=== PATIENT | male | born 1965 | race Caucasian/White ===

== ENCOUNTER → 2020-11-20 10:34 | Outpatient (BNVA) | payer MEDICARE, MEDICAID, SELFPAY | PROVIDERS: Family Provider Family Medicine; Visit Provider Internal Medicine | DX: Z01.812 Encounter for preprocedural laboratory examination (principal); Z20.822 Contact with and (suspected) exposure to COVID-19 | CPT/HCPCS: 87635 ==

== ENCOUNTER 2020-11-23 08:32 | Day surgery (SDC) | payer MEDICARE, MEDICAID, SELFPAY ==
[2020-11-21 14:08] VITALS: BMI 22.6
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
[2020-11-23 08:57] VITALS: BP 174/94; PULSE 84; RESP 18; TEMP 36.3; O2SAT 97
--- NOTE | 2020-11-23 09:15 | W.PM.OPSFHP ---
Same Day Surgery H&P Indication for Procedure/HPI DATE OF PROCEDURE: November 23, 2020 CHIEF COMPLAINT/INDICATIONFOR SURGICAL PROCEDURE: Screening colonoscopy PREOP DIAGNOSIS: screening colonoscopy PLANNED PROCEDRUE: Operation Date: 11/23/20 09:30 Proposed Procedures p Colonoscopy 28772 z12.11(Not Applicable) - Donald Lazaro MD Medications/Allergies* Home Medications Medication Instructions Recorded Confirmed Type Levemir U-100 Insulin 32 unit SUBCUT DAILY 11/21/20 11/23/20 History Novolin R Regular U-100 Insuln 17 units SUBCUT BID 11/21/20 11/23/20 History loratadine [Claritin] 10 mg PO DAILY 11/21/20 11/21/20 History multivitamin 1 tab PO DAILY 11/21/20 11/21/20 History omeprazole 20 mg PO DAILY 11/21/20 11/23/20 History Allergies/Adverse Reactions Allergy/AdvReac Type Severity Reaction Status Date / Time No Known Allergies Allergy Verified 11/23/20 08:53 Pertinent Exam Findings alert, oriented x 3, clear to auscultation bilaterally, regular rate & rhythm, operative site marked and procedure specific exam findings Recommendations Surgery/Procedure today Coding Level of Care Code Acute Pamphlet Distributor for Chris Dash
[2020-11-23] MEDS: sodium chloride 0.9% 1,000 ML 30 ML IV (09:18)
[2020-11-23 09:50] LABS: Glucose Point of Care 313 mg/dL (70-110)
[2020-11-23 10:07] VITALS: BP 130/71; PULSE 74; RESP 18; TEMP 36.5; O2SAT 95
[2020-11-23 10:17] VITALS: BP 151/91; PULSE 80; RESP 18; O2SAT 95
--- NOTE | 2020-11-23 16:26 | ANE.PACU2 ---
Inpatient post-anesthesia follow up: Airway intact: Yes Vital signs: Temperature 97.7 F Pulse Rate 80 Respiratory Rate 18 Blood Pressure 151/91 Pulse Oximetry 95 Oxygen Delivery Me thod Room Air Oxygen Flow Rate Fraction of Inspir ed Oxygen Hydration adequate: Yes Nausea and vomiting: No Pain level: 1 Mental status: Baseline
== END 2020-11-23 10:46 | disposition home or self-care (01) ==
PROVIDERS: Family Provider Family Medicine; Visit Provider Internal Medicine
PROC: 0DJD8ZZ Inspection of Lower Intestinal Tract, Via Natural or Artificial Opening Endoscopic (ICD-10-PCS; CPT 45378; principal; 2020-11-23 09:30)
DX: Z12.11 Encounter for screening for malignant neoplasm of colon (principal); I10 Essential (primary) hypertension; K21.9 Gastro-esophageal reflux disease without esophagitis; E10.9 Type 1 diabetes mellitus without complications; Z85.038 Personal history of other malignant neoplasm of large intestine
CPT/HCPCS: 36416; 82962; 96360; G0121; J2704; J7030

== ENCOUNTER 2020-11-24 11:41 | Inpatient (IN) | payer MEDICARE, MEDICAID, SELFPAY ==
[2020-11-24] VITALS (47 sets, daily range): BP systolic 75–164; BP diastolic 51–89; PULSE 92–111; RESP 0–35; TEMP 36.4–36.5; O2SAT 90–100; BMI 22.6
--- NOTE | 2020-11-24 11:48 | CTR_ITS ---
PROCEDURE INFORMATION: Exam: CT Abdomen And Pelvis Without Contrast Exam date and time: 11/24/2020 11:48 AM Age: 54 years old Clinical indication: Abdominal pain; Generalized; Prior surgery; Surgery date: Post-operative (0-2 days); Patient HX: C/O worsening abd pain since colonoscopy; Additional info: Abd pain, creat 3.9 TECHNIQUE: Imaging protocol: Computed tomography of the abdomen and pelvis without contrast. Radiation optimization: All CT scans at this facility use at least one of these dose optimization techniques: automated exposure control; mA and/or kV adjustment per patient size (includes targeted exams where dose is matched to clinical indication); or iterative reconstruction. COMPARISON: CT abdomen wo con [id number] 07/06/2018 3:54 PM RADIATION DOSE METRICS: Total DLP (mGy-cm): 944.98 FINDINGS: Limitations: The absence of intravenous contrast lessens the sensitivity of this study for solid organ abnormalities. Lungs: There is partial atelectasis at both lung bases. Liver: There is extensive air throughout the portal veins within the liver. Gallbladder and bile ducts: The gallbladder is normal. Pancreas: The pancreas is normal. Spleen: The spleen is normal. Adrenal glands: There is question of slight enlargement of the left adrenal gland not fully evaluated on this study. Kidneys and ureters: The kidneys are normal. There is no evidence of hydronephrosis. Stomach and bowel: There is abnormal thickening of many loops of small bowel in the mid abdomen which may represent some nonspecific enteritis. There is also dilatation of some proximal small bowel loops in the left upper quadrant. Given the findings of portal venous gas in the small bowel thickening is worrisome for ischemic bowel. Appendix: Not identified Intraperitoneal space: There is copious free air throughout the abdomen mostly anteriorly. Findings are worrisome for perforated viscus. Surgical consultation is advised. There is no evidence of free intraperitoneal fluid. Vasculature: There is some air within the leaves of the mesentery some of which may represent portal venous gas. There are postsurgical changes of prior distal colon resection. Lymph nodes: Unremarkable. No enlarged lymph nodes. Urinary bladder: There is a Hull catheter within the urinary bladder. Reproductive: Unremarkable as visualized. Bones/joints: Unremarkable. No acute fracture. Soft tissues: Unremarkable. CT/CT abdomen pelvis wo con [id number] IMPRESSION: 1. Free intraperitoneal air. 2. Very large amounts of portal venous gas within the liver. 3. Abnormal small bowel loops. Findings are suggestive of ischemic small bowel. 4. Findings suggesting small bowel obstruction. COMMENTS: THIS REPORT CONTAINS FINDINGS THAT MAY BE CRITICAL TO PATIENT CARE. The findings were verbally communicated via telephone conference with MANDO VASQUEZ at 1:34 PM CDT on 11/24/2020. The findings were acknowledged and understood. Radiation Dose CTDIVOL = (mGy): DLP = 944.98 (mGy-cm)
--- NOTE | 2020-11-24 11:48 | XRR_ITS ---
PROCEDURE INFORMATION: Exam: XR Chest Exam date and time: 11/24/2020 11:48 AM Age: 54 years old Clinical indication: Cough; Additional info: Dyspnea/cough TECHNIQUE: Imaging protocol: XR of the chest. Views: 1 view. COMPARISON: [place] Chest 1 [place] [id number] 07/09/2018 3:57 AM FINDINGS: Lungs: There is some partial atelectasis at the lung bases. There is no pulmonary vascular congestion. No focal infiltrate is identified. Pleural spaces: Unremarkable. No pleural effusion. No pneumothorax. Heart/Mediastinum: Heart is within normal limits of size. Bones/joints: Unremarkable. Intraperitoneal space: There is a large amount of free intraperitoneal air beneath the diaphragm. This finding was called to the emergency room physician at the time of reporting of the CT scan. XR/XR chest 1V portable [id number] IMPRESSION: 1. Large free air 2. Basilar atelectasis.
--- NOTE | 2020-11-24 11:48 | W.ED.GENADLT ---
HPI - General Adult General: Chief complaint: Altered Mental Status Stated complaint: FOUND UNRESPONSIVE Time Seen by Provider: 11/24/20 11:46 History of Present Illness: HPI narrative: 54-year-old male brought in by EMS found unresponsive and severely hypotensive in the field. He was poorly responsive he was given a push dose epi and also given normal saline fluid bolus. He is awake and responsive he denies any chest pain he does complain of some abdominal discomfort he had a colonoscopy done at the [facility] yesterday he denies any hematochezia. He is had some vomiting he did take his insulin this morning. In the field his initial blood sugar was 160 repeat was 137. By the time he arrived here he received a full liter of fluids and was starting on the second. He was last seen well around 930 this morning he arrived here in the emergency room at approximately 1145. Reviewing records seen patient had colonoscopy done yesterday. Onset (ago): hour(s) Location: abdomen Severity: moderate Quality: aching Pain Consistency: constant Relieving factors: none Exacerbating factors: none Associated symptoms: Reports confusion and nausea; Deny chest pain, cough, diaphoresis, decreased appetite, dyspnea, fevers/chills, headache(s), malaise, rash, palpitations, seizures, short of breath, syncope, vomiting or weakness Review of Systems Const: Denies: malaise or diaphoresis ENMT: Denies: throat pain, ear or mastoid pain, nasal discharge or nasal congestion Card: Denies: chest pain, palpitations or syncope Resp: Denies: dyspnea GI: Reports: nausea; Denies: vomiting : Denies: flank pain, dysuria, urinary frequency or urinary urgency Skin/Breast: Denies: rash Neuro: Reports: confusion; Denies: headache(s) [facility] ED PFSH: Medical History (Updated 12/06/20 @ 08:00 by Fuad Cronin DO) Blindness of both eyes Diabetes GERD (gastroesophageal reflux disease) Rectosigmoid cancer SBO (small bowel obstruction) Status post chemoradiation Surgical History (Updated 11/25/20 @ 12:16 by Mack Ricardo MD) History of low anterior resection of rectum History of reversal of ileostomy S/P exploratory laparotomy (11/24/20) Small bowel resection, partial colectomy Status post colonoscopy (11/23/20) Physical Exam Const: COMMON NORMALS: no acute distress GENERAL APPEARANCE: cooperative and comfortable ORIENTATION/CONSCIOUSNESS: Yes awake HENMT: COMMON NORMALS: normocephalic, atraumatic, hearing grossly normal bilaterally and external ears normal HEAD & SCALP: normocephalic and atraumatic EXTERNAL EAR: Yes external ears normal Neck/C-Spine: COMMON NORMALS: no JVD Resp: COMMON NORMALS: normal respiratory effort, No retractions, No use of accessory muscles and clear to auscultation bilaterally AUSCULTATION: clear to auscultation bilaterally Cardio: COMMON NORMALS: no JVD, regular rhythm and No murmurs present (Cardio) RATE: tachycardic RHYTHM: regular rhythm GI: COMMON NORMALS: No hepatosplenomegaly present AUSCULTATION: Yes Absent bowel sounds PALPATION: Yes Tenderness to palpation present (GI) (Diffusely tender), Yes Guarding due to palpation present (GI) and Yes No hepatosplenomegaly present PERCUSSION: tympanic to percussion OTHER: Abrasion to the abdominal wall small superficial just to the right of the midline Extremity: COMMON NORMALS: normal to inspection, capillary refill normal, no clubbing, cyanosis or edema, no calf tenderness and no pedal edema Skin: COMMON NORMALS: no rashes or lesions noted GENERAL SKIN EXAM: no rashes or lesions noted Course Vital Signs: Vital signs: Vital Signs Temperature 98.4 F 12/06/20 03:45 Pulse Rate 91 12/06/20 03:45 Respiratory Rate 18 12/06/20 03:45 Blood Pressure 100/53 12/06/20 03:45 Pulse Oximetry 93 12/06/20 03:45 MDM - General Adult MDM Narrative: Medical decision making narrative: Acute abdomen with free air on CT discussed with Dr. Ricardo will take directly to the OR from the ER. Patient has been started on pressors she is acutely septic cultures have been drawn as well as antibiotics started. Lab Data: Labs: Lab Results 11/24/20 11/24/20 11/24/20 Range/Units 11:54 11:54 11:54 WBC 6.7 (4.0-10.0) 10^3/ uL RBC 4.80 (4.1-5.3) 10^6/u L Hgb 15.2 (11.7-16.6) g/dL Hct 46.8 (42.0-52.0) % MCV 97.5 H (80-94) fL MCH 31.7 (28.0-34.0) pg MCHC 32.5 (30.0-36.0) g/dL RDW 13.2 (12.1-15.1) % Plt Count 269 (130-400) 10^3/c mm MPV 11.3 H (7.4-10.4) fL Lymph % (Auto) Not Reportable Tyrrell % (Auto) Not Reportable Lymph # (Auto) Not Reportable Tyrrell # (Auto) Not Reportable Total Counted 100 (0-100) Atypical Lymphs % 0.0 (0-5) % Absolute Neutrophi ls 2.9 (1.4-6.5) 10^3/c mm Segmented Neutroph ils 3 % Abs Segm Neuts (Ma n) 0.2 L (1.6-7.1) 10/cmm Band Neutrophils 40.0 % Abs Band Neuts (Ma n) 2.7 H (0.0-1.2) 10^3/c mm Absolute Lymphocyt es 1.5 (1.2-3.4) 10^3/c mm Lymphocytes (Manua l) 23 % Monocytes (Manual) 18.0 % Absolute Monocytes 1.2 H (0.1-0.6) 10^3/c mm Eosinophils (Manua l) 1 % Absolute Eosinophi ls 0.0 (0.0-0.7) 10^3/c mm Basophils (Manual) 0.0 % Absolute Basophils 0.0 (0.0-0.2) 10^3/c mm Metamyelocytes 11.0 % Myelocytes 4.0 % Platelet Estimate Normal (Normal) Specimen Type Sample Site ABG pH (7.35-7.45) ABG pCO2 (35-45) mmHg ABG pO2 (80.0-100.0) mmH g ABG HCO3 (22-26) mmol/L ABG O2 Saturation ABG Base Excess (-2.0-2.0) mmol/ L Primitivo Test A-a O2 Gradient (5-10) mmHg Hematocrit (42-52) % Hgb O2 Saturation (95-100) % Carboxyhemoglobin (0.4-20.1) %THgb Methemoglobin (0.4-1.5) % Total Hemoglobin (14-18) g/dL Ionized Calcium (1.1-1.4) mmol/L O2 Delivery Device O2 Liters/Min % FiO2 % Train Operations Manager ID Sodium 145 (136-145) mmol/L Potassium 3.3 L (3.5-5.1) mmol/L Chloride 104 (98-107) mmol/L Carbon Dioxide 13 L (22-29) mmol/L Anion Gap 31.3 H (5-19) BUN 29 H (6-20) mg/dL Creatinine 3.9 H (0.7-1.2) mg/dL GFR Calculation 16.1 L (90-130) mL/min Glucose 123 H (65-115) mg/dL POC Glucose (70-110) mg/dL Calculated Osmolal ity 307 H (285-295) mOsm/k g Lactic Acid 14.8 H* (0.5-2.2) mmol/L Calcium 7.9 L (8.5-10.5) mg/dL Total Bilirubin 0.9 (0.15-1.2) mg/dL AST 35 (0-40) U/L ALT 28 (0-41) U/L Alkaline Phosphata se 66 (40-130) IU/L Creatine Kinase 1081 H* (39-308) U/L Troponin T Baselin e (0-15) ng/L Troponin T 120 Min [place] (0-15) ng/L Delta Troponin T (0-10) ABS# Total Protein 4.1 L (6.6-8.7) g/dL Albumin 2.8 L (3.5-5.2) g/dL Globulin 1.3 (1.3-4.6) g/dL Lipase 8 L (13-60) U/L Urine Color (Yellow) Urine Appearance (CLEAR) Urine pH (5-7) Ur Specific Gravit y (1.005-1.030) Urine Protein (Negative) Urine Glucose (UA) (Normal) Urine Ketones (Negative) Urine Blood (Negative) Urine Nitrate (Negative) Urine Bilirubin (Negative) Urine Urobilinogen (Negative) mg/dL Ur Leukocyte Smiley ase (Negative) Urine RBC (0-2) /hpf Urine WBC (0-5) /hpf Ur Squamous Epith Cells (0-5) /hpf Amorphous Sediment Urine Bacteria (NONE) /hpf Hyaline Casts /lpf Coarse Granular Ca sts /lpf Urine Mucus /hpf Urine Opiates Scre en (Negative) ng/mL Ur Barbiturates Sc reen (Negative) ng/mL Ur Phencyclidine S crn (Negative) ng/mL Ur Amphetamines Sc reen (Negative) ng/mL U Benzodiazepines Scrn (Negative) ng/mL Urine Cocaine Scre en (Negative) ng/mL U Marijuana (THC) Screen (Negative) ng/mL Serum Ketones (Negative) Blood Type Rho(D) Type Antibody Screen Crossmatch 11/24/20 11/24/20 11/24/20 Range/Units 11:54 11:54 12:02 WBC (4.0-10.0) 10^3/ uL RBC (4.1-5.3) 10^6/u L Hgb (11.7-16.6) g/dL Hct (42.0-52.0) % MCV (80-94) fL MCH (28.0-34.0) pg MCHC (30.0-36.0) g/dL RDW (12.1-15.1) % Plt Count (130-400) 10^3/c mm MPV (7.4-10.4) fL Lymph % (Auto) Tyrrell % (Auto) Lymph # (Auto) [place] # (Auto) Total Counted (0-100) Atypical Lymphs % (0-5) % Absolute Neutrophi ls (1.4-6.5) 10^3/c mm Segmented Neutroph ils % Abs Segm Neuts (Ma n) (1.6-7.1) 10/cmm Band Neutrophils % Abs Band Neuts (Ma n) (0.0-1.2) 10^3/c mm Absolute Lymphocyt es (1.2-3.4) 10^3/c mm Lymphocytes (Manua l) % Monocytes (Manual) % Absolute Monocytes (0.1-0.6) 10^3/c mm Eosinophils (Manua l) % Absolute Eosinophi ls (0.0-0.7) 10^3/c mm Basophils (Manual) % Absolute Basophils (0.0-0.2) 10^3/c mm Metamyelocytes % Myelocytes % Platelet Estimate (Normal) Specimen Type Arterial Sample Site Radial, right ABG pH 7.29 L (7.35-7.45) ABG pCO2 27.6 L (35-45) mmHg ABG pO2 63.6 L (80.0-100.0) mmH g ABG HCO3 13.4 L (22-26) mmol/L ABG O2 Saturation 89.8 ABG Base Excess -11.5 L (-2.0-2.0) mmol/ L Primitivo Test Pos A-a O2 Gradient 27.8 H (5-10) mmHg Hematocrit 45.3 (42-52) % Hgb O2 Saturation 88.2 L (95-100) % Carboxyhemoglobin 1.0 (0.4-20.1) %THgb Methemoglobin 0.8 (0.4-1.5) % Total Hemoglobin 14.8 (14-18) g/dL Ionized Calcium 1.1 (1.1-1.4) mmol/L O2 Delivery Device Nc O2 Liters/Min 6.0 % FiO2 44.0 % Train Operations Manager ID Ed Sodium 139.0 (136-145) mmol/L Potassium 2.9 L (3.5-5.1) mmol/L Chloride (98-107) mmol/L Carbon Dioxide (22-29) mmol/L Anion Gap (5-19) BUN (6-20) mg/dL Creatinine (0.7-1.2) mg/dL GFR Calculation (90-130) mL/min Glucose 115.0 (65-115) mg/dL POC Glucose (70-110) mg/dL Calculated Osmolal ity (285-295) mOsm/k g Lactic Acid (0.5-2.2) mmol/L Calcium (8.5-10.5) mg/dL Total Bilirubin (0.15-1.2) mg/dL AST (0-40) U/L ALT (0-41) U/L Alkaline Phosphata se (40-130) IU/L Creatine Kinase (39-308) U/L Troponin T Baselin e 38 H (0-15) ng/L Troponin T 120 Min [place] (0-15) ng/L Delta Troponin T (0-10) ABS# Total Protein (6.6-8.7) g/dL Albumin (3.5-5.2) g/dL Globulin (1.3-4.6) g/dL Lipase (13-60) U/L Urine Color (Yellow) Urine Appearance (CLEAR) Urine pH (5-7) Ur Specific Gravit y (1.005-1.030) Urine Protein (Negative) Urine Glucose (UA) (Normal) Urine Ketones (Negative) Urine Blood (Negative) Urine Nitrate (Negative) Urine Bilirubin (Negative) Urine Urobilinogen (Negative) mg/dL Ur Leukocyte Smiley ase (Negative) Urine RBC (0-2) /hpf Urine WBC (0-5) /hpf Ur Squamous Epith Cells (0-5) /hpf Amorphous Sediment Urine Bacteria (NONE) /hpf Hyaline Casts /lpf Coarse Granular Ca sts /lpf Urine Mucus /hpf Urine Opiates Scre en (Negative) ng/mL Ur Barbiturates Sc reen (Negative) ng/mL Ur Phencyclidine S crn (Negative) ng/mL Ur Amphetamines Sc reen (Negative) ng/mL U Benzodiazepines Scrn (Negative) ng/mL Urine Cocaine Scre en (Negative) ng/mL U Marijuana (THC) Screen (Negative) ng/mL Serum Ketones Negative (Negative) Blood Type Rho(D) Type Antibody Screen Crossmatch 11/24/20 11/24/20 11/24/20 Range/Units 12:28 13:00 13:00 WBC (4.0-10.0) 10^3/ uL RBC (4.1-5.3) 10^6/u L Hgb (11.7-16.6) g/dL Hct (42.0-52.0) % MCV (80-94) fL MCH (28.0-34.0) pg MCHC (30.0-36.0) g/dL RDW (12.1-15.1) % Plt Count (130-400) 10^3/c mm MPV (7.4-10.4) fL Lymph % (Auto) Tyrrell % (Auto) Lymph # (Auto) [place] # (Auto) Total Counted (0-100) Atypical Lymphs % (0-5) % Absolute Neutrophi ls (1.4-6.5) 10^3/c mm Segmented Neutroph ils % Abs Segm Neuts (Ma n) (1.6-7.1) 10/cmm Band Neutrophils % Abs Band Neuts (Ma n) (0.0-1.2) 10^3/c mm Absolute Lymphocyt es (1.2-3.4) 10^3/c mm Lymphocytes (Manua l) % Monocytes (Manual) % Absolute Monocytes (0.1-0.6) 10^3/c mm Eosinophils (Manua l) % Absolute Eosinophi ls (0.0-0.7) 10^3/c mm Basophils (Manual) % Absolute Basophils (0.0-0.2) 10^3/c mm Metamyelocytes % Myelocytes % Platelet Estimate (Normal) Specimen Type Sample Site ABG pH (7.35-7.45) ABG pCO2 (35-45) mmHg ABG pO2 (80.0-100.0) mmH g ABG HCO3 (22-26) mmol/L ABG O2 Saturation ABG Base Excess (-2.0-2.0) mmol/ L Primitivo Test A-a O2 Gradient (5-10) mmHg Hematocrit (42-52) % Hgb O2 Saturation (95-100) % Carboxyhemoglobin (0.4-20.1) %THgb Methemoglobin (0.4-1.5) % Total Hemoglobin (14-18) g/dL Ionized Calcium (1.1-1.4) mmol/L O2 Delivery Device O2 Liters/Min % FiO2 % Train Operations Manager ID Sodium (136-145) mmol/L Potassium (3.5-5.1) mmol/L Chloride (98-107) mmol/L Carbon Dioxide (22-29) mmol/L Anion Gap (5-19) BUN (6-20) mg/dL Creatinine (0.7-1.2) mg/dL GFR Calculation (90-130) mL/min Glucose (65-115) mg/dL POC Glucose 86 (70-110) mg/dL Calculated Osmolal ity (285-295) mOsm/k g Lactic Acid (0.5-2.2) mmol/L Calcium (8.5-10.5) mg/dL Total Bilirubin (0.15-1.2) mg/dL AST (0-40) U/L ALT (0-41) U/L Alkaline Phosphata se (40-130) IU/L Creatine Kinase (39-308) U/L Troponin T Baselin e (0-15) ng/L Troponin T 120 Min [place] (0-15) ng/L Delta Troponin T (0-10) ABS# Total Protein (6.6-8.7) g/dL Albumin (3.5-5.2) g/dL Globulin (1.3-4.6) g/dL Lipase (13-60) U/L Urine Color Dark yellow (Yellow) Urine Appearance Clear (CLEAR) Urine pH 5 (5-7) Ur Specific Gravit y 1.025 (1.005-1.030) Urine Protein Trace (Negative) Urine Glucose (UA) 4+ H (Normal) Urine Ketones 1+ H (Negative) Urine Blood 3+ H (Negative) Urine Nitrate Negative (Negative) Urine Bilirubin 1+ H (Negative) Urine Urobilinogen Norm (Negative) mg/dL Ur Leukocyte Smiley ase Negative (Negative) Urine RBC 0-4 H (0-2) /hpf Urine WBC 0-4 H (0-5) /hpf Ur Squamous Epith Cells None (0-5) /hpf Amorphous Sediment Not Reportable Urine Bacteria 1+ H (NONE) /hpf Hyaline Casts 5-10 H /lpf Coarse Granular Ca sts 0-4 H /lpf Urine Mucus Trace /hpf Urine Opiates Scre en Negative (Negative) ng/mL Ur Barbiturates Sc reen Negative (Negative) ng/mL Ur Phencyclidine S crn Negative (Negative) ng/mL Ur Amphetamines Sc reen Negative (Negative) ng/mL U Benzodiazepines Scrn Negative (Negative) ng/mL Urine Cocaine Scre en Negative (Negative) ng/mL U Marijuana (THC) Screen Negative (Negative) ng/mL Serum Ketones (Negative) Blood Type Rho(D) Type Antibody Screen Crossmatch 11/24/20 11/24/20 11/24/20 Range/Units 14:08 14:08 16:30 WBC (4.0-10.0) 10^3/ uL RBC (4.1-5.3) 10^6/u L Hgb (11.7-16.6) g/dL Hct (42.0-52.0) % MCV (80-94) fL MCH (28.0-34.0) pg MCHC (30.0-36.0) g/dL RDW (12.1-15.1) % Plt Count (130-400) 10^3/c mm MPV (7.4-10.4) fL Lymph % (Auto) Tyrrell % (Auto) Lymph # (Auto) [place] # (Auto) Total Counted (0-100) Atypical Lymphs % (0-5) % Absolute Neutrophi ls (1.4-6.5) 10^3/c mm Segmented Neutroph ils % Abs Segm Neuts (Ma n) (1.6-7.1) 10/cmm Band Neutrophils % Abs Band Neuts (Ma n) (0.0-1.2) 10^3/c mm Absolute Lymphocyt es (1.2-3.4) 10^3/c mm Lymphocytes (Manua l) % Monocytes (Manual) % Absolute Monocytes (0.1-0.6) 10^3/c mm Eosinophils (Manua l) % Absolute Eosinophi ls (0.0-0.7) 10^3/c mm Basophils (Manual) % Absolute Basophils (0.0-0.2) 10^3/c mm Metamyelocytes % Myelocytes % Platelet Estimate (Normal) Specimen Type Sample Site ABG pH (7.35-7.45) ABG pCO2 (35-45) mmHg ABG pO2 (80.0-100.0) mmH g ABG HCO3 (22-26) mmol/L ABG O2 Saturation ABG Base Excess (-2.0-2.0) mmol/ L Primitivo Test A-a O2 Gradient (5-10) mmHg Hematocrit (42-52) % Hgb O2 Saturation (95-100) % Carboxyhemoglobin (0.4-20.1) %THgb Methemoglobin (0.4-1.5) % Total Hemoglobin (14-18) g/dL Ionized Calcium (1.1-1.4) mmol/L O2 Delivery Device O2 Liters/Min % FiO2 % Train Operations Manager ID Sodium (136-145) mmol/L Potassium (3.5-5.1) mmol/L Chloride (98-107) mmol/L Carbon Dioxide (22-29) mmol/L Anion Gap (5-19) BUN (6-20) mg/dL Creatinine (0.7-1.2) mg/dL GFR Calculation (90-130) mL/min Glucose (65-115) mg/dL POC Glucose 93 (70-110) mg/dL Calculated Osmolal ity (285-295) mOsm/k g Lactic Acid (0.5-2.2) mmol/L Calcium (8.5-10.5) mg/dL Total Bilirubin (0.15-1.2) mg/dL AST (0-40) U/L ALT (0-41) U/L Alkaline Phosphata se (40-130) IU/L Creatine Kinase (39-308) U/L Troponin T Baselin e (0-15) ng/L Troponin T 120 Min [place] 35.16 H (0-15) ng/L Delta Troponin T -2.84 L (0-10) ABS# Total Protein (6.6-8.7) g/dL Albumin (3.5-5.2) g/dL Globulin (1.3-4.6) g/dL Lipase (13-60) U/L Urine Color (Yellow) Urine Appearance (CLEAR) Urine pH (5-7) Ur Specific Gravit y (1.005-1.030) Urine Protein (Negative) Urine Glucose (UA) (Normal) Urine Ketones (Negative) Urine Blood (Negative) Urine Nitrate (Negative) Urine Bilirubin (Negative) Urine Urobilinogen (Negative) mg/dL Ur Leukocyte Smiley ase (Negative) Urine RBC (0-2) /hpf Urine WBC (0-5) /hpf Ur Squamous Epith Cells (0-5) /hpf Amorphous Sediment Urine Bacteria (NONE) /hpf Hyaline Casts /lpf Coarse Granular Ca sts /lpf Urine Mucus /hpf Urine Opiates Scre en (Negative) ng/mL Ur Barbiturates Sc reen (Negative) ng/mL Ur Phencyclidine S crn (Negative) ng/mL Ur Amphetamines Sc reen (Negative) ng/mL U Benzodiazepines Scrn (Negative) ng/mL Urine Cocaine Scre en (Negative) ng/mL U Marijuana (THC) Screen (Negative) ng/mL Serum Ketones (Negative) Blood Type A Positive Rho(D) Type Positive / 4+ Antibody Screen Negative Crossmatch See Detail Discharge Plan Discharge Patient Disposition: Admitted As Inpatient Admit Provider: Mack Ricardo Clinical Impression: Perforated bowel, Free intraperitoneal air, Acute renal failure, Sepsis, Diabetes mellitus, History of colon cancer Condition: Stable Coding Level of Care Code ED Electronic Wirer for g Fwd Exam Comprehensive
--- NOTE | 2020-11-24 11:49 | ECG_ITS ---
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 Measurements Intervals [place] Rate: 111 P: 57 MI: 166 QRS: 71 QRSD: 112 T: -18 QT: 344 QTc: 468 Interpretive Statements SINUS TACHYCARDIA POSSIBLE LEFT ATRIAL ENLARGEMENT [-0.1mV P WAVE IN V1/V2] INFERIOR MYOCARDIAL INFARCTION [40+ ms Q WAVE AND/OR ST/T ABNORMALITY IN II/aVF], OF INDETERMINATE AGE MODERATE T-WAVE ABNORMALITY, CONSIDER LATERAL ISCHEMIA [-0.1+ mV T WAVE IN I/aVL/V5/V6] No previous ECG available for comparison Electronically Signed On 11-25-2020 9:43:15 CDT by Massiel Mojica M.D. [id number]
[2020-11-24] MEDS: ondansetron 2 mg/ML SDV 2 mL 4 MG IVP (12:02)
[2020-11-24] MEDS: sodium chloride 0.9% 1,000 ML 999 ML IV (12:03)
[2020-11-24 12:12] LABS: ABG PCO2 27.6 mmHg (35-45); ABG PH Result 7.29 (7.35-7.45); Arterial Blood Gas Hematocrit 45.3 % (42-52); Base Excess ABG -11.5 mmol/L (-2.0-2.0); Blood Gas Allen Test Pos; Blood Gas Sample Type Arterial; HCO3 ABG 13.4 mmol/L (22-26); HGB O2 Sat 88.2 % (95-100); Ionized Calcium Level - ABG 1.1 mmol/L (1.1-1.4); Methemoglobin 0.8 % (0.4-1.5); Oxygen Saturation ABG 89.8; PO2 ABG 63.6 mmHg (80.0-100.0); Potassium Level - ABG 2.9 mmol/L (3.5-5.0); Total Hemoglobin 14.8 g/dL (14-18)
[2020-11-24 12:13] LABS: Alveolar-Arterial Oxygen Gradi 27.8 mmHg (5-10); Blood Gas Operator Identificat ED; Blood Gas Sample Site Radial, right; Oxygen Device NC
[2020-11-24 12:15] LABS: Hematocrit 46.8 % (42.0-52.0); Hemoglobin 15.2 g/dL (11.7-16.6); Mean Corpuscular HGB Conc 32.5 g/dL (30.0-36.0); Mean Corpuscular Hemoglobin 31.7 pg (28.0-34.0); Mean Corpuscular Volume 97.5 fL (80-94); Mean Platelet Volume 11.3 fL (7.4-10.4); Platelet Count 269 10^3/cmm (130-400); Red Cell Distribution Width 13.2 % (12.1-15.1); White Blood Count 6.7 10^3/uL (4.0-10.0)
[2020-11-24 12:31] LABS: Glucose Point of Care 86 mg/dL (70-110)
[2020-11-24 12:33] LABS: Ketone (Acetest) Serum Negative (Negative)
[2020-11-24 12:37] LABS: Troponin(5th) Baseline 38 ng/L (0-15)
[2020-11-24 12:40] LABS: Alanine Aminotransferase 28 U/L (0-41); Albumin Level 2.8 g/dL (3.5-5.2); Alkaline Phosphatase 66 IU/L (40-130); Anion Gap 31.3 (5-19); Aspartate Amino Transferase 35 U/L (0-40); Blood Urea Nitrogen 29 mg/dL (6-20); Calcium 7.9 mg/dL (8.5-10.5); Carbon Dioxide 13 mmol/L (22-29); Chloride 104 mmol/L (98-107); Creatinine Clr Calc Pharmacy 21.9363; Globulin 1.3 g/dL (1.3-4.6); Glomerular Filtration Rate 16.1 mL/min (90-130); Glucose 123 mg/dL (65-115); Lipase 8 U/L (13-60); Osmolality Calculated 307 mOsm/kg (285-295); Potassium 3.3 mmol/L (3.5-5.1); Sodium 145 mmol/L (136-145); Total Bilirubin 0.9 mg/dL (0.15-1.2); Total Protein 4.1 g/dL (6.6-8.7)
[2020-11-24] MEDS: dextrose 50% syringe 50 mL 25 ML IVP (12:48)
[2020-11-24] MEDS: promethazine 25 mg/mL SDV 1 mL IM (12:48)
[2020-11-24 12:56] LABS: Slide Review Slide Review Perform
[2020-11-24 12:59] LABS: Creatine Phosphokinase 1081 U/L (39-308); Lactic Sepsis W/Reflex 14.8 mmol/L (0.5-2.2)
--- NOTE | 2020-11-24 13:00 | PC.NURSE ---
lab called with critical. Doctor and mel thompson notified [id number]
[2020-11-24 13:06] LABS: Absolute Neutrophil 2.9 10^3/cmm (1.4-6.5); Absolute Segmented Neutrophil 0.2 10/cmm (1.6-7.1); Band Neutrophils Absolute 2.7 10^3/cmm (0.0-1.2); Eosinophils 1 %; Lymphocytes 23 %; Lymphocytes Absolute 1.5 10^3/cmm (1.2-3.4); Monocytes Absolute 1.2 10^3/cmm (0.1-0.6); Platelet Estimate Normal (Normal); Segmented Neutrophils 3 %; Total Cells Counted 100 (0-100)
[2020-11-24] MEDS: piperacillin-tazobactam 3.375 GM in sodium chloride 0.9% (plus) 50 ML IV ×2 (13:21→20:30)
[2020-11-24 13:31] LABS: Amphetamines Screen Urine Negative (Negative); Barbiturates Screen Urine Negative (Negative); Benzodiazepines Screen Urine Negative (Negative); Cocaine Screen Urine Negative (Negative); Opiate Screen Urine Negative (Negative); PCP Screen Urine Negative (Negative); THC Screen Urine Negative (Negative)
[2020-11-24 13:37] LABS: Add Urine Microscopic? YES; Bilirubin Urine 1+ (Negative); Blood Urine 3+ (Negative); Glucose Urine UA 4+ (Normal); Ketones Urine 1+ (Negative); Leukocyte Esterase Urine Negative (Negative); Nitrate Urine Negative (Negative); Protein Urine Trace (Negative); RBC Urine 0-4 /hpf (0-2); Specific Gravity, Urine 1.025 (1.005-1.030); Urine Appearance Clear (CLEAR); Urine Color Dark Yellow (Yellow); Urobilinogen Urine Norm (Negative); WBC Urine 0-4 /hpf (0-5); pH Urine 5 (5-7)
[2020-11-24 13:38] LABS: Add Urine Culture? No; Bacteria Urine 1+ /hpf; Coarse Granular Casts Urine 0-4 /lpf; Mucus Urine TRACE /hpf
--- NOTE | 2020-11-24 13:49 | ECG_ITS ---
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 Measurements Intervals [place] Rate: 99 P: 62 [place]: 156 QRS: 37 QRSD: 128 T: 10 QT: 316 QTc: 406 Interpretive Statements SINUS RHYTHM POSSIBLE LEFT ATRIAL ENLARGEMENT [-0.1mV P WAVE IN V1/V2] MODERATE INTRAVENTRICULAR CONDUCTION DELAY [110+ ms QRS DURATION] ST DEVIATION AND MODERATE T-WAVE ABNORMALITY, CONSIDER LATERAL ISCHEMIA [-0.1+ mV T WAVE IN I/aVL/V5/V6] Compared to ECG 11/24/2020 11:58:06 Intraventricular conduction delay now present Sinus tachycardia no longer present Myocardial infarct finding no longer present T-wave abnormality still present Possible ischemia still present Electronically Signed On 11-25-2020 9:48:20 CDT by Massiel Mojica M.D. [id number]
[2020-11-24 13:56] LABS: Reflex Lactate Order REFLEX LACTIC ORDERD
--- NOTE | 2020-11-24 14:00 | ANES.PAUD2 ---
Pre-Anesthetic Update Pre-Anesthetic Assessment: Date of Surgery/Procedure: 11/24/20 Preop Diagnosis: intraperitoneal free air Proposed Procedure: Operation Date: 11/24/20 15:35 Proposed Procedures p Exploratory Laparotomy(Not Applicable) - Mack Ricardo MD Any changes to Pre-Anesthetic Assessment?: Yes Changes from Pre-Anesthetic Assessment: bowel perforation with septic shock, s/p round of CPR at home by family member after episode of unconsciousness and development of cyanosis Labs Last 48hrs: Laboratory Results - last 48 hr 11/24/20 11/24/20 11/24/20 11:54 11:54 11:54 WBC 6.7 RBC 4.80 Hgb 15.2 Hct 46.8 MCV 97.5 H MCH 31.7 MCHC 32.5 RDW 13.2 Plt Count 269 MPV 11.3 H Lymph % (Auto) Not Reportable Gaines % (Auto) Not Reportable Lymph # (Auto) Not Reportable Gaines # (Auto) Not Reportable Total Counted 100 Atypical Lymphs % 0.0 Absolute Neutrophi ls 2.9 Segmented Neutroph ils 3 Abs Segm Neuts (Ma n) 0.2 L Band Neutrophils 40.0 Abs Band Neuts (Ma n) 2.7 H Absolute Lymphocyt es 1.5 Lymphocytes (Manua l) 23 Monocytes (Manual) 18.0 Absolute Monocytes 1.2 H Eosinophils (Manua l) 1 Absolute Eosinophi ls 0.0 Basophils (Manual) 0.0 Absolute Basophils 0.0 Metamyelocytes 11.0 Myelocytes 4.0 Platelet Estimate Normal Specimen Type Sample Site ABG pH ABG pCO2 ABG pO2 ABG HCO3 ABG O2 Saturation ABG Base Excess Primitivo Test A-a O2 Gradient Hematocrit Hgb O2 Saturation Carboxyhemoglobin Methemoglobin Total Hemoglobin Ionized Calcium O2 Delivery Device O2 Liters/Min FiO2 Specimen Accessioner ID Sodium 145 Potassium 3.3 L Chloride 104 Carbon Dioxide 13 L Anion Gap 31.3 H BUN 29 H Creatinine 3.9 H GFR Calculation 16.1 L Glucose 123 H POC Glucose Calculated Osmolal ity 307 H Lactic Acid 14.8 H* Calcium 7.9 L Total Bilirubin 0.9 AST 35 ALT 28 Alkaline Phosphata se 66 Creatine Kinase 1081 H* Troponin T Baselin e Troponin T [address] [place] Troponin T Total Protein 4.1 L Albumin 2.8 L Globulin 1.3 Lipase 8 L Urine Color Urine Appearance Urine pH Ur Specific Gravit y Urine Protein Urine Glucose (UA) Urine Ketones Urine Blood Urine Nitrate Urine Bilirubin Urine Urobilinogen Ur Leukocyte Smiley ase Urine RBC Urine WBC Ur Squamous Epith Cells Amorphous Sediment Urine Bacteria Hyaline Casts Coarse Granular Ca sts Urine Mucus Urine Opiates Scre en Ur Barbiturates Sc reen Ur Phencyclidine S crn Ur Amphetamines Sc reen U Benzodiazepines Scrn Urine Cocaine Scre en U Marijuana (THC) Screen Serum Ketones Blood Type Rho(D) Type Antibody Screen Crossmatch 11/24/20 11/24/20 11/24/20 11:54 11:54 12:02 WBC RBC Hgb Hct MCV MCH MCHC RDW Plt Count MPV Lymph % (Auto) Gaines % (Auto) Lymph # (Auto) Gaines # (Auto) Total Counted Atypical Lymphs % Absolute Neutrophi ls Segmented Neutroph ils Abs Segm Neuts (Ma n) Band Neutrophils Abs Band Neuts (Ma n) Absolute Lymphocyt es Lymphocytes (Manua l) Monocytes (Manual) Absolute Monocytes Eosinophils (Manua l) Absolute Eosinophi ls Basophils (Manual) Absolute Basophils Metamyelocytes Myelocytes Platelet Estimate Specimen Type Arterial Sample Site Radial, right ABG pH 7.29 L ABG pCO2 27.6 L ABG pO2 63.6 L ABG HCO3 13.4 L ABG O2 Saturation 89.8 ABG Base Excess -11.5 L Primitivo Test Pos A-a O2 Gradient 27.8 H Hematocrit 45.3 Hgb O2 Saturation 88.2 L Carboxyhemoglobin 1.0 Methemoglobin 0.8 Total Hemoglobin 14.8 Ionized Calcium 1.1 O2 Delivery Device Nc O2 Liters/Min 6.0 FiO2 44.0 Specimen Accessioner ID Ed Sodium 139.0 Potassium 2.9 L Chloride Carbon Dioxide Anion Gap BUN Creatinine GFR Calculation Glucose 115.0 POC Glucose Calculated Osmolal ity Lactic Acid Calcium Total Bilirubin AST ALT Alkaline Phosphata se Creatine Kinase Troponin T Baselin e 38 H Troponin T [address] [place] Troponin T Total Protein Albumin Globulin Lipase Urine Color Urine Appearance Urine pH Ur Specific Gravit y Urine Protein Urine Glucose (UA) Urine Ketones Urine Blood Urine Nitrate Urine Bilirubin Urine Urobilinogen Ur Leukocyte Smiley ase Urine RBC Urine WBC Ur Squamous Epith Cells Amorphous Sediment Urine Bacteria Hyaline Casts Coarse Granular Ca sts Urine Mucus Urine Opiates Scre en Ur Barbiturates Sc reen Ur Phencyclidine S crn Ur Amphetamines Sc reen U Benzodiazepines Scrn Urine Cocaine Scre en U Marijuana (THC) Screen Serum Ketones Negative Blood Type Rho(D) Type Antibody Screen Crossmatch 11/24/20 11/24/20 11/24/20 12:28 13:00 13:00 WBC RBC Hgb Hct MCV MCH MCHC RDW Plt Count MPV Lymph % (Auto) Gaines % (Auto) Lymph # (Auto) Gaines # (Auto) Total Counted Atypical Lymphs % Absolute Neutrophi ls Segmented Neutroph ils Abs Segm Neuts (Ma n) Band Neutrophils Abs Band Neuts (Ma n) Absolute Lymphocyt es Lymphocytes (Manua l) Monocytes (Manual) Absolute Monocytes Eosinophils (Manua l) Absolute Eosinophi ls Basophils (Manual) Absolute Basophils Metamyelocytes Myelocytes Platelet Estimate Specimen Type Sample Site ABG pH ABG pCO2 ABG pO2 ABG HCO3 ABG O2 Saturation ABG Base Excess Primitivo Test A-a O2 Gradient Hematocrit Hgb O2 Saturation Carboxyhemoglobin Methemoglobin Total Hemoglobin Ionized Calcium O2 Delivery Device O2 Liters/Min FiO2 Specimen Accessioner ID Sodium Potassium Chloride Carbon Dioxide Anion Gap BUN Creatinine GFR Calculation Glucose POC Glucose 86 Calculated Osmolal ity Lactic Acid Calcium Total Bilirubin AST ALT Alkaline Phosphata se Creatine Kinase Troponin T Baselin e Troponin T [address] [place] Troponin T Total Protein Albumin Globulin Lipase Urine Color Dark yellow Urine Appearance Clear Urine pH 5 Ur Specific Gravit y 1.025 Urine Protein Trace Urine Glucose (UA) 4+ H Urine Ketones 1+ H Urine Blood 3+ H Urine Nitrate Negative Urine Bilirubin 1+ H Urine Urobilinogen Norm Ur Leukocyte Smiley ase Negative Urine RBC 0-4 H Urine WBC 0-4 H Ur Squamous Epith Cells None Amorphous Sediment Not Reportable Urine Bacteria 1+ H Hyaline Casts 5-10 H Coarse Granular Ca sts 0-4 H Urine Mucus Trace Urine Opiates Scre en Negative Ur Barbiturates Sc reen Negative Ur Phencyclidine S crn Negative Ur Amphetamines Sc reen Negative U Benzodiazepines Scrn Negative Urine Cocaine Scre en Negative U Marijuana (THC) Screen Negative Serum Ketones Blood Type Rho(D) Type Antibody Screen Crossmatch 11/24/20 11/24/20 14:08 14:08 WBC RBC Hgb Hct MCV MCH MCHC RDW Plt Count MPV Lymph % (Auto) Gaines % (Auto) Lymph # (Auto) Gaines # (Auto) Total Counted Atypical Lymphs % Absolute Neutrophi ls Segmented Neutroph ils Abs Segm Neuts (Ma n) Band Neutrophils Abs Band Neuts (Ma n) Absolute Lymphocyt es Lymphocytes (Manua l) Monocytes (Manual) Absolute Monocytes Eosinophils (Manua l) Absolute Eosinophi ls Basophils (Manual) Absolute Basophils Metamyelocytes Myelocytes Platelet Estimate Specimen Type Sample Site ABG pH ABG pCO2 ABG pO2 ABG HCO3 ABG O2 Saturation ABG Base Excess Primitivo Test A-a O2 Gradient Hematocrit Hgb O2 Saturation Carboxyhemoglobin Methemoglobin Total Hemoglobin Ionized Calcium O2 Delivery Device O2 Liters/Min FiO2 Specimen Accessioner ID Sodium Potassium Chloride Carbon Dioxide Anion Gap BUN Creatinine GFR Calculation Glucose POC Glucose Calculated Osmolal ity Lactic Acid Calcium Total Bilirubin AST ALT Alkaline Phosphata se Creatine Kinase Troponin T Baselin e Troponin T [address] [place] 35.16 [place] Delta Troponin T -2.84 L Total Protein Albumin Globulin Lipase Urine Color Urine Appearance Urine pH Ur Specific Gravit y Urine Protein Urine Glucose (UA) Urine Ketones Urine Blood Urine Nitrate Urine Bilirubin Urine Urobilinogen Ur Leukocyte Smiley ase Urine RBC Urine WBC Ur Squamous Epith Cells Amorphous Sediment Urine Bacteria Hyaline Casts Coarse Granular Ca sts Urine Mucus Urine Opiates Scre en Ur Barbiturates Sc reen Ur Phencyclidine S crn Ur Amphetamines Sc reen U Benzodiazepines Scrn Urine Cocaine Scre en U Marijuana (THC) Screen Serum Ketones Blood Type A Positive Rho(D) Type Positive / 4+ Antibody Screen Negative Crossmatch See Detail Vitals: Temperature 97.7 F 11/24/20 11:59 Temperature Source Oral 11/24/20 11:59 Pulse Rate 99 11/24/20 15:18 Pulse Rhythm 11/24/20 11:59 Pulse Strength 3+ Normal 11/24/20 11:59 Respiratory Rate 30 H 11/24/20 15:18 Respiratory Effort 11/24/20 11:59 Respiratory Depth Shallow 11/24/20 11:59 Blood Pressure 112/60 11/24/20 15:18 Blood Pressure Suzie n 72 11/24/20 14:04 Blood Pressure Pos ition Semi Fowlers 11/24/20 11:59 Pulse Oximetry 97 11/24/20 15:18 Oxygen Delivery Me thod 11/24/20 11:59 Oxygen Flow Rate 4 11/24/20 11:59 Sepsis Recent Feve r Within 48 Hours No 11/24/20 11:59 Sepsis New/Unexpla ined Change in Men kye Status Yes 11/24/20 11:59 Sepsis Action Take n by Nursing Physician Notifie d 11/24/20 11:59 Exam: Pre-Anes Outpt Exam: alert, oriented x 3, clear to auscultation bilaterally and regular rate & rhythm (tachycardic) Cardiac Studies: No Data to Display
--- NOTE | 2020-11-24 14:07 | P.CONIM_ITS ---
Providers/Reason For Consult Consulting Physician/Specialty*: General Surgery Dr. Ricardo Reason for Consult*: intraperitoneal free air Attending Physician: Mack Ricardo MD History of Present Illness History of Present Illness Abelino Lawson is a 54 year old male who had undergone a surveillance colonoscopy yesterday. Patient was discharged home but continued to be in severe pain throughout the course of the day and this morning he collapsed in the bathroom. His mother started CPR since apparently his extremities were turning bluish-black and he was brought to the emergency room where he was noted to be hypotensive. He received 4 L of fluids and was started on Levophed and subsequently vasopressin. Patient is in severe abdominal pain and fever has been dry retching. He apparently had low-grade fevers and chills. He was noted to be disoriented Patient had previously received chemoradiation and subsequently underwent low anterior resection with ileostomy and subsequent loop ileostomy reversal in 2009. He is on a 5-year surveillance colonoscopy and the colonoscopy yesterday was normal. Review of Systems General: Reports: ROS unobtainable due to mental status Meds/Allergies Home Medications and Allergies Home Medications Medication Instructions Recorded Confirmed Last Taken Type Levemir U-100 Insulin 32 unit SUBCUT DAILY 11/21/20 11/24/20 11/23/20 History Novolin R Regular U-100 Insuln See Rx Instructions .ROUTE .COMPLEX 11/21/20 11/24/20 11/22/20 12:00 History loratadine [Claritin] 10 mg PO DAILY 11/21/20 11/24/20 11/23/20 History multivitamin 1 tab PO DAILY 11/21/20 11/24/20 11/23/20 History omeprazole 20 mg PO DAILY 11/21/20 11/24/20 11/23/20 History Allergies Allergy/AdvReac Type Severity Reaction Status Date / Time No Known Allergies Allergy Verified 11/23/20 08:53 Current Medications Current Medications Generic Name Dose Route Start Last Admin Trade Name Freq PRN Reason Stop Dose Admin Norepinephrine Bitartrate 4 mg 254 mls @ 0 mls/hr 11/24/20 12:30 11/24/20 12:50 / Dextrose IV 4 mcg/min .Q0M REJI 15.24 mls/hr Titration Protocol Per Protocol Vasopressin 100 unit/ Sodium 100 mls @ 0 mls/hr 11/24/20 14:00 11/24/20 13:54 Chloride IV 0.01 unit/min .Q0M REJI 0.6 mls/hr Administration Protocol Per Protocol PFSH Acute PFSH: Medical History Blindness of both eyes Diabetes GERD (gastroesophageal reflux disease) Rectosigmoid cancer SBO (small bowel obstruction) Status post chemoradiation Surgical History History of low anterior resection of rectum History of reversal of ileostomy Status post colonoscopy (11/23/20) Vitals/I&O/Wt Last Vital Signs Temp 97.7 F 11/24/20 11:59 Pulse 98 11/24/20 13:20 Resp 35 H 11/24/20 13:20 BP 90/58 11/24/20 13:20 Pulse Ox 96 11/24/20 13:20 11/23/20 11/24/20 11/24/20 22:59 06:59 14:59 Intake Total 1.778 / 1.778 Balance 1.778 / 1.778 Weight last 48 hrs Weight 158 lb Physical Exam Narrative: EXAM NARRATIVE: HEENT: Normocephalic Eye: Sclera /conjunctiva normal Respiratory and chest: Bilateral clear breath sounds on auscultation Cardiovascular: Normal S1 and S2 heart sounds Abdomen: Soft to palpation, distended, generalized guarding and rigidity, well- healed midline and right lower quadrant laparotomy scar Neurological: Oriented to place person and time Skin: Intact, no lesions appreciated on gross exam Urinary Catheter Management^: [place]: Cath Placed During This Visit: yes Urinary Catheter Date of Insertion: 11/24/20 Urinary Catheter Time of Insertion: 13:05 Data Micro: Micro: Microbiology 11/24/20 11:54 Blood Culture - Pr eliminary Blood SPECIMEN [facility] 11/24/20 11:54 Blood Culture - Pr eliminary Blood SPECIMEN [facility] A&P Assessment and plan (1) Free intraperitoneal air: 49-year-old male with history of who underwent a surveillance colonoscopy yesterday. Patient subsequently had severe abdominal pain and today presented to the ER in septic shock with generalized peritonitis and acute renal failure. IV Zosyn Currently on Levophed and vasopressin, has received 4 L of fluids [place] catheter Reviewed CT abdomen pelvis which showed large amount of intraperitoneal free air with pneumobilia. Discussed the findings with the patient and his mother and verbal consent was obtained since patient is in acute distress. Plan for laparotomy with possible bowel resection, possible ostomy Procedure, risks, benefits and alternatives have been discussed with the patient who wishes to proceed with surgery. Status: Acute Consult Attestations Medical Necessity Statement: As per attending physician Coding Level of Care Code Acute [place] Head Former for [facility] Fwd Diagnoses Free intraperitoneal air K66.8
--- NOTE | 2020-11-24 14:17 | PC.PHAR ---
pt family left ED with pt insulin.
[2020-11-24 14:39] LABS: Troponin 5 2HR 35.16 ng/L (0-15)
[2020-11-24 14:48] LABS: Troponin 5 2HR Delta -2.84 ABS# (0-10)
--- NOTE | 2020-11-24 15:03 | PM.HP ---
Providers/Chief Complaint Admitting Physician: Edyta Francisco Chief Complaint: FOUND UNRESPONSIVE History of Present Illness Abelino Lawson is a 54 year old male with past medical history of diabetes mellitus, blindness and colon cancer who presented to ER after he was found to be unresponsive. Patient was not able to provide much history. In review of records it appeared patient was taken for a screening colonoscopy on 11/23 Upon arrival noted to have abdominal tenderness. CT abd/pelvis performed showed free air suspecious for perforation. He was also noted to be hypotensive. Started on Levophed. Stat surgery consult was obtained. Plan to procceed to OR. Patient was seen prior to this. He was also started on IV abx. Review of Systems General: Reports: ROS unobtainable due to medical condition Medications/Allergies Home Medications Medication Instructions Recorded Confirmed Last Taken Type Levemir U-100 Insulin 32 unit SUBCUT DAILY 11/21/20 11/24/20 11/23/20 History Novolin R Regular U-100 Insuln See Rx Instructions .ROUTE .COMPLEX 11/21/20 11/24/20 11/22/20 12:00 History loratadine [Claritin] 10 mg PO DAILY 11/21/20 11/24/20 11/23/20 History multivitamin 1 tab PO DAILY 11/21/20 11/24/20 11/23/20 History omeprazole 20 mg PO DAILY 11/21/20 11/24/20 11/23/20 History Allergies Allergy/AdvReac Type Severity Reaction Status Date / Time No Known Allergies Allergy Verified 11/23/20 08:53 PFSH Acute PFSH: Medical History Blindness of both eyes Diabetes GERD (gastroesophageal reflux disease) Rectosigmoid cancer SBO (small bowel obstruction) Status post chemoradiation Surgical History History of low anterior resection of rectum History of reversal of ileostomy Status post colonoscopy (11/23/20) Vitals/I&O/Wt Last Vital Signs Temp 97.7 F 11/24/20 11:59 Pulse 99 11/24/20 15:18 Resp 30 H 11/24/20 15:18 BP 112/60 11/24/20 15:18 Pulse Ox 97 11/24/20 15:18 11/24/20 11/24/20 11/24/20 06:59 14:59 22:59 Intake Total 30.442 / 30.442 1050 / 1080.442 Balance 30.442 / 30.442 1050 / 1080.442 Weight last 48 hrs Weight 71.668 kg Physical Exam Narrative: EXAM NARRATIVE: General : Severe distress due to abd pain HEENT : Bilateral corneal complete opacification CVS: Tachy Chest : no distress Abd; Tenderness Ext no edema Urinary Catheter Management^: [place]: Cath Placed During This Visit: yes Urinary Catheter Date of Insertion: 11/24/20 Urinary Catheter Time of Insertion: 13:05 Data : 11/24/20 11:54 11/24/20 11:54 Micro: Microbiology 11/24/20 11:54 Blood Culture - Preliminary Blood SPECIMEN COLLECTED 11/24/20 11:54 Blood Culture - Preliminary Blood SPECIMEN COLLECTED A&P Assessment and plan (1) Septic shock due to undetermined organism: Started on IV zosyn 3.375g Q8hr On Levo/Vaso - maintain MAP > 65 Central line art line placement IVF Repeat lactic acid Follow up on culture CBC.Cmp in am Status: Acute (2) Acute renal failure: Due to above IVF [place] Monitor u/o may need nephrology consult Status: Acute (3) Perforated bowel: OR today General surgery on board Status: Acute (4) Free intraperitoneal air: As above Status: Acute (5) Diabetes mellitus: Sliding scale insulin q6hr blood sugar check while npo Status: Acute (6) History of colon cancer: Status: Acute Attestations Medical Necessity Statement*: Tim require over 2 midnight stay in hospital for eval and treatment of septic shock Time Spent in Patient Care: Greater than 35 minutes (>than 50% of time spent in counselling and/or direct pt care on unit). 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
--- NOTE | 2020-11-24 17:37 | XRR_ITS ---
PROCEDURE INFORMATION: Exam: XR Chest Exam date and time: 11/24/2020 5:37 PM Age: 54 years old Clinical indication: Device placement; Picc; Additional info: Central line placement TECHNIQUE: Imaging protocol: XR of the chest. Views: 1 view. COMPARISON: CR (CHEST, ) 11/24/2020 1:01 PM FINDINGS: Tubes, catheters and devices: There is right jugular central venous catheter in place with its tip in the superior vena cava. Endotracheal tube is in satisfactory position. Tip is 6 cm above the binu. There is a nasogastric tube below the diaphragm passing through the stomach. The tip is not included on this examination. Lungs: There is partial atelectasis at both lung bases. Pleural spaces: Unremarkable. No pleural effusion. No pneumothorax. Heart/Mediastinum: Unremarkable. No cardiomegaly. Bones/joints: Unremarkable. Intraperitoneal space: Extensive pneumoperitoneum demonstrated on the prior examination is no longer identified. XR/XR chest 1V portable [id number] IMPRESSION: 1. Mild basilar atelectasis. 2. Tubes and lines as described above.
[2020-11-24 17:45] LABS: Glucose Point of Care 93 mg/dL (70-110)
[2020-11-24] MEDS: lactated ringers 1,000 ML 100 ML IV (17:52)
--- NOTE | 2020-11-24 17:54 | P.OP_ITS ---
Operative Report Date of procedure: November 24, 2020 Pre-op Diagnosis: Intraperitoneal free air and pneumobilia status post colonoscopy on 11/23/2020 Acute renal failure Septic shock on 2 pressors Status post low anterior resection and subsequent ileostomy takedown for rectosigmoid adenocarcinoma 2009 Post-op Diagnosis: Colon perforation on the right side proximal to the prior anastomosis from low anterior resection Extensive adhesions to the anterior abdominal wall from prior low anterior resection and ileostomy takedown Significant contamination of the peritoneal cavity with stools Status post low anterior resection and subsequent ileostomy takedown for rectosigmoid adenocarcinoma Septic shock on 2 pressors Procedure Done: Exploratory laparotomy with open abdomen Lysis of adhesions 45 minutes Small bowel resection Partial transverse colectomy Specimens removed/disposition: 1. Segment of small bowel 2. Segment of transverse colon Surgeon: Mack Ricardo Anesthesia: General Estimated blood loss (mL): 150 IV fluids (mL): 2,500 Urine output (mL): 500 Condition: critical Disposition: ICU Brief History: This is a 54-year-old male who had undergone surveillance colonoscopy yesterday given his history of rectosigmoid adenocarcinoma and prior LAR with subsequent ileostomy takedown. Patient apparently had abdominal pain that persisted after he went home and today collapsed as per his mother. He was brought to the emergency room where he was noted to be in septic shock with acute renal failure and a CT abdomen pelvis showed pneumobilia and intraperitoneal free air. Patient had to be started on 2 pressors by the time he was taken to the operating room. Procedure: The patient was taken to the operating room and intubated under general anesthesia. IV antibiotics had already been administered and a Hull catheter was in place. Patient had central line and A-line placed by Dr. Contreras, refer to her notes for details. An NG tube was placed. The abdomen was prepped and draped in a sterile manner. Using a 15 blade a midline laparotomy incision was made superior to the existing laparotomy scar, subcutaneous tissue and linea alba was divided to enter the peritoneal cavity with escape orf large amount of free air. Careful dissection was then performed using Metzenbaum scissors to take down adhesions of the omentum as of the small bowel loop to the anterior abdominal wall. Near the umbilicus it appeared that Ethibond sutures had been used with a more dense adhesions and the small bowel segment was densely adherent to the abdominal wall at this area. In spite of careful dissection, the small bowel segment appeared friable and there was a enterotomy. The small's bowel segment was finally taken down and the laparotomy incision was extended up to the suprapubic area and further adhesions were taken down. Total lysis of adhesions to take down the small bowel segments and the omentum from the anterior abdominal wall as well as adjacent bowel loops and colon took about 45 minutes. At this point the peritoneal cavity could be well visualized and there was significant amount of contamination in the pelvis. A perforation of the colon was noted on the right side at the pelvic inlet proximal to the prior anastomosis. The mesocolon was mobilized using energy device and the segment of the colon where the perforation was noted was skeletonized. There was significant contamination of that area and therefore attempt was made not made t o perform a primary closure. TA 60 stapler was used to divide the transverse colon proximal and distal to the colon perforation. 3 Prolene suture was used to renan the distal segment. Examination of the small bowel revealed that the site of the enterotomy had significant friable tissue that primary closure again was not possible and therefore decision was made for resection. The mesentery was divided using energy device and a 55 mm blue load GRETCHEN stapler was used to divide the bowel proximal and distal to the site of the enterotomy. The peritoneal cavity was irrigated with 8 L of warm saline. Patient was on maximum dose of 3 pressors and therefore decision was made to not perform an anastomosis or colostomy and to leave his abdomen open. A 10 flat TRI drain was placed in the pelvis through a stab incision in the right lower quadrant and another 10 flat TRI drain was placed along the left paracolic gutter through a stab incision in the left upper quadrant. A plastic sheet was used to cover the bowel and 2 flat TRI drains were placed along the edges of the abdominal wall and the open abdomen was covered with Kerlix gauze and Ioban. The patient was transferred to ICU with intubated on 3 pressors with NG tube, Hull catheter, 4 TRI drains, central line and A-line.
[2020-11-24 17:57] LABS: Glucose Point of Care 104 mg/dL (70-110)
[2020-11-24] MEDS: propofol 1,000 MG/100 ML INJ 2.15 MG IV (18:05)
[2020-11-24 18:57] LABS: INR 2.17 (0.8-1.2)
[2020-11-24 19:02] LABS: Alanine Aminotransferase 38 U/L (0-41); Albumin Level 2.4 g/dL (3.5-5.2); Alkaline Phosphatase 54 IU/L (40-130); Anion Gap 14.4 (5-19); Aspartate Amino Transferase 84 U/L (0-40); Blood Urea Nitrogen 25 mg/dL (6-20); Carbon Dioxide 16 mmol/L (22-29); Chloride 111 mmol/L (98-107); Globulin 1.5 g/dL (1.3-4.6); Glucose 166 mg/dL (65-115); Lactic Acid level (Lactate) 2.3 mmol/L (0.5-2.2); Osmolality Calculated 294 mOsm/kg (285-295); Potassium 3.4 mmol/L (3.5-5.1); Sodium 138 mmol/L (136-145); Total Bilirubin 0.9 mg/dL (0.15-1.2); Total Protein 3.9 g/dL (6.6-8.7)
--- NOTE | 2020-11-24 19:07 | PC.NURSE ---
Called Dr. Pickett and received orders new orders for levophed and vasopressin, due to transfer from surgery to hospitalist care. Continue care.
[2020-11-24] MEDS: pantoprazole 40 mg SDV IVP (20:36)
[2020-11-24] MEDS: morphine 4 mg/mL SDV 1 mL IVP (20:40)
[2020-11-24] MEDS: EPINEPHrine 2.5 MG in sodium chloride 0.9% 250 ML 0.61 MG IV (21:10)
[2020-11-24 21:23] LABS: ABG PCO2 31.5 mmHg (35-45); Alveolar-Arterial Oxygen Gradi 56.3 mmHg (5-10); Base Excess ABG -9.6 mmol/L (-2.0-2.0); Blood Gas Operator Identificat JB; Blood Gas Sample Site Not specified; Blood Gas Sample Type Arterial; Blood Gas Tidal Volume 0.45; Carboxyhemoglobin 0.6 %THgb (0.4-20.1); HCO3 ABG 15.5 mmol/L (22-26); HGB O2 Sat 95.5 % (95-100); Ionized Calcium Level - ABG 0.9 mmol/L (1.1-1.4); Methemoglobin 0.8 % (0.4-1.5); Oxygen Device VENT; Oxygen Saturation ABG 96.9; PO2 ABG 94.1 mmHg (80.0-100.0); Potassium Level - ABG 3.6 mmol/L (3.5-5.0); Total Hemoglobin 15.3 g/dL (14-18)
[2020-11-24 21:27] LABS: Basophils # 0.1 10^3/uL (0.0-0.1); Basophils % 2.3 %; Eosinophils # 0.1 10^3/uL (0.0-0.8); Eosinophils % 3.7 %; Hemoglobin 15.1 g/dL (11.7-16.6); Lymphocytes # 0.4 10^3/uL (0.8-4.8); Lymphocytes % 10.5 %; Mean Corpuscular HGB Conc 32.8 g/dL (30.0-36.0); Mean Corpuscular Hemoglobin 31.5 pg (28.0-34.0); Mean Platelet Volume 11.5 fL (7.4-10.4); Monocytes # 0.2 10^3/uL (0.2-0.9); Monocytes % 5.7 %; Neutrophils # 2.47 10^3/uL (1.8-7.7); Neutrophils % 70.4 %; Nucleated Red Blood Cells % 0 %; Platelet Count 204 10^3/cmm (130-400); Red Blood Count 4.79 10^6/uL (4.1-5.3); Red Cell Distribution Width 13.4 % (12.1-15.1); White Blood Count 3.5 10^3/uL (4.0-10.0)
[2020-11-24] MEDS: lactated ringers 1,000 ML 150 ML IV (21:32)
[2020-11-24 21:38] LABS: INR 2.07 (0.8-1.2)
[2020-11-24 21:39] LABS: Partial Thromboplastin Time 47.5 SECONDS (23.9-36.7)
[2020-11-24 21:45] LABS: Alanine Aminotransferase 31 U/L (0-41); Albumin Level 2.1 g/dL (3.5-5.2); Alkaline Phosphatase 54 IU/L (40-130); Anion Gap 17.2 (5-19); Aspartate Amino Transferase 86 U/L (0-40); Blood Urea Nitrogen 25 mg/dL (6-20); Calcium 6.3 mg/dL (8.5-10.5); Carbon Dioxide 14 mmol/L (22-29); Chloride 109 mmol/L (98-107); Globulin 1.6 g/dL (1.3-4.6); Glomerular Filtration Rate 42.1 mL/min (90-130); Glucose 190 mg/dL (65-115); Lactic Sepsis W/Reflex 2.6 mmol/L (0.5-2.2); Osmolality Calculated 291 mOsm/kg (285-295); Potassium 4.2 mmol/L (3.5-5.1); Sodium 136 mmol/L (136-145); Total Protein 3.7 g/dL (6.6-8.7)
[2020-11-24 21:52] LABS: Slide Review Slide Review Perform
--- NOTE | 2020-11-24 22:06 | PC.NURSE ---
Patient on Levophed and Vasopressin upon shift change, during assessment patient began to move around and tears coming from patients eyes, patient unable to speak due to intubation and used FLACC pain scale, and administered Morphine per JUL. Patient did not respond well to morphine. Patients blood pressure began to decrease rapidly, all pressors were maxed per Doctor Davion's order, added EPI titrable drip as well, and a fluid bolus, also received orders to increase LR to 150mL/hr after bolus finished, received orders for labs. Patient began to respond positively to interventions and vitals are currently stable and family notified. Called Dr. Flood and received orders for Fentanyl gtt for pain and sedation to titrate propofol off to help stabilize BP and reduce the need for pressers. Continue care.
--- NOTE | 2020-11-24 22:40 | PC.NURSE ---
Received telephone orders to start Fentanyl at 100mcg/hr to tirtrate propofol off. Continue care
[2020-11-24 23:10] LABS: Reflex Lactate Order REFLEX LACTIC ORDERD
[2020-11-24 23:44] LABS: Lactic Acid level (Lactate) 2.5 mmol/L (0.5-2.2)
[2020-11-25] VITALS (154 sets, daily range): BP systolic 91–151; BP diastolic 51–87; PULSE 87–120; RESP 14–19; TEMP 36.8–38.1; O2SAT 91–99
[2020-11-25] MEDS: lactated ringers 500 ML 999 ML IV ×2 (02:35→05:10)
[2020-11-25] MEDS: piperacillin-tazobactam 3.375 GM in sodium chloride 0.9% (plus) 50 ML IV ×3 (03:15→18:56)
[2020-11-25] MEDS: lactated ringers 1,000 ML 150 ML IV ×3 (04:00→19:56)
[2020-11-25] MEDS: norepinephrine 8 MG in dextrose 5 % 500 ML 68.58 MG IV (04:02)
[2020-11-25 04:23] LABS: Basophils # 0.1 10^3/uL (0.0-0.1); Basophils % 1.8 %; Eosinophils % 0.9 %; Hematocrit 44.9 % (42.0-52.0); Lymphocytes # 0.3 10^3/uL (0.8-4.8); Lymphocytes % 7.5 %; Mean Corpuscular HGB Conc 33.4 g/dL (30.0-36.0); Mean Corpuscular Hemoglobin 31.8 pg (28.0-34.0); Mean Corpuscular Volume 95.1 fL (80-94); Mean Platelet Volume 12.1 fL (7.4-10.4); Monocytes # 0.2 10^3/uL (0.2-0.9); Monocytes % 3.4 %; Neutrophils # 3.75 10^3/uL (1.8-7.7); Nucleated Red Blood Cells % 0 %; Platelet Count 191 10^3/cmm (130-400); Red Blood Count 4.72 10^6/uL (4.1-5.3); Red Cell Distribution Width 13.5 % (12.1-15.1); White Blood Count 4.4 10^3/uL (4.0-10.0)
[2020-11-25 04:42] LABS: Alanine Aminotransferase 39 U/L (0-41); Alkaline Phosphatase 62 IU/L (40-130); Anion Gap 17.2 (5-19); Aspartate Amino Transferase 101 U/L (0-40); Blood Urea Nitrogen 24 mg/dL (6-20); Calcium 6.6 mg/dL (8.5-10.5); Carbon Dioxide 17 mmol/L (22-29); Chloride 108 mmol/L (98-107); Globulin 1.8 g/dL (1.3-4.6); Glomerular Filtration Rate 42.1 mL/min (90-130); Glucose 235 mg/dL (65-115); Osmolality Calculated 298 mOsm/kg (285-295); Potassium 4.2 mmol/L (3.5-5.1); Sodium 138 mmol/L (136-145); Total Bilirubin 1.1 mg/dL (0.15-1.2); Total Protein 3.8 g/dL (6.6-8.7)
[2020-11-25 05:17] LABS: Slide Review Slide Review Perform
[2020-11-25] MEDS: sodium chloride 0.9% 500 ML IV (05:28)
[2020-11-25 05:31] LABS: ABG PCO2 32.6 mmHg (35-45); ABG PH Result 7.31 (7.35-7.45); Alveolar-Arterial Oxygen Gradi 20.2 mmHg (5-10); Arterial Blood Gas Hematocrit 45.7 % (42-52); Base Excess ABG -8.6 mmol/L (-2.0-2.0); Blood Gas Operator Identificat JB; Blood Gas Sample Type Arterial; Blood Gas Tidal Volume 0.45; Carboxyhemoglobin 0.6 %THgb (0.4-20.1); HCO3 ABG 16.5 mmol/L (22-26); HGB O2 Sat 95.5 % (95-100); Ionized Calcium Level - ABG 0.9 mmol/L (1.1-1.4); Methemoglobin 0.9 % (0.4-1.5); Oxygen Device VENT; PO2 ABG 87.2 mmHg (80.0-100.0); Potassium Level - ABG 3.6 mmol/L (3.5-5.0); Total Hemoglobin 14.9 g/dL (14-18)
[2020-11-25 07:28] LABS: Glucose Point of Care 220 mg/dL (70-110)
[2020-11-25] MEDS: pantoprazole 40 mg SDV IVP ×2 (08:11→19:07)
[2020-11-25] MEDS: fluconazole premix 400 MG/200 ML PIGGYBACK 200 MG IV (09:47)
[2020-11-25 11:17] LABS: Glucose Point of Care 265 mg/dL (70-110)
[2020-11-25] MEDS: norepinephrine 8 MG in dextrose 5 % 500 ML 76.2 MG IV (11:22)
[2020-11-25 11:54] LABS: Lactic Sepsis W/Reflex 2.6 mmol/L (0.5-2.2)
[2020-11-25 12:06] LABS: Reflex Lactate Order REFLEX LACTIC ORDERD
--- NOTE | 2020-11-25 12:14 | P.PN_ITS ---
Subjective Subjective: Interval history: Patient continues to be critically ill, had good urine output yesterday but but became hypotensive last night and epinephrine had to be started on top of the Levophed and vasopressin. Patient has slightly decreased urine output today, CVP is 5, he is arousable and follows commands Vitals/I&O/Wt Last Vital Signs Temp 98.3 F 11/25/20 10:00 Pulse 109 H 11/25/20 10:00 Resp 14 11/25/20 10:18 BP 110/55 11/25/20 10:00 Pulse Ox 96 11/25/20 10:18 11/24/20 11/25/20 11/25/20 22:59 06:59 14:59 Intake Total 1715.842 / 3755.385 2009.101 / 3755.385 619.092 / 619.092 Output Total 500 / 1760 1260 / 1760 Balance 1215.842 / 1994.385 749.101 / 1994.385 619.092 / 619.092 Weight last 48 hrs Weight 186 lb 9 oz Weight 158 lb Physical Exam Narrative: EXAM NARRATIVE: Abdomen: Soft, open abdomen, anasarca TRI drain output is serosanguineous Urinary Catheter Management^: Hull: Cath Placed During This Visit: yes Urinary Catheter Date of Insertion: 11/24/20 Urinary Catheter Time of Insertion: 13:05 Data : 11/25/20 03:46 11/25/20 03:46 Micro: Microbiology 11/24/20 11:54 Blood Culture - Preliminary Blood Gram Negative Rods 11/24/20 11:54 Blood Culture - Preliminary Blood Gram Negative Rods 11/24/20 17:58 Gram Stain - Final Sputum - Endotracheal Tube Aspirate A&P Assessment and plan (1) S/P exploratory laparotomy: Status post exploratory laparotomy with small bowel resection, partial colectomy with open abdomen, patient continues to be critically ill Continue IV Zosyn Keep patient comfortable on minimal vent settings Wean Levophed and vasopressin to keep MAP greater than 65 Lactate down to 2.6 from 14.8 Elevated troponin felt to be secondary to cardiac strain, no evidence of [place] INR greater than 2, continue to monitor Hemoglobin stable at 15 Goal would be to resuscitate the patient, wean off pressors as sepsis resolves, patient will then be need to be taken back to surgery for reanastomosis Status: Acute (2) Acute renal failure: Continue aggressive fluid resuscitation to wean patient off Levophed and vasopressin. CVP is currently 5. Creatinine improved from 3.9-1.7 though urine output has been marginal today. Status: Acute Attestations Medical Necessity Statement*: As per primary Coding Level of Care Code Acute Aircraft Navigator for Chg Fwd Diagnoses S/P exploratory laparotomy Z98.890 Acute renal failure N17.9
--- NOTE | 2020-11-25 12:32 | PM.PN ---
Subjective Subjective: Interval history: 54 year old male with past medical history of diabetes mellitus, blindness and colon cancer who presented to ER after he was found to be unresponsive. Patient was not able to provide much history. In review of records it appeared patient was taken for a screening colonoscopy on 11/23 Upon arrival noted to have abdominal tenderness. CT abd/pelvis performed showed free air suspecious for perforation. He was also noted to be hypotensive. Started on Levophed. Stat surgery consult was obtained. Plan to procceed to OR. Patient was seen prior to this. He was also started on IV abx. 54-year-old with a past medical history significant for diabetes mellitus, diabetic retinopathy leading to clinical blindness ,colon cancer status post history of resection with loop ileostomy in 2006 / chem-radiation and small-bowel obstruction in 2019Who presented to the hospital with abdominal pain following screening colonoscopy.Apparently shortly after procedure patient at return home bruise found by family to be unresponsive. Is brought to the emergency room during whichHis initial laboratory workup has shown a WBC of 6.7, hemoglobin of 15.2, hematocrit of 46.8 and platelet count of 269. Sodium 145, potassium 3.3, chloride 104, bicarb 13, BUN 29 and creatinine of 3.9. AST and ALT were within normal limits. Ck of 1081, Troponin 5 baseline 38, 25 at 120 min. Lactic acid was found to be elevated at 14.8. Urinary drug screen was negative.CT abdomen pelvis was then performed immediately which showed free intraperitoneal air, very large amounts of portal venous gas within liver and abnormal small bowel loops suggestive of ischemic small bowel and your obstruction.Chest x-ray was then performed which also showed blood free air. General surgery was consulted andd patient was taken to the operating room. Prior to this he was noted to be in septic shock requiring initiation of levophed and vasopressin. He was noted to have colonic perforation on the right side proximal to the prior anastomosis from low anterior resection, extensive adhesion to the anterior abdominal wall from poor low anterior resection and ileostomy takedown, significant contamination of the peritoneal cavity with stools. Exploratory laparotomy with open abdominal lysis of adhesions, small-bowel resection partial transverse colectomy was performed. He was transferred to [facility] where he remained intubated on mech vent. Central line and artline were placed in OR. He was also continued to LR at 150cc/hr. Continued on IV zosyn 3.375g IV q8hr. Blood culture in both sets grew gram negative rods. Continue to require titration of vasopressors. Noted to have poor urine output. Repeat labs today had shown improvement of creatinine to 1.7, Lactic acid to 3.0, He remained on fentanyl drip at 100mcg/hr. Medications: Reviewed: Yes Vitals/I&O/Wt Last Vital Signs Temp 98.3 F 11/25/20 10:00 Pulse 109 H 11/25/20 10:00 Resp 14 11/25/20 10:18 BP 110/55 11/25/20 10:00 Pulse Ox 96 11/25/20 10:18 11/24/20 11/25/20 11/25/20 22:59 06:59 14:59 Intake Total 1715.842 / 9887.799 6937.101 / 3755.385 619.092 / 619.092 Output Total 500 / 500 1260 / 1760 Balance 1215.842 / 1246.284 749.101 / 1994.385 619.092 / 619.092 Weight last 48 hrs Weight 84.623 kg Weight 71.668 kg Physical Exam Narrative: EXAM NARRATIVE: General :Criticallly ill appearing HEENT; sedated - Et tube CVS ; RRR Chest : Vented Abd: open abdominal ca.distended Ext : No edema Urinary Catheter Management^: Hull: Cath Placed During This Visit: yes Urinary Catheter Date of Insertion: 11/24/20 Urinary Catheter Time of Insertion: 13:05 Data : 11/25/20 03:46 11/25/20 03:46 Micro: Microbiology 11/24/20 11:54 Blood Culture - Preliminary Blood Gram Negative Rods 11/24/20 11:54 Blood Culture - Preliminary Blood Gram Negative Rods 11/24/20 17:58 Gram Stain - Final Sputum - Endotracheal Tube Aspirate A&P Assessment and plan (1) Sepsis due to Gram-negative organism with septic shock: Status: Acute (2) Acute renal failure: Status: Acute (3) Perforated bowel: Status: Acute (4) S/P exploratory laparotomy: Status: Acute (5) Diabetes mellitus: Status: Acute (6) History of colon cancer: Status: Acute Additional A&P Information Sepsis with shock due to gram negative bacteremia Developed post colonic perforated 11/24 Blcx - Gram neg rods in both sets Lactic acid 14-> 3.0 Continue IV zosyn 3.375g IV q8hr Central line /art line in place LR at 150cc/hr Continue to titrate pressors : Levophed / Vasopressin Maintain map of > 65 Repeat CBC/CMP/Lactic acid/Blood culture in am Ischemic SB/SBO/perforation in hx of colonic adenocarcimoma ( hx of resection/loop ileostomy/chemoradiation) S/p exp/lap with open lysis of adhesion, small bowel resection, Partial transverse colectomy Washout General surgery on board Open abdominal Plan to return to OR on 11/27 if stable Acute respiratory failure on MV Fio2 at 30% To remain intubated for now ABG / Chest Xray in am NPO / OG in place Acute Renal Failure with oliguria / possible ATN Creatinine 3.8 - > 1.7 Continue fluids and pressors as above Monitor u/o May need nephrology consult Renal dosing of meds Troponin elevation T-Delta neg 2.84 Due to sepsis / renal failure May consider echo Mild Rhabdo CPK - 1081 Repeat in am Diabetes mellitus Q6hr glucose checks Sliding scale insulin Goal < 180 Gi ppx Protonix DVT ppx SCDs Attestations Medical Necessity Statement*: Will require hospitalization for managment of septic shock on pressors. Time Spent in Patient Care: Greater than 35 minutes (>than 50% of time spent in counselling and/or direct pt care on unit). Critical Care Time: Critical Care Time (min): 65 Coding Level of Care Code Acute Jailer Chief for [facility] Fwd Diagnoses Sepsis due to Gram-negative organism with septic shock A41.50; R65.21 Acute renal failure N17.9 Perforated bowel K63.1 S/P exploratory laparotomy Z98.890 Diabetes mellitus E11.9 History of colon cancer Z85.038
--- NOTE | 2020-11-25 14:14 | PC.NURSE ---
right upper TRI hooked up to wall suction per Dr. Parmar order. Pt rolled over and back was checked from sores and cleanliness. Tolerated well. Wiped down with antimicrobial wipes. extremities elevated.
[2020-11-25 18:03] LABS: Glucose Point of Care 251 mg/dL (70-110)
[2020-11-25] MEDS: sodium chloride 0.9% 1,000 ML 999 ML IV (19:02)
[2020-11-25] MEDS: norepinephrine 8 MG in dextrose 5 % 500 ML 45.72 MG IV (19:44)
[2020-11-26] VITALS (67 sets, daily range): BP systolic 98–166; BP diastolic 54–88; PULSE 77–101; RESP 14–21; TEMP 36.8–37.2; O2SAT 94–99
[2020-11-26] MEDS: lactated ringers 1,000 ML 150 ML IV ×2 (02:00→08:16)
[2020-11-26] MEDS: piperacillin-tazobactam 3.375 GM in sodium chloride 0.9% (plus) 50 ML IV (02:42)
[2020-11-26] MEDS: norepinephrine 8 MG in dextrose 5 % 500 ML 68.58 MG IV (02:45)
[2020-11-26 03:31] LABS: ABG PCO2 35.7 mmHg (35-45); ABG PH Result 7.39 (7.35-7.45); Arterial Blood Gas Hematocrit 39.5 % (42-52); Base Excess ABG -3.1 mmol/L (-2.0-2.0); Blood Gas Operator Identificat JB; Blood Gas Sample Type Arterial; Blood Gas Tidal Volume 0.45; HCO3 ABG 21.4 mmol/L (22-26); Oxygen Device VENT; PO2 ABG 88.5 mmHg (80.0-100.0)
--- NOTE | 2020-11-26 03:33 | PC.NURSE ---
Addendum entered by Roney Morales RN 11/26/20 03:35: Witnessed waste of 1.33 Fentanyl. Original Note: Wasted 1.33 mL of Fentanyl witnessed by ADEEL Marinelli.
[2020-11-26 04:30] LABS: Hematocrit 37.5 % (42.0-52.0); Hemoglobin 12.6 g/dL (11.7-16.6); Mean Corpuscular HGB Conc 33.6 g/dL (30.0-36.0); Mean Corpuscular Volume 95.2 fL (80-94); Mean Platelet Volume 12.6 fL (7.4-10.4); Platelet Count 140 10^3/cmm (130-400); Red Blood Count 3.94 10^6/uL (4.1-5.3); Red Cell Distribution Width 13.9 % (12.1-15.1); White Blood Count 13.5 10^3/uL (4.0-10.0)
[2020-11-26 05:10] LABS: Slide Review Slide Review Perform
[2020-11-26 05:18] LABS: Absolute Eosinophils 0.2 10^3/cmm (0.0-0.7); Absolute Segmented Neutrophil 7.8 10/cmm (1.6-7.1); Band Neutrophils Absolute 3.8 10^3/cmm (0.0-1.2); Eosinophils 2 %; Lymphocytes 8 %; Lymphocytes Absolute 1.1 10^3/cmm (1.2-3.4); Monocytes Absolute 0.4 10^3/cmm (0.1-0.6); Segmented Neutrophils 58 %; Total Cells Counted 100 (0-100)
[2020-11-26 05:19] LABS: Absolute Neutrophil 11.6 10^3/cmm (1.4-6.5); Alanine Aminotransferase 44 U/L (0-41); Albumin Level 1.6 g/dL (3.5-5.2); Alkaline Phosphatase 215 IU/L (40-130); Aspartate Amino Transferase 69 U/L (0-40); Blood Urea Nitrogen 30 mg/dL (6-20); Calcium 6.6 mg/dL (8.5-10.5); Carbon Dioxide 20 mmol/L (22-29); Chloride 104 mmol/L (98-107); Globulin 2.2 g/dL (1.3-4.6); Glomerular Filtration Rate 62.9 mL/min (90-130); Glucose 184 mg/dL (65-115); Lactate (Lactic Acid level) 2.2 mmol/L (0.5-2.2); Macrocytosis Trace; Magnesium 1.9 mg/dL (1.7-2.3); Osmolality Calculated 289 mOsm/kg (285-295); Platelet Estimate Normal (Normal); Poikilocytosis Trace; Polychromasia Trace; Sodium 134 mmol/L (136-145); Total Bilirubin 0.6 mg/dL (0.15-1.2); Total Protein 3.8 g/dL (6.6-8.7)
[2020-11-26 05:23] LABS: Anion Gap 13.7 (5-19); Potassium 3.7 mmol/L (3.5-5.1)
[2020-11-26 05:26] LABS: Procalcitonin 39.78 ng/mL (0-0.5)
--- NOTE | 2020-11-26 07:00 | XRR_ITS ---
PROCEDURE INFORMATION: Exam: XR Chest Exam date and time: 11/26/2020 7:00 AM Age: 54 years old Clinical indication: Condition or disease; Lung condition and disease; Respiratory failure TECHNIQUE: Imaging protocol: XR of the chest. Views: 1 view. COMPARISON: CR (CHEST, ) 11/24/2020 6:12 PM FINDINGS: Tubes, catheters and devices: Right central catheter tip projects over the SVC. Enteric tube courses below the diaphragm with nonvisualization of the tip. Endotracheal tube projects above the level of the binu. Lungs: There are patchy perihilar interstitial opacities. Persistent left lung base consolidation, slightly increased. Pleural spaces: Unremarkable. No pleural effusion. No pneumothorax. Heart/Mediastinum: No cardiomegaly. Bones/joints: No acute fracture. XR/XR chest 1V portable [id number] IMPRESSION: There are patchy perihilar interstitial opacities. Persistent left lung base consolidation or atelectasis, slightly increased.
[2020-11-26] MEDS: pantoprazole 40 mg SDV IVP ×2 (08:14→20:27)
--- NOTE | 2020-11-26 08:48 | PC.NURSE ---
Cost Control Specialist sent Dr. Ricardo a message to ask about fluids that are running. Current order is LR @ 150. Pt is 3rd spacing, HR 89, BP 154/72 and actively weaning off Levaphed. No new orders at this time.
--- NOTE | 2020-11-26 09:22 | P.PN_ITS ---
Subjective Subjective: Interval history: Hospital course reviewed. On exam on Vent CMV mode. Arousable, following simple commands. On Levophed 10. MAP- 110 mmhg. Afebrile overnight. Urine output adequate. Medications: Reviewed: Yes Vitals/I&O/Wt Last Vital Signs Temp 100.5 F H 11/25/20 20:00 Pulse 95 11/26/20 06:15 Resp 16 11/26/20 08:00 BP 147/68 11/26/20 06:15 Pulse Ox 98 11/26/20 08:00 11/25/20 11/26/20 11/26/20 22:59 06:59 14:59 Intake Total 3173.516 / 4996.588 1773.847 / 6770.435 1060.396 / 1060.396 Output Total 440 / 1700 350 / 2050 Balance 2733.516 / 3296.588 1423.847 / 4720.435 1060.396 / 1060.396 Weight last 48 hrs Weight 89.584 kg Weight 84.623 kg Weight 71.668 kg Physical Exam Narrative: EXAM NARRATIVE: General: Intubated, Arousable, sedated HEENT: PERRLA, pupils bilaterally equal and reactive Chest: Normal vesicular breath sounds, no added sounds, equal good air entry bilaterally CVS: S1-S2 regular, no murmurs, no tachycardia, no gallops, no rubs Abdomen: Distended, Open belly, surgically packed Neuro: Sedated arousable Urinary Catheter Management^: Hull: Cath Placed During This Visit: yes Urinary Catheter Date of Insertion: 11/24/20 Urinary Catheter Time of Insertion: 13:05 Data : 11/26/20 03:24 11/26/20 03:24 Micro: Microbiology 11/26/20 03:24 Blood Culture - Preliminary Blood SPECIMEN COLLECTED 11/24/20 11:54 Blood Culture - Preliminary Blood Gram Negative Rods 11/24/20 11:54 Blood Culture - Preliminary Blood Gram Negative Rods 11/24/20 17:58 Gram Stain - Final Sputum - Endotracheal Tube Aspirate A&P Assessment and plan (1) Sepsis due to Gram-negative organism with septic shock: Status: Acute (2) Acute renal failure: Due to above Status: Acute (3) Perforated bowel: Status: Acute (4) S/P exploratory laparotomy: Status: Acute (5) Diabetes mellitus: Sliding scale insulin q6hr blood sugar check while npo Status: Acute (6) History of colon cancer: Status: Acute Additional A&P Information Sepsis with shock due to gram negative bacteremia Developed post colonic perforated Switch to Imipenem. Stop Zosyn. Check Procal, lactate. Wean pressors keeping MAP > 65. Keep on Vent. Will wean once surgically closed to avoid buckling. Decrease fluid to 75 cc/hr Lasix 20 mg IV stat. Ischemic SB/SBO/perforation in hx of colonic adenocarcimoma ( hx of resection/loop ileostomy/chemoradiation) S/p exp/lap with open lysis of adhesion, small bowel resection, Partial transverse colectomy Washout General surgery on board Open abdominal Plan to return to OR for closure. Acute respiratory failure on MV Fio2 at 30% To remain intubated for now ABG / Chest Xray in am NPO / OG in place Acute Renal Failure with oliguria / possible ATN Resolved. Diabetes mellitus Q6hr glucose checks Sliding scale insulin Goal < 180 Gi ppx Protonix DVT ppx SCDs Attestations Medical Necessity Statement*: Gram negative septic shock, Perforated colon, post op, intubated, Critical Care Time: The high probability of a clinically significant, sudden or life threatening deterioration of the patient's [Cardiac, Resp, GI] system(s) required my full and direct attention, intervention and personal management. The critical care time is as shown. This time is in addition to time spent performing any reported procedures but includes the following: [x] Data and vital sign review and interpretation [x] Patient assessment, examination and intervention [x] Documentation [x] Medication orders and management Critical Care Time (min): 80 Coding Level of Care Code Acute Timers Inspector for g Fwd Diagnoses Sepsis due to Gram-negative organism with septic shock A41.50; R65.21 Acute renal failure N17.9 Perforated bowel K63.1 S/P exploratory laparotomy Z98.890 Diabetes mellitus E11.9 History of colon cancer Z85.038
[2020-11-26] MEDS: FUROsemide 10 mg/mL SDV 2mL 20 MG IVP (09:51)
[2020-11-26] MEDS: lidocaine 1% 5 ML in potassium chloride premix 100 ML 25 ML IV (09:51)
[2020-11-26 11:40] LABS: Lactic Sepsis W/Reflex 2.8 mmol/L (0.5-2.2)
[2020-11-26 11:49] LABS: Glucose Point of Care 182 mg/dL (70-110)
[2020-11-26 12:48] LABS: Reflex Lactate Order REFLEX LACTIC ORDERD
[2020-11-26 13:17] LABS: Glucose Point of Care 128 mg/dL (70-110)
--- NOTE | 2020-11-26 14:06 | P.PN_ITS ---
Subjective Subjective: Interval history: Patient is off vasopressin and currently the dose of Levophed is being reduced. Awake and follows commands, on FiO2 30% on the ventilator Vitals/I&O/Wt Last Vital Signs Temp 98.2 F 11/26/20 12:30 Pulse 88 11/26/20 12:30 Resp 14 11/26/20 13:14 BP 115/59 11/26/20 12:30 Pulse Ox 99 11/26/20 13:14 11/25/20 11/26/20 11/26/20 22:59 06:59 14:59 Intake Total 3173.516 / 6770.435 1773.847 / 6770.435 1271.530 / 1271.530 Output Total 440 / 2050 350 / 2050 2600 / 2600 Balance 2733.516 / 4720.435 1423.847 / 4720.435 -1328.470 / -1328.470 Weight last 48 hrs Weight 197 lb 8 oz Weight 186 lb 9 oz Physical Exam Narrative: EXAM NARRATIVE: Abdomen: Soft, open abdomen, anasarca TRI drain output is serosanguineous Urinary Catheter Management^: Hull: Cath Placed During This Visit: yes Urinary Catheter Date of Insertion: 11/24/20 Urinary Catheter Time of Insertion: 13:05 Data : 11/26/20 03:24 11/26/20 03:24 Micro: Microbiology 11/24/20 11:54 Blood Culture - Preliminary Blood Gram Negative Rods 11/26/20 10:55 Blood Culture - Preliminary Blood SPECIMEN COLLECTED 11/24/20 17:58 Gram Stain - Final Sputum - Endotracheal Tube Aspirate Sputum Culture - Preliminary 11/26/20 03:24 Blood Culture - Preliminary Blood SPECIMEN COLLECTED A&P Assessment and plan (1) S/P exploratory laparotomy: Status post exploratory laparotomy with small bowel resection, partial colectomy with open abdomen, patient continues to be critically ill Continue IV Zosyn Keep patient comfortable on minimal vent settings Wean Levophed and vasopressin to keep MAP greater than 65 Elevated troponin felt to be secondary to cardiac strain, no evidence of [place] INR greater than 2, continue to monitor Hemoglobin stable at 15 Goal would be to resuscitate the patient, wean off pressors as sepsis resolves, patient will then be need to be taken back to surgery for reanastomosis Status: Acute (2) Acute renal failure: Continue aggressive fluid resuscitation to wean patient off Levophed and vasopressin. CVP is currently 5. Creatinine improved from 3.9-1.7 though urine output has been marginal today. Status: Acute Attestations Medical Necessity Statement*: As per primary Coding Level of Care Code Acute Lithopress Operator for Chg Fwd Diagnoses S/P exploratory laparotomy Z98.890 Acute renal failure N17.9
[2020-11-26 14:32] LABS: Lactic Acid level (Lactate) 2.1 mmol/L (0.5-2.2)
--- NOTE | 2020-11-26 16:49 | PC.NURSE ---
Pt incision appears to be open approx 1/4-1/2 inch. Still remains covered with film. Dr. Ricardo notified, no new orders at this time.
--- NOTE | 2020-11-26 18:03 | PC.NURSE ---
Pt has mod amount of eye drainage that is causing his eyes to remain closed. He shook his head yes when asked if he takes daily drops for his eyes. When his mom got to the floor, she verifies that he uses Visine for his eyes. Dr. Sandoval notified and new orders received.
--- NOTE | 2020-11-26 18:58 | PC.NURSE ---
Nurse COSME Shaver training under property underwriter and charted after staff verified.
[2020-11-26] MEDS: artificial tears Op Soln 15 mL Btl 1 DROP EYE-BOTH ×2 (19:00→21:43)
[2020-11-26] MEDS: lactated ringers 1,000 ML 75 ML IV (20:29)
[2020-11-26 20:38] LABS: Glucose Point of Care 215 mg/dL (70-110)
[2020-11-27] VITALS (49 sets, daily range): BP systolic 97–154; BP diastolic 54–92; PULSE 76–94; RESP 14–20; TEMP 36.4–37.7; O2SAT 73–99
[2020-11-27] MEDS: artificial tears Op Soln 15 mL Btl 1 DROP EYE-BOTH ×6 (02:33→22:28)
[2020-11-27 03:38] LABS: Glucose Point of Care 106 mg/dL (70-110)
[2020-11-27 03:58] LABS: Eosinophils # 0.1 10^3/uL (0.0-0.8); Eosinophils % 2.4 %; Hematocrit 56.7 % (42.0-52.0); Hemoglobin 17.6 g/dL (11.7-16.6); Lymphocytes # 0.4 10^3/uL (0.8-4.8); Lymphocytes % 7.4 %; Mean Corpuscular Hemoglobin 31.8 pg (28.0-34.0); Mean Corpuscular Volume 102.3 fL (80-94); Mean Platelet Volume 12.5 fL (7.4-10.4); Monocytes # 0.2 10^3/uL (0.2-0.9); Monocytes % 4.5 %; Neutrophils # 4.17 10^3/uL (1.8-7.7); Neutrophils % 77.4 %; Nucleated Red Blood Cells # 0.1 /100WBC; Nucleated Red Blood Cells % 0.9 %; Platelet Count 66 10^3/cmm (130-400); Red Blood Count 5.54 10^6/uL (4.1-5.3); Red Cell Distribution Width 14.3 % (12.1-15.1); White Blood Count 5.4 10^3/uL (4.0-10.0)
[2020-11-27 04:22] LABS: Alanine Aminotransferase 46 U/L (0-41); Albumin Level 1.6 g/dL (3.5-5.2); Alkaline Phosphatase 90 IU/L (40-130); Anion Gap 14.9 (5-19); Aspartate Amino Transferase 51 U/L (0-40); Blood Urea Nitrogen 18 mg/dL (6-20); Calcium 7.3 mg/dL (8.5-10.5); Carbon Dioxide 21 mmol/L (22-29); Chloride 105 mmol/L (98-107); Creatinine Clr Calc Pharmacy 104.4577; Globulin 2.6 g/dL (1.3-4.6); Glomerular Filtration Rate 87.6 mL/min (90-130); Glucose 98 mg/dL (65-115); Osmolality Calculated 286 mOsm/kg (285-295); Potassium 3.9 mmol/L (3.5-5.1); Sodium 137 mmol/L (136-145); Total Bilirubin 0.7 mg/dL (0.15-1.2); Total Protein 4.2 g/dL (6.6-8.7)
[2020-11-27 04:32] LABS: Slide Review Slide Review Perform
[2020-11-27 04:51] LABS: ABG PH Result 7.48 (7.35-7.45); Base Excess ABG 2.9 mmol/L (-2.0-2.0); Blood Gas Sample Site Brachial, left; Blood Gas Sample Type Arterial; Blood Gas Tidal Volume 0.45; HCO3 ABG 26.2 mmol/L (22-26); Oxygen Device VENT
[2020-11-27 05:27] LABS: INR 1.38 (0.8-1.2)
--- NOTE | 2020-11-27 06:10 | PC.NURSE ---
No acute changes, continue care.
[2020-11-27 07:23] LABS: Glucose Point of Care 150 mg/dL (70-110)
[2020-11-27] MEDS: pantoprazole 40 mg SDV IVP ×2 (08:24→19:40)
[2020-11-27 09:12] LABS: Glucose Point of Care 166 mg/dL (70-110)
[2020-11-27] MEDS: lactated ringers 1,000 ML 75 ML IV ×2 (09:13→22:53)
--- NOTE | 2020-11-27 09:33 | PC.CHAP ---
Pastoral Care Encounter/Spiritual Assessment Type of Contact [] Declined c++ professor visit [] Patient/Family/Request visit [] Outpatient visit [] Follow-up visit [] Physician referral [] Code/Alert [x] Routine visit [] Staff referral [] Actively dying [] Patient sleeping [x] Family support [] [] Out of room [] Palliative care [] [] Receiving care in room [] Pre-surgical visit [] Trauma [] Long length of stay [x ICU visit [x] Other: ventilator Relational/Emotional Strength [] Patient feels connected with others/family/visitors/staff [] Distress [] Loneliness/isolation [] Abandonment Spirituality of Patient [] Person of Maryellen [] Attends Protestant of their Maryellen [] Believes in Prayer [] Reads Bible or Orthodoxy materials [] There are Spiritual issues to be addressed Painting Worker Interventions [x] Prayer [] Active listening [] Non-anxious presence [] Spiritual/emotional support [] Crisis/trauma care [] Spiritual counseling [] Bereavement support [] Provided bereavement packet [] Provided Bible/devotional materials [] Provided toy/stuffed animal, coloring book to patient or family member [] Provided Communion [] Anointing/[place] [] Salvation [x] Completed spiritual assessment [] Other: Impact on Illness or Injury [] Angry [] Fearful [] Anxious [] Often cries [] Exhaustion [] Unable to work [] Unable to attend anabaptist [] Unable to walk/stand [] Unable to read [] Unable to drive [] Unable to eat/drink [] Unable to sleep [] Unable to be with family [] Patient intubated [] Other: Summary Time spent with patient
--- NOTE | 2020-11-27 10:51 | P.PN_ITS ---
Subjective Subjective: Interval history: No events overnight. Patient has remained medically stable. Off Levophed as well. Continues on fentanyl and propofol drip. On minimal ventilator settings. Has remained afebrile. Concerning for belly distention. Net 1300 cc negative in the last 24 hours. Medications: Reviewed: Yes Vitals/I&O/Wt Last Vital Signs Temp 97.9 F 11/27/20 07:00 Pulse 80 11/27/20 10:00 Resp 14 11/27/20 08:00 BP 131/61 11/27/20 10:00 Pulse Ox 97 11/27/20 10:00 11/26/20 11/27/20 11/27/20 22:59 06:59 14:59 Intake Total 1455 / 2862.344 100 / 2962.344 1055 / 1055 Output Total 1000 / 3600 600 / 4200 Balance 455 / -737.656 -500 / -6610.616 8854 / 1055 Weight last 48 hrs Weight 89.018 kg Weight 89.584 kg Physical Exam Narrative: EXAM NARRATIVE: General: Intubated, Arousable, sedated HEENT: PERRLA, pupils bilaterally equal and reactive Chest: Normal vesicular breath sounds, no added sounds, equal good air entry bilaterally CVS: S1-S2 regular, no murmurs, no tachycardia, no gallops, no rubs Abdomen: Distended, Open belly, surgically packed Neuro: Sedated arousable Urinary Catheter Management^: [place]: Cath Placed During This Visit: yes Urinary Catheter Date of Insertion: 11/24/20 Urinary Catheter Time of Insertion: 13:05 Data : 11/27/20 11:08 11/27/20 03:00 Micro: Microbiology 11/26/20 03:24 Blood Culture - Preliminary Blood NEGATIVE TO DATE 11/24/20 11:54 Blood Culture - Preliminary Blood Gram Negative Rods 11/26/20 10:55 Blood Culture - Preliminary Blood SPECIMEN COLLECTED 11/24/20 17:58 Gram Stain - Final Sputum - Endotracheal Tube Aspirate Sputum Culture - Preliminary A&P Assessment and plan (1) Sepsis due to Gram-negative organism with septic shock: Status: Acute (2) Acute renal failure: Due to above Status: Acute (3) Perforated bowel: Status: Acute (4) S/P exploratory laparotomy: Status: Acute (5) Diabetes mellitus: Sliding scale insulin q6hr blood sugar check while npo Status: Acute (6) History of colon cancer: Status: Acute Additional A&P Information Sepsis with shock due to gram negative bacteremia Developed post colonic perforated Continue imipenem. Will change antibiotics as per culture sensitivities. Final culture awaited. Keep mineral pressure is over 65. Off pressors. Continue with mechanical ventilation for now. Will wean once surgically close to avoid buckling. Continue with IV fluid at 75 cc/h. IV Lasix 40 mg stat. 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 Washout General surgery on board Open abdominal Plan to return to OR for closure. Acute respiratory failure on MV Fio2 at 30% To remain intubated for now ABG / Chest Xray in am NPO / OG in place Acute Renal Failure with oliguria / possible ATN Resolved. Diabetes mellitus Q6hr glucose checks Sliding scale insulin Goal < 180 Gi ppx Protonix DVT ppx SCDs We will discuss with Dr. Ricardo/surgery regarding possible TPN for nutrition once patient is off pressors. Attestations Medical Necessity Statement*: Patient requires further hospitalization for management of septic shock due to gram-negative and bacteremia in setting of perforated ischemic colon, post small bowel resection, open abdomen mechanical ventilation Critical Care Time: The high probability of a clinically significant, sudden or life threatening deterioration of the patient's [multiorgan] system(s) required my full and direct attention, intervention and personal management. The critical care time is as shown. This time is in addition to time spent performing any reported procedures but includes the following: [x] Data and vital sign review and interpretation [x] Patient assessment, examination and intervention [x] Documentation [x] Medication orders and management Coding Level of Care Code Acute Fruit Harvest Machine Operator for Chg Fwd Diagnoses Sepsis due to Gram-negative organism with septic shock A41.50; R65.21 Acute renal failure N17.9 Perforated bowel K63.1 S/P exploratory laparotomy Z98.890 Diabetes mellitus E11.9 History of colon cancer Z85.038
[2020-11-27 11:30] LABS: Basophils % 0.1 %; Eosinophils # 0.1 10^3/uL (0.0-0.8); Eosinophils % 1.1 %; Hematocrit 38.1 % (42.0-52.0); Hemoglobin 12.6 g/dL (11.7-16.6); Lymphocytes # 0.5 10^3/uL (0.8-4.8); Lymphocytes % 6.7 %; Mean Corpuscular HGB Conc 33.1 g/dL (30.0-36.0); Mean Corpuscular Hemoglobin 31.5 pg (28.0-34.0); Mean Corpuscular Volume 95.3 fL (80-94); Mean Platelet Volume 12.3 fL (7.4-10.4); Monocytes # 0.5 10^3/uL (0.2-0.9); Monocytes % 5.8 %; Neutrophils % 85.4 %; Nucleated Red Blood Cells % 0.5 %; Platelet Count 108 10^3/cmm (130-400); Red Cell Distribution Width 14.1 % (12.1-15.1)
[2020-11-27 11:51] LABS: Slide Review Slide Review Perform
[2020-11-27] MEDS: FUROsemide 10 mg/mL SDV 2mL 20 MG IVP (11:53)
--- NOTE | 2020-11-27 12:38 | PM.PN ---
Subjective Subjective: Interval history: Patient has on minimal vent settings, follows commands, off pressors since yesterday Vitals/I&O/Wt Last Vital Signs Temp 98.2 F 11/28/20 07:00 Pulse 115 H 11/28/20 12:00 Resp 31 H 11/28/20 12:00 BP 95/67 11/28/20 12:00 Pulse Ox 96 11/28/20 12:00 11/27/20 11/28/20 11/28/20 22:59 06:59 14:59 Intake Total 1400 / 2655 100 / 2655 200 / 200 Output Total 2185 / 3090 905 / 3090 465 / 465 Balance -785 / -435 -805 / -435 -265 / -265 Weight last 48 hrs Weight 189 lb Weight 196 lb 4 oz Physical Exam Narrative: EXAM NARRATIVE: Abdomen: Soft, distended, open abdomen, bowel appears viable, TRI drain output is serosanguineous Urinary Catheter Management^: [place]: Cath Placed During This Visit: yes Urinary Catheter Date of Insertion: 11/24/20 Urinary Catheter Time of Insertion: 13:05 Data : 11/28/20 04:35 11/28/20 04:35 Micro: Microbiology 11/24/20 11:54 Blood Culture - Final Blood Escherichia coli 11/24/20 11:54 Blood Culture - Final Blood Escherichia coli 11/24/20 17:58 Gram Stain - Final Sputum - Endotracheal Tube Aspirate Sputum Culture - Final 11/26/20 10:55 Blood Culture - Preliminary Blood NEGATIVE TO DATE A&P Assessment and plan (1) S/P exploratory laparotomy: Status post exploratory laparotomy with small bowel resection, partial colectomy with open abdomen, patient continues to be critically ill Continue IV imipenem Keep patient comfortable on minimal vent settings plan for diuresis today to help with abdominal closure Protonix for GI prophylaxis Lovenox for DVT prophylaxis Due to lack of OR availability we will plan for closure tomorrow Status: Acute (2) Acute renal failure: Status: Acute Attestations Medical Necessity Statement*: As per primary Coding Level of Care Code Acute Data Analyst Etl Developer for Chg Fwd Diagnoses S/P exploratory laparotomy Z98.890 Acute renal failure N17.9
[2020-11-27] MEDS: potassium chloride premix 100 ML 25 MEQ IV (12:44)
[2020-11-27 14:05] LABS: ABG PCO2 35.3 mmHg (35-45); Arterial Blood Gas Hematocrit 43.3 % (42-52); PO2 ABG 76.7 mmHg (80.0-100.0)
[2020-11-27 15:28] LABS: Glucose Point of Care 149 mg/dL (70-110)
--- NOTE | 2020-11-27 18:23 | XRR_ITS ---
PROCEDURE INFORMATION: Exam: XR Chest Exam date and time: 11/27/2020 6:23 PM Age: 54 years old Clinical indication: Device placement; Other: Ng tube placement; Prior surgery; Additional info: Ngt placement TECHNIQUE: Imaging protocol: XR of the chest. Views: 1 view. COMPARISON: CR XR chest 1V portable [id number] 11/26/2020 6:29 AM FINDINGS: Tubes, catheters and devices: Intubation with tip 6.9 cm above the binu. Right IJ central venous catheter with tip over the mid SVC. NG tube with tip in the gastric fundus. Lungs: Mild atelectasis is unchanged in both lung bases. The lungs are otherwise clear. Pleural spaces: Unremarkable. No pleural effusion. No pneumothorax. Heart/Mediastinum: Unremarkable. No cardiomegaly. Bones/joints: Unremarkable. XR/XR chest 1V portable [id number] IMPRESSION: 1. Repositioning of the NG tube with tip near the gastric fundus. 2. Otherwise stable chest.
[2020-11-27 19:41] LABS: Glucose Point of Care 138 mg/dL (70-110)
[2020-11-28] VITALS (55 sets, daily range): BP systolic 85–155; BP diastolic 47–81; PULSE 78–135; RESP 14–38; TEMP 36.3–37.6; O2SAT 67–100
[2020-11-28 01:54] LABS: Glucose Point of Care 181 mg/dL (70-110)
[2020-11-28] MEDS: artificial tears Op Soln 15 mL Btl 1 DROP EYE-BOTH ×5 (02:18→22:28)
[2020-11-28 04:50] LABS: ABG PCO2 42.4 mmHg (35-45); ABG PH Result 7.38 (7.35-7.45); Arterial Blood Gas Hematocrit 44.4 % (42-52); Base Excess ABG -0.4 mmol/L (-2.0-2.0); Blood Gas Sample Site Not specified; Blood Gas Sample Type Arterial; Blood Gas Tidal Volume 0.45; Oxygen Device VENT; PO2 ABG 73.5 mmHg (80.0-100.0)
[2020-11-28 05:33] LABS: Hematocrit 42.4 % (42.0-52.0); Hemoglobin 13.7 g/dL (11.7-16.6); Mean Corpuscular HGB Conc 32.3 g/dL (30.0-36.0); Mean Corpuscular Hemoglobin 31.1 pg (28.0-34.0); Mean Corpuscular Volume 96.4 fL (80-94); Mean Platelet Volume 12.9 fL (7.4-10.4); Platelet Count 104 10^3/cmm (130-400); Red Cell Distribution Width 14.4 % (12.1-15.1); White Blood Count 9.1 10^3/uL (4.0-10.0)
[2020-11-28 05:51] LABS: Alanine Aminotransferase 38 U/L (0-41); Albumin Level 1.7 g/dL (3.5-5.2); Alkaline Phosphatase 89 IU/L (40-130); Aspartate Amino Transferase 27 U/L (0-40); Blood Urea Nitrogen 18 mg/dL (6-20); Calcium 7.5 mg/dL (8.5-10.5); Carbon Dioxide 23 mmol/L (22-29); Chloride 103 mmol/L (98-107); Globulin 2.8 g/dL (1.3-4.6); Glomerular Filtration Rate 117.1 mL/min (90-130); Glucose 127 mg/dL (65-115); Osmolality Calculated 291 mOsm/kg (285-295); Sodium 139 mmol/L (136-145); Total Bilirubin 0.6 mg/dL (0.15-1.2); Total Protein 4.5 g/dL (6.6-8.7)
[2020-11-28 05:52] LABS: Anion Gap 16.6 (5-19); Potassium 3.6 mmol/L (3.5-5.1)
[2020-11-28 06:09] LABS: Absolute Segmented Neutrophil 4.6 10/cmm (1.6-7.1); Band Neutrophils Absolute 2.5 10^3/cmm (0.0-1.2); Segmented Neutrophils 50 %; Slide Review Slide Review Perform; Total Cells Counted 100 (0-100)
[2020-11-28 06:10] LABS: Absolute Eosinophils 0.1 10^3/cmm (0.0-0.7); Eosinophils 2 %; Giant Platelets Trace; Lymphocytes 8 %; Lymphocytes Absolute 0.8 10^3/cmm (1.2-3.4); Platelet Estimate Decreased (Normal)
[2020-11-28] MEDS: pantoprazole 40 mg SDV IVP ×2 (08:42→19:21)
[2020-11-28] MEDS: FUROsemide 10 mg/mL SDV 2mL 20 MG IVP (09:30)
--- NOTE | 2020-11-28 09:41 | PC.CHAP ---
Pastoral Care Encounter/Spiritual Assessment Type of Contact [] Declined heel finisher visit [] Patient/Family/Request visit [] Outpatient visit [] Follow-up visit [] Physician referral [] Code/Alert [x] Routine visit [] Staff referral [] Actively dying [] Patient sleeping [] Family support [] [] Out of room [] Palliative care [] [x] Receiving care in room [] Pre-surgical visit [] Trauma [] Long length of stay [x] ICU visit [] Other: Relational/Emotional Strength [] Patient feels connected with others/family/visitors/staff [] Distress [] Loneliness/isolation [] Abandonment Spirituality of Patient [] Person of Maryellen [] Attends Latter Day of their Maryellen [] Believes in Prayer [] Reads Bible or Anglican materials [] There are Spiritual issues to be addressed Burner Hand Interventions [x] Prayer [] Active listening [] Non-anxious presence [] Spiritual/emotional support [] Crisis/trauma care [] Spiritual counseling [] Bereavement support [] Provided bereavement packet [] Provided Bible/devotional materials [] Provided toy/stuffed animal, coloring book to patient or family member [] Provided Communion [] Anointing/[place] [] Salvation [x] Completed spiritual assessment [] Other: Impact on Illness or Injury [] Angry [] Fearful [] Anxious [] Often cries [] Exhaustion [] Unable to work [] Unable to attend hoahaoism [] Unable to walk/stand [] Unable to read [] Unable to drive [] Unable to eat/drink [] Unable to sleep [] Unable to be with family [] Patient intubated [] Other: Summary Time spent with patient
[2020-11-28 09:44] LABS: Glucose Point of Care 240 mg/dL (70-110)
--- NOTE | 2020-11-28 11:20 | P.PN_ITS ---
Subjective Subjective: Interval history: No acute events overnight. Has remained hemodynamically stable and afebrile. Off pressors for more than 36 hours now. Documented urine output in last 24 hours more than 2 L. Patient currently on minimal ventilation support. Plan for OR repair today. Medications: Reviewed: Yes Vitals/I&O/Wt Last Vital Signs Temp 98.2 F 11/28/20 07:00 Pulse 110 H 11/28/20 11:00 Resp 17 11/28/20 10:30 BP 118/48 11/28/20 11:00 Pulse Ox 97 11/28/20 11:00 11/27/20 11/28/20 11/28/20 22:59 06:59 14:59 Intake Total 1400 / 2555 100 / 2655 Output Total 2185 / 2185 905 / 3090 400 / 400 Balance -785 / 370 -805 / -435 -400 / -400 Weight last 48 hrs Weight 85.729 kg Weight 89.018 kg Physical Exam Narrative: EXAM NARRATIVE: General: Intubated, Arousable, sedated HEENT: PERRLA, pupils bilaterally equal and reactive Chest: Normal vesicular breath sounds, no added sounds, equal good air entry bilaterally CVS: S1-S2 regular, no murmurs, no tachycardia, no gallops, no rubs Abdomen: Distended, Open belly, surgically packed Neuro: Sedated arousable Urinary Catheter Management^: [place]: Cath Placed During This Visit: yes Urinary Catheter Date of Insertion: 11/24/20 Urinary Catheter Time of Insertion: 13:05 Data : 11/28/20 04:35 11/28/20 04:35 Micro: Microbiology 11/24/20 11:54 Blood Culture - Preliminary Blood Escherichia coli 11/24/20 11:54 Blood Culture - Preliminary Blood Escherichia coli 11/24/20 17:58 Gram Stain - Final Sputum - Endotracheal Tube Aspirate Sputum Culture - Final 11/26/20 10:55 Blood Culture - Preliminary Blood NEGATIVE TO DATE Microbiology 11/24/20 11:54 Blood Blood Culture - Final Escherichia coli 11/24/20 11:54 Blood Blood Culture - Final Escherichia coli 11/24/20 17:58 Sputum - Endotracheal Tube Aspirate Gram Stain - Final 11/24/20 17:58 Sputum - Endotracheal Tube Aspirate Sputum Culture - Final 11/26/20 10:55 Blood Blood Culture - Preliminary NEGATIVE TO DATE 11/26/20 03:24 Blood Blood Culture - Preliminary NEGATIVE TO DATE A&P Assessment and plan (1) Sepsis due to Gram-negative organism with septic shock: Status: Acute (2) Acute renal failure: Due to above Status: Acute (3) Perforated bowel: Status: Acute (4) S/P exploratory laparotomy: Status: Acute (5) Diabetes mellitus: Sliding scale insulin q6hr blood sugar check while npo Status: Acute (6) History of colon cancer: Status: Acute Additional A&P Information Sepsis with shock due to gram negative bacteremia Developed post colonic perforated Blood cultures positive for E. coli. Switch from imipenem to ceftriaxone as per culture sensitivities. Repeat blood cultures continue to remain negative. Keep mineral pressure is over 65. Off pressors. Continue with mechanical ventilation for now. Will wean once surgically close to avoid buckling. Continue with IV fluid at 75 cc/h. IV Lasix 40 mg stat to get patient net negative prior to the OR. 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 Washout General surgery on board Open abdominal Plan to return to OR for closure today. Acute respiratory failure on MV Fio2 at 30% To remain intubated for now ABG / Chest Xray in am NPO / OG in place Acute Renal Failure with oliguria / possible ATN Resolved. Diabetes mellitus Q6hr glucose checks Sliding scale insulin Goal < 180 Gi ppx Protonix DVT ppx SCDs We will discuss with Dr. Ricardo/surgery regarding possible TPN for nutrition once patient is off pressors. Attestations Medical Necessity Statement*: Requires further hospitalization for management for management of septic shock, E. coli bacteremia secondary to colonic perforation requiring small bowel resection. Time Spent in Patient Care: Greater than 35 minutes Critical Care Time: The high probability of a clinically significant, sudden or life threatening deterioration of the patient's [multiorgan] system(s multiorgan) required my full and direct attention, intervention and personal management. The critical care time is as shown. This time is in addition to time spent performing any reported procedures but includes the following: [x] Data and vital sign review and interpretation [x] Patient assessment, examination and intervention [x] Documentation [x] Medication orders and management Critical Care Time (min): 70 Coding Level of Care Code Acute Cruller Maker Machine for Chg Fwd Diagnoses Sepsis due to Gram-negative organism with septic shock A41.50; R65.21 Acute renal failure N17.9 Perforated bowel K63.1 S/P exploratory laparotomy Z98.890 Diabetes mellitus E11.9 History of colon cancer Z85.038
[2020-11-28] MEDS: potassium chloride premix 100 ML 25 MEQ IV ×2 (11:35→19:20)
--- NOTE | 2020-11-28 12:00 | PC.NURSE ---
[address] Ricardo. Abdomen observed. Reviewed I&O, labs, and vital signs. Orders for one time dose of IV Lasix. Plan for surgery this afternoon. Mother of patient updated.
[2020-11-28] MEDS: cefTRIAXone 2,000 MG in sodium chloride 0.9% (plus) 50 ML 100 MG IV (12:47)
--- NOTE | 2020-11-28 12:53 | P.PN_ITS ---
Subjective Subjective: Interval history: Patient is awake, follows commands, on minimal vent settings, good diuresis yesterday Vitals/I&O/Wt Last Vital Signs Temp 98.2 F 11/28/20 07:00 Pulse 115 H 11/28/20 12:00 Resp 31 H 11/28/20 12:00 BP 95/67 11/28/20 12:00 Pulse Ox 96 11/28/20 12:00 11/27/20 11/28/20 11/28/20 22:59 06:59 14:59 Intake Total 1400 / 2655 100 / 2655 200 / 200 Output Total 2185 / 3090 905 / 3090 465 / 465 Balance -785 / -435 -805 / -435 -265 / -265 Weight last 48 hrs Weight 189 lb Weight 196 lb 4 oz Physical Exam Narrative: EXAM NARRATIVE: Abdomen: Soft, distended, open abdomen, bowel appears viable Urinary Catheter Management^: [place]: Cath Placed During This Visit: yes Urinary Catheter Date of Insertion: 11/24/20 Urinary Catheter Time of Insertion: 13:05 Data : 11/28/20 04:35 11/28/20 04:35 Micro: Microbiology 11/24/20 11:54 Blood Culture - Final Blood Escherichia coli 11/24/20 11:54 Blood Culture - Final Blood Escherichia coli 11/24/20 17:58 Gram Stain - Final Sputum - Endotracheal Tube Aspirate Sputum Culture - Final 11/26/20 10:55 Blood Culture - Preliminary Blood NEGATIVE TO DATE A&P Assessment and plan (1) S/P exploratory laparotomy: Status post exploratory laparotomy with small bowel resection, partial colectomy with open abdomen, patient continues to be critically ill Continue IV imipenem Keep patient comfortable on minimal vent settings plan for diuresis today to help with abdominal closure Protonix for GI prophylaxis Lovenox for DVT prophylaxis Plan for washout, possible anastomosis, possible ileostomy today. Had discussed symptoms with the patient's mother about his status. Status: Acute (2) Acute renal failure: Resolved Status: Acute Attestations Medical Necessity Statement*: as Per primary Coding Level of Care Code Acute Arc Welding Machine Operator for Chg Fwd Diagnoses S/P exploratory laparotomy Z98.890 Acute renal failure N17.9
--- NOTE | 2020-11-28 14:24 | P.ANESASSM_ITS ---
Pre-Anesthetic Assessment Pre-Anesthetic Assessment: Height/Weight: Height 1.78 m Weight 85.729 kg Temp Pulse Resp BP Pulse Ox 99.6 F 103 H 17 114/53 96 11/28/20 13:35 11/28/20 14:00 11/28/20 14:00 11/28/20 14:00 11/28/20 14:00 Preop Diagnosis: sepsis with bowel perf Proposed Procedure: Operation Date: 11/24/20 15:35 Proposed Procedures p Exploratory Laparotomy(Not Applicable) - Mack Ricardo MD Operation Date: 11/28/20 16:05 Proposed Procedures p Colostomy(Not Applicable) - Mack Ricardo MD s Delayed Primary Closure(Not Applicable) - Mack Ricardo MD s irrigation of abdominal cavity(Not Applicable) - Mack Ricardo MD Was Beta Delfino taken within 24 hours: N/A Was Clonidine taken within 24 hours: N/A Social: Social History: No alcohol and No tobacco Exam: Additional Exam Findings (including area of procedure): Sedated on ventilator Airway: Additional comments: ETT : Comments: ARF GI: GI: GERD Comments: s/p exlap, free air from colon perforation Metabolic: Metabolic: DM Anesthetic Plan: ASA status: 4 Anesthesia: General Risk of > 500 ml blood loss (7ml/kg in children): No Meds/Allergies Current Medications: Current Medications Generic Name Dose Route Start Last Admin Trade Name Freq PRN Reason Stop Dose Admin Artificial Tears 1 drop 11/26/20 18:30 11/28/20 10:50 Artificial Tears Op Soln 15 Ml Btl EYE-BOTH 1 applic Q4H REJI Administration Propofol 1,000 mg in 100 m ls @ 0 mls/hr 11/24/20 17:45 11/24/20 23:13 Diprivan IV 0 mcg/kg/min .Q0M RJEI 0 mls/hr Titration Protocol Per Protocol Fentanyl 1,000 mcg / Sodium 100 mls @ 0 mls/h r 11/24/20 22:15 11/28/20 11:35 Chloride IV 100 mcg/hr .Q0M REJI 10 mls/hr Administration Protocol Per Protocol Norepinephrine Bit artrate 8 mg 508 mls @ 0 mls/h r 11/25/20 01:30 11/26/20 18:13 / Dextrose IV Infused .Q0M REJI Titration Protocol Per Protocol Lactated Ringer's 1,000 mls @ 75 ml s/hr 11/25/20 12:15 11/27/20 22:53 Lactated Ringers IV 75 mls/hr .[id number] REJI Administration Ceftriaxone Sodium 2,000 mg/ 50 mls @ 100 mls/ hr 11/28/20 11:45 11/28/20 13:17 Sodium Chloride IV Infused Q24H REJI Infusion Protocol Potassium Chloride 100 mls @ 25 mls/ hr 11/28/20 11:30 11/28/20 11:35 K-Mesfin IV 11/28/20 19:29 25 mls/hr Q4H REJI Administration Insulin Aspart 0 unit 11/26/20 09:30 11/28/20 10:50 Insulin Aspart 1 00 Unit/1 Ml SUBCUT 10 unit Q6H REJI Administration Protocol Morphine Sulfate 4 mg 11/24/20 17:37 11/24/20 20:40 Morphine 4 Mg/Ml Sdv 1 Ml IVP 4 mg Q1H PRN Administration SEVERE PAIN Pantoprazole Sodiu m 40 mg 11/24/20 20:00 11/28/20 08:42 Pantoprazole 40 Mg Sdv IVP 40 mg Q12H REJI Administration PFSH Anesthesia PFSH: Medical History (Updated 11/25/20 @ 18:02 by Nyla Pickett MD) Blindness of both eyes Diabetes GERD (gastroesophageal reflux disease) Rectosigmoid cancer SBO (small bowel obstruction) Status post chemoradiation Surgical History (Updated 11/25/20 @ 12:16 by Mack Ricardo MD) History of low anterior resection of rectum History of reversal of ileostomy S/P exploratory laparotomy (11/24/20) Small bowel resection, partial colectomy Status post colonoscopy (11/23/20) Data Anesthesia CBC & Chem 7: 11/28/20 04:35 11/28/20 04:35 Other Labs: Laboratory Results - last 48 hr 11/24/20 11/25/20 11/26/20 14:08 05:19 03:17 WBC RBC Hgb Hct MCV MCH MCHC RDW Plt Count MPV Neut % (Auto) Lymph % (Auto) Giles % (Auto) Eos % (Auto) Baso % (Auto) Neut # (Auto) Lymph # (Auto) Giles # (Auto) Eos # (Auto) Baso # (Auto) Nucleated RBC % (auto) Total Counted Atypical Lymphs % Absolute Neutrophils Segmented Neutrophils Abs Segm Neuts (Man) Band Neutrophils Abs Band Neuts (Man) Absolute Lymphocytes Lymphocytes (Manual) Monocytes (Manual) Absolute Monocytes Eosinophils (Manual) Absolute Eosinophils Basophils (Manual) Absolute Basophils Metamyelocytes Nucleated RBCs # Platelet Estimate Giant Platelets PT INR Specimen Type Sample Site Na Not Reportable ABG pH ABG pCO2 ABG pO2 ABG HCO3 ABG Base Excess Primitivo Test Hematocrit O2 Delivery Device FiO2 Tidal Volume PEEP Member Of Technical Staff ID Sodium Potassium Chloride Carbon Dioxide Anion Gap BUN Creatinine GFR Calculation Glucose POC Glucose Calculated Osmolality Lactic Acid (Sepsis) Calcium Total Bilirubin AST ALT Alkaline Phosphatase Total Protein Albumin Globulin Crossmatch See Detail 11/26/20 11/26/20 11/27/20 14:04 20:33 03:00 WBC RBC Hgb Hct MCV MCH MCHC RDW Plt Count MPV Neut % (Auto) Lymph % (Auto) Giles % (Auto) Eos % (Auto) Baso % (Auto) Neut # (Auto) Lymph # (Auto) Giles # (Auto) Eos # (Auto) Baso # (Auto) Nucleated RBC % (auto) Total Counted Atypical Lymphs % Absolute Neutrophils Segmented Neutrophils Abs Segm Neuts (Man) Band Neutrophils Abs Band Neuts (Man) Absolute Lymphocytes Lymphocytes (Manual) Monocytes (Manual) Absolute Monocytes Eosinophils (Manual) Absolute Eosinophils Basophils (Manual) Absolute Basophils Metamyelocytes Nucleated RBCs # Platelet Estimate Giant Platelets PT INR Specimen Type Sample Site ABG pH ABG pCO2 ABG pO2 ABG HCO3 ABG Base Excess Primitivo Test Hematocrit O2 Delivery Device FiO2 Tidal Volume PEEP Member Of Technical Staff ID Sodium 137 Potassium 3.9 Chloride 105 Carbon Dioxide 21 L Anion Gap 14.9 BUN 18 Creatinine 0.9 GFR Calculation 87.6 L Glucose 98 POC Glucose 215 H Calculated Osmolality 286 Lactic Acid (Sepsis) 2.1 Calcium 7.3 L Total Bilirubin 0.7 AST 51 H ALT 46 H Alkaline Phosphatase 90 Total Protein 4.2 L Albumin 1.6 L Globulin 2.6 Crossmatch 11/27/20 11/27/20 11/27/20 03:00 03:34 04:45 WBC 5.4 RBC 5.54 H Hgb 17.6 H D Hct 56.7 H D MCV 102.3 H D MCH 31.8 MCHC 31.0 D RDW 14.3 Plt Count 66 L MPV 12.5 H Neut % (Auto) 77.4 Lymph % (Auto) 7.4 Giles % (Auto) 4.5 Eos % (Auto) 2.4 Baso % (Auto) 0.0 Neut # (Auto) 4.17 Lymph # (Auto) 0.4 L Giles # (Auto) 0.2 Eos # (Auto) 0.1 Baso # (Auto) 0.0 Nucleated RBC % (auto) 0.9 Total Counted Atypical Lymphs % Absolute Neutrophils Segmented Neutrophils Abs Segm Neuts (Man) Band Neutrophils Abs Band Neuts (Man) Absolute Lymphocytes Lymphocytes (Manual) Monocytes (Manual) Absolute Monocytes Eosinophils (Manual) Absolute Eosinophils Basophils (Manual) Absolute Basophils Metamyelocytes Nucleated RBCs # 0.1 Platelet Estimate Giant Platelets PT INR Specimen Type Arterial Sample Site Brachial, left ABG pH 7.48 H ABG pCO2 35.3 ABG pO2 76.7 L ABG HCO3 26.2 H ABG Base Excess 2.9 H Primitivo Test N/a Hematocrit 43.3 O2 Delivery Device Vent FiO2 30.0 Tidal Volume 0.45 PEEP 6.0 Member Of Technical Staff ID Hinja Sodium Potassium Chloride Carbon Dioxide Anion Gap BUN Creatinine GFR Calculation Glucose POC Glucose 106 Calculated Osmolality Lactic Acid (Sepsis) Calcium Total Bilirubin AST ALT Alkaline Phosphatase Total Protein Albumin Globulin Crossmatch 11/27/20 11/27/20 11/27/20 05:02 07:20 09:10 WBC RBC Hgb Hct MCV MCH MCHC RDW Plt Count MPV Neut % (Auto) Lymph % (Auto) Giles % (Auto) Eos % (Auto) Baso % (Auto) Neut # (Auto) Lymph # (Auto) Giles # (Auto) Eos # (Auto) Baso # (Auto) Nucleated RBC % (auto) Total Counted Atypical Lymphs % Absolute Neutrophils Segmented Neutrophils Abs Segm Neuts (Man) Band Neutrophils Abs Band Neuts (Man) Absolute Lymphocytes Lymphocytes (Manual) Monocytes (Manual) Absolute Monocytes Eosinophils (Manual) Absolute Eosinophils Basophils (Manual) Absolute Basophils Metamyelocytes Nucleated RBCs # Platelet Estimate Giant Platelets PT 17.30 H INR 1.38 H Specimen Type Sample Site ABG pH ABG pCO2 ABG pO2 ABG HCO3 ABG Base Excess Primitivo Test Hematocrit O2 Delivery Device FiO2 Tidal Volume PEEP Member Of Technical Staff ID Sodium Potassium Chloride Carbon Dioxide Anion Gap BUN Creatinine GFR Calculation Glucose POC Glucose 150 H 166 H Calculated Osmolality Lactic Acid (Sepsis) Calcium Total Bilirubin AST ALT Alkaline Phosphatase Total Protein Albumin Globulin Crossmatch 11/27/20 11/27/20 11/27/20 11:08 15:25 19:36 WBC 8.0 RBC 4.00 L Hgb 12.6 Hct 38.1 L D MCV 95.3 H D MCH 31.5 MCHC 33.1 D RDW 14.1 Plt Count 108 L MPV 12.3 H Neut % (Auto) 85.4 Lymph % (Auto) 6.7 Giles % (Auto) 5.8 Eos % (Auto) 1.1 Baso % (Auto) 0.1 Neut # (Auto) 6.80 Lymph # (Auto) 0.5 L Giles # (Auto) 0.5 Eos # (Auto) 0.1 Baso # (Auto) 0.0 Nucleated RBC % (auto) 0.5 Total Counted Atypical Lymphs % Absolute Neutrophils Segmented Neutrophils Abs Segm Neuts (Man) Band Neutrophils Abs Band Neuts (Man) Absolute Lymphocytes Lymphocytes (Manual) Monocytes (Manual) Absolute Monocytes Eosinophils (Manual) Absolute Eosinophils Basophils (Manual) Absolute Basophils Metamyelocytes Nucleated RBCs # 0.0 Platelet Estimate Giant Platelets PT INR Specimen Type Sample Site ABG pH ABG pCO2 ABG pO2 ABG HCO3 ABG Base Excess Primitivo Test Hematocrit O2 Delivery Device FiO2 Tidal Volume PEEP Member Of Technical Staff ID Sodium Potassium Chloride Carbon Dioxide Anion Gap BUN Creatinine GFR Calculation Glucose POC Glucose 149 H 138 H Calculated Osmolality Lactic Acid (Sepsis) Calcium Total Bilirubin AST ALT Alkaline Phosphatase Total Protein Albumin Globulin Crossmatch 11/28/20 11/28/20 11/28/20 01:34 04:00 04:35 WBC 9.1 RBC 4.40 Hgb 13.7 Hct 42.4 MCV 96.4 H MCH 31.1 MCHC 32.3 RDW 14.4 Plt Count 104 L MPV 12.9 H Neut % (Auto) Lymph % (Auto) Not Reportable Giles % (Auto) Not Reportable Eos % (Auto) Baso % (Auto) Neut # (Auto) Lymph # (Auto) Not Reportable Giles # (Auto) Not Reportable Eos # (Auto) Baso # (Auto) Nucleated RBC % (auto) Total Counted 100 Atypical Lymphs % 1.0 Absolute Neutrophils 7.0 H Segmented Neutrophils 50 Abs Segm Neuts (Man) 4.6 Band Neutrophils 27.0 Abs Band Neuts (Man) 2.5 H Absolute Lymphocytes 0.8 L Lymphocytes (Manual) 8 Monocytes (Manual) 11.0 Absolute Monocytes 1.0 H Eosinophils (Manual) 2 Absolute Eosinophils 0.1 Basophils (Manual) 0.0 Absolute Basophils 0.0 Metamyelocytes 1.0 Nucleated RBCs # Platelet Estimate Decreased Giant Platelets Trace PT INR Specimen Type Arterial Sample Site Not specified ABG pH 7.38 ABG pCO2 42.4 ABG pO2 73.5 L ABG HCO3 25.0 ABG Base Excess -0.4 Primitivo Test N/a Hematocrit 44.4 O2 Delivery Device Vent FiO2 28.0 Tidal Volume 0.45 PEEP 6.0 Member Of Technical Staff ID Hinja Sodium Potassium Chloride Carbon Dioxide Anion Gap BUN Creatinine GFR Calculation Glucose POC Glucose 181 H Calculated Osmolality Lactic Acid (Sepsis) Calcium Total Bilirubin AST ALT Alkaline Phosphatase Total Protein Albumin Globulin Crossmatch 11/28/20 11/28/20 04:35 09:40 WBC RBC Hgb Hct MCV MCH MCHC RDW Plt Count MPV Neut % (Auto) Lymph % (Auto) Giles % (Auto) Eos % (Auto) Baso % (Auto) Neut # (Auto) Lymph # (Auto) Giles # (Auto) Eos # (Auto) Baso # (Auto) Nucleated RBC % (auto) Total Counted Atypical Lymphs % Absolute Neutrophils Segmented Neutrophils Abs Segm Neuts (Man) Band Neutrophils Abs Band Neuts (Man) Absolute Lymphocytes Lymphocytes (Manual) Monocytes (Manual) Absolute Monocytes Eosinophils (Manual) Absolute Eosinophils Basophils (Manual) Absolute Basophils Metamyelocytes Nucleated RBCs # Platelet Estimate Giant Platelets PT INR Specimen Type Sample Site ABG pH ABG pCO2 ABG pO2 ABG HCO3 ABG Base Excess Primitivo Test Hematocrit O2 Delivery Device FiO2 Tidal Volume PEEP Member Of Technical Staff ID Sodium 139 Potassium 3.6 Chloride 103 Carbon Dioxide 23 Anion Gap 16.6 BUN 18 Creatinine 0.7 GFR Calculation 117.1 Glucose 127 H POC Glucose 240 H Calculated Osmolality 291 Lactic Acid (Sepsis) Calcium 7.5 L Total Bilirubin 0.6 AST 27 ALT 38 Alkaline Phosphatase 89 Total Protein 4.5 L Albumin 1.7 L Globulin 2.8 Crossmatch Micro: Microbiology 11/24/20 11:54 Blood Culture - Final Blood Escherichia coli 11/24/20 11:54 Blood Culture - Final Blood Escherichia coli 11/24/20 17:58 Gram Stain - Final Sputum - Endotracheal Tube Aspirate Sputum Culture - Final 11/26/20 10:55 Blood Culture - Preliminary Blood NEGATIVE TO DATE Cardiac Studies: No Data to Display
[2020-11-28 14:35] LABS: Glucose Point of Care 150 mg/dL (70-110)
--- NOTE | 2020-11-28 16:03 | PC.NURSE ---
Patient off unit, in surgery at this time. Transported by surgery staff by bed. Mother in ICU waiting room.
--- NOTE | 2020-11-28 18:11 | SUR.OPER ---
the two external drains were removed before prepping patient. no fluids noted in drains when removed.
--- NOTE | 2020-11-28 18:38 | PM.OP ---
Operative Report Date of procedure: November 28, 2020 Pre-op Diagnosis: 1.. Transverse colon perforation status post colonoscopy 2. Exploratory laparotomy with open abdomen, small bowel resection, colon resection Post-op Diagnosis: 1.. Transverse colon perforation status post colonoscopy 2. Exploratory laparotomy with open abdomen, small bowel resection, colon resection 3. 4 cm segment of ischemia involving the staple line in the proximal transverse colon segment Procedure Done: Washout of abdomen Partial transverse colectomy with handsewn colocolic anastomosis Double barrel ileostomy Specimens removed/disposition: Centimeters segment of ischemic transverse colon Surgeon: Mack Ricardo Anesthesia: General Estimated blood loss (mL): 50 IV fluids (mL): 1,200 Urine output (mL): 400 Condition: critical Disposition: ICU Brief History: This a 54-year-old male with history of colon cancer status post LAR with subsequent ileostomy takedown who had a colon perforation after a colonoscopy. Patient underwent exploratory laparotomy with small bowel resection and partial colectomy without anastomosis and he was left with an open abdomen since he was on 3 pressors. Over the last 2 days he has been off pressors and has been on minimal vent settings and therefore he was taken back to surgery today for washout and possible closure. Procedure: The patient was taken to the operating room on the ventilator. An NG tube and Hull catheter was already in place. The [place] dressings of the open abdomen was taken down and the abdomen is prepped and draped in a sterile manner. The peritoneal cavity was washed out with 6 L of warm saline. Early adhesions within small bowel loops and the colon was taken down. The distal 4 cm of the transverse colon near the staple line had and ischemic since prior surgery. The distal staple line and adjacent colon appeared viable. The transverse colon was further mobilized from the lateral pelvic wall by taking down the adhesions using Metzenbaum scissors. After ensuring adequate length for tension-free anastomosis, nontraumatic bowel clamp was placed and the ischemic segment of the colon was excised and sent in formalin to pathology. Using Metzenbaum scissors the staple line on the distal colonic segment was excised. Interrupted 2-0 silk sutures were placed to approximate the 2 colon segments. Interrupted 3-0 Vicryl sutures were then placed to approximate the anterior and posterior wall of the transverse colon segments in a single layer to create a colocolic handsewn anastomosis. Surgical incision was then made in the right lower quadrant about the prior ileostomy site using electrocautery, subcutaneous tissue was excised and a cruciate incision was made in the anterior rectus sheath, the rectus muscles were bluntly and a 2 fingerbreadth opening was made in the posterior rectus sheath. The 2 ends of the previously divided small bowel segment were exteriorized through the ileostomy site with the goal of creating a double barrel ileostomy. The existing 10 flat TRI drains were left in place along the left paracolic gutter and in the pelvis and sutured to the skin using 3-0 Prolene suture. The fascia in the midline was closed using #1 looped PDS and skin pino after the subcutaneous tissue had been irrigated with saline. The ileum was sutured to the anterior rectus sheath using interrupted 4-0 Vicryl suture. The staple line of the exteriorized the small bowel segment was cut using Metzenbaum scissors and the enterotomies extended to create a double barrel ileostomy in a standard fashion by approximating the mucocutaneous junction to the skin edge using interrupted 4-0 Vicryl suture.
[2020-11-28] MEDS: norepinephrine 8 MG in dextrose 5 % 500 ML 7.62 MG IV (19:14)
[2020-11-28] MEDS: lactated ringers 1,000 ML 75 ML IV (19:15)
[2020-11-28 19:33] LABS: Glucose Point of Care 127 mg/dL (70-110)
[2020-11-29] VITALS (31 sets, daily range): BP systolic 83–140; BP diastolic 52–65; PULSE 98–145; RESP 14–32; TEMP 36.8–38.2; O2SAT 94–98
[2020-11-29] MEDS: propofol 1,000 MG/100 ML INJ 4.3 MG IV (00:01)
[2020-11-29] MEDS: phenylephrine inj 25 MG in sodium chloride 0.9% 250 ML 24.24 MG IV (00:17)
[2020-11-29] MEDS: lactated ringers 1,000 ML 75 ML IV ×2 (01:36→09:24)
[2020-11-29 01:37] LABS: Glucose Point of Care 259 mg/dL (70-110)
[2020-11-29] MEDS: acetaminophen 1,000 MG/100 ML PIGGYBACK 400 MG IV (02:49)
[2020-11-29] MEDS: sodium chloride 0.9% 1,000 ML 999 ML IV (02:49)
[2020-11-29] MEDS: artificial tears Op Soln 15 mL Btl 1 DROP EYE-BOTH ×5 (02:50→21:01)
--- NOTE | 2020-11-29 03:00 | PC.NURSE ---
2340 - Notified Dr. Flood of HR 130's and B/P 91/51 and is currently on 12mcg/min of levophed. Order given to start phenylephrine and turn levophed down to low dose. 0011 - Notified that patients temp is 100.1 axillary and he is currently on ceftriaxone. No orders received. 0138 - Notified that patient is currently maxed on pheynylephrine and on 5mcg/min of levophed with B/P 85/52 and HR 135. No orders received. 0148 - Updated that patient has not received any tylenol and CVP is currently 3. 0226 - Notified that HR is now sustaining 140's and B/P is 91/60 on 180 mcg/min of pheynylephrine and 4 mcg/min of levophed. Axillary temp currently 100.5. Order for 1L NS bolus IV x 1 and 1 gram tylenol IV x 1 dose.
[2020-11-29] MEDS: phenylephrine inj 25 MG in sodium chloride 0.9% 250 ML 109.08 MG IV (03:20)
[2020-11-29] MEDS: phenylephrine inj 25 MG in sodium chloride 0.9% 250 ML 66.66 MG IV (06:05)
--- NOTE | 2020-11-29 08:29 | ANE.PACU2 ---
Inpatient post-anesthesia follow up: Airway intact: Yes (ETT in ICU) Vital signs: Temperature 99.4 F Pulse Rate [Left R adial] 111 Pulse Rate 112 Respiratory Rate 21 Blood Pressure [Le ft Arm] 114/68 Blood Pressure 122/63 Pulse Oximetry 98 Oxygen Delivery Me thod Nasal Cannula Oxygen Flow Rate 2 Fraction of Inspir ed Oxygen 28 Hydration adequate: No (Requiring more pressors) Nausea and vomiting: No Pain level: 3 Mental status: Baseline
--- NOTE | 2020-11-29 09:09 | PC.CHAP ---
Pastoral Care Encounter/Spiritual Assessment Type of Contact [] Declined police captain senior visit [] Patient/Family/Request visit [] Outpatient visit [] Follow-up visit [] Physician referral [] Code/Alert [x] Routine visit [] Staff referral [] Actively dying [] Patient sleeping [x] Family support [] [] Out of room [] Palliative care [] [] Receiving care in room [] Pre-surgical visit [] Trauma [] Long length of stay [x] ICU visit [] Other: Relational/Emotional Strength [] Patient feels connected with others/family/visitors/staff [] Distress [] Loneliness/isolation [] Abandonment Spirituality of Patient [x] Person of Maryellen [] Attends Taoist of their Maryellen [] Believes in Prayer [] Reads Bible or Sabianist materials [] There are Spiritual issues to be addressed [place] Conservationist Interventions [x] Prayer [x] Active listening [x] Non-anxious presence [x] Spiritual/emotional support [] Crisis/trauma care [] Spiritual counseling [] Bereavement support [] Provided bereavement packet [] Provided Bible/devotional materials [] Provided toy/stuffed animal, coloring book to patient or family member [] Provided Communion [] Anointing/[place] [] Salvation [x] Completed spiritual assessment [] Other: Impact on Illness or Injury [] Angry [] Fearful [] Anxious [] Often cries [] Exhaustion [] Unable to work [] Unable to attend taoist [] Unable to walk/stand [] Unable to read [] Unable to drive [] Unable to eat/drink [] Unable to sleep [] Unable to be with family [] Patient intubated [] Other: Summary family present.. patient looking much stronger.. still on ventilator. patient blind, so not responsive to conversation .. assured family chaplains are available 22/12... their buddhist body are all praying.. but mother sees a good improvement in him Time spent with patient 15 min
[2020-11-29] MEDS: pantoprazole 40 mg SDV IVP ×2 (09:18→20:39)
[2020-11-29 09:19] LABS: Glucose Point of Care 215 mg/dL (70-110)
--- NOTE | 2020-11-29 09:58 | P.PN_ITS ---
Subjective Subjective: Interval history: Overnight patient was started on Levophed which was later transitioned over to phenylephrine because of tachycardia. Examination patient's map as an low 60s with heart rate in 120s. Urine looks concentrated. Patient was given 500 cc fluid bolus along with albumin after which his blood pressures improved and phenylephrine was discontinued. Patient remains on minimal ventilation support. Documented urine output during the day 1900 cc. Medications: Reviewed: Yes Vitals/I&O/Wt Last Vital Signs Temp 99.4 F 11/29/20 07:27 Pulse 112 H 11/29/20 07:27 Resp 19 H 11/29/20 09:42 BP 122/63 11/29/20 07:27 Pulse Ox 95 11/29/20 09:42 11/28/20 11/29/20 11/29/20 22:59 06:59 14:59 Intake Total 2652.591 / 2902.591 2313.373 / 5215.964 597.12 / 597.12 Output Total 2440 / 2905 490 / 3395 Balance 212.591 / -2.409 1823.373 / 1820.964 597.12 / 597.12 Weight last 48 hrs Weight 89.176 kg Weight 85.729 kg Physical Exam Narrative: EXAM NARRATIVE: General: Intubated, Arousable, sedated HEENT: PERRLA, pupils bilaterally equal and reactive Chest: Normal vesicular breath sounds, no added sounds, equal good air entry bilaterally CVS: S1-S2 regular, no murmurs, no tachycardia, no gallops, no rubs Abdomen: Distended, Open belly, surgically packed Neuro: Sedated arousable Urinary Catheter Management^: Hull: Cath Placed During This Visit: yes Urinary Catheter Date of Insertion: 11/24/20 Urinary Catheter Time of Insertion: 13:05 Data : 11/29/20 10:13 11/29/20 10:13 Micro: Microbiology 11/28/20 11:53 Gram Stain - Final Sputum - Endotracheal Tube Aspirate Sputum Culture - Preliminary 11/24/20 11:54 Blood Culture - Final Blood Escherichia coli 11/24/20 11:54 Blood Culture - Final Blood Escherichia coli Microbiology 11/28/20 11:53 Sputum - Endotracheal Tube Aspirate Gram Stain - Final 11/28/20 11:53 Sputum - Endotracheal Tube Aspirate Sputum Culture - Preliminary 11/24/20 11:54 Blood Blood Culture - Final Escherichia coli 11/24/20 11:54 Blood Blood Culture - Final Escherichia coli 11/24/20 17:58 Sputum - Endotracheal Tube Aspirate Gram Stain - Final 11/24/20 17:58 Sputum - Endotracheal Tube Aspirate Sputum Culture - Final 11/26/20 10:55 Blood Blood Culture - Preliminary NEGATIVE TO DATE 11/26/20 03:24 Blood Blood Culture - Preliminary NEGATIVE TO DATE A&P Assessment and plan (1) Sepsis due to Gram-negative organism with septic shock: Status: Acute (2) Acute renal failure: Due to above Status: Acute (3) Perforated bowel: Status: Acute (4) S/P exploratory laparotomy: Status: Acute (5) Diabetes mellitus: Sliding scale insulin q6hr blood sugar check while npo Status: Acute (6) History of colon cancer: Status: Acute Additional A&P Information Sepsis with shock due to gram negative bacteremia Developed post colonic perforated Blood cultures positive for E. coli. Continue ceftriaxone 2 g IV daily. Will need 14 days course overall after the last positive blood cultures. Repeat blood cultures continue to remain negative. Keep mean arterial pressure over 65. IV fluid at 75 cc/h. Start patient on TPN. Start patient on IV albumin every 8 hourly. Continue with mechanical ventilation for now. Plan for extubation tomorrow. We will monitor urine output during the day and if needed will give IV Lasix 20 stat at that time. 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 Washout Abdomen closed with ileostomy on November 28. Acute respiratory failure on MV Fio2 at 30% To remain intubated for now. Plan for trial of extubation tomorrow ABG / Chest Xray in am NPO / OG in place Acute Renal Failure with oliguria / possible ATN Resolved. Diabetes mellitus Q6hr glucose checks Sliding scale insulin Goal < 180 Gi ppx Protonix DVT ppx SCDs TPN. Attestations Medical Necessity Statement*: Requires further hospitalization for management of sepsis/septic shock from E. coli bacteremia and perforated colon. Critical Care Time: The high probability of a clinically significant, sudden or life threatening deterioration of the patient's [multiorgan] system(s) req uired my full and direct attention, intervention and personal management. The critical care time is as shown. This time is in addition to time spent performing any reported procedures but includes the following: [x] Data and vital sign review and interpretation [x] Patient assessment, examination and intervention [x] Documentation [x] Medication orders and management Critical Care Time (min): 80 Coding Level of Care Code Acute [employer] Associate for [facility] Fwd Diagnoses Sepsis due to Gram-negative organism with septic shock A41.50; R65.21 Acute renal failure N17.9 Perforated bowel K63.1 S/P exploratory laparotomy Z98.890 Diabetes mellitus E11.9 History of colon cancer Z85.038
[2020-11-29] MEDS: sodium chloride 0.9% 500 ML 999 ML IV (10:19)
[2020-11-29 10:20] LABS: Basophils % 0.1 %; Hematocrit 39.7 % (42.0-52.0); Lymphocytes # 1.2 10^3/uL (0.8-4.8); Lymphocytes % 7.5 %; Mean Corpuscular HGB Conc 32.7 g/dL (30.0-36.0); Mean Corpuscular Hemoglobin 31.3 pg (28.0-34.0); Mean Corpuscular Volume 95.7 fL (80-94); Mean Platelet Volume 11.7 fL (7.4-10.4); Monocytes # 0.8 10^3/uL (0.2-0.9); Monocytes % 4.9 %; Neutrophils # 12.45 10^3/uL (1.8-7.7); Neutrophils % 81.7 %; Nucleated Red Blood Cells % 0 %; Platelet Count 186 10^3/cmm (130-400); Positive C 1; Positive M 1; Red Blood Count 4.15 10^6/uL (4.1-5.3); Red Cell Distribution Width 15.1 % (12.1-15.1); White Blood Count 15.3 10^3/uL (4.0-10.0)
[2020-11-29 10:42] LABS: Alanine Aminotransferase 21 U/L (0-41); Albumin Level 1.7 g/dL (3.5-5.2); Alkaline Phosphatase 75 IU/L (40-130); Anion Gap 22.6 (5-19); Aspartate Amino Transferase 23 U/L (0-40); Blood Urea Nitrogen 24 mg/dL (6-20); Calcium 6.9 mg/dL (8.5-10.5); Carbon Dioxide 17 mmol/L (22-29); Chloride 102 mmol/L (98-107); Globulin 2.3 g/dL (1.3-4.6); Glomerular Filtration Rate 57.3 mL/min (90-130); Glucose 294 mg/dL (65-115); Osmolality Calculated 301 mOsm/kg (285-295); Potassium 3.6 mmol/L (3.5-5.1); Sodium 138 mmol/L (136-145); Total Bilirubin 0.4 mg/dL (0.15-1.2)
[2020-11-29 10:48] LABS: Procalcitonin 8.73 ng/mL (0-0.5)
[2020-11-29 11:03] LABS: Slide Review Slide Review Perform
[2020-11-29] MEDS: cefTRIAXone 2,000 MG in sodium chloride 0.9% (plus) 50 ML 100 MG IV (11:47)
--- NOTE | 2020-11-29 13:32 | PC.SOCIAL ---
IMM IMM not updated as patient is not expected to discharge in the next 24-48 hours.
--- NOTE | 2020-11-29 13:38 | PC.NUTR ---
Addendum entered by Mary Hair 11/29/20 13:49: Received message from Dr. Dorado requesting this RD to notify nurse of TPN recommendations. If following below recommendations rather than previous goal, recommend start at 25 ml/hr, and increase by 10 ml/hr q 8 hours to goal rate of 83 ml/hr, with 250 ml lipids daily. Will notify nurse of recommendation. Original Note: TPN recommendations: If TPN to be continued greater than 3 days, recommend increase TPN goal when medically appropriate to 83 ml/hr, continuing with 250 ml lipids per day, to provide 2260 kcal, 100 g protein, and 400 g dextrose per day. Recommend monitor Phos and Mg, along with glucose, Na, K, and renal labs, and obtain accurate weight when possible. When able to consume oral diet, recommend gradual advancement of diet as tolerated to consistent carb GI soft diet, and gradual decrease of TPN. Have notified Dr. Dorado of RD recommendations. See RD assessment for further details.
[2020-11-29] MEDS: AA-Dex 5%-20% w/Lytes 1,000 ML with multivitamin inj 10 ML IV (14:27)
[2020-11-29 14:35] LABS: Glucose Point of Care 234 mg/dL (70-110)
[2020-11-29] MEDS: FUROsemide 10 mg/mL SDV 2mL 20 MG IVP (19:05)
--- NOTE | 2020-11-29 19:52 | P.PN_ITS ---
Subjective Subjective: Interval history: Patient has been stable on the ventilator, finally weaned off pressors this evening Vitals/I&O/Wt Last Vital Signs Temp 98.7 F 11/29/20 18:00 Pulse 104 H 11/29/20 18:00 Resp 15 11/29/20 19:20 BP 137/57 11/29/20 18:00 Pulse Ox 95 11/29/20 19:20 11/29/20 11/29/20 11/29/20 06:59 14:59 22:59 Intake Total 2313.373 / 5228.084 1490.944 / 1490.944 Output Total 490 / 3395 250 / 850 600 / 850 Balance 1823.373 / 6490.496 6480.944 / 640.944 -600 / 640.944 Weight last 48 hrs Weight 196 lb 9.6 oz Weight 189 lb Physical Exam Narrative: EXAM NARRATIVE: Abdomen: Soft, distended, ostomy is pink and edematous, no output, dressings dry and intact, TRI drain output is serosanguineous Urinary Catheter Management^: Hull: Cath Placed During This Visit: yes Urinary Catheter Date of Insertion: 11/24/20 Urinary Catheter Time of Insertion: 13:05 Data : 11/29/20 10:13 11/29/20 10:13 Micro: Microbiology 11/28/20 11:53 Gram Stain - Final Sputum - Endotracheal Tube Aspirate Sputum Culture - Preliminary A&P Assessment and plan (1) S/P exploratory laparotomy: Status post exploratory laparotomy with small bowel resection, partial colectomy with open abdomen, patient continues to be critically ill Status post washout, colocolic anastomosis and double barrel ileostomy Continue IV antibiotics Continue TPN Insulin sliding scale Protonix for GI prophylaxis Lovenox for DVT prophylaxis Hopefully patient can be extubated tomorrow Status: Acute (2) Acute renal failure: Resolved Status: Acute Attestations Medical Necessity Statement*: As per primary Coding Level of Care Code Acute Flat Optical Element Maker for Chg Fwd Diagnoses S/P exploratory laparotomy Z98.890 Acute renal failure N17.9
[2020-11-29 20:58] LABS: Glucose Point of Care 275 mg/dL (70-110)
[2020-11-30] VITALS (19 sets, daily range): BP systolic 130–144; BP diastolic 53–64; PULSE 75–92; RESP 14–21; TEMP 37.1–37.7; O2SAT 94–98
[2020-11-30] MEDS: lactated ringers 1,000 ML 75 ML IV (00:53)
[2020-11-30] MEDS: artificial tears Op Soln 15 mL Btl 1 DROP EYE-BOTH ×6 (02:26→22:15)
[2020-11-30 02:55] LABS: Glucose Point of Care 216 mg/dL (70-110)
[2020-11-30 04:25] LABS: Basophils # 0.1 10^3/uL (0.0-0.1); Basophils % 0.6 %; Eosinophils % 0.2 %; Hematocrit 32.7 % (42.0-52.0); Hemoglobin 10.8 g/dL (11.7-16.6); Lymphocytes # 1.1 10^3/uL (0.8-4.8); Lymphocytes % 7.4 %; Mean Corpuscular Hemoglobin 31.2 pg (28.0-34.0); Mean Corpuscular Volume 94.5 fL (80-94); Mean Platelet Volume 11.4 fL (7.4-10.4); Monocytes # 0.7 10^3/uL (0.2-0.9); Monocytes % 4.8 %; Neutrophils # 11.79 10^3/uL (1.8-7.7); Neutrophils % 80.9 %; Nucleated Red Blood Cells % 0 %; Platelet Count 189 10^3/cmm (130-400); Red Blood Count 3.46 10^6/uL (4.1-5.3); White Blood Count 14.6 10^3/uL (4.0-10.0)
[2020-11-30 04:39] LABS: Alanine Aminotransferase 15 U/L (0-41); Albumin Level 2.4 g/dL (3.5-5.2); Alkaline Phosphatase 216 IU/L (40-130); Aspartate Amino Transferase 41 U/L (0-40); Blood Urea Nitrogen 19 mg/dL (6-20); Calcium 7.3 mg/dL (8.5-10.5); Carbon Dioxide 25 mmol/L (22-29); Chloride 103 mmol/L (98-107); Globulin 1.9 g/dL (1.3-4.6); Glomerular Filtration Rate 77.6 mL/min (90-130); Glucose 238 mg/dL (65-115); Osmolality Calculated 306 mOsm/kg (285-295); Sodium 143 mmol/L (136-145); Total Bilirubin 0.4 mg/dL (0.15-1.2); Total Protein 4.3 g/dL (6.6-8.7)
[2020-11-30 04:48] LABS: Slide Review Slide Review Perform
[2020-11-30 04:48] LABS: ABG PH Result 7.46 (7.35-7.45); Alveolar-Arterial Oxygen Gradi 11.7 mmHg (5-10); Arterial Blood Gas Hematocrit 34.1 % (42-52); Base Excess ABG 2.7 mmol/L (-2.0-2.0); Blood Gas Allen Test Pos; Blood Gas Operator Identificat JB; Blood Gas Sample Site Radial, right; Blood Gas Sample Type Arterial; Blood Gas Tidal Volume 0.45; Carboxyhemoglobin 0.9 %THgb (0.4-20.1); HCO3 ABG 26.5 mmol/L (22-26); HGB O2 Sat 93.1 % (95-100); Ionized Calcium Level - ABG 1.1 mmol/L (1.1-1.4); Methemoglobin 1.1 % (0.4-1.5); Oxygen Device VENT; Oxygen Saturation ABG 95.1; PO2 ABG 63.4 mmHg (80.0-100.0); Potassium Level - ABG 2.7 mmol/L (3.5-5.0); Total Hemoglobin 11.1 g/dL (14-18)
--- NOTE | 2020-11-30 06:00 | XR_ITS ---
WS: [id number] Portable AP upright chest, 11/30/2020 Clinical Data: intubated Comparison: Portable chest, 11/27/2020. Findings: The nasogastric tube, endotracheal tube and right internal jugular venous catheter remain i n the same position. There is minimal bilateral lower lobe atelectasis. The heart is at the upper dwyer its of normal size. No nodules or masses are seen. There is no pneumothorax. The pulmonary vascularit y is not increased. Monitor leads are on the chest wall. XR/XR chest 1V portable [id number] Impression: 1. No change in position of multiple tubes. 2. Bilateral lower lobe atelectasis.
[2020-11-30] MEDS: pantoprazole 40 mg SDV IVP ×2 (09:24→20:04)
[2020-11-30] MEDS: potassium chloride premix 100 ML 25 MEQ IV ×2 (10:40→14:38)
[2020-11-30] MEDS: FUROsemide 10 mg/mL SDV 2mL 20 MG IVP (10:40)
[2020-11-30] MEDS: fentaNYL 50 mcg/mL INJ 2mL IVP (11:20)
[2020-11-30] MEDS: cefTRIAXone 2,000 MG in sodium chloride 0.9% (plus) 50 ML 100 MG IV (12:49)
[2020-11-30 14:42] LABS: Glucose Point of Care 336 mg/dL (70-110)
--- NOTE | 2020-11-30 15:21 | PC.NURSE ---
Update Dr Ricardo rounded. Dressing to abdomen is removed and incision has been painted with chlorahexadine. 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 Lipids and TPN hung at 1445. A few minutes after starting, the dressing to the central line became wet with the lipids. TPN and Lipids stopped, dressing removed. Central line appeared okay. Fluids restarted and a small pin size hole in main central line began leaking. Hemostats placed below hole. Dr notified and order for PICC has been placed.
--- NOTE | 2020-11-30 16:05 | PM.PN ---
Subjective Subjective: Interval history: Seen multiple times during the day. No events overnight. Phenylephrine stopped yesterday evening. Patient has remained hemodynamically stable afebrile. Was extubated to 3 L nasal cannula around noon today. Central line man functioning. Trying to get a PICC line. TPN currently running at 50 cc/h. Medications: Reviewed: Yes Vitals/I&O/Wt Last Vital Signs Temp 98.7 F 11/30/20 14:00 Pulse 80 11/30/20 14:00 Resp 18 11/30/20 14:00 BP 136/53 11/30/20 14:00 Pulse Ox 96 11/30/20 14:00 11/30/20 11/30/20 11/30/20 06:59 14:59 22:59 Intake Total 477.833 / 3068.777 338.334 / 338.334 Output Total 3045 / 3895 2085 / 2085 Balance -2567.167 / -826.223 -1746.666 / -1746.666 Weight last 48 hrs Weight 93.304 kg Weight 89.176 kg Physical Exam Narrative: EXAM NARRATIVE: General: Intubated, Arousable, sedated HEENT: PERRLA, pupils bilaterally equal and reactive Chest: Normal vesicular breath sounds, no added sounds, equal good air entry bilaterally CVS: S1-S2 regular, no murmurs, no tachycardia, no gallops, no rubs Abdomen: Distended, Open belly, surgically packed Neuro: Sedated arousable Urinary Catheter Management^: [place]: Cath Placed During This Visit: yes Urinary Catheter Date of Insertion: 11/24/20 Urinary Catheter Time of Insertion: 13:05 Data : 11/30/20 03:49 11/30/20 03:49 Micro: Microbiology 11/28/20 11:53 Gram Stain - Final Sputum - Endotracheal Tube Aspirate Sputum Culture - Final Microbiology 11/28/20 11:53 Sputum - Endotracheal Tube Aspirate Gram Stain - Final 11/28/20 11:53 Sputum - Endotracheal Tube Aspirate Sputum Culture - Final 11/24/20 11:54 Blood Blood Culture - Final Escherichia coli 11/24/20 11:54 Blood Blood Culture - Final Escherichia coli 11/24/20 17:58 Sputum - Endotracheal Tube Aspirate Gram Stain - Final 11/24/20 17:58 Sputum - Endotracheal Tube Aspirate Sputum Culture - Final 11/26/20 10:55 Blood Blood Culture - Preliminary NEGATIVE TO DATE 11/26/20 03:24 Blood Blood Culture - Preliminary NEGATIVE TO DATE A&P Assessment and plan (1) Sepsis due to Gram-negative organism with septic shock: Status: Acute (2) Acute renal failure: Due to above Status: Acute (3) Perforated bowel: Status: Acute (4) S/P exploratory laparotomy: Status: Acute (5) Diabetes mellitus: Sliding scale insulin q6hr blood sugar check while npo Status: Acute (6) History of colon cancer: Status: Acute Additional A&P Information Sepsis with shock due to gram negative bacteremia Developed post colonic perforated Blood cultures positive for E. coli. Continue ceftriaxone 2 g IV daily. Will need 14 days course overall after the last positive blood cultures till December 09. Repeat blood cultures continue to remain negative. Pressors stopped. Keep mean arterial pressure 65. Continue TPN. We will try to wean off fluid keeping overall fluids including TPN at 75 200 cc/h. We will ask pharmacy to add 20 units of insulin to TPN as patient had required 48 units of insulin last 24 hours. Continue IV albumin for 2 days. Extubated to nasal cannula today. Currently requires 3 L nasal cannula. Chest x-ray reviewed. IV Lasix 20 mg stat. Will monitor input output strictly. And dose of Lasix accordingly daily. Fentanyl 50 every 2 hours as needed for pain. Replete potassium. 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 Washout Abdomen closed with ileostomy on November 28. Acute respiratory failure on MV Extubated on November 30 2 L nasal cannula. Acute Renal Failure with oliguria / possible ATN Resolved. Diabetes mellitus Q6hr glucose checks Sliding scale insulin Goal < 180 Gi ppx Protonix DVT ppx SCDs TPN. Attestations Medical Necessity Statement*: Patient requires further hospitalization for management of septic shock secondary to E. coli bacteremia, postoperative care for ischemic bowel/perforation. Critical Care Time: The high probability of a clinically significant, sudden or life threatening deterioration of the patient's [multiorgan] system(s) required my full and direct attention, intervention and personal management. The critical care time is as shown. This time is in addition to time spent performing any reported procedures but includes the following: [x] Data and vital sign review and interpretation [x] Patient assessment, examination and intervention [x] Documentation [x] Medication orders and management Critical Care Time (min): 70 Coding Level of Care Code Acute Quality Assurance Consultant for Chg Fwd Diagnoses Sepsis due to Gram-negative organism with septic shock A41.50; R65.21 Acute renal failure N17.9 Perforated bowel K63.1 S/P exploratory laparotomy Z98.890 Diabetes mellitus E11.9 History of colon cancer Z85.038
--- NOTE | 2020-11-30 16:38 | XRR_ITS ---
PROCEDURE INFORMATION: Exam: XR Chest Exam date and time: 11/30/2020 4:38 PM Age: 54 years old Clinical indication: Device placement; Picc TECHNIQUE: Imaging protocol: XR of the chest. Views: 1 view. COMPARISON: CR XR chest 1V portable [id number] 11/30/2020 5:12 AM FINDINGS: Tubes, catheters and devices: Enteric tube tip seen extending below the left diaphragm inferiorly off the field of view. Right-sided PICC line with tip approaching the atrial caval junction. Lungs: Bilateral mid to lower lung field atelectasis versus infiltrate. Pleural spaces: Trace bilateral pleural effusions. Heart/Mediastinum: Unremarkable. No cardiomegaly. Bones/joints: Unremarkable. XR/XR chest 1V portable [id number] IMPRESSION: 1. Enteric tube tip seen extending below the left diaphragm inferiorly off the field of view. 2. Trace bilateral pleural effusions. 3. Bilateral mid to lower lung field atelectasis versus infiltrate. 4. Right-sided PICC line with tip approaching the atrial caval junction.
--- NOTE | 2020-11-30 17:16 | PC.NURSE ---
PICC RIGHT arm ready for use. Primary nurse, Fany, notified.
[2020-11-30 17:20] LABS: Glucose Point of Care 267 mg/dL (70-110)
--- NOTE | 2020-11-30 18:06 | P.PN_ITS ---
Subjective Subjective: Interval history: Patient was extubated today, awake, follows commands, NG output was 350 cc. Ostomy is functioning and TRI drain output is serosanguineous Vitals/I&O/Wt Last Vital Signs Temp 98.7 F 11/30/20 16:00 Pulse 80 11/30/20 16:00 Resp 18 11/30/20 16:00 BP 139/55 11/30/20 16:00 Pulse Ox 96 11/30/20 16:00 11/30/20 11/30/20 11/30/20 06:59 14:59 22:59 Intake Total 477.833 / 3068.777 338.334 / 4924.646 7288.167 / 1510.501 Output Total 3045 / 3895 2085 / 5 Balance -2567.167 / -826.223 -1746.666 / -647.914 7680.167 / -574.499 Weight last 48 hrs Weight 205 lb 11.2 oz Weight 196 lb 9.6 oz Physical Exam Narrative: EXAM NARRATIVE: Abdomen: Soft, nondistended, tender, incision clean dry and intact, TRI drain output is serosanguineous, ostomy right lower quadrant is pink and functioning slightly edematous. Urinary Catheter Management^: [place]: Cath Placed During This Visit: yes Urinary Catheter Date of Insertion: 11/24/20 Urinary Catheter Time of Insertion: 13:05 Data : 11/30/20 03:49 11/30/20 03:49 Micro: Microbiology 11/28/20 11:53 Gram Stain - Final Sputum - Endotracheal Tube Aspirate Sputum Culture - Final A&P Assessment and plan (1) S/P exploratory laparotomy: Status post exploratory laparotomy with small bowel resection, partial colectomy with open abdomen Status post washout, colocolic anastomosis and double barrel ileostomy Continue IV antibiotics Continue TPN Insulin sliding scale Protonix for GI prophylaxis Lovenox for DVT prophylaxis Clamp NG tube, start clear liquid diet Out of bed to chair with physical therapy Hopefully patient can be extubated tomorrow Status: Acute (2) Acute renal failure: Resolved Status: Acute Attestations Medical Necessity Statement*: As per primary Coding Level of Care Code Acute Jig And Fixture Builder Apprentice for g Fwd Diagnoses S/P exploratory laparotomy Z98.890 Acute renal failure N17.9
[2020-11-30 18:39] LABS: Anion Gap 17.3 (5-19); Blood Urea Nitrogen 15 mg/dL (6-20); Calcium 7.6 mg/dL (8.5-10.5); Carbon Dioxide 27 mmol/L (22-29); Chloride 105 mmol/L (98-107); Glomerular Filtration Rate 87.6 mL/min (90-130); Glucose 294 mg/dL (65-115); Osmolality Calculated 314 mOsm/kg (285-295); Potassium 3.3 mmol/L (3.5-5.1); Sodium 146 mmol/L (136-145)
[2020-11-30 21:46] LABS: Glucose Point of Care 317 mg/dL (70-110)
[2020-12-01] VITALS (15 sets, daily range): BP systolic 136–157; BP diastolic 51–74; PULSE 71–91; RESP 18–31; TEMP 36.8–37.3; O2SAT 92–96
[2020-12-01] MEDS: artificial tears Op Soln 15 mL Btl 1 DROP EYE-BOTH ×6 (02:54→22:36)
[2020-12-01 03:24] LABS: Glucose Point of Care 292 mg/dL (70-110)
[2020-12-01 04:31] LABS: Basophils # 0.1 10^3/uL (0.0-0.1); Basophils % 0.5 %; Eosinophils % 0.1 %; Hemoglobin 10.9 g/dL (11.7-16.6); Lymphocytes # 0.9 10^3/uL (0.8-4.8); Lymphocytes % 6.7 %; Mean Corpuscular HGB Conc 34.1 g/dL (30.0-36.0); Mean Corpuscular Hemoglobin 31.3 pg (28.0-34.0); Mean Platelet Volume 11.5 fL (7.4-10.4); Monocytes # 0.5 10^3/uL (0.2-0.9); Monocytes % 3.5 %; Neutrophils # 10.89 10^3/uL (1.8-7.7); Neutrophils % 84.9 %; Nucleated Red Blood Cells % 0.2 %; Platelet Count 205 10^3/cmm (130-400); Red Blood Count 3.48 10^6/uL (4.1-5.3); Red Cell Distribution Width 14.6 % (12.1-15.1); White Blood Count 12.8 10^3/uL (4.0-10.0)
[2020-12-01 04:52] LABS: Alanine Aminotransferase 16 U/L (0-41); Albumin Level 2.6 g/dL (3.5-5.2); Alkaline Phosphatase 65 IU/L (40-130); Anion Gap 12.6 (5-19); Aspartate Amino Transferase 25 U/L (0-40); Blood Urea Nitrogen 14 mg/dL (6-20); Calcium 7.8 mg/dL (8.5-10.5); Carbon Dioxide 33 mmol/L (22-29); Chloride 104 mmol/L (98-107); Globulin 1.7 g/dL (1.3-4.6); Glomerular Filtration Rate 100.4 mL/min (90-130); Glucose 280 mg/dL (65-115); Osmolality Calculated 315 mOsm/kg (285-295); Sodium 147 mmol/L (136-145); Total Bilirubin 0.6 mg/dL (0.15-1.2); Total Protein 4.3 g/dL (6.6-8.7)
[2020-12-01 05:13] LABS: Potassium 2.6 mmol/L (3.5-5.1)
[2020-12-01] MEDS: lactated ringers 1,000 ML 75 ML IV (07:51)
[2020-12-01 08:26] LABS: Glucose Point of Care 255 mg/dL (70-110)
[2020-12-01] MEDS: pantoprazole 40 mg SDV IVP ×2 (09:00→20:38)
[2020-12-01] MEDS: potassium chloride premix 100 ML 25 MEQ IV ×2 (09:06→12:18)
--- NOTE | 2020-12-01 10:34 | PC.SOCIAL ---
Pg 2 IMM Explained to pt & family on Pg 2 IMM. No questions voiced. Provided pt a copy. Signed, dated, & timed a copy & placed in chart.
--- NOTE | 2020-12-01 12:01 | P.PN_ITS ---
Subjective Subjective: Interval history: No events overnight. In last 24 hours patient was extubated. Currently on 2 L nasal cannula satting 92%. NG tube was clamped and removed directly in the morning. Patient tolerating clear liquid diet well. No nausea no vomiting. Has remained afebrile. Ostomy is functioning, TRI drain serosanguineous output. Medications: Reviewed: Yes Vitals/I&O/Wt Last Vital Signs Temp 98.2 F 12/01/20 10:00 Pulse 84 12/01/20 10:00 Resp 21 H 12/01/20 10:00 BP 145/59 12/01/20 10:00 Pulse Ox 94 12/01/20 10:00 11/30/20 12/01/20 12/01/20 22:59 06:59 14:59 Intake Total 1822.167 / 2160.501 901.667 / 901.667 Output Total 1095 / 3180 2480 / 5660 400 / 400 Balance 727.167 / -1019.499 -2480 / -3499.499 501.667 / 501.667 Weight last 48 hrs Weight 88.451 kg Weight 93.304 kg Physical Exam Narrative: EXAM NARRATIVE: General: Intubated, Arousable, sedated HEENT: PERRLA, pupils bilaterally equal and reactive Chest: Normal vesicular breath sounds, no added sounds, equal good air entry bilaterally CVS: S1-S2 regular, no murmurs, no tachycardia, no gallops, no rubs Abdomen: Distended, Open belly, surgically packed Neuro: Sedated arousable Urinary Catheter Management^: [place]: Cath Placed During This Visit: yes Urinary Catheter Date of Insertion: 11/24/20 Urinary Catheter Time of Insertion: 13:05 Data : 12/01/20 04:10 12/01/20 04:10 Micro: Microbiology 11/26/20 10:55 Blood Culture - Final Blood NO GROWTH AFTER 5 DAYS 11/26/20 03:24 Blood Culture - Final Blood NO GROWTH AFTER 5 DAYS 11/28/20 11:53 Gram Stain - Final Sputum - Endotracheal Tube Aspirate Sputum Culture - Final A&P Assessment and plan (1) Sepsis due to Gram-negative organism with septic shock: Status: Acute (2) Acute renal failure: Due to above Status: Acute (3) Perforated bowel: Status: Acute (4) S/P exploratory laparotomy: Status: Acute (5) Diabetes mellitus: Sliding scale insulin q6hr blood sugar check while npo Status: Acute (6) History of colon cancer: Status: Acute Additional A&P Information Sepsis with shock due to gram negative bacteremia Developed post colonic perforated Blood cultures positive for E. coli. Continue ceftriaxone 2 g IV daily. Will need 14 days course overall after the last positive blood cultures till December 09. Repeat blood cultures continue to remain negative. Pressors stopped. Keep mean arterial pressure 65. Continue TPN. We will try to wean off fluid keeping overall fluids including TPN at 75 200 cc/h. As of extra insulin 24 hours. History of type 1 diabetes mellitus. Increase 40 units to enter TPN. Extubated to nasal cannula today. Currently requires 3 L nasal cannula. Chest x-ray reviewed. Fentanyl 50 every 2 hours as needed for pain. Replete potassium. 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 Washout Abdomen closed with ileostomy on November 28. Acute respiratory failure on MV Extubated on November 30 2 L nasal cannula. Acute Renal Failure with oliguria / possible ATN Resolved. Hypernatremia: Sodium 147 today. Most likely likely dehydration. Start patient on half NS. Recheck sodium levels in evening. Diabetes mellitus?type I Requires 20 units of insulin in TPN and 34 units of short-acting. Have increased intra-TPN to 40 units. Accu-Cheks every 4 hours. Goal < 180 Gi ppx Protonix DVT ppx SCDs TPN, full liquid diet. PT/OT evaluation. If sodium levels remain stable and blood sugars remain stable can plan to transfer to floor later in the day today. Attestations Medical Necessity Statement*: Patient was further hospitalization for management of gram-positive bacteremia, postoperative care for ischemic bowel, hypernatremia. Time Spent in Patient Care: Greater than 35 minutes (>than 50% of time spent in counselling and/or direct pt care on unit) . Coding Level of Care Code Acute Commercial Lines Underwriter for [facility] F[facility] Diagnoses Sepsis due to Gram-negative organism with septic shock A41.50; R65.21 Acute renal failure N17.9 Perforated bowel K63.1 S/P exploratory laparotomy Z98.890 Diabetes mellitus E11.9 History of colon cancer Z85.038
[2020-12-01] MEDS: sodium chloride 0.45% 1,000 ML 75 ML IV (12:07)
[2020-12-01] MEDS: insulin regular-human 20 UNIT in SYRINGE 1 EACH 75 UNIT IVP (12:34)
[2020-12-01 13:35] LABS: Glucose Point of Care 288 mg/dL (70-110)
[2020-12-01 13:35] LABS: Glucose Point of Care 113 mg/dL (70-110)
--- NOTE | 2020-12-01 16:03 | P.PN_ITS ---
Subjective Subjective: Interval history: Patient has been stable overnight, no significant issues overnight, ostomy is functioning, tolerating clear liquid diet Vitals/I&O/Wt Last Vital Signs Temp 98.2 F 12/01/20 10:00 Pulse 91 12/01/20 14:00 Resp 23 H 12/01/20 14:00 BP 149/65 12/01/20 14:00 Pulse Ox 95 12/01/20 14:00 12/01/20 12/01/20 12/01/20 06:59 14:59 22:59 Intake Total 250 / 2410.501 981.667 / 981.667 Output Total 2480 / 5660 400 / 790 390 / 790 Balance -2230 / -3249.499 581.667 / 191.667 -390 / 191.667 Weight last 48 hrs Weight 195 lb Weight 205 lb 11.2 oz Physical Exam Narrative: EXAM NARRATIVE: Abdomen: Soft, distended, tender, incision clean dry and intact, TRI drain output is serosanguineous, ostomy pink, edematous, functioning Urinary Catheter Management^: De [place] Torre: Cath Placed During This Visit: yes Urinary Catheter Date of Insertion: 11/24/20 Urinary Catheter Time of Insertion: 13:05 Data : 12/01/20 04:10 12/01/20 04:10 Micro: Microbiology 11/26/20 10:55 Blood Culture - Final Blood NO GROWTH AFTER 5 DAYS 11/26/20 03:24 Blood Culture - Final Blood NO GROWTH AFTER 5 DAYS 11/28/20 11:53 Gram Stain - Final Sputum - Endotracheal Tube Aspirate Sputum Culture - Final A&P Assessment and plan (1) S/P exploratory laparotomy: Status post exploratory laparotomy with small bowel resection, partial colectomy with open abdomen Status post washout, colocolic anastomosis and double barrel ileostomy D/ de la torre, D/c NG tube Continue IV antibiotics Continue TPN, adjust as per primary, Insulin sliding scale Protonix for GI prophylaxis Lovenox for DVT prophylaxis Advance to full liquid diet, start Metamucil BID Out of bed to chair with physical therapy Hopefully patient can be extubated tomorrow Status: Acute (2) Acute renal failure: Resolved Status: Acute Attestations Medical Necessity Statement*: as per primary Coding Level of Care Code Acute E Learning Developer for g Fwd Diagnoses S/P exploratory laparotomy Z98.890 Acute renal failure N17.9
--- NOTE | 2020-12-01 16:04 | PC.NURSE ---
Hull removed per MD verbal order.
[2020-12-01 17:40] LABS: Glucose Point of Care 316 mg/dL (70-110)
[2020-12-01 19:16] LABS: Anion Gap 9.9 (5-19); Blood Urea Nitrogen 14 mg/dL (6-20); Calcium 7.1 mg/dL (8.5-10.5); Carbon Dioxide 32 mmol/L (22-29); Chloride 99 mmol/L (98-107); Glomerular Filtration Rate 172.6 mL/min (90-130); Glucose 257 mg/dL (65-115); Osmolality Calculated 295 mOsm/kg (285-295); Sodium 138 mmol/L (136-145)
[2020-12-01 19:18] LABS: Potassium 2.9 mmol/L (3.5-5.1)
[2020-12-01] MEDS: ondansetron 2 mg/ML SDV 2 mL 4 MG IVP ×2 (19:47→23:33)
[2020-12-01 20:32] LABS: Glucose Point of Care 314 mg/dL (70-110)
[2020-12-01] MEDS: lidocaine 1% 5 ML in potassium chloride premix 100 ML 25 ML IV (20:38)
[2020-12-01] MEDS: psyllium powder Pkt 1 PACKET PO (20:39)
[2020-12-02] VITALS (12 sets, daily range): BP systolic 135–176; BP diastolic 70–96; PULSE 82–104; RESP 16–33; TEMP 36.6–37.3; O2SAT 93–97
[2020-12-02 00:14] LABS: Glucose Point of Care 105 mg/dL (70-110)
[2020-12-02] MEDS: fentaNYL 50 mcg/mL INJ 2mL IVP (00:14)
[2020-12-02] MEDS: sodium chloride 0.45% 1,000 ML 75 ML IV (01:34)
[2020-12-02] MEDS: artificial tears Op Soln 15 mL Btl 1 DROP EYE-BOTH ×6 (03:11→22:19)
[2020-12-02 04:00] LABS: Basophils # 0.1 10^3/uL (0.0-0.1); Basophils % 0.6 %; Eosinophils # 0.1 10^3/uL (0.0-0.8); Eosinophils % 0.7 %; Hematocrit 35.7 % (42.0-52.0); Hemoglobin 12.1 g/dL (11.7-16.6); Lymphocytes % 5.9 %; Mean Corpuscular HGB Conc 33.9 g/dL (30.0-36.0); Mean Corpuscular Hemoglobin 32.6 pg (28.0-34.0); Mean Corpuscular Volume 96.2 fL (80-94); Mean Platelet Volume 12.4 fL (7.4-10.4); Monocytes # 0.5 10^3/uL (0.2-0.9); Monocytes % 3.1 %; Neutrophils # 15.31 10^3/uL (1.8-7.7); Neutrophils % 87.2 %; Nucleated Red Blood Cells # 0.1 /100WBC; Nucleated Red Blood Cells % 0.3 %; Platelet Count 231 10^3/cmm (130-400); Red Blood Count 3.71 10^6/uL (4.1-5.3); Red Cell Distribution Width 15.1 % (12.1-15.1); White Blood Count 17.5 10^3/uL (4.0-10.0)
[2020-12-02 04:26] LABS: Glucose Point of Care 203 mg/dL (70-110)
[2020-12-02 05:56] LABS: Alanine Aminotransferase 16 U/L (0-41); Albumin Level 2.5 g/dL (3.5-5.2); Alkaline Phosphatase 77 IU/L (40-130); Aspartate Amino Transferase 27 U/L (0-40); Blood Urea Nitrogen 14 mg/dL (6-20); Calcium 7.6 mg/dL (8.5-10.5); Carbon Dioxide 34 mmol/L (22-29); Chloride 101 mmol/L (98-107); Glomerular Filtration Rate 172.6 mL/min (90-130); Glucose 212 mg/dL (65-115); Osmolality Calculated 299 mOsm/kg (285-295); Sodium 141 mmol/L (136-145); Total Bilirubin 0.6 mg/dL (0.15-1.2); Total Protein 4.5 g/dL (6.6-8.7)
[2020-12-02 05:58] LABS: Anion Gap 9.3 (5-19); Potassium 3.3 mmol/L (3.5-5.1)
[2020-12-02 08:34] LABS: Glucose Point of Care 188 mg/dL (70-110)
--- NOTE | 2020-12-02 10:14 | PM.PN ---
Subjective Subjective: Interval history: No events overnight. Patient has remained hemodynamically stable. Had episodes of vomiting last night. This morning tolerating full liquid diet well but tentative and eating because of abdominal upset. Has remained afebrile. Currently on 3 L saturating 95%. Blood sugars well controlled. Urine output appreciated. Medications: Reviewed: Yes Vitals/I&O/Wt Last Vital Signs Temp 98.9 F 12/02/20 04:00 Pulse 92 12/02/20 08:00 Resp 21 H 12/02/20 08:00 BP 154/89 12/02/20 08:00 Pulse Ox 93 12/02/20 08:00 12/01/20 12/02/20 12/02/20 22:59 06:59 14:59 Intake Total 700 / 6926.178 9858 / 2781.667 1435.00 / 1435.00 Output Total 1680 / 2080 1605 / 3685 150 / 150 Balance -980 / -398.333 -505 / -454.971 0241.00 / 1285.00 Weight last 48 hrs Weight 89.219 kg Weight 88.451 kg Physical Exam Narrative: EXAM NARRATIVE: General: No acute distress, AO x3, legally blind, on 3 L nasal cannula HEENT: PERRLA, pupils bilaterally equal and reactive Chest: Normal vesicular breath sounds, bilateral lower zone crackles, equal good air entry bilaterally CVS: S1-S2 regular, no murmurs, no tachycardia, no gallops, no rubs Abdomen: Soft,, distended, central surgical scar, well-healing, ileostomy present, TRI drain present, bowel sounds sluggish Neuro: No focal deficits, no facial deformity, AO x3, power 5/5 in all limbs Urinary Catheter Management^: [place]: Cath Placed During This Visit: yes Urinary Catheter Date of Insertion: 11/24/20 Urinary Catheter Time of Insertion: 13:05 Data : 12/02/20 03:30 12/02/20 04:30 Micro: Microbiology 11/26/20 10:55 Blood Culture - Final Blood NO GROWTH AFTER 5 DAYS A&P Assessment and plan (1) Sepsis due to Gram-negative organism with septic shock: Status: Acute (2) S/P exploratory laparotomy: Status: Acute (3) Diabetes mellitus: Sliding scale insulin q6hr blood sugar check while npo Status: Acute (4) Perforated bowel: Status: Acute (5) History of colon cancer: Status: Acute (6) Acute renal failure: Due to above Status: Acute Additional A&P Information Sepsis with shock due to gram negative bacteremia Developed post colonic perforated Blood cultures positive for E. coli. Continue ceftriaxone 2 g IV daily. Will need 14 days course overall after the last positive blood cultures till December 09. Repeat blood cultures continue to remain negative. Has worsening leukocytosis today. Has remained afebrile. Repeat procalcitonin. For now we will continue to monitor. If continues to have worsening leukocytosis will plan for repeat CT abdomen pelvis to rule out anastomotic leak, C. difficile. Pressors stopped. Keep mean arterial pressure 65. Continue TPN with 40 units insulin. Stop IV fluids. Extubated to nasal cannula today. Currently requires 3 L nasal cannula. Chest x-ray reviewed. Fentanyl 50 every 2 hours as needed for pain. Replete potassium. 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 Washout Abdomen closed with ileostomy on November 28. Acute respiratory failure on MV Extubated on November 30. Acute Renal Failure with oliguria / possible ATN Resolved. Hypernatremia: Resolved. Stop IV fluids. Check BMP daily. Diabetes mellitus?type I TPN with 40 units insulin. Insulin sliding scale at moderate dose every 6 hours. Goal < 180 Hypertension: Goal blood pressure less than 140/90 mmHg. Blood pressure elevated. Has been off pressors for 3 to 4 days now. Start patient on lisinopril 5 mg daily. Will uptitrate medication accordingly. Gi ppx Protonix DVT ppx SCDs TPN, full liquid diet. PT/OT evaluation. [facility] transfer to [facility] floor. Attestations Medical Necessity Statement*: Patient requires further hospitalization for management of sepsis from gram-negative bacteremia, postoperative care for ischemic bowel, ileostomy Time Spent in Patient Care: Greater than 35 minutes (>than 50% of time spent in counselling and/or direct pt care on unit). Coding Level of Care Code Acute Vice President Pharmacy for [facility] Diagnoses Sepsis due to Gram-negative organism with septic shock A41.50; R65.21 S/P exploratory laparotomy Z98.890 Diabetes mellitus E11.9 Perforated bowel K63.1 History of colon cancer Z85.038 Acute renal failure N17.9
[2020-12-02] MEDS: pantoprazole 40 mg SDV IVP ×2 (11:11→21:05)
[2020-12-02] MEDS: potassium chloride premix 100 ML 25 MEQ IV ×2 (11:12→15:51)
[2020-12-02] MEDS: lisinopril 5 mg Tablet PO (11:16)
[2020-12-02 13:12] LABS: Glucose Point of Care 174 mg/dL (70-110)
--- NOTE | 2020-12-02 13:56 | PM.PN ---
Subjective Subjective: Interval history: Patient has done well yesterday, had 1 episode of emesis today, ostomy is functioning, had 1300 output. Denies significant abdominal pain. Afebrile Vitals/I&O/Wt Last Vital Signs Temp 98.1 F 12/02/20 10:00 Pulse 93 12/02/20 12:00 Resp 21 H 12/02/20 12:00 BP 158/80 12/02/20 12:00 Pulse Ox 95 12/02/20 12:00 12/01/20 12/02/20 12/02/20 22:59 06:59 14:59 Intake Total 700 / 2781.667 1100 / 2781.667 1675.00 / 1675.00 Output Total 1680 / 3685 1605 / 3685 870 / 870 Balance -980 / -903.333 -505 / -903.333 805.00 / 805.00 Weight last 48 hrs Weight 196 lb 11.107 oz Weight 195 lb Physical Exam Narrative: EXAM NARRATIVE: Abdomen: Soft, tender, incision clean dry and intact, TRI drain output serosanguineous, ostomy pink, edematous, functioning Urinary Catheter Management^: Hull: Cath Placed During This Visit: yes Urinary Catheter Date of Insertion: 11/24/20 Urinary Catheter Time of Insertion: 13:05 Data : 12/02/20 03:30 12/02/20 04:30 Micro: Microbiology 11/26/20 10:55 Blood Culture - Final Blood NO GROWTH AFTER 5 DAYS A&P Assessment and plan (1) S/P exploratory laparotomy: Status post exploratory laparotomy with small bowel resection, partial colectomy with open abdomen Status post washout, colocolic anastomosis and double barrel ileostomy Advance to GI soft diet Significant ostomy output: Increase Metamucil to 3 times daily WBC is up to 17.5, patient is afebrile, hemodynamically stable Continue to monitor Hypokalemia: Potassium being replaced Continue IV antibiotics Continue TPN, hopefully can be discontinued in the next 24 to 48 hours if tolerating GI soft diet Insulin sliding scale Protonix for GI prophylaxis Lovenox for DVT prophylaxis Okay to transfer to the floor Out of bed to chair with physical therapy Hopefully patient can be extubated tomorrow Status: Acute (2) Acute renal failure: Resolved Status: Acute Attestations Medical Necessity Statement*: as per primary Coding Level of Care Code Acute Audio Visual Secretary for Chg Fwd Diagnoses S/P exploratory laparotomy Z98.890 Acute renal failure N17.9
[2020-12-02] MEDS: psyllium powder Pkt 1 PACKET PO ×2 (14:50→22:19)
--- NOTE | 2020-12-02 16:54 | PC.NURSE ---
pt transferred to [facility] via bed. report off to Zulema DENIS. mother at bedside for transfer
[2020-12-02 16:59] LABS: Glucose Point of Care 231 mg/dL (70-110)
[2020-12-02 22:34] LABS: Glucose Point of Care 335 mg/dL (70-110)
[2020-12-03] VITALS (9 sets, daily range): BP systolic 97–156; BP diastolic 57–79; PULSE 96–112; RESP 16–18; TEMP 36.3–37.6; O2SAT 91–97
[2020-12-03] MEDS: artificial tears Op Soln 15 mL Btl 1 DROP EYE-BOTH ×6 (02:41→22:09)
[2020-12-03 04:39] LABS: Glucose Point of Care 341 mg/dL (70-110)
[2020-12-03] MEDS: lisinopril 5 mg Tablet 20 MG PO (08:53)
[2020-12-03] MEDS: pantoprazole 40 mg SDV IVP ×2 (08:54→22:11)
[2020-12-03] MEDS: psyllium powder Pkt 1 PACKET PO ×3 (08:54→18:22)
--- NOTE | 2020-12-03 10:56 | PC.SOCIAL ---
IMM Update Pg. 2 of IMM updated and reviewed with patient who verbalized understanding. Copy provided.
[2020-12-03 11:25] LABS: Basophils # 0.1 10^3/uL (0.0-0.1); Basophils % 0.5 %; Eosinophils # 0.2 10^3/uL (0.0-0.8); Eosinophils % 0.9 %; Hematocrit 37.6 % (42.0-52.0); Hemoglobin 12.8 g/dL (11.7-16.6); Lymphocytes # 1.6 10^3/uL (0.8-4.8); Lymphocytes % 6.4 %; Mean Corpuscular Hemoglobin 31.1 pg (28.0-34.0); Mean Corpuscular Volume 91.5 fL (80-94); Mean Platelet Volume 12.2 fL (7.4-10.4); Monocytes % 3.9 %; Neutrophils # 20.99 10^3/uL (1.8-7.7); Neutrophils % 84.4 %; Nucleated Red Blood Cells % 0.2 %; Platelet Count 271 10^3/cmm (130-400); Red Blood Count 4.11 10^6/uL (4.1-5.3); Red Cell Distribution Width 14.3 % (12.1-15.1); White Blood Count 24.9 10^3/uL (4.0-10.0)
[2020-12-03 11:33] LABS: Glucose Point of Care 387 mg/dL (70-110)
--- NOTE | 2020-12-03 11:33 | CTR_ITS ---
PROCEDURE INFORMATION: Exam: CT Abdomen And Pelvis With Contrast Exam date and time: 12/03/2020 11:33 AM Age: 54 years old Clinical indication: Lower abdominal pain with tenderness. Recent exploratory laparotomy with colocolic anastomosis and ileostomy 5 days, ago. Increased white blood cell count. TECHNIQUE: Imaging protocol: Computed tomography of the abdomen and pelvis with contrast. Radiation optimization: All CT scans at this facility use at least one of these dose optimization techniques: automated exposure control; mA and/or kV adjustment per patient size (includes targeted exams where dose is matched to clinical indication); or iterative reconstruction. Contrast material: OMNI 300; Contrast volume: 95 ml; Contrast route: INTRAVENOUS (IV); COMPARISON: CT abdomen pelvis wo con [id number] 11/24/2020 1:13 PM RADIATION DOSE METRICS: Total DLP (mGy-cm): 1700.55 FINDINGS: Pleural spaces: Small bilateral pleural effusions with bibasilar atelectasis. Coronary arterial calcifications are seen. No pericardial effusion. No hiatal hernia. Liver: The liver is enlarged measuring 21.0 cm. There is a collection along the inferior aspect of the right hepatic lobe measuring 3.8 x 2.2 x 1.8 cm. Gallbladder and bile ducts: The gallbladder is unremarkable. Pancreas: The pancreas is unremarkable. Spleen: The spleen is unremarkable.; There is a collection along the inferior and medial aspect of the spleen that measures 5.6 x 1.9 x 3.0 cm. Adrenal glands: The adrenal glands are unremarkable. Kidneys and ureters: Subcentimeter renal hypodensities are too small to accurately characterize and require no follow-up. Stomach and bowel: There has been interval bowel resection in the right lower quadrant with placement of a right sided ileostomy. There has been remote partial sigmoid resection. There is wall thickening involving numerous loops of large and small bowel which may reflect enterocolitis or peritonitis. Appendix: The appendix is distended measuring up to 1.2 cm; previously 1 cm. There is edema adjacent to the appendix, and the pelvic fluid collection is situated adjacent to the appendix. Appendicitis is impossible to exclude. Correlate clinically. Intraperitoneal space: Trace residual free air may relate to prior surgery/drains. A couple drains are seen in the abdomen/pelvis bilaterally. There is a collection in the pelvis containing gas and fluid. This collection measures 3.4 x 2.5 x 3.5 cm. There is mesenteric edema and mild free fluid. Vasculature: No abdominal aortic aneurysm. Lymph nodes: A periportal lymph node measures 1.6 x 3.8 cm. Urinary bladder: A small amount of gas in the bladder likely reflects recent instrumentation. Reproductive: The prostate measures 3.4 x 4.8 cm. Bones/joints: No acute fracture is seen. Soft tissues: Subcutaneous edema involving the abdominal wall and thighs. CT/CT abdomen pelvis w con* [id number] IMPRESSION: 1. There has been interval bowel resection in the right lower quadrant with placement of a right sided ileostomy. Trace residual free air may relate to prior surgery/drains. 2. There is wall thickening involving numerous loops of large and small bowel which may reflect enterocolitis and/or peritonitis. There is mesenteric edema and mild free fluid. 3. There is a collection in the pelvis containing gas and fluid suspicious for an abscess. There is a collection in the left upper quadrant adjacent to the spleen suspicious for an abscess. There is a collection along the inferior aspect of the posterior right hepatic lobe suspicious for abscess. 4. The appendix is distended measuring up to 1.2 cm; previously 1 cm. There is edema adjacent to the appendix, and the pelvic abscess is situated adjacent to the appendix. Appendicitis is impossible to exclude. Correlate clinically. 5. Hepatomegaly with periportal lymphadenopathy. 6. Subcutaneous edema involving the abdominal wall and thighs. 7. Small bilateral pleural effusions with bibasilar atelectasis. 8. Coronary artery disease. Radiation Dose CTDIVOL = (mGy): DLP = 1700.55 (mGy-cm)
[2020-12-03 11:40] LABS: Albumin Level 2.2 g/dL (3.5-5.2); Alkaline Phosphatase 85 IU/L (40-130); Blood Urea Nitrogen 17 mg/dL (6-20); Calcium 7.4 mg/dL (8.5-10.5); Carbon Dioxide 29 mmol/L (22-29); Chloride 92 mmol/L (98-107); Creatinine Clr Calc Pharmacy 187.1672; Globulin 2.5 g/dL (1.3-4.6); Glomerular Filtration Rate 172.6 mL/min (90-130); Glucose 246 mg/dL (65-115); Osmolality Calculated 282 mOsm/kg (285-295); Sodium 131 mmol/L (136-145); Total Bilirubin 0.9 mg/dL (0.15-1.2); Total Protein 4.7 g/dL (6.6-8.7)
[2020-12-03 11:51] LABS: Anion Gap 14.1 (5-19); Potassium 4.1 mmol/L (3.5-5.1)
[2020-12-03 11:52] LABS: Alanine Aminotransferase 15 U/L (0-41); Aspartate Amino Transferase 26 U/L (0-40)
--- NOTE | 2020-12-03 12:19 | P.PN_ITS ---
Subjective Subjective: Interval history: Patient was seen and examined this morning, continues to have worsening leukocytosis,WBC is up to 24.9 today. He denies significant abdominal pain, nausea or vomiting. Medications: Reviewed: Yes Vitals/I&O/Wt Last Vital Signs Temp 97.4 F L 12/03/20 11:28 Pulse 109 H 12/03/20 11:28 Resp 17 12/03/20 11:28 BP 149/79 12/03/20 11:28 Pulse Ox 94 12/03/20 11:28 12/02/20 12/03/20 12/03/20 22:59 06:59 14:59 Intake Total 405 / 2727.90 4291.633 / 4291.633 Output Total 1900 / 2770 735 / 3505 230 / 230 Balance -1495 / -42.10 -735 / -777.10 4061.633 / 4061.633 Weight last 48 hrs Weight 88.677 kg Weight 89.219 kg Physical Exam Const: COMMON NORMALS: patient oriented x3 HENMT: COMMON NORMALS: normocephalic HEAD & SCALP: normocephalic Chest: CHEST: Yes Symmetrical chest wall rise Resp: COMMON NORMALS: clear to auscultation bilaterally EFFORT & INSPECTION: Yes symmetric chest movement AUSCULTATION: clear to auscultation bilaterally Cardio: COMMON NORMALS: regular rate, regular rhythm, S1 normal heart sound present, S2 normal heart sound present, No gallops present (Cardio), No rub (Cardio) and Peripheral pulses 2+ throughout RATE: regular rate RHYTHM: regular rhythm HEART SOUNDS: S1 normal heart sound present and S2 normal heart sound present PERIPHERAL PULSES: Peripheral pulses 2+ throughout OTHER: ESM in right second intercostal space, SM along left lower sternal border. GI: AUSCULTATION: Yes normoactive bowel sounds RECTAL EXAM: Yes deferred OTHER: Soft,distended, central surgical scar, well-healing, ileostomy present, TRI drain present Extremity: COMMON NORMALS: no clubbing, cyanosis or edema and no pedal edema Neuro: COMMON NORMALS: patient oriented x3 Urinary Catheter Management^: [place]: Cath Placed During This Visit: yes Urinary Catheter Date of Insertion: 11/24/20 Urinary Catheter Time of Insertion: 13:05 Data : 12/03/20 11:04 12/03/20 11:04 A&P Assessment and plan (1) Sepsis due to Gram-negative organism with septic shock: Status: Acute (2) S/P exploratory laparotomy: Status: Acute (3) Diabetes mellitus: Sliding scale insulin q6hr blood sugar check while npo Status: Acute (4) Perforated bowel: Status: Acute (5) History of colon cancer: Status: Acute (6) Acute renal failure: Due to above Status: Acute Additional A&P Information Sepsis with shock due to gram negative bacteremia Developed post colonic perforated Blood cultures positive for E. coli. Continue ceftriaxone 2 g IV daily. Will need 14 days course overall after the last positive blood cultures till December 09. Repeat blood cultures continue to remain negative. Has worsening leukocytosis today. Has remained afebrile. Repeat procalcitonin. For now we will continue to monitor. If continues to have worsening leukocytosis will plan for repeat CT abdomen pelvis to rule out anastomotic leak, C. difficile. Pressors stopped. Keep mean arterial pressure 65. Continue TPN with 40 units insulin. Stop IV fluids. Extubated to nasal cannula today. Currently requires 3 L nasal cannula. Chest x-ray reviewed. Fentanyl 50 every 2 hours as needed for pain. Replete potassium. 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 Washout Abdomen closed with ileostomy on November 28. Acute respiratory failure on MV Extubated on November 30. Acute Renal Failure with oliguria / possible ATN Resolved. Hypernatremia: Resolved. Stop IV fluids. Check BMP daily. Diabetes mellitus?type I TPN with 40 units insulin. Insulin sliding scale at moderate dose every 6 hours. Goal < 180 Hypertension: Goal blood pressure less than 140/90 mmHg. Blood pressure elevated. Has been off pressors for 3 to 4 days now. Start patient on lisinopril 5 mg daily. Will uptitrate medication accordingly. Gi ppx Protonix DVT ppx SCDs TPN, full liquid diet. PT/OT evaluation. Can transfer to [facility] floor. Attestations Medical Necessity Statement*: Patient needs to be in hospital for management of sepsis. Coding Level of Care Code Acute Medical Sales Specialist for Chris Dash Diagnoses Sepsis due to Gram-negative organism with septic shock A41.50; R65.21 S/P exploratory laparotomy Z98.890 Diabetes mellitus E11.9 Perforated bowel K63.1 History of colon cancer Z85.038 Acute renal failure N17.9
--- NOTE | 2020-12-03 13:02 | P.PN_ITS ---
Subjective Subjective: Interval history: Patient has been doing well, tolerating regular diet, ostomy is functioning, had low-grade fevers and his WBC is up to 24.9 today. He denies significant abdominal pain, nausea or vomiting Vitals/I&O/Wt Last Vital Signs Temp 97.4 F L 12/03/20 11:28 Pulse 109 H 12/03/20 11:28 Resp 17 12/03/20 11:28 BP 149/79 12/03/20 11:28 Pulse Ox 94 12/03/20 11:28 12/02/20 12/03/20 12/03/20 22:59 06:59 14:59 Intake Total 405 / 2727.90 4291.633 / 4291.633 Output Total 1900 / 3505 735 / 3505 480 / 480 Balance -1495 / -777.10 -735 / -777.10 3811.633 / 3811.633 Weight last 48 hrs Weight 195 lb 8 oz Weight 196 lb 11.107 oz Physical Exam Narrative: EXAM NARRATIVE: Abdomen: Soft, minimally distended, minimally tender, incision clean dry and intact, TRI drain output x2 serosanguineous, ostomy is pink, viable, functioning Urinary Catheter Management^: [place]: Cath Placed During This Visit: yes Urinary Catheter Date of Insertion: 11/24/20 Urinary Catheter Time of Insertion: 13:05 Data : 12/03/20 11:04 12/03/20 11:04 A&P Assessment and plan (1) S/P exploratory laparotomy: Status post exploratory laparotomy with small bowel resection, partial colectomy with open abdomen Status post washout, colocolic anastomosis and double barrel ileostomy Continue GI soft diet Significant ostomy output: Increase Metamucil to 4 times daily since ostomy output was 1850 yesterday WBC is up to 25, patient is afebrile, hemodynamically stable, no evidence of peritonitis, increase antibiotic coverage with vancomycin/ zosyn from ceftriaxone, obtain CT abdomen and pelvis with p.o. and IV contrast, check C. difficile Continue to monitor Hypokalemia: Resolved Continue TPN, hopefully can be discontinued in the next 24 to 48 hours if tolerating GI soft diet Insulin sliding scale Protonix for GI prophylaxis Lovenox for DVT prophylaxis Out of bed to chair with physical therapy Status: Acute (2) Acute renal failure: Resolved Status: Acute Coding Level of Care Code Acute Silk Screen Printer for Chg Fwd Diagnoses S/P exploratory laparotomy Z98.890 Acute renal failure N17.9
[2020-12-03] MEDS: piperacillin-tazobactam 3.375 GM in sodium chloride 0.9% (plus) 50 ML IV ×2 (13:13→22:11)
[2020-12-03] MEDS: vancomycin 1,000 MG in sodium chloride 0.9% 250 ML 250 MG IV (14:18)
--- NOTE | 2020-12-03 14:31 | USCV_ITS ---
Abelino Lawson Age: 54 Gender: M : 1965 Exam Date: 12/03/2020 15:08 Ordering Phys: Jean Ivory MD Technologist: Jennifer Paiz [place] [facility] [place]: SHORTNESS OF BREATH BP: 149 / 79 HR: 96 Rhythm: Sinus Technical Quality: Technically difficult study MEASUREMENTS (Male / Female) Normal Values 2D ECHO LV Diastolic Diameter PLAX 2.5 cm 4.2 - 5.9 / 3.9 - 5.3 cm LV Systolic Diameter PLAX 1.5 cm IVS Diastolic Thickness 1.5 cm 0.6 - 1.0 / 0.6 - 0.9 cm IVS Systolic Thickness 2.0 cm LVPW Diastolic Thickness 1.6 cm 0.6 - 1.0 / 0.6 - 0.9 cm LVPW Systolic Thickness 1.8 cm LVOT Diameter 2.0 cm LV Ejection Fraction 2D Teich 71.6 % LA Diameter 3.4 cm LA Width 2.8 cm LA Height 4.6 cm RA Width 2.6 cm RA Height 4.4 cm Aorta at Sinotubular Diameter 2.5 cm M-MODE LV Diastolic Diameter MM 4.0 cm 4.2 - 5.9 / 3.9 - 5.3 cm LV Systolic Diameter MM 2.1 cm LV Ejection Fraction MM Teich 79.2 % IVS Diastolic Thickness MM 1.6 cm 0.6 - 1.0 / 0.6 - 0.9 cm IVS Systolic Thickness MM 1.6 cm LVPW Diastolic Thickness MM 1.2 cm 0.6 - 1.0 / 0.6 - 0.9 cm LVPW Systolic Thickness MM 1.6 cm Aortic Annulus Diameter 3.4 cm LA Ao Ratio MM 1.0 DOPPLER AV Peak Velocity 261.0 cm/s LVOT Peak Velocity 226.0 cm/s AV Area Cont Eq vti 2.4 cm squared AV Area Cont Eq pk 2.7 cm squared MV Area PHT 3.5 cm squared Mitral E to A Ratio 0.8 MV E' Velocity 39.0 cm/s Mitral E to MV E' Ratio 10.4 Mitral E to LV E' Lateral Ratio 10.8 Mitral E to LV E' Septal Ratio 10.1 TR Peak Velocity 229.0 cm/s TR Peak Gradient 21.0 mmHg TV Peak E Velocity 65.0 cm/s Right Atrial Pressure 3.0 mmHg Pulmonary Artery Systolic Pressu 24.0 mmHg PV Peak Velocity 113.0 cm/s RV Acceleration Time 0.1 s RV Ejection Time 0.2 s RV AcT/ET 0.4 FINDINGS Left Ventricle Normal left ventricular cavity size. Moderate left ventricular hypertrophy of concentric type. Left ventricular ejection fraction is estimated at 79 %. Grade I/IV diastolic dysfunction (abnormal relaxation filling pattern), normal to mildly elevated filling pressures. There appeared to be mid cavitary obstruction noted in the systole without GRISELDA. Right Ventricle The right ventricle is normal in size and function. Right Atrium The right atrium is normal in size. Left Atrium The left atrium is normal in size. Mitral Valve Structurally normal mitral valve without significant stenosis or prolapse. There is no mitral regurgitation. Aortic Valve Severe aortic valve calcification. No aortic valve stenosis. No aortic valve regurgitation. There appeared to be thickening of aortic valve cusp could be due to calcification or old healed vegetation, clinical correlation advised. No regurgitation noted. Tricuspid Valve Structurally normal tricuspid valve without significant stenosis or regurgitation. Pulmonary artery systolic pressure is normal. Pulmonic Valve Structurally normal pulmonic valve without significant stenosis. There is no pulmonic regurgitation. Pericardium Normal pericardium without effusion. Aorta Normal ascending aorta dimension. CONCLUSIONS 1-Normal left ventricular cavity size. Moderate left ventricular hypertrophy of concentric type. Left ventricular ejection fraction is estimated at 79 %. Grade I/IV diastolic dysfunction (abnormal relaxation filling pattern), normal to mildly elevated filling pressures. There appeared to be mid cavitary obstruction noted in the systole without GRISELDA. 2-Severe aortic valve calcification. No aortic valve stenosis. No aortic valve regurgitation. There appeared to be thickening of aortic valve cusp could be due to calcification or old healed vegetation, clinical correlation advised. No regurgitation noted. 3-Structurally normal mitral valve without significant stenosis or prolapse. There is no mitral regurgitation. 4-There is no pericardial effusion. 5-Pulmonary artery systolic pressure is within normal limits. 6-Right atrial pressure is around 5 mm of mercury. 7-There are no prior echocardiogram studies to compare. Itzel Moon MD (Electronically Signed) Final Date: 03 December 2020 19:15 S
[2020-12-03] MEDS: iohexol 300 mg/mL 50 mL Btl PO (14:50)
[2020-12-03] MEDS: iohexol 300 mg/mL 100 mL Btl IV (14:51)
[2020-12-03 17:26] LABS: Glucose Point of Care 250 mg/dL (70-110)
[2020-12-03 21:49] LABS: Glucose Point of Care 243 mg/dL (70-110)
[2020-12-04] VITALS (11 sets, daily range): BP systolic 84–114; BP diastolic 46–65; PULSE 93–106; RESP 16–20; TEMP 36.7–37.5; O2SAT 90–93
[2020-12-04] MEDS: psyllium powder Pkt 1 PACKET PO ×4 (02:27→21:30)
[2020-12-04] MEDS: artificial tears Op Soln 15 mL Btl 1 DROP EYE-BOTH ×6 (02:27→23:47)
[2020-12-04 04:59] LABS: Glucose Point of Care 247 mg/dL (70-110)
[2020-12-04] MEDS: piperacillin-tazobactam 3.375 GM in sodium chloride 0.9% (plus) 50 ML IV ×3 (05:31→21:29)
[2020-12-04 06:45] LABS: Basophils # 0.1 10^3/uL (0.0-0.1); Basophils % 0.6 %; Eosinophils # 0.2 10^3/uL (0.0-0.8); Eosinophils % 0.8 %; Hematocrit 32.5 % (42.0-52.0); Hemoglobin 11.1 g/dL (11.7-16.6); Lymphocytes # 1.5 10^3/uL (0.8-4.8); Lymphocytes % 7.2 %; Mean Corpuscular HGB Conc 34.2 g/dL (30.0-36.0); Mean Corpuscular Hemoglobin 31.3 pg (28.0-34.0); Mean Corpuscular Volume 91.5 fL (80-94); Mean Platelet Volume 12.9 fL (7.4-10.4); Monocytes # 1.1 10^3/uL (0.2-0.9); Neutrophils # 17.67 10^3/uL (1.8-7.7); Neutrophils % 83.2 %; Nucleated Red Blood Cells % 0 %; Platelet Count 288 10^3/cmm (130-400); Red Blood Count 3.55 10^6/uL (4.1-5.3); Red Cell Distribution Width 14.4 % (12.1-15.1); White Blood Count 21.2 10^3/uL (4.0-10.0)
[2020-12-04 07:08] LABS: Anion Gap 10.5 (5-19); Blood Urea Nitrogen 19 mg/dL (6-20); Calcium 7.9 mg/dL (8.5-10.5); Carbon Dioxide 32 mmol/L (22-29); Chloride 92 mmol/L (98-107); Glomerular Filtration Rate 139.9 mL/min (90-130); Glucose 230 mg/dL (65-115); Osmolality Calculated 282 mOsm/kg (285-295); Potassium 3.5 mmol/L (3.5-5.1); Sodium 131 mmol/L (136-145)
[2020-12-04 07:11] LABS: Creatinine Clr Calc Pharmacy 156.1513
[2020-12-04 07:52] LABS: Slide Review Slide Review Perform
--- NOTE | 2020-12-04 08:22 | PM.PN ---
Subjective Subjective: Interval history: Patient has been doing well, denies any nausea or vomiting, tolerating regular diet, his abdominal pain is minimal. He had low-grade fevers of 99. His ostomy output was 1290 yesterday Vitals/I&O/Wt Last Vital Signs Temp 98.3 F 12/04/20 07:59 Pulse 93 12/04/20 07:59 Resp 17 12/04/20 07:59 BP 114/63 12/04/20 07:59 Pulse Ox 91 12/04/20 07:59 12/03/20 12/04/20 12/04/20 22:59 06:59 14:59 Intake Total 660 / 6262.033 1310.4 / 6262.033 Output Total 1145 / 2390 625 / 2390 140 / 140 Balance -485 / 3872.033 685.4 / 3872.033 -140 / -140 Weight last 48 hrs Weight 196 lb Weight 195 lb 8 oz Physical Exam Narrative: EXAM NARRATIVE: Abdomen: Soft, nondistended, nontender, incision clean dry and intact, TRI drain output serosanguineous, ostomy left lower quadrant, pink, viable, functioning Urinary Catheter Management^: [place]: Cath Placed During This Visit: yes Urinary Catheter Date of Insertion: 11/24/20 Urinary Catheter Time of Insertion: 13:05 Data : 12/04/20 05:40 12/04/20 05:40 Micro: Microbiology 12/03/20 13:30 C.difficile Toxin B Gene (PCR) - Final Stool - Gastric Aspirate A&P Assessment and plan (1) S/P exploratory laparotomy: Status post exploratory laparotomy with small bowel resection, partial colectomy with open abdomen Status post washout, colocolic anastomosis and double barrel ileostomy Continue GI soft diet High output ostomy: Metamucil 4 times a day, is down to 1200 cc yesterday WBC down to 21.2 from 25 yesterday, continue IV vancomycin and Zosyn CT abdomen pelvis showed multiple small fluid collections, patient is hemodynamically stable, no evidence of peritonitis and will therefore continue with IV antibiotics. Continue to monitor Hypokalemia: Resolved Continue IV antibiotics Continue TPN, decrease TPN rate by half and stop TPN tomorrow Insulin sliding scale Protonix for GI prophylaxis Lovenox for DVT prophylaxis Out of bed to chair with physical therapy Status: Acute (2) Acute renal failure: Resolved Status: Acute Attestations Medical Necessity Statement*: As per primary Coding Level of Care Code Acute Tube Cutter Operator for Chg Fwd Diagnoses S/P exploratory laparotomy Z98.890 Acute renal failure N17.9
[2020-12-04] MEDS: pantoprazole 40 mg SDV IVP ×2 (09:54→21:30)
[2020-12-04] MEDS: lisinopril 5 mg Tablet 20 MG PO (09:54)
--- NOTE | 2020-12-04 11:23 | PC.NURSE ---
patient complains of pain and only had Fentanyl. typewriter ribbon winder notified Dr Ivory. Solar Designer/Installer received orders for Tylenol PO and Panaca. Solar Designer/Installer put orders in as requested.
[2020-12-04] MEDS: vancomycin 1,250 MG/250 ML PIGGYBACK 250 MG IV ×2 (11:39→17:55)
[2020-12-04] MEDS: HYDROcodone-acetaminophen 5-325 mg Tablet 1 TAB PO (11:39)
[2020-12-04 11:47] LABS: Glucose Point of Care 234 mg/dL (70-110)
--- NOTE | 2020-12-04 16:32 | PM.PN ---
Subjective Subjective: Interval history: Patient has been doing well, denies any nausea or vomiting, tolerating regular diet, his abdominal pain is minimal. Medications: Reviewed: Yes Vitals/I&O/Wt Last Vital Signs Temp 98.4 F 12/04/20 16:00 Pulse 98 12/04/20 16:00 Resp 18 12/04/20 16:00 BP 104/64 12/04/20 16:00 Pulse Ox 91 12/04/20 16:00 12/04/20 12/04/20 12/04/20 06:59 14:59 22:59 Intake Total 1310.4 / 6262.033 1420 / 1420 Output Total 625 / 2390 690 / 690 Balance 685.4 / 3872.033 730 / 730 Weight last 48 hrs Weight 88.904 kg Weight 88.677 kg Physical Exam Const: COMMON NORMALS: patient oriented x3 HENMT: COMMON NORMALS: normocephalic HEAD & SCALP: normocephalic Eye: COMMON NORMALS: no scleral icterus GENERAL EYE: appearance normal, both eyes and all related structures Chest: COMMONS NORMALS: normal inspection of the chest and normal palpation of entire chest wall CHEST: Yes Symmetrical chest wall rise Resp: COMMON NORMALS: clear to auscultation bilaterally EFFORT & INSPECTION: Yes symmetric chest movement AUSCULTATION: clear to auscultation bilaterally Cardio: COMMON NORMALS: regular rate, regular rhythm, S1 normal heart sound present, S2 normal heart sound present, No gallops present (Cardio), No rub (Cardio) and Peripheral pulses 2+ throughout RATE: regular rate RHYTHM: regular rhythm HEART SOUNDS: S1 normal heart sound present and S2 normal heart sound present PERIPHERAL PULSES: Peripheral pulses 2+ throughout OTHER: ESM in right second intercostal space, SM along left lower sternal border. GI: AUSCULTATION: Yes normoactive bowel sounds RECTAL EXAM: Yes deferred OTHER: Soft,distended, central surgical scar, well-healing, ileostomy present, TRI drain present Extremity: COMMON NORMALS: no clubbing, cyanosis or edema and no pedal edema Neuro: COMMON NORMALS: patient oriented x3 Urinary Catheter Management^: [place]: Cath Placed During This Visit: yes Urinary Catheter Date of Insertion: 11/24/20 Urinary Catheter Time of Insertion: 13:05 Data : 12/04/20 05:40 12/04/20 05:40 Micro: Microbiology 12/03/20 13:30 C.difficile Toxin B Gene (PCR) - Final Stool - Gastric Aspirate A&P Assessment and plan (1) Sepsis due to Gram-negative organism with septic shock: Status: Acute (2) S/P exploratory laparotomy: Status: Acute (3) Diabetes mellitus: Sliding scale insulin q6hr blood sugar check while npo Status: Acute (4) Perforated bowel: Status: Acute (5) History of colon cancer: Status: Acute (6) Acute renal failure: Due to above Status: Acute Additional A&P Information Sepsis with shock due to gram negative bacteremia Developed post colonic perforated Blood cultures positive for E. coli. Continue Zosyn as well as vancomycin . Will discharge on I.V Ceftriaxone to complete total 14 days course abx overall after the last positive blood cultures till December 09. Repeat blood cultures continue to remain negative. Has worsening leukocytosis today. Has remained afebrile. Repeat procalcitonin. For now we will continue to monitor. If continues to have worsening leukocytosis will plan for repeat CT abdomen pelvis to rule out anastomotic leak, C. difficile. Pressors stopped. Keep mean arterial pressure 65. Continue TPN with 40 units insulin. Stop IV fluids. Extubated to nasal cannula today. Currently requires 3 L nasal cannula. Chest x-ray reviewed. Fentanyl 50 every 2 hours as needed for pain. Replete potassium. 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 Washout Abdomen closed with ileostomy on November 28. Acute respiratory failure on MV Extubated on November 30. Acute Renal Failure with oliguria / possible ATN Resolved. Hypernatremia: Resolved. Stop IV fluids. Check BMP daily. Diabetes mellitus?type I TPN with 40 units insulin. Insulin sliding scale at moderate dose every 6 hours. Goal < 180 Hypertension: Goal blood pressure less than 140/90 mmHg. Blood pressure elevated. Has been off pressors for 3 to 4 days now. Start patient on lisinopril 5 mg daily. Will uptitrate medication accordingly. Gi ppx Protonix DVT ppx SCDs TPN, full liquid diet. PT/OT evaluation. Can transfer to [facility] floor. Attestations Medical Necessity Statement*: Patient needs to be in hospital for the management of sepsis. 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
[2020-12-04 17:25] LABS: Glucose Point of Care 225 mg/dL (70-110)
[2020-12-04 23:22] LABS: Glucose Point of Care 272 mg/dL (70-110)
[2020-12-05] VITALS (11 sets, daily range): BP systolic 82–107; BP diastolic 40–69; PULSE 90–111; RESP 15–20; TEMP 36.6–36.9; O2SAT 92–94
[2020-12-05 02:45] LABS: Basophils # 0.1 10^3/uL (0.0-0.1); Basophils % 0.6 %; Eosinophils # 0.2 10^3/uL (0.0-0.8); Hematocrit 31.7 % (42.0-52.0); Hemoglobin 10.9 g/dL (11.7-16.6); Lymphocytes # 1.2 10^3/uL (0.8-4.8); Lymphocytes % 5.3 %; Mean Corpuscular HGB Conc 34.4 g/dL (30.0-36.0); Mean Corpuscular Hemoglobin 31.5 pg (28.0-34.0); Mean Corpuscular Volume 91.6 fL (80-94); Monocytes # 1.6 10^3/uL (0.2-0.9); Neutrophils # 19.14 10^3/uL (1.8-7.7); Neutrophils % 83.6 %; Nucleated Red Blood Cells % 0 %; Platelet Count 450 10^3/cmm (130-400); Red Blood Count 3.46 10^6/uL (4.1-5.3); Red Cell Distribution Width 14.8 % (12.1-15.1); White Blood Count 22.9 10^3/uL (4.0-10.0)
[2020-12-05] MEDS: artificial tears Op Soln 15 mL Btl 1 DROP EYE-BOTH ×5 (03:00→21:30)
[2020-12-05] MEDS: psyllium powder Pkt 1 PACKET PO ×3 (03:00→21:38)
[2020-12-05 03:06] LABS: Anion Gap 12.6 (5-19); Blood Urea Nitrogen 20 mg/dL (6-20); Calcium 7.4 mg/dL (8.5-10.5); Carbon Dioxide 29 mmol/L (22-29); Chloride 92 mmol/L (98-107); Glomerular Filtration Rate 87.6 mL/min (90-130); Glucose 184 mg/dL (65-115); Osmolality Calculated 277 mOsm/kg (285-295); Potassium 3.6 mmol/L (3.5-5.1); Sodium 130 mmol/L (136-145)
[2020-12-05] MEDS: vancomycin 1,250 MG/250 ML PIGGYBACK 250 MG IV (03:17)
[2020-12-05 04:27] LABS: Glucose Point of Care 245 mg/dL (70-110)
[2020-12-05] MEDS: piperacillin-tazobactam 3.375 GM in sodium chloride 0.9% (plus) 50 ML IV ×3 (04:48→21:25)
[2020-12-05] MEDS: lisinopril 5 mg Tablet 20 MG PO (09:01)
[2020-12-05] MEDS: pantoprazole 40 mg SDV IVP ×2 (09:33→20:54)
--- NOTE | 2020-12-05 09:51 | PC.SOCIAL ---
IMM Update pg.2 of IMM updated and reviewed with patient and his mom at bedside. Copy provided.
[2020-12-05 10:32] LABS: Vancomycin Trough 23.8 ug/mL (10-15)
[2020-12-05 10:51] LABS: Glucose Point of Care 368 mg/dL (70-110)
[2020-12-05] MEDS: HYDROcodone-acetaminophen 5-325 mg Tablet 1 TAB PO (11:12)
--- NOTE | 2020-12-05 12:42 | P.PN_ITS ---
Subjective Subjective: Interval history: Overall patient is doing better, no temperature spike, patient was having urinary retention, bladder scan showed 448 mL.De La Torre was placed. denies significant pain, no nausea or vomiting, tolerating regular diet, ostomy has been functioning. Medications: Reviewed: Yes Vitals/I&O/Wt Last Vital Signs Temp 97.8 F 12/05/20 11:36 Pulse 109 H 12/05/20 11:36 Resp 15 12/05/20 11:36 BP 106/64 12/05/20 11:36 Pulse Ox 94 12/05/20 11:36 12/04/20 12/05/20 12/05/20 22:59 06:59 14:59 Intake Total 300 / 1720 1480.4 / 3200.4 290 / 290 Output Total 75 / 765 915 / 1680 380 / 380 Balance 225 / 955 565.4 / 1520.4 -90 / -90 Weight last 48 hrs Weight 87.861 kg Weight 88.904 kg Physical Exam Const: COMMON NORMALS: patient oriented x3 HENMT: COMMON NORMALS: normocephalic HEAD & SCALP: normocephalic Eye: COMMON NORMALS: no scleral icterus GENERAL EYE: appearance normal, both eyes and all related structures Chest: COMMONS NORMALS: normal inspection of the chest and normal palpation of entire chest wall CHEST: Yes Symmetrical chest wall rise Resp: COMMON NORMALS: clear to auscultation bilaterally EFFORT & INSPECTIO N: Yes symmetric chest movement AUSCULTATION: clear to auscultation bilaterally Cardio: COMMON NORMALS: regular rate, regular rhythm, S1 normal heart sound present, S2 normal heart sound present, No gallops present (Cardio), No rub (Cardio) and Peripheral pulses 2+ throughout RATE: regular rate RHYTHM: regular rhythm HEART SOUNDS: S1 normal heart sound present and S2 normal heart sound present PERIPHERAL PULSES: Peripheral pulses 2+ throughout OTHER: ESM in right second intercostal space, SM along left lower sternal border. GI: AUSCULTATION: Yes normoactive bowel sounds RECTAL EXAM: Yes deferred OTHER: Soft,distended, central surgical scar, well-healing, ileostomy present, TRI drain present Extremity: COMMON NORMALS: no clubbing, cyanosis or edema and no pedal edema Neuro: COMMON NORMALS: patient oriented x3 Urinary Catheter Management^: De La Torre: Cath Placed During This Visit: yes Urinary Catheter Date of Insertion: 11/24/20 Urinary Catheter Time of Insertion: 13:05 Data : 12/05/20 02:28 12/05/20 02:28 A&P Assessment and plan (1) Sepsis due to Gram-negative organism with septic shock: Status: Acute (2) S/P exploratory laparotomy: Status: Acute (3) Diabetes mellitus: Sliding scale insulin q6hr blood sugar check while npo Status: Acute (4) Perforated bowel: Status: Acute (5) History of colon cancer: Status: Acute (6) Acute renal failure: Due to above Status: Acute Additional A&P Information Sepsis with shock due to gram negative bacteremia Developed post colonic perforated Blood cultures positive for E. coli. Continue Zosyn as well as vancomycin . Will discharge on I.V Ceftriaxone to complete total 14 days course abx overall after the last positive blood cultures till December 09. Repeat blood cultures continue to remain negative. Has worsening leukocytosis today. Has remained afebrile. Repeat procalcitonin. For now we will continue to monitor. If continues to have worsening leukocytosis will plan for repeat CT abdomen pelvis to rule out anastomotic leak, C. difficile. Pressors stopped. Keep mean arterial pressure 65. Initailly on TPN with 40 units insulin.Was stopped on 12/05. IV fluids has been discontinued. Extubated to nasal cannula . Currently requires 3 L nasal cannula. Chest x-ray reviewed. Replete potassium. 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 Washout Abdomen closed with ileostomy on November 28. Acute respiratory failure on MV Extubated on November 30. Acute Renal Failure with oliguria / possible ATN Resolved. Hypernatremia: Resolved. Stop IV fluids. Check BMP daily. Diabetes mellitus?type I TPN with 40 units insulin. Insulin sliding scale at moderate dose every 6 hours. Goal < 180 Hypertension: Goal blood pressure less than 140/90 mmHg. Blood pressure elevated. Has been off pressors for 3 to 4 days now. Start patient on lisinopril 5 mg daily. Will uptitrate medication accordingly. Urinary Retention : Currently de la torre in place Flomax Started Will do voiding trial later. If Fails can see urology as outpatient with De La Torre on discharge. Gi ppx Protonix DVT ppx SCDs TPN, full liquid diet. PT/OT evaluation. Can transfer to [facility] floor. Attestations Medical Necessity Statement*: Patient needs to be in hospital for Sepsis and persistent leukocytosis. 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
[2020-12-05] MEDS: vancomycin 1,250 MG/250 ML PIGGYBACK 200 MG IV (17:08)
--- NOTE | 2020-12-05 17:22 | P.PN_ITS ---
Subjective Subjective: Interval history: Patient has been doing well, denies significant pain, no nausea or vomiting, tolerating regular diet, ostomy has been functioning Vitals/I&O/Wt Last Vital Signs Temp 98.5 F 12/05/20 15:25 Pulse 98 12/05/20 15:25 Resp 17 12/05/20 15:25 BP 95/69 12/05/20 15:25 Pulse Ox 94 12/05/20 15:25 12/05/20 12/05/20 12/05/20 06:59 14:59 22:59 Intake Total 1480.4 / 3200.4 350 / 350 Output Total 915 / 1680 380 / 1330 950 / 1330 Balance 565.4 / 1520.4 -30 / -980 -950 / -980 Weight last 48 hrs Weight 193 lb 11.2 oz Weight 196 lb Physical Exam Narrative: EXAM NARRATIVE: Abdomen: Soft, minimally tender, nondistended, TRI drain output is serosanguineous, incision clean dry and intact, ostomy is pink and functioning Urinary Catheter Management^: [place]: Cath Placed During This Visit: yes Urinary Catheter Date of Insertion: 12/05/20 Urinary Catheter Time of Insertion: 15:00 Data : 12/05/20 02:28 12/05/20 02:28 A&P Assessment and plan (1) S/P exploratory laparotomy: Status post exploratory laparotomy with small bowel resection, partial colectomy with open abdomen Status post washout, colocolic anastomosis and double barrel ileostomy Continue GI soft diet High output ostomy: Metamucil 4 times a day, is down to 1200 cc yesterday WBC is 22.9, he has been afebrile since 4 AM yesterday morning, continue IV vancomycin and Zosyn CT abdomen pelvis showed multiple small fluid collections, patient is hemodynamically stable, no evidence of peritonitis and will therefore Hypokalemia: Resolved TPN has been discontinued since patient is on a soft diet Insulin sliding scale Protonix for GI prophylaxis Lovenox for DVT prophylaxis Out of bed to chair with physical therapy Clinically patient is doing well, no evidence of peritonitis, afebrile but patient has had persistent leukocytosis. 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
[2020-12-05 17:37] LABS: Glucose Point of Care 416 mg/dL (70-110)
[2020-12-05] MEDS: tamsulosin 0.4 mg Capsule PO (18:49)
[2020-12-05 22:27] LABS: Glucose Point of Care 319 mg/dL (70-110)
[2020-12-06] VITALS (7 sets, daily range): BP systolic 93–145; BP diastolic 47–67; PULSE 91–107; RESP 17–20; TEMP 36.6–37.9; O2SAT 91–93
[2020-12-06] MEDS: sodium chloride 0.9% 250 ML IV (00:15)
[2020-12-06] MEDS: psyllium powder Pkt 1 PACKET PO ×3 (02:29→21:19)
[2020-12-06] MEDS: artificial tears Op Soln 15 mL Btl 1 DROP EYE-BOTH ×6 (02:29→22:34)
[2020-12-06 02:49] LABS: Basophils # 0.1 10^3/uL (0.0-0.1); Basophils % 0.6 %; Eosinophils # 0.2 10^3/uL (0.0-0.8); Eosinophils % 1.3 %; Hematocrit 27.8 % (42.0-52.0); Hemoglobin 9.5 g/dL (11.7-16.6); Lymphocytes # 1.2 10^3/uL (0.8-4.8); Lymphocytes % 7.9 %; Mean Corpuscular HGB Conc 34.2 g/dL (30.0-36.0); Mean Corpuscular Volume 90.8 fL (80-94); Mean Platelet Volume 10.8 fL (7.4-10.4); Monocytes # 1.5 10^3/uL (0.2-0.9); Monocytes % 9.9 %; Neutrophils # 12.17 10^3/uL (1.8-7.7); Neutrophils % 77.9 %; Nucleated Red Blood Cells % 0 %; Platelet Count 414 10^3/cmm (130-400); Red Blood Count 3.06 10^6/uL (4.1-5.3); White Blood Count 15.6 10^3/uL (4.0-10.0)
[2020-12-06 03:12] LABS: Anion Gap 11.8 (5-19); Blood Urea Nitrogen 23 mg/dL (6-20); Calcium 7.2 mg/dL (8.5-10.5); Carbon Dioxide 28 mmol/L (22-29); Chloride 93 mmol/L (98-107); Glomerular Filtration Rate 87.6 mL/min (90-130); Glucose 208 mg/dL (65-115); Osmolality Calculated 278 mOsm/kg (285-295); Potassium 3.8 mmol/L (3.5-5.1); Sodium 129 mmol/L (136-145)
[2020-12-06] MEDS: vancomycin 1,250 MG/250 ML PIGGYBACK 200 MG IV ×2 (04:47→17:14)
[2020-12-06 04:49] LABS: Glucose Point of Care 244 mg/dL (70-110)
[2020-12-06] MEDS: piperacillin-tazobactam 3.375 GM in sodium chloride 0.9% (plus) 50 ML IV ×3 (04:49→21:18)
--- NOTE | 2020-12-06 06:52 | PC.NURSE ---
Right lower drain is brown and cloudy
[2020-12-06] MEDS: tamsulosin 0.4 mg Capsule PO (08:16)
[2020-12-06] MEDS: pantoprazole 40 mg SDV IVP ×2 (09:18→20:53)
[2020-12-06 10:08] LABS: Glucose Point of Care 312 mg/dL (70-110)
--- NOTE | 2020-12-06 14:52 | P.PN_ITS ---
Subjective Subjective: Interval history: No acute event overnights on regular diet, no nausea or vomiting.Abdominal pain is well controlled. Medications: Reviewed: Yes Vitals/I&O/Wt Last Vital Signs Temp 98.0 F 12/06/20 11:30 Pulse 100 12/06/20 11:30 Resp 18 12/06/20 11:30 BP 105/58 12/06/20 11:30 Pulse Ox 92 12/06/20 11:30 12/05/20 12/06/20 12/06/20 22:59 06:59 14:59 Intake Total 420 / 770 780 / 1550 542.083 / 542.083 Output Total 980 / 1360 1190 / 2550 1020 / 1020 Balance -560 / -590 -410 / -1000 -477.917 / -477.917 Weight last 48 hrs Weight 88.178 kg Weight 87.861 kg Physical Exam Const: COMMON NORMALS: patient oriented x3 HENMT: COMMON NORMALS: normocephalic HEAD & SCALP: normocephalic Eye: COMMON NORMALS: no scleral icterus GENERAL EYE: appearance normal, both eyes and all related structures Chest: COMMONS NORMALS: normal inspection of the chest and normal palpation of entire chest wall CHEST: Yes Symmetrical chest wall rise Resp: COMMON NORMALS: clear to auscultation bilaterally EFFORT & INSPECTION: Yes symmetric chest movement AUSCULTATION: clear to auscultation bilaterally Cardio: COMMON NORMALS: regular rate, regular rhythm, S1 normal heart sound present, S2 normal heart sound present, No gallops present (Cardio), No rub (Cardio) and Peripheral pulses 2+ throughout RATE: regular rate RHYTHM: regular rhythm HEART SOUNDS: S1 normal heart sound present and S2 normal heart sound present PERIPHERAL PULSES: Peripheral pulses 2+ throughout OTHER: ESM in right second intercostal space, SM along left lower sternal border. GI: AUSCULTATION: Yes normoactive bowel sounds RECTAL EXAM: Yes deferred OTHER: Soft,distended, central surgical scar, well-healing, ileostomy present, TRI drain present Extremity: COMMON NORMALS: no clubbing, cyanosis or edema and no pedal edema Neuro: COMMON NORMALS: patient oriented x3 Urinary Catheter Management^: [place]: Cath Placed During This Visit: yes Reason for Continuing Indwelling Catheter: Acute Urinary Retention or Obstruction Urinary Catheter Date of Insertion: 11/24/20 Urinary Catheter Time of Insertion: 13:05 Data : 12/06/20 02:40 12/06/20 02:40 A&P Assessment and plan (1) Sepsis due to Gram-negative organism with septic shock: Status: Acute (2) S/P exploratory laparotomy: Status: Acute (3) Diabetes mellitus: Sliding scale insulin q6hr blood sugar check while npo Status: Acute (4) Perforated bowel: Status: Acute (5) History of colon cancer: Status: Acute (6) Acute renal failure: Due to above Status: Acute Additional A&P Information Sepsis with shock due to gram negative bacteremia Developed post colonic perforated Blood cultures positive for E. coli. Continue Zosyn as well as vancomycin . Will discharge on I.V Ceftriaxone to complete total 14 days course abx overall after the last positive blood cultures till December 09. Repeat blood cultures continue to remain negative. Has worsening leukocytosis today. Has remained afebrile. Repeat procalcitonin. For now we will continue to monitor. If continues to have worsening leukocytosis will plan for repeat CT abdomen pelvis to rule out anastomotic leak, C. difficile. Pressors stopped. Keep mean arterial pressure 65. Initailly on TPN with 40 units insulin.Was stopped on 12/05. IV fluids has been discontinued. Extubated to nasal cannula . Currently requires 3 L nasal cannula. Chest x-ray reviewed. Replete potassium. 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 Washout Abdomen closed with ileostomy on November 28. Acute respiratory failure on MV Extubated on November 30. Acute Renal Failure with oliguria / possible ATN Resolved. Hypernatremia: Resolved. Stop IV fluids. Check BMP daily. Diabetes mellitus?type I Lantus 20 u sc at bedtime 10 U Novolog Premeal HDSSI Goal < 180 Hypertension: Currently well controlled Urinary Retention : Currently Hull in place Flomax Started Will do voiding trial later. If Fails can see urology as outpatient with Hull on discharge. Gi ppx Protonix DVT ppx SCDs G.I Soft PT/OT evaluation. Attestations Medical Necessity Statement*: Patient needs to be in hospital for the management of Sepsis and post exp/lap with open lysis of adhesion, small bowel resection Partial transverse colectomy care. Coding Level of Care Code Acute Materials Intern for Chg Fwd Diagnoses Sepsis due to Gram-negative organism with septic shock A41.50; R65.21 S/P exploratory laparotomy Z98.890 Diabetes mellitus E11.9 Perforated bowel K63.1 History of colon cancer Z85.038 Acute renal failure N17.9
[2020-12-06 16:45] LABS: Glucose Point of Care 338 mg/dL (70-110)
--- NOTE | 2020-12-06 18:19 | PM.PN ---
Subjective Subjective: Interval history: Patient on regular diet, no nausea or vomiting. Abdominal pain is minimal ostomy output is decreasing Vitals/I&O/Wt Last Vital Signs Temp 98.8 F 12/06/20 15:15 Pulse 100 12/06/20 15:15 Resp 18 12/06/20 15:15 BP 109/47 12/06/20 15:15 Pulse Ox 91 12/06/20 15:15 12/06/20 12/06/20 12/06/20 06:59 14:59 22:59 Intake Total 780 / 1550 542.083 / 542.083 Output Total 1190 / 2550 1020 / 1020 Balance -410 / -1000 -477.917 / -477.917 Weight last 48 hrs Weight 194 lb 6.4 oz Weight 193 lb 11.2 oz Physical Exam Narrative: EXAM NARRATIVE: Abdomen: Soft, nondistended, minimally tender, incision clean dry and intact, right TRI drain has thicker fluid left TRI drain has serosanguineous fluid ostomy pink and functioning Urinary Catheter Management^: [place]: Cath Placed During This Visit: yes Reason for Continuing Indwelling Catheter: Acute Urinary Retention or Obstruction Urinary Catheter Date of Insertion: 11/24/20 Urinary Catheter Time of Insertion: 13:05 Data : 12/06/20 02:40 12/06/20 02:40 A&P Assessment and plan (1) S/P exploratory laparotomy: Status post exploratory laparotomy with small bowel resection, partial colectomy with open abdomen Status post washout, colocolic anastomosis and double barrel ileostomy Continue GI soft diet High output ostomy: Metamucil 4 times a day, is down to 850 cc yesterday WBC is 15.6, he has been afebrile continue IV vancomycin and Zosyn, transition to oral antibiotics tomorrow CT abdomen pelvis showed multiple small fluid collections, patient is hemodynamically stable, no evidence of peritonitis and will therefore Hypokalemia: Resolved Insulin sliding scale Protonix for GI prophylaxis Lovenox for DVT prophylaxis Out of bed to chair with physical therapy Clinically patient is doing well, no evidence of peritonitis, afebrile but patient has had persistent leukocytosis. At this point we will continue the current course with plan for discharge in the next 24 to 48 hours Status: Acute (2) Acute renal failure: Resolved Status: Acute Attestations Medical Necessity Statement*: As per primary Coding Level of Care Code Acute Optomechanical Technician for Chg Fwd Diagnoses S/P exploratory laparotomy Z98.890 Acute renal failure N17.9
[2020-12-06 22:23] LABS: Glucose Point of Care 303 mg/dL (70-110)
[2020-12-06] MEDS: insulin glargine 100 units/1 mL 20 UNIT SUBCUT (22:33)
[2020-12-07 03:35] VITALS: BP 142/66; PULSE 95; RESP 18; TEMP 36.8; O2SAT 92
[2020-12-07] MEDS: piperacillin-tazobactam 3.375 GM in sodium chloride 0.9% (plus) 50 ML IV ×2 (04:26→14:14)
[2020-12-07] MEDS: artificial tears Op Soln 15 mL Btl 1 DROP EYE-BOTH ×4 (04:26→14:15)
[2020-12-07] MEDS: psyllium powder Pkt 1 PACKET PO ×3 (04:26→14:17)
[2020-12-07 05:02] LABS: Vancomycin Trough 16.3 ug/mL (10-15)
[2020-12-07 05:53] LABS: Glucose Point of Care 207 mg/dL (70-110)
[2020-12-07] MEDS: vancomycin 1,250 MG/250 ML PIGGYBACK 200 MG IV (05:55)
[2020-12-07 06:00] VITALS: PULSE 91
[2020-12-07 07:38] VITALS: BP 117/61; PULSE 93; RESP 18; TEMP 37.4; O2SAT 92
[2020-12-07] MEDS: tamsulosin 0.4 mg Capsule PO (09:28)
[2020-12-07] MEDS: pantoprazole 40 mg SDV IVP (09:28)
--- NOTE | 2020-12-07 10:10 | P.DS_ITS ---
Discharge Providers Date of Admission: 11/24/20 17:27 Date of Discharge: December 07, 2020 Attending Provider at Admission: Mack Ricardo MD Attending Provider at Discharge: Jean Ivory MD Diagnoses at Discharge Discharge Diagnosis (1) Sepsis due to Gram-negative organism with septic shock: Status: Resolved (2) S/P exploratory laparotomy: Status: Acute Permanent problem details: Small bowel resection, partial colectomy (3) Diabetes mellitus: Status: Chronic (4) Perforated bowel: Status: Resolved (5) History of colon cancer: Status: Chronic (6) Acute renal failure: Status: Resolved Reason for Visit Reason for Visit: FOUND UNRESPONSIVE Hospital Course Hospital Course 54 year old male with past medical history of diabetes mellitus, blindness and colon cancer who presented to ER after he was found to be unresponsive. Patient was not able to provide much history. In review of records it appeared patient was taken for a screening colonoscopy on 11/23 Upon arrival noted to have abdominal tenderness. CT abd/pelvis performed showed free air suspicious for perforation. He was also noted to be hypotensive. He was Started on Levophed. Stat surgery consult was obtained. Patient was taken to the OR.He was admitted for the management of Septic shock. During the hospital stay he was managed for septic shock secondary to gram-negative bacteremia, developed due to post colonoscopy colonic perforation.Blood cultures positive for E. coli, he was kept on Broad-Spectrum Antibiotics (namely vancomycin and Zosyn ceftriaxone), he was also on vasopressors, IV fluid resuscitation as per the sepsis protocol, patient received appropriate number of days of IV antibiotic coverage. Repeat blood cultures were, negative. With improvement in patient's overall condition pressors. At the time of discharge patient was hemodynamically stable, he was afebrile, was tolerating diet well. Hospital course was also complicated by development of acute respiratory failure, for which patient was intubated and placed on mechanical ventilation, lately within his improvement in overall condition, he was extubated, at the time of discharge he was saturating well on room air. For transverse colon perforation status post colonoscopy: Status post exploratory laparotomy with small bowel resection, partial colectomy with open abdomen Status post washout, colocolic anastomosis and double barrel ileostomy. Patient was discharged with TRI drain in place he will follow with Dr. Ricardo as an outpatient ostomy output has been good. Hospital course was also complicated by development of acute renal failure secondary to septic shock, patient responded well to the conservative management with improvement in sepsis and his overall condition the kidney function also improved, at the time of discharge his creatinine creatinine was at baseline, acute renal failure had resolved at time of discharge. Patient did also briefly developed urinary retention during the hospital stay, voiding trial at the time of discharge was successful. 2D echo was also done during the hospital stay, for work-up of heart murmur: Normal left ventricular cavity size. Moderate left ventricular hypertrophy of concentric type. Left ventricular ejection fraction is estimated at 79 %. Grade I/IV diastolic dysfunction (abnormal relaxation filling pattern), normal to mildly elevated filling pressures. There appeared to be mid cavitary obstruction noted in the systole without GRISELDA. Severe aortic valve calcification. No aortic valve stenosis. No aortic valve regurgitation. There appeared to be thickening of aortic valve cusp could be due to calcification or old healed vegetation, c linical correlation advised. No regurgitation noted. Structurally normal mitral valve without significant stenosis or prolapse. There is no mitral regurgitation. There is no pericardial effusion. Patient will follow cardiology as an outpatient for evaluation of mid cavitary obstruction noted in the systole without GRISELDA, once he is clinically more stable and out of this acute phase.Patient was offered to go to SNF for further recovery, family wants the patient to go home.Home health aide and home physical therapy has been arranged. Physical Exam Const: COMMON NORMALS: patient oriented x3 HENMT: COMMON NORMALS: normocephalic HEAD & SCALP: normocephalic Eye: COMMON NORMALS: no scleral icterus GENERAL EYE: appearance normal, both eyes and all related structures Chest: COMMONS NORMALS: normal inspection of the chest and normal palpation of entire chest wall CHEST: Yes Symmetrical chest wall rise Resp: COMMON NORMALS: clear to auscultation bilaterally EFFORT & INSPECTION: Yes symmetric chest movement AUSCULTATION: clear to auscultation bilaterally Cardio: COMMON NORMALS: regular rate, regular rhythm, S1 normal heart sound present, S2 normal heart sound present, No gallops present (Cardio), No rub (Cardio) and Peripheral pulses 2+ throughout RATE: regular rate RHYTHM: regular rhythm HEART SOUNDS: S1 normal heart sound present and S2 normal he art sound present PERIPHERAL PULSES: Peripheral pulses 2+ throughout OTHER: ESM in right second intercostal space, SM along left lower sternal border. GI: AUSCULTATION: Yes normoactive bowel sounds RECTAL EXAM: Yes deferred OTHER: Soft,distended, central surgical scar, well-healing, ileostomy present, TRI drain present Extremity: COMMON NORMALS: no clubbing, cyanosis or edema and no pedal edema Neuro: COMMON NORMALS: patient oriented x3 Urinary Catheter Management^: Hull: Cath Placed During This Visit: yes Reason for Continuing Indwelling Catheter: Not indwelling catheter Urinary Catheter Date of Insertion: 11/24/20 Urinary Catheter Time of Insertion: 13:05 Discharge Data Data Completed and Pending: Completed Studies During Hospitalization Category Date Time Status CT abdomen pelvis w con* [id number] Rout ine Cat Scan 12/03/20 11:[address] abdomen pelvis wo con [id number] Stat Cat Scan 11/24/20 11:48 Completed CXRP [XR chest 1V portable [id number]] R outine Exams 11/24/20 17:37 Completed CXRP [XR chest 1V portable [id number]] S tat Exams 11/30/20 16:38 Completed XR chest 1V stew ble [id number] NOW Exams 11/27/20 18:23 Completed XR chest 1V stew ble [id number] QAM Exams 11/30/20 06:00 Completed XR chest 1V stew ble [id number] Routine Exams 11/26/20 07:00 Completed XR chest 1V stew ble [id number] Stat Exams 11/24/20 11:48 Completed Pathology: Surgic al [PTH] Routine Pth 11/24/20 17:36 Completed CV. echo complete * [id number] Routine Ultrasound 12/03/20 14:31 Completed Pending at discharge Category Date Time Status Pathology: Surgic al [PTH] Routine Pth 11/28/20 18:55 Received Labs from last 24 hours 12/07/20 12/07/20 12/06/20 05:50 04:00 22:18 POC Glucose 207 H 303 H Vancomycin Trough 16.3 H 12/06/20 16:43 POC Glucose 338 H Vancomycin Trough Vitals: Last Vital Signs Temp 99.4 F 12/07/20 07:38 Pulse 93 12/07/20 07:38 Resp 18 12/07/20 07:38 BP 117/61 12/07/20 07:38 Pulse Ox 92 12/07/20 07:38 Discharge Plan Discharge Patient Disposition: Home Condition: Stable Prescriptions: New levofloxacin 750 mg tablet 750 mg PO DAILY 10 Days Qty: 10 RF: 0 metronidazole 500 mg tablet 500 mg PO Q8H 10 Days Qty: 30 RF: 0 Metamucil (with sugar) 3.4 gram Powder In Packet 1 ea PO Q6H Qty: 30 RF: 3 Continued multivitamin Tablet 1 tab PO DAILY RF: 0 loratadine [Claritin] 10 mg Tablet 10 mg PO DAILY RF: 0 omeprazole 20 mg Tablet,Delayed Release (Dr/Ec) 20 mg PO DAILY RF: 0 Levemir U-100 Insulin 32 unit SUBCUT DAILY RF: 0 Novolin R Regular U-100 Insuln See Rx Instructions .ROUTE .COMPLEX RF: 0 Discharge Orders: Discharge Order (Routine); Ordered 12/07/20 Ordered By: Jean Ivory Other Ambulatory Orders: DME: Walker (Order) Location: None Selected Ordered By: Jean Ivory Referrals: [facility] [Outside] Mack Ricardo MD [Physician] - 12/14/20 11:15 am Tashia Lovett MD [Physician] - 01/01/21 9:45 am Discharge Diet: Diabetic Discharge Activity: Resume usual activity Patient Instructions: Metronidazole (By mouth), Levofloxacin (By mouth), Colorectal Cancer (DC), Sepsis (DC), Colostomy Creation (DC), Opioid Safety Activity Restrictions/Additional Instructions: Diet Advance to normal diet as tolerated, increase fluid intake as much as possible. Activity Avoid strenuous activity for 2 weeks but continue with daily activities including walking as tolerated. Do not lift more than 10 pounds for 2 weeks Return to work/school You can return to work/ school whenever you feel ready as long as you don?t have to lift more than 10 pounds at work. If you have paperwork that needs to be completed for time off from work, please contact my office Medications Pain Take non-opioid pain medications like Tylenol, Motrin, Aleve etc. over the next few days. The goal of the pain medications is to make the pain bearable and not to be pain free since you recently had surgery. Resume all home medications after surgery as per the medication reconciliation list Shower It is ok to shower but avoid getting the wound wet for 48 hours after surgery. Do not soak in bathtub, swimming pool or hot tub for 2 weeks. Wound care Keny will be removed at the next clinic visit Milk TRI drain 3 times a day, document TRI drain output per 24 hours. Please bring TRI drain output to clinic visit Ostomy care: Change appliance as needed Problems with the wound: you can develop some redness around the incision from bruising after surgery. If there is increasing pain, redness, tenderness around the incision with or without drainage, please contact my office to rule out an infection. Sometimes the skin at the incisions can separate, resulting in reopening of the wound. Cover the wound with antibiotic cream and sterile dressings and contact my office. Contact physician Call the office at [phone] during office hours or go the Emergency Room ?Fever to 100.4 or greater ?Shaking chills ?Pain that increases over time ?Redness, warmth, or pus draining from incision sites ?Persistent nausea or inability to take in liquids Discharge Attestations Time Spent in Discharge Care*: less than 30 min Specific Discharge Activities: educating patient, educating and/or supporting family/caregiver, discussing with pcp/other providers, discussing with case management director/social workers/dc planners, documenting/other paperwork and evaluating patient/reviewing data Status at Discharge: Cognitive status at discharge: cognitively intact , Behavioral status at discharge: cooperative , Overall status at discharge: patient is progressing back to baseline Quality Metrics Clinical Quality Measures During this hospital stay, did patient experience: None Coding Level of Care Code Acute Chg FW DC note Diagnoses Sepsis due to Gram-negative organism with septic shock A41.50; R65.21 S/P exploratory laparotomy Z98.890 Diabetes mellitus E11.9 Perforated bowel K63.1 History of colon cancer Z85.038 Acute renal failure N17.9
[2020-12-07 10:24] LABS: Glucose Point of Care 100 mg/dL (70-110)
[2020-12-07 10:51] VITALS: BP 122/66; PULSE 98; RESP 18; TEMP 36.7; O2SAT 92
--- NOTE | 2020-12-07 11:53 | DCPLANNER ---
Pg 2 of IM updated and reviewed with pt and his mama, no questions. Copy provided.
--- NOTE | 2020-12-07 14:07 | PC.CHAP ---
Pastoral Care Encounter/Spiritual Assessment Type of Contact [] Declined emergency manager visit [] Patient/Family/Request visit [] Outpatient visit [xx] Follow-up visit [] Physician referral [] Code/Alert [xx] Routine visit [] Staff referral [] Actively dying [] Patient sleeping [] Family support [] [] Out of room [] Palliative care [] [] Receiving care in room [] Pre-surgical visit [] Trauma [xx] Long length of stay [] ICU visit [] Other: Relational/Emotional Strength [xx] Patient feels connected with others/family/visitors/staff [] Distress [] Loneliness/isolation [] Abandonment Spirituality of Patient [xx] Person of Maryellen [] Attends Mandaeism of their Maryellen [xx] Believes in Prayer [] Reads Bible or Restoration materials [] There are Spiritual issues to be addressed Machine Cleaner Interventions [xx] Prayer [xx] Active listening [xx] Non-anxious presence [] Spiritual/emotional support [] Crisis/trauma care [] Spiritual counseling [] Bereavement support [] Provided bereavement packet [] Provided Bible/devotional materials [] Provided toy/stuffed animal, coloring book to patient or family member [] Provided Communion [] Anointing/[place] [] Salvation [xx] Completed spiritual assessment [] Other: Impact on Illness or Injury [] Angry [] Fearful [] Anxious [] Often cries [] Exhaustion [] Unable to work [] Unable to attend restorationist [] Unable to walk/stand [] Unable to read [] Unable to drive [] Unable to eat/drink [] Unable to sleep [] Unable to be with family [] Patient intubated [] Other: Summary Patient's mother present in room. We three conversed at length. Patient has been told he is finally being discharged to home with in-home therapy. Hos mom and sister will look after him for couple of weeks or so. Mrs. Lawson praised staff for their excellent care of her son for the 13 days he has been in hospital. Time spent with patient 17 minutes
--- NOTE | 2020-12-07 14:49 | PM.PN ---
Subjective Subjective: Interval history: Patient has been doing well denies any significant pain fevers chills or drainage from the incision. Ostomy output is improving Vitals/I&O/Wt Last Vital Signs Temp 98.1 F 12/07/20 10:51 Pulse 98 12/07/20 10:51 Resp 18 12/07/20 10:51 BP 122/66 12/07/20 10:51 Pulse Ox 92 12/07/20 10:51 12/06/20 12/07/20 12/07/20 22:59 06:59 14:59 Intake Total 490 / 1322.083 290 / 1322.083 654 / 654 Output Total 420 / 1840 400 / 1840 340 / 340 Balance 70 / -517.917 -110 / -517.917 314 / 314 Weight last 48 hrs Weight 193 lb 11.2 oz Weight 194 lb 6.4 oz Physical Exam Narrative: EXAM NARRATIVE: Abdomen: Soft, nondistended, TRI drain output is serosanguineous ostomy pink and functioning, incision clean dry intact Urinary Catheter Management^: Hull: Cath Placed During This Visit: yes Reason for Continuing Indwelling Catheter: Not indwelling catheter Urinary Catheter Date of Insertion: 11/24/20 Urinary Catheter Time of Insertion: 13:05 Data : 12/06/20 02:40 12/06/20 02:40 A&P Assessment and plan (1) S/P exploratory laparotomy: Status post exploratory laparotomy with small bowel resection, partial colectomy with open abdomen Status post washout, colocolic anastomosis and double barrel ileostomy Continue GI soft diet DC home today with TRI drains Status: Acute (2) Acute renal failure: Resolved Status: Acute Attestations Medical Necessity Statement*: As per primary Coding Level of Care Code Acute Physician'S Assistant for g Fwd Diagnoses S/P exploratory laparotomy Z98.890 Acute renal failure N17.9
[2020-12-07 15:32] VITALS: BP 126/66; PULSE 103; RESP 18; TEMP 36.8; O2SAT 91
[2020-12-07 16:37] LABS: Glucose Point of Care 301 mg/dL (70-110)
--- NOTE | 2020-12-07 18:40 | PC.NURSE ---
Education Mother verbalized she had previously taken care of and managed a colostomy. This nurse assessed need for further education, which mother denied. Appliance and bag changed at this time due to leaking. Extra supplies sent home with patient until home health can admit patient. Education and demonstration given on how to manage TRI drains. Mother gave return demonstration and verbalized understanding. Discharge paperwork given. Appointment times and medications were reviewed. All questions addressed. No further needs or questions at this time.
[2020-12-07 19:24] VITALS: BP 126/66; PULSE 103; RESP 18; TEMP 36.8; O2SAT 91
== END 2020-12-07 19:25 | disposition home health service (06) | DRG 853 ==
LOC: ER 13:07 → OR 13:49 → ICU 17:27 → MEDSURG 12-02 16:44
PROVIDERS: Hospitalist; Student in an Organized Health Care Education/Training Program; Admitting Provider Surgery; Emergency Provider Family Medicine; Visit Provider Internal Medicine
PROC: 0DBL0ZZ Excision of Transverse Colon, Open Approach (ICD-10-PCS; CPT 49000; principal; 2020-11-24 15:05)
PROC: 0DBL0ZZ Excision of Transverse Colon, Open Approach (ICD-10-PCS; CPT 44140; 2020-11-24 15:05)
PROC: 0DTL0ZZ Resection of Transverse Colon, Open Approach (ICD-10-PCS; CPT 44320; principal; 2020-11-28 16:00)
PROC: 0DTL0ZZ Resection of Transverse Colon, Open Approach (ICD-10-PCS; 2020-11-28 16:00)
PROC: 0DTL0ZZ Resection of Transverse Colon, Open Approach (ICD-10-PCS; 2020-11-28 16:00)
DX: A41.9 Sepsis, unspecified organism (principal); R65.21 Severe sepsis with septic shock; K63.1 Perforation of intestine (nontraumatic); N17.0 Acute kidney failure with tubular necrosis; J96.00 Acute respiratory failure, unspecified whether with hypoxia or hypercapnia; M62.82 Rhabdomyolysis; K66.0 Peritoneal adhesions (postprocedural) (postinfection); E10.319 Type 1 diabetes mellitus with unspecified diabetic retinopathy without macular edema; H54.8 Legal blindness, as defined in USA; Z85.048 Personal history of other malignant neoplasm of rectum, rectosigmoid junction, and anus; I95.9 Hypotension, unspecified; K21.9 Gastro-esophageal reflux disease without esophagitis; Z92.21 Personal history of antineoplastic chemotherapy; Z92.3 Personal history of irradiation; B96.20 Unspecified Escherichia coli [E. coli] as the cause of diseases classified elsewhere; E87.6 Hypokalemia; R33.9 Retention of urine, unspecified
CPT/HCPCS: 36415; 36416; 36569; 36592; 36600; 51702; 71045; 74176; 74177; 80048; 80051; 80053; 80202; 80306; 81001; 82009; 82330; 82550; 82803; 82805; 82962; 83605; 83690; 83735; 84145; 84484; 85007; 85025; 85610; 85730; 86850; 86900; 86920; 87040; 87070; 87077; 87186; 87205; 87493; 88307; 88309; 93005; 93306; 94002; 94003; 94664; 94799; 96360; 96365; 96372; 96375; 97110; 97530; 99285; A4570; C1751; C9113; C9290; G0121; J0171; J0330; J0696; J0743; J1100; J1450; J1815 ×2; J1940; J2250; J2270; J2370; J2405; J2543; J2550; J2704; J2710; J3010; J3370; J3480; J3490; J7030; J7040; J7050; P9041; P9047; Q9967

== ENCOUNTER 2021-01-03 08:16 | Outpatient (CLI) | payer MEDICARE, MEDICAID, SELFPAY ==
--- NOTE | 2021-01-03 08:27 | FL_ITS ---
WS: [id number] BARIUM ENEMA SINGLE CONTRAST. HISTORY: Z98.890 - Other specified postprocedural states, COMPARISON: CT 12/03/2020 FLUOROSCOPY TIME: 1.9 minutes. Status post RIGHT lower quadrant ileostomy. Surgical drain persists in the RIGHT pelvis. Small caliber colon due to disuse. There is a persistent mild stricture involving the rectosigmoid re gion. This is not distended well. This stricture extends over length of several centimeters. Otherwis e no persistent filling defects are noted. Colon is distended to the cecum. No definite visualization of the appendix. Anastomotic sutures are noted near the rectum. FL/FL barium enema w air* [id number] IMPRESSION: 1. Persistent moderate stricture throughout this examination at the rectosigmo id junction extends over a length of 7 cm. This stricture may be postinflammato ry or neoplastic. 2. No additional strictures or filling defects.
== END 2021-01-03 08:17 | disposition home or self-care (01) ==
PROVIDERS: PCP Family Medicine; Visit Provider Surgery
DX: Z98.890 Other specified postprocedural states (principal)
CPT/HCPCS: 74280

== ENCOUNTER 2021-01-11 08:18 | Outpatient (CLI) | payer MEDICARE, MEDICAID, SELFPAY | END 2021-01-11 08:19 | disposition home or self-care (01) | LOC: WOUND 08:19 | PROVIDERS: PCP Family Medicine; Visit Provider Surgery | DX: I96 Gangrene, not elsewhere classified (principal); L89.152 Pressure ulcer of sacral region, stage 2; E10.9 Type 1 diabetes mellitus without complications; Z87.891 Personal history of nicotine dependence | CPT/HCPCS: 11042; 11045; G0463 ==

== ENCOUNTER 2021-01-18 10:44 | Outpatient (CLI) | payer MEDICARE, MEDICAID, SELFPAY | END 2021-01-18 10:45 | disposition home or self-care (01) | LOC: WOUND 10:44 | PROVIDERS: PCP Family Medicine; Visit Provider Surgery | DX: I96 Gangrene, not elsewhere classified (principal); L89.152 Pressure ulcer of sacral region, stage 2; Z87.891 Personal history of nicotine dependence | CPT/HCPCS: 10060; 11042; 11045; 87070; 87077; 87186 ==

== ENCOUNTER 2021-01-18 12:34 | Inpatient (IN) | payer MEDICARE, MEDICAID, SELFPAY ==
[2021-01-18 14:04] VITALS: BP 106/65; PULSE 113; RESP 18; TEMP 36.8; O2SAT 97
[2021-01-18] MEDS: famotidine 20 mg/2 mL INJ IVP (15:04)
[2021-01-18] MEDS: sodium chloride 0.9% 1,000 ML 100 ML IV (15:04)
--- NOTE | 2021-01-18 15:08 | PM.CONSULT ---
Providers/Reason For Consult Consulting Physician/Specialty*: Medicine Reason for Consult*: DM management Attending Physician: Dashawn Beavers MD Primary Care Provider: Ender Aiken DO History of Present Illness History of Present Illness Abelino Lawson is a 55 year old male With a past medical history significant for diabetes mellitus was admitted to general surgery for management of wound infection. Medicine was consulted for diabetes management. Patient stated that at home his blood sugars are typically around 120. Using a sliding scale insulin and Levemir. In the past treated his blood sugars at been above 300s. Review of Systems General: Reports: 10 or more systems reviewed and unremarkable except in HPI and below Meds/Allergies Home Medications and Allergies Home Medications Medication Instructions Recorded Confirmed Last Taken Type Levemir U-100 Insulin 32 unit SUBCUT DAILY 11/21/20 01/04/21 11/23/20 History Novolin R Regular U-100 Insuln See Rx Instructions .ROUTE .COMPLEX 11/21/20 01/04/21 11/22/20 12:00 History loratadine [Claritin] 10 mg PO DAILY 11/21/20 01/04/21 11/23/20 History multivitamin 1 tab PO DAILY 11/21/20 01/04/21 11/23/20 History omeprazole 20 mg PO DAILY 11/21/20 01/04/21 11/23/20 History psyllium husk (with sugar) 1 ea PO Q6H #30 ea 12/07/20 01/04/21 Unknown Rx [Metamucil (with sugar)] Allergies Allergy/AdvReac Type Severity Reaction Status Date / Time No Known Allergies Allergy Verified 01/04/21 09:58 PFSH Acute PFSH: Medical History (Updated 01/18/21 @ 21:10 by Nyla Pickett MD) Acute renal failure Blindness of both eyes Diabetes mellitus GERD (gastroesophageal reflux disease) Rectosigmoid cancer SBO (small bowel obstruction) Sepsis due to Gram-negative organism with septic shock Status post chemoradiation Surgical History H/O ileostomy History of low anterior resection of rectum History of reversal of ileostomy S/P exploratory laparotomy (11/24/20) Small bowel resection, partial colectomy Status post colonoscopy (11/23/20) Family History Family/Other CAD (coronary artery disease) Diabetes Denies family history of Stroke Social History Quit status (tobacco): has quit using tobacco Year quit tobacco: chewing tobaccol Alcohol intake: never Vitals/I&O/Wt Last Vital Signs Temp 98.3 F 01/18/21 14:04 Pulse 113 H 01/18/21 14:04 Resp 18 01/18/21 14:04 BP 106/65 01/18/21 14:04 Pulse Ox 97 01/18/21 14:04 Physical Exam Narrative: EXAM NARRATIVE: General-alert awake and oriented x3 HEENT- unremarkable CVS/ -stable Chest- nonlabored respiration Extremities-no edema A&P Assessment and plan (1) Diabetes mellitus: Diabetic diet Sliding scale insulin Lantus Initiated at 50% Will continue to adjust insulin based on blood sugar Check A1c in a.m. Status: Acute Consult Attestations Medical Necessity Statement: will require hospitalization for management of acute infection as per primary team Time Spent in Patient Care: Greater than 35 minutes (>than 50% of time spent in counselling and/or direct pt care on unit). Coding Level of Care Code Acute Investment Banking Manager for Chris Dash Diagnoses Diabetes mellitus E11.9
[2021-01-18] MEDS: HYDROcodone-acetaminophen 5-325 mg Tablet 1 TAB PO (15:11)
[2021-01-18 16:00] VITALS: BP 114/64; PULSE 88; RESP 14; TEMP 36.6; O2SAT 97
[2021-01-18 16:06] LABS: Blood Urea Nitrogen 38 mg/dL (6-20); Calcium 9.4 mg/dL (8.5-10.5); Carbon Dioxide 17 mmol/L (22-29); Chloride 93 mmol/L (98-107); Glomerular Filtration Rate 52.4 mL/min (90-130); Glucose 315 mg/dL (65-115); Osmolality Calculated 277 mOsm/kg (285-295); Sodium 123 mmol/L (136-145)
[2021-01-18 16:09] LABS: Anion Gap 18.7 (5-19); Potassium 5.7 mmol/L (3.5-5.1)
[2021-01-18 16:36] LABS: Glucose Point of Care 247 mg/dL (70-110)
[2021-01-18] MEDS: vancomycin 1,000 MG in sodium chloride 0.9% 250 ML 250 MG IV (17:53)
[2021-01-18] MEDS: piperacillin-tazobactam 3.375 GM in sodium chloride 0.9% (plus) 50 ML IV (21:03)
[2021-01-18 21:05] VITALS: BP 110/68; PULSE 92; RESP 16; TEMP 36.5; O2SAT 97
[2021-01-18 22:31] LABS: Basophils # 0.1 10^3/uL (0.0-0.1); Eosinophils # 0.4 10^3/uL (0.0-0.8); Eosinophils % 3.8 %; Hematocrit 38.9 % (42.0-52.0); Hemoglobin 12.7 g/dL (11.7-16.6); Lymphocytes # 1.1 10^3/uL (0.8-4.8); Lymphocytes % 10.1 %; Mean Corpuscular HGB Conc 32.6 g/dL (30.0-36.0); Mean Corpuscular Hemoglobin 29.8 pg (28.0-34.0); Mean Corpuscular Volume 91.3 fl (80-94); Monocytes # 1.4 10^3/uL (0.2-0.9); Monocytes % 12.6 %; Neutrophils # 8.05 10^3/uL (1.8-7.7); Neutrophils % 71.9 %; Nucleated Red Blood Cells % 0 %; Platelet Count 522 10^3/cmm (130-400); Red Blood Count 4.26 10^6/uL (4.1-5.3); Red Cell Distribution Width 13.8 % (12.1-15.1); White Blood Count 11.2 10^3/uL (4.0-10.0)
[2021-01-18] MEDS: insulin glargine 100 units/1 mL 15 UNIT SUBCUT (23:01)
[2021-01-19] VITALS (10 sets, daily range): BP systolic 96–126; BP diastolic 56–69; PULSE 80–98; RESP 16–18; TEMP 36.2–36.8; O2SAT 97–100
[2021-01-19] MEDS: sodium chloride 0.9% 1,000 ML 100 ML IV ×3 (01:08→23:24)
[2021-01-19] MEDS: famotidine 20 mg/2 mL INJ IVP ×2 (02:40→17:45)
[2021-01-19] MEDS: vancomycin 1,000 MG in sodium chloride 0.9% 250 ML 250 MG IV (02:43)
[2021-01-19] MEDS: piperacillin-tazobactam 3.375 GM in sodium chloride 0.9% (plus) 50 ML IV ×3 (03:55→18:12)
--- NOTE | 2021-01-19 05:17 | PC.NURSE ---
Shift Note Frequent safety and comfort rounds continue. Orders and/or nursing care completed as indicated. Patient monitored for response to intervention and treatment(s). Education provided includes every 2 hour turns to help relieve the pressure on his buttock. Patient verbalized understanding. Patient's wound dressing to left buttock was changed during this shift. Patient rested comfortably during shift. Will continue to monitor.
[2021-01-19] MEDS: enoxaparin 30 mg/0.3 mL Syringe SUBCUT (05:47)
--- NOTE | 2021-01-19 06:31 | PC.NURSE ---
Vanc dosing This nurse spoke with Dr Aden this morning and he wanted to make sure pharmacy was aware of patient's creatinine level to ensure patient is getting the correct dosing of the vancomycin. Eduardo in pharmacy was notified.
[2021-01-19 06:44] LABS: Glucose Point of Care 299 mg/dL (70-110)
--- NOTE | 2021-01-19 07:01 | P.PN_ITS ---
Subjective Subjective: Interval history: Patient overall feels better. Vancomycin started and pharmacy was consulted to adjust the dosage. Patient continues to have purulent discharge from the abscess cavity. Patient was seen and examined Medications: Reviewed: Yes Vitals/I&O/Wt Last Vital Signs Temp 97.6 F 01/19/21 04:00 Pulse 83 01/19/21 04:00 Resp 18 01/19/21 04:00 BP 118/69 01/19/21 04:00 Pulse Ox 99 01/19/21 04:00 01/18/21 01/19/21 01/19/21 22:59 06:59 14:59 Intake Total 370 / 370 1450 / 1820 Output Total 1250 / 1250 Balance 370 / 370 200 / 570 Weight last 48 hrs Weight 134 lb 4 oz Physical Exam Narrative: EXAM NARRATIVE: Patient is conscious alert oriented X3 BMI 19.3 Left gluteal abscess with purulent discharge less cellulitis is appreciated Data : 01/18/21 21:25 01/18/21 15:00 Micro: Microbiology 01/18/21 21:25 Blood Culture - Preliminary Blood SPECIMEN COLLECTED A&P Assessment and plan (1) Abscess, gluteal, left: After thorough history physical examination and reviewing the chart, we will plan to perform incision and drainage of left gluteal abscess to complete the I&D that was done yesterday bedside at the wound care center. Indications, risks, benefits and alternatives were discussed with the patient and his mother. Consent was obtained from Ms. Hurst over the phone [phone] patient's mother to proceed with incision and drainage of left gluteal abscess and she agreed to proceed accordingly. Consent was witnessed by Ms. Meier charge nurse. Assurance and education All questions have been answered and all concerns have been addressed to patient's satisfaction. Pharmacy consultation for vancomycin adjustment of the dose I appreciate hospitalist input Status: Acute Attestations Medical Necessity Statement*: Patient requiring inpatient hospitalization for perioperative care for incision and drainage of left gluteal abscess and hyperglycemic management per hospitalist service. Time Spent in Patient Care: 16 - 35 minutes (>than 50% of time spent in counselling and/or direct pt care on unit) . Coding Level of Care Code Acute Manager Medicare Marketing for [facility] Ekta Diagnoses Abscess, gluteal, left L02.31
--- NOTE | 2021-01-19 08:35 | ANES.PREANE2 ---
Pre-Anesthetic Assessment Pre-Anesthetic Assessment: Height/Weight: Height 1.78 m Weight 60.895 kg Temp Pulse Resp BP Pulse Ox 97.8 F 96 16 126/65 99 01/19/21 08:30 01/19/21 08:30 01/19/21 08:30 01/19/21 08:30 01/19/21 08:30 Preop Diagnosis: Left gluteal abscess Proposed Procedure: Operation Date: 01/19/21 08:10 Proposed Procedures p Perirectal Abscess(Not Applicable) - Dashawn Beavers MD Familial anesthetic complications: None Was Beta Delfino taken within 24 hours: N/A Was Clonidine taken within 24 hours: N/A Last intake: Intake Last Liquid Date 01/18/21 Last Solid Date 01/18/21 Social: Social History: Tobacco and No alcohol Comment: chews Exam: Pre-Anes Outpt Exam: alert, oriented x 3, clear to auscultation bilaterally and regular rate & rhythm Airway: Cervical ROM: WNL MP: 4 Dentition: Full CV/HEM: Comments: aortic valve calcification - mid cavicatry obstruction in systole, but no GRISELDA : Comments: ARF GI: GI: GERD Metabolic: Metabolic: DM Anesthetic Plan: ASA status: 3 Anesthesia: MAC Risk of > 500 ml blood loss (7ml/kg in children): No Meds/Allergies Current Medications: Current Medications Generic Name Dose Route Start Last Admin Trade Name Freq PRN Reason Stop Dose Admin Hydrocodone Bitart /Acetaminophen 1 tab 01/18/21 14:04 01/18/21 15:11 Hydrocodone-Acet aminophen 5-325 Mg Tablet PO 1 tab Q6H PRN Administration MODERATE PAIN Enoxaparin Sodium 30 mg 01/19/21 06:00 01/19/21 05:47 Enoxaparin 30 Mg /0.3 Ml Syringe SUBCUT 30 mg Q24H REJI Administration Famotidine 20 mg 01/18/21 14:30 01/19/21 02:40 Famotidine 20 Mg /2 Ml Inj IVP 20 mg Q12H REJI Administration Sodium Chloride 1,000 mls @ 100 m ls/hr 01/18/21 14:15 01/19/21 01:08 Sodium Chloride 0.9% IV 100 mls/hr .Q10H REJI Administration Piperacillin Sod/T azobactam 50 mls @ 12.5 mls /hr 01/18/21 15:30 01/19/21 03:55 Sod 3.375 gm/ So dium Chloride IV 12.5 mls/hr Q8H REJI Administration Protocol Insulin Aspart 0 unit 01/18/21 18:00 01/18/21 23:00 Insulin Aspart 1 00 Unit/1 Ml SUBCUT 10 unit WM&BEDTIME REJI Administration Protocol Insulin Glargine 15 unit 01/18/21 21:00 01/18/21 23:01 Insulin Glargine 100 Units/1 Ml SUBCUT 15 unit BEDTIME REJI Administration PFSH Anesthesia PFSH: Medical History (Updated 01/19/21 @ 07:02 by Dashawn Beavers MD) Acute renal failure Blindness of both eyes Diabetes mellitus GERD (gastroesophageal reflux disease) Rectosigmoid cancer SBO (small bowel obstruction) Sepsis due to Gram-negative organism with septic shock Status post chemoradiation Surgical History H/O ileostomy History of low anterior resection of rectum History of reversal of ileostomy S/P exploratory laparotomy (11/24/20) Small bowel resection, partial colectomy Status post colonoscopy (11/23/20) Family History Family/Other CAD (coronary artery disease) Diabetes Denies family history of Stroke Social History Quit status (tobacco): has quit using tobacco Year quit tobacco: chewing tobaccol Alcohol intake: never Data Anesthesia CBC & Chem 7: 01/18/21 21:25 01/18/21 15:00 Other Labs: Laboratory Results - last 48 hr 01/18/21 01/18/21 01/18/21 15:00 15:00 16:26 WBC Cancelled Corrected WBC Cancelled RBC Cancelled Hgb Cancelled Hct Cancelled MCV Cancelled MCH Cancelled MCHC Cancelled RDW Cancelled Plt Count Cancelled MPV Cancelled Gran % Cancelled Neut % (Auto) Cancelled Lymph % (Auto) Cancelled [place] % (Auto) Cancelled Eos % (Auto) Cancelled Baso % (Auto) Cancelled Neut # (Auto) Cancelled Lymph # (Auto) Cancelled [place] # (Auto) Cancelled Eos # (Auto) Cancelled Baso # (Auto) Cancelled Absolute Gran (auto) Cancelled Nucleated RBC % (auto) Cancelled Nucleated RBCs # Cancelled Sodium 123 L Potassium 5.7 H Chloride 93 L Carbon Dioxide 17 L Anion Gap 18.7 BUN 38 H Creatinine 1.4 H GFR Calculation 52.4 L Glucose 315 H POC Glucose 247 H Calculated Osmolality 277 L Calcium 9.4 01/18/21 01/19/21 21:25 06:31 WBC 11.2 H Corrected WBC RBC 4.26 Hgb 12.7 Hct 38.9 L MCV 91.3 MCH 29.8 MCHC 32.6 RDW 13.8 Plt Count 522 H MPV 10.0 Gran % Neut % (Auto) 71.9 Lymph % (Auto) 10.1 [place] % (Auto) 12.6 Eos % (Auto) 3.8 Baso % (Auto) 1.0 Neut # (Auto) 8.05 H Lymph # (Auto) 1.1 [place] # (Auto) 1.4 H Eos # (Auto) 0.4 Baso # (Auto) 0.1 Absolute Gran (auto) Nucleated RBC % (auto) 0 Nucleated RBCs # 0.0 Sodium Potassium Chloride Carbon Dioxide Anion Gap BUN Creatinine GFR Calculation Glucose POC Glucose 299 H Calculated Osmolality Calcium Micro: Microbiology 01/18/21 21:25 Blood Culture - Preliminary Blood SPECIMEN COLLECTED Cardiac Studies: Echocardiogram 12/03/20
[2021-01-19] MEDS: acetaminophen 1,000 MG/100 ML PIGGYBACK 400 MG IV (08:38)
[2021-01-19] MEDS: sodium chloride 0.9% 1,000 ML 30 ML IV (08:38)
--- NOTE | 2021-01-19 09:22 | PM.OP ---
Operative Report Date of procedure: January 19, 2021 Pre-op Diagnosis: Left gluteal abscess Post-op diagnosis: same Post-op Findings: Left gluteal abscess reaching all the way to the left gluteus emerson muscle Predebridement measurements 6 x 5 x 1 cm Post debridement measurements 10.5 x 9.3 x 2[address] to the muscle layer Procedure Done: Incision and drainage of left gluteal abscess Excisional and sharp debridement of the abscess cavity Implants: Large piece of Surgicel large piece of Surgicel followed by Kerlix for packing wet-to-dry IN lidocaine 2% Specimens removed/disposition: Left gluteal abscess for permanent pathology Tissues for cultures and sensitivities Surgeon: Dashawn Beavers Orthophoto Tech/Draftsman: administrative tech Walter Circulating nurse Yany MANUEL Anesthesia: MAC (senior marketing specialist will Smart) Estimated blood loss (mL): 15 Condition: stable Disposition: floor Brief History: Left gluteal abscess status post development of pressure injury ulcer Procedure: After identifying the patient holding area, the left gluteal was marked before the procedure by myself, patient was then taken to the operative suite, was placed in A left lateral position, , IV propofol was infused by the anesthesia provider, patient was already on therapeutic antibiotics, all pressure points were padded and patient was secured to the bed. Time-out was done verifying the patient's name/date of /planned procedure and destination after the procedure, all were in agreement. After palpation of the left gluteal abscess, I extended the incision of the wound to excise unhealthy and necrotic skin and subcutaneous tissues there were more pockets of pus that were taken down by the examining finger and more pus was drained and continued to perform excisional sharp debridement all the way to the left gluteus emerson muscle. At that point all loculations were broken down by the examining finger, tissues were obtained for culture from different salazar of the abscess cavity. The abscess wall was sent for permanent pathology Predebridement measurements 6 x 5 x 1 cm Post debridement measurements 10.5 x 9.3 x 2[address] to the Gluteus emerson muscle layer Copious and thorough irrigation with warm saline was done using Pulsavac 3 L, followed by appropriate hemostasis was accomplished by placement of large piece of Surgicel followed by, Kerlix impregnated and lidocaine 2% was used to pack the abscess cavity.Dry dressing was then applied in the form of ABDs, followed by tape with pressure dressing. Patient tolerated the procedure well, count of instruments, needles and sponges were completed at the end of the procedure. And then patient was taken to the recovery area in stable condition. I Was present for the whole entire procedure
[2021-01-19 10:40] LABS: Glucose Point of Care 416 mg/dL (70-110)
[2021-01-19 11:31] LABS: Glucose Point of Care 410 mg/dL (70-110)
--- NOTE | 2021-01-19 12:00 | ANE.PACU2 ---
Inpatient post-anesthesia follow up: Airway intact: Yes Vital signs: Temperature 98.1 F Pulse Rate 82 Respiratory Rate 16 Blood Pressure 114/59 Pulse Oximetry 98 Oxygen Delivery Me thod Room Air Oxygen Flow Rate 7 Fraction of Inspir ed Oxygen Hydration adequate: Yes Nausea and vomiting: No Pain level: 2 Mental status: Baseline
[2021-01-19] MEDS: HYDROcodone-acetaminophen 5-325 mg Tablet 1 TAB PO (12:34)
--- NOTE | 2021-01-19 14:24 | P.PN_ITS ---
Subjective Subjective: Interval history: blood sugars increased to 400s Medications: Reviewed: Yes Vitals/I&O/Wt Last Vital Signs Temp 97.1 F L 01/19/21 09:47 Pulse 80 01/19/21 09:47 Resp 16 01/19/21 09:47 BP 96/61 01/19/21 09:47 Pulse Ox 100 01/19/21 09:47 01/18/21 01/19/21 01/19/21 22:59 06:59 14:59 Intake Total 370 / 370 1450 / 1820 2150 / 2150 Output Total 1250 / 1250 375 / 375 Balance 370 / 370 200 / 570 1775 / 1775 Weight last 48 hrs Weight 60.895 kg Physical Exam Narrative: EXAM NARRATIVE: General-alert awake and oriented x3 HEENT- unremarkable CVS/ -stable Chest- nonlabored respiration Extremities-no edema Data : 01/18/21 21:25 01/18/21 15:00 Micro: Microbiology 01/19/21 12:40 Blood Culture - Preliminary Blood SPECIMEN COLLECTED 01/18/21 21:25 Blood Culture - Preliminary Blood SPECIMEN COLLECTED A&P Assessment and plan (1) Diabetes mellitus: Diabetic diet Sliding scale insulin Lantus increased to 30 units Humalog 5 units TID AC Will continue to adjust insulin based on blood sugar check labs now Status: Acute Attestations Medical Necessity Statement*: Discharge planning Per primary Time Spent in Patient Care: Greater than 35 minutes (>than 50% of time spent in counselling and/or direct pt care on unit) . Coding Level of Care Code Acute Water Fabricator Operator for Chris Dash Diagnoses Diabetes mellitus E11.9
[2021-01-19 15:06] LABS: Anion Gap 21.6 (5-19); Blood Urea Nitrogen 25 mg/dL (6-20); Calcium 8.7 mg/dL (8.5-10.5); Carbon Dioxide 16 mmol/L (22-29); Chloride 95 mmol/L (98-107); Glomerular Filtration Rate 77.3 mL/min (90-130); Glucose 470 mg/dL (65-115); Osmolality Calculated 289 mOsm/kg (285-295); Potassium 5.6 mmol/L (3.5-5.1); Sodium 127 mmol/L (136-145)
[2021-01-19 15:11] LABS: Basophils # 0.1 10^3/uL (0.0-0.1); Basophils % 1.6 %; Eosinophils # 0.4 10^3/uL (0.0-0.8); Eosinophils % 5.4 %; Hematocrit 42.7 % (42.0-52.0); Hemoglobin 13.5 g/dL (11.7-16.6); Lymphocytes # 0.7 10^3/uL (0.8-4.8); Lymphocytes % 9.6 %; Mean Corpuscular HGB Conc 31.6 g/dL (30.0-36.0); Mean Corpuscular Hemoglobin 30.1 pg (28.0-34.0); Mean Corpuscular Volume 95.3 fl (80-94); Mean Platelet Volume 10.2 fL (7.4-10.4); Monocytes # 0.6 10^3/uL (0.2-0.9); Neutrophils # 5.63 10^3/uL (1.8-7.7); Neutrophils % 74.2 %; Nucleated Red Blood Cells % 0 %; Platelet Count 547 10^3/cmm (130-400); Red Blood Count 4.48 10^6/uL (4.1-5.3); Red Cell Distribution Width 13.8 % (12.1-15.1); White Blood Count 7.6 10^3/uL (4.0-10.0)
[2021-01-19 15:26] LABS: Estmated Average Glucose 143; Hemoglobin A1C 6.6 % (4.0-6.0)
[2021-01-19 17:55] LABS: Glucose Point of Care 408 mg/dL (70-110)
[2021-01-19 20:38] LABS: Glucose Point of Care 456 mg/dL (70-110)
[2021-01-19] MEDS: insulin glargine 100 units/1 mL 30 UNIT SUBCUT (21:24)
[2021-01-20] VITALS: BP 114/66; PULSE 87; RESP 17; TEMP 36.8; O2SAT 98
[2021-01-20 02:02] LABS: Basophils # 0.1 10^3/uL (0.0-0.1); Basophils % 1.7 %; Eosinophils # 0.7 10^3/uL (0.0-0.8); Hematocrit 39.3 % (42.0-52.0); Hemoglobin 12.6 g/dL (11.7-16.6); Lymphocytes # 0.8 10^3/uL (0.8-4.8); Lymphocytes % 12.9 %; Mean Corpuscular HGB Conc 32.1 g/dL (30.0-36.0); Mean Corpuscular Hemoglobin 29.6 pg (28.0-34.0); Mean Corpuscular Volume 92.5 fl (80-94); Mean Platelet Volume 9.6 fL (7.4-10.4); Monocytes # 0.6 10^3/uL (0.2-0.9); Monocytes % 9.7 %; Neutrophils # 4.17 10^3/uL (1.8-7.7); Neutrophils % 63.9 %; Nucleated Red Blood Cells % 0 %; Platelet Count 520 10^3/cmm (130-400); Red Blood Count 4.25 10^6/uL (4.1-5.3); Red Cell Distribution Width 13.7 % (12.1-15.1); White Blood Count 6.5 10^3/uL (4.0-10.0)
[2021-01-20 02:21] LABS: Alanine Aminotransferase 27 U/L (0-41); Albumin Level 3.4 g/dL (3.5-5.2); Alkaline Phosphatase 262 IU/L (40-130); Anion Gap 18.5 (5-19); Aspartate Amino Transferase 10 U/L (0-40); Blood Urea Nitrogen 25 mg/dL (6-20); Calcium 9.1 mg/dL (8.5-10.5); Carbon Dioxide 19 mmol/L (22-29); Chloride 103 mmol/L (98-107); Globulin 3.2 g/dL (1.3-4.6); Glomerular Filtration Rate 69.2 mL/min (90-130); Glucose 81 mg/dL (65-115); Osmolality Calculated 285 mOsm/kg (285-295); Potassium 4.5 mmol/L (3.5-5.1); Sodium 136 mmol/L (136-145); Total Bilirubin 0.3 mg/dL (0.15-1.2); Total Protein 6.6 g/dL (6.6-8.7)
[2021-01-20 02:24] LABS: Vancomycin Trough 11.9 ug/mL (10-15)
[2021-01-20] MEDS: famotidine 20 mg/2 mL INJ IVP (02:30)
[2021-01-20] MEDS: vancomycin 1,000 MG in sodium chloride 0.9% 250 ML 250 MG IV (02:59)
[2021-01-20 04:00] VITALS: BP 114/64; PULSE 78; RESP 17; TEMP 36.7; O2SAT 96
[2021-01-20] MEDS: piperacillin-tazobactam 3.375 GM in sodium chloride 0.9% (plus) 50 ML IV (04:46)
[2021-01-20 06:40] LABS: Glucose Point of Care 96 mg/dL (70-110)
--- NOTE | 2021-01-20 07:18 | P.PN_ITS ---
Subjective Subjective: Interval history: No acute events reported per nursing staff. Patient feels well and denies any complaints. Adequate urine output and appropriate control of diabetes. Medications: Reviewed: Yes Vitals/I&O/Wt Last Vital Signs Temp 98.1 F 01/20/21 04:00 Pulse 78 01/20/21 04:00 Resp 17 01/20/21 04:00 BP 114/64 01/20/21 04:00 Pulse Ox 96 01/20/21 04:00 01/19/21 01/20/21 01/20/21 22:59 06:59 14:59 Intake Total 1100 / 3490 250 / 3740 Output Total 1150 / 1675 700 / 2375 Balance -50 / 1815 -450 / 1365 Weight last 48 hrs Weight 134 lb 4 oz Physical Exam Narrative: EXAM NARRATIVE: Patient is conscious alert oriented X3 BMI 19.3 Left gluteal wound shows no purulent discharge, some residual necrotic tissues were debrided bedside and patient's mom was educated by me and the nursing staff for appropriate packing of the wound with Kerlix wet-to-dry normal saline followed by ABDs and surgical pants. Data : 01/20/21 01:50 01/20/21 01:50 Micro: Microbiology 01/18/21 21:25 Blood Culture - Preliminary Blood NEGATIVE TO DATE 01/19/21 12:40 Blood Culture - Preliminary Blood SPECIMEN COLLECTED A&P Assessment and plan (1) Abscess, gluteal, left: Assessment Patient is status post incision and drainage of left gluteal abscess 01/19/2021 Plan 1-nutrition optimization and focus on protein intake 2-wound care in the form of Twice daily wet-to-dry using Kerlix and normal saline followed by ABDs and surgical pants 3-management of medical comorbidities per primary care provider and diabetes management. We will plan to discharge home today on oral antibiotic Augmentin 875 mg twice daily for 1 week and will follow on cultures and sensitivities. Assurance and education All questions have been answered and all concerns have been addressed to patient's satisfaction. Status: Resolved Attestations Medical Necessity Statement*: Patient required inpatient hospitalization for perioperative care for incision and drainage of left gluteal abscess and hyperglycemic management per hospitalist service. Time Spent in Patient Care: 16 - 35 minutes (>than 50% of time spent in counselling and/or direct pt care on unit) . Other Attestations: Patient from surgical standpoint of view is appropriate for discharge home today and follow-up at the wound care center. Coding Level of Care Code Acute Software Development Leader for Otonielg Kevind Diagnoses Abscess, gluteal, left L02.31
[2021-01-20 07:43] VITALS: BP 114/59; PULSE 82; RESP 16; TEMP 36.7; O2SAT 98
--- NOTE | 2021-01-20 07:52 | PC.CHAP ---
Pastoral Care Encounter/Spiritual Assessment Type of Contact [] Declined manager flight operations visit [] Patient/Family/Request visit [] Outpatient visit [] Follow-up visit [] Physician referral [] Code/Alert [X] Routine visit [] Staff referral [] Actively dying [] Patient sleeping [] Family support [] [] Out of room [] Palliative care [] [] Receiving care in room [] Pre-surgical visit [] Trauma [] Long length of stay [] ICU visit [X] Other: Mother also present; manager flight operations visit was with mother Relational/Emotional Strength [X] Patient feels connected with others/family/visitors/staff [] Distress [] Loneliness/isolation [] Abandonment Spirituality of Patient [X] Person of Maryellen [X] Attends Orthodoxy of their Maryellen [X] Believes in Prayer [X] Reads Bible or Sikh materials [] There are Spiritual issues to be addressed Fine Arts Packer Interventions [] Prayer [X] Active listening [X] Non-anxious presence [] Spiritual/emotional support [] Crisis/trauma care [] Spiritual counseling [] Bereavement support [] Provided bereavement packet [] Provided Bible/devotional materials [] Provided toy/stuffed animal, coloring book to patient or family member [] Provided Communion [] Anointing/Fritch [] Salvation [X] Completed spiritual assessment [] Other: Impact on Illness or Injury [] Angry [] Fearful [] Anxious [] Often cries [] Exhaustion [] Unable to work [] Unable to attend druze [] Unable to walk/stand [] Unable to read [] Unable to drive [] Unable to eat/drink [] Unable to sleep [] Unable to be with family [] Patient intubated [] Other: Summary: Fine Arts Packer visit was with pt's mother. Pt had a routine colonoscopy that perforated the bowel leading to sepsis which then led to bedsore. This hospitalization is for continued treatment of the bedsore. Mother is well-supported through her confucianism and family. Mother cares for two adult sons but finds her strength in the Lord. If another manager flight operations has an opportunity to visit with the pt -- alone -- that would be worth doing to learn his emotional and spiritual status given all that has happened in his life and with the current events. (Pt is blind). Time spent with patient: 15 mins
--- NOTE | 2021-01-20 08:30 | P.DS_ITS ---
Discharge Providers Date of Admission: 01/18/21 12:34 Date of Discharge: January 20, 2021 Attending Provider at Admission: Dashawn Beavers MD Attending Provider at Discharge: Dashawn Beavers MD Primary Care Provider: Ender Aiken DO Diagnoses at Discharge Discharge Diagnosis (1) Abscess, gluteal, left: Status: Resolved Reason for Visit Reason for Visit: Wound Care and Management Hospital Course Hospital Course Patient undergone uneventful incision and drainage of left gluteal abscess status post development of pressure injury ulcer status post expiratory laparotomy status post colon perforation while undergoing a colonoscopy. Patient did well maintained to have stable vital signs, adequate urine output, tolerating p.o. intake and functioning ileostomy without complications. Hospitalist service was consulted for diabetes management and education was given to patient's mother for dressing change and instructions were given about optimization of nutrition and focus on protein shakes. Patient met the appropriate and safe criteria for discharge home. Physical Exam Narrative: EXAM NARRATIVE: Patient is conscious alert oriented X3 BMI 19.3 Abdominal examination nontender nondistended soft and ileostomy on right side of the abdomen without complications and functioning well. Left gluteal wound shows no purulent discharge, some residual necrotic tissues were debrided bedside and patient's mom was educated by me and the nursing staff for appropriate packing of the wound with Kerlix wet-to-dry normal saline followed by ABDs and surgical pants. Discharge Data Data Completed and Pending: Pending at discharge Category Date Time Status Blood Culture Sta t Lab 01/18/21 21:25 Results Tissue Culture an d Gram Stain Routi ne Lab 01/19/21 09:03 Uncollected Pathology: Surgic al [PTH] Routine Pth 01/19/21 09:37 Ordered Labs from last 24 hours 01/20/21 01/20/21 01/20/21 06:32 01:50 01:50 WBC 6.5 RBC 4.25 Hgb 12.6 Hct 39.3 L MCV 92.5 MCH 29.6 MCHC 32.1 RDW 13.7 Plt Count 520 H MPV 9.6 Neut % (Auto) 63.9 Lymph % (Auto) 12.9 [place] % (Auto) 9.7 Eos % (Auto) 11.0 Baso % (Auto) 1.7 Neut # (Auto) 4.17 Lymph # (Auto) 0.8 [place] # (Auto) 0.6 Eos # (Auto) 0.7 Baso # (Auto) 0.1 Nucleated RBC % (a uto) 0 Nucleated RBCs # 0.0 Sodium 136 Potassium 4.5 Chloride 103 Carbon Dioxide 19 L Anion Gap 18.5 BUN 25 H Creatinine 1.1 GFR Calculation 69.2 L Glucose 81 POC Glucose 96 Estimat Average Gl ucose Hemoglobin A1c Calculated Osmolal ity 285 Calcium 9.1 Total Bilirubin 0.3 AST 10 ALT 27 Alkaline Phosphata se 262 H Total Protein 6.6 Albumin 3.4 L Globulin 3.2 Vancomycin Trough 01/20/21 01/19/21 01/19/21 01:50 20:29 17:38 WBC RBC Hgb Hct MCV MCH MCHC RDW Plt Count MPV Neut % (Auto) Lymph % (Auto) [place] % (Auto) Eos % (Auto) Baso % (Auto) Neut # (Auto) Lymph # (Auto) [place] # (Auto) Eos # (Auto) Baso # (Auto) Nucleated RBC % (a uto) Nucleated RBCs # Sodium Potassium Chloride Carbon Dioxide Anion Gap BUN Creatinine GFR Calculation Glucose POC Glucose 456 H 408 H Estimat Average Gl ucose Hemoglobin A1c Calculated Osmolal ity Calcium Total Bilirubin AST ALT Alkaline Phosphata se Total Protein Albumin Globulin Vancomycin Trough 11.9 01/19/21 01/19/21 01/19/21 12:40 12:40 12:40 WBC 7.6 RBC 4.48 Hgb 13.5 Hct 42.7 MCV 95.3 H MCH 30.1 MCHC 31.6 RDW 13.8 Plt Count 547 H MPV 10.2 Neut % (Auto) 74.2 Lymph % (Auto) 9.6 [place] % (Auto) 8.0 Eos % (Auto) 5.4 Baso % (Auto) 1.6 Neut # (Auto) 5.63 Lymph # (Auto) 0.7 L [place] # (Auto) 0.6 Eos # (Auto) 0.4 Baso # (Auto) 0.1 Nucleated RBC % (a uto) 0 Nucleated RBCs # 0.0 Sodium 127 L Potassium 5.6 H Chloride 95 L Carbon Dioxide 16 L Anion Gap 21.6 H BUN 25 H Creatinine 1.0 GFR Calculation 77.3 L Glucose 470 H POC Glucose Estimat Average Gl ucose 143 Hemoglobin A1c 6.6 H Calculated Osmolal ity 289 Calcium 8.7 Total Bilirubin AST ALT Alkaline Phosphata se Total Protein Albumin Globulin Vancomycin Trough 01/19/21 01/19/21 11:19 10:08 WBC RBC Hgb Hct MCV MCH MCHC RDW Plt Count MPV Neut % (Auto) Lymph % (Auto) [place] % (Auto) Eos % (Auto) Baso % (Auto) Neut # (Auto) Lymph # (Auto) [place] # (Auto) Eos # (Auto) Baso # (Auto) Nucleated RBC % (a uto) Nucleated RBCs # Sodium Potassium Chloride Carbon Dioxide Anion Gap BUN Creatinine GFR Calculation Glucose POC Glucose 410 H 416 H Estimat Average Gl ucose Hemoglobin A1c Calculated Osmolal ity Calcium Total Bilirubin AST ALT Alkaline Phosphata se Total Protein Albumin Globulin Vancomycin Trough Vitals: Last Vital Signs Temp 98.1 F 01/20/21 07:43 Pulse 82 01/20/21 07:43 Resp 16 01/20/21 07:43 BP 114/59 01/20/21 07:43 Pulse Ox 98 01/20/21 07:43 Discharge Plan Discharge Patient Disposition: Home Condition: Stable Prescriptions: New Augmentin 875-125 mg tablet 1 tab PO Q12H 7 Days Qty: 14 RF: 0 Continued multivitamin Tablet 1 tab PO DAILY RF: 0 loratadine [Claritin] 10 mg Tablet 10 mg PO DAILY RF: 0 omeprazole 20 mg Tablet,Delayed Release (Dr/Ec) 20 mg PO DAILY RF: 0 Levemir U-100 Insulin 32 unit SUBCUT DAILY@1700 RF: 0 Novolin R Regular U-100 Insuln See Rx Instructions .ROUTE .COMPLEX RF: 0 Metamucil (with sugar) 3.4 gram powder in packet 1 ea PO BID RF: 0 Discharge Orders: Discharge Order (Routine); Ordered 01/20/21 Ordered By: Dashawn Beavers Referrals: Dashawn Beavers MD [Physician] - (Return to wound care center in 1 week as scheduled) Discharge Diet: Diabetic Discharge Activity: Increase activity as tolerated Patient Instructions: Opioid Safety Activity Restrictions/Additional Instructions: 1-nutrition optimization and focus on protein intake 2-wound care in the form of Twice daily wet-to-dry using Kerlix and normal saline followed by ABDs and surgical pants 3-management of medical comorbidities per primary care provider and diabetes management. 4. Return to wound care center in 1 week as scheduled 5. Follow-up with primary care provider for diabetes management uncontrolled 6. Return to the emergency department for worsening symptoms like fevers, chills, nausea vomiting or worsening discharge from the wound. Discharge Attestations Time Spent in Discharge Care*: greater than 30 min Specific Discharge Activities: educating patient and educating and/or supporting family/caregiver Status at Discharge: Cognitive status at discharge: cognitively intact , Behavioral status at discharge: cooperative , Functional status at discharge: other assisted ambulation Overall status at discharge: patient is progressing back to baseline Quality Metrics Clinical Quality Measures During this hospital stay, did patient experience: None Coding Level of Care Code Acute [facility] note Diagnoses Abscess, gluteal, left L02.31
[2021-01-20 10:55] LABS: Glucose Point of Care 135 mg/dL (70-110)
[2021-01-20 11:32] VITALS: BP 119/80; PULSE 93; RESP 16; TEMP 37; O2SAT 94
[2021-01-20 13:48] VITALS: BP 119/80; PULSE 93; RESP 16; TEMP 37; O2SAT 94
--- NOTE | 2021-01-24 15:15 | PC.SOCIAL ---
discharge follow up call made, no answer.
== END 2021-01-20 12:00 | disposition home health service (06) | DRG 580 ==
PROVIDERS: Hospitalist; Admitting Provider Surgery; PCP Family Medicine; Visit Provider Surgery
PROC: 0K9P0ZX Drainage of Left Hip Muscle, Open Approach, Diagnostic (ICD-10-PCS; CPT 46040; principal; 2021-01-19 08:00)
DX: L89.329 Pressure ulcer of left buttock, unspecified stage (principal); C19 Malignant neoplasm of rectosigmoid junction; E10.65 Type 1 diabetes mellitus with hyperglycemia; H54.8 Legal blindness, as defined in USA; K21.9 Gastro-esophageal reflux disease without esophagitis; Z90.49 Acquired absence of other specified parts of digestive tract; Z87.891 Personal history of nicotine dependence; Z93.2 Ileostomy status
CPT/HCPCS: 10060; 11042; 11045; 36415; 36416; 73590; 73610; 80048; 80053; 80202; 82962; 83036; 85025; 87040; 87070; 87077; 87186; 88304; 96372; J1650; J1815 ×2; J2543; J2704; J3010; J3370; J3490; J7030; J7050

== ENCOUNTER 2021-01-25 13:51 | Outpatient (CLI) | payer MEDICARE, MEDICAID, SELFPAY | END 2021-01-25 13:52 | disposition home or self-care (01) | LOC: WOUND 13:52 | PROVIDERS: PCP Family Medicine; Visit Provider Surgery | DX: L89.152 Pressure ulcer of sacral region, stage 2 (principal); Z87.891 Personal history of nicotine dependence | CPT/HCPCS: 11042; 11045 ==

== ENCOUNTER 2021-02-01 13:47 | Outpatient (CLI) | payer MEDICARE, MEDICAID, SELFPAY | END 2021-02-01 13:48 | disposition home or self-care (01) | LOC: WOUND 13:49 | PROVIDERS: PCP Family Medicine; Visit Provider Surgery | DX: T81.89XA Other complications of procedures, not elsewhere classified, initial encounter (principal); Y83.8 Other surgical procedures as the cause of abnormal reaction of the patient, or of later complication, without mention of misadventure at the time of the procedure; Z87.891 Personal history of nicotine dependence | CPT/HCPCS: 11043; 11046 ==

== ENCOUNTER 2021-02-08 13:57 | Outpatient (CLI) | payer MEDICARE, MEDICAID, SELFPAY | END 2021-02-08 13:58 | disposition home or self-care (01) | LOC: WOUND 13:58 | PROVIDERS: PCP Family Medicine; Visit Provider Surgery | DX: T81.89XA Other complications of procedures, not elsewhere classified, initial encounter (principal); Y83.8 Other surgical procedures as the cause of abnormal reaction of the patient, or of later complication, without mention of misadventure at the time of the procedure; E10.9 Type 1 diabetes mellitus without complications; Z87.891 Personal history of nicotine dependence | CPT/HCPCS: 11043; 11046 ==

== ENCOUNTER 2021-02-15 13:34 | Outpatient (CLI) | payer MEDICARE, MEDICAID, SELFPAY | END 2021-02-15 13:35 | disposition home or self-care (01) | LOC: WOUND 13:36 | PROVIDERS: PCP Family Medicine; Visit Provider Surgery | DX: I96 Gangrene, not elsewhere classified (principal); L89.153 Pressure ulcer of sacral region, stage 3; Z87.891 Personal history of nicotine dependence | CPT/HCPCS: 11043; 11046 ==

== ENCOUNTER 2021-02-20 10:08 | Outpatient (CLI) | payer MEDICARE, MEDICAID, SELFPAY ==
--- NOTE | 2021-02-20 | XR_ITS ---
WS: [id number] ABDOMEN KUB CLINICAL INFORMATION: Post colonoscopy and colostomy. COMPARISON: None. FINDINGS: Residual retained contrast in the right ascending colon and cecum. Otherwise normal bowel gas pattern . No evidence of high-grade obstruction or bowel dilatation. Surgical clips in the left upper quadran t and pelvis. Vascular calcification. Pelvic phleboliths. XR/XR KUB [id number] Impression: 1. Residual retained contrast in the right ascending colon and cecum. 2. Otherwise normal bowel gas pattern. No evidence of high-grade obstruction o r bowel dilatation.
== END 2021-02-20 10:09 | disposition home or self-care (01) ==
LOC: RAD 10:14
PROVIDERS: PCP Family Medicine; Visit Provider Surgery
DX: Z98.890 Other specified postprocedural states (principal)
CPT/HCPCS: 74018; 74270

== ENCOUNTER 2021-02-22 13:18 | Outpatient (CLI) | payer MEDICARE, MEDICAID, SELFPAY | END 2021-02-22 13:19 | disposition home or self-care (01) | LOC: WOUND 13:19 | PROVIDERS: PCP Family Medicine; Visit Provider Surgery | DX: T81.89XA Other complications of procedures, not elsewhere classified, initial encounter (principal); Y83.8 Other surgical procedures as the cause of abnormal reaction of the patient, or of later complication, without mention of misadventure at the time of the procedure; Z87.891 Personal history of nicotine dependence | CPT/HCPCS: 11043; 11046; 97605 ==

== ENCOUNTER 2021-03-01 13:37 | Outpatient (CLI) | payer MEDICARE, MEDICAID, SELFPAY | END 2021-03-01 13:38 | disposition home or self-care (01) | LOC: WOUND 13:38 | PROVIDERS: PCP Family Medicine; Visit Provider Nurse Practitioner Family | DX: T81.89XA Other complications of procedures, not elsewhere classified, initial encounter (principal); Y83.8 Other surgical procedures as the cause of abnormal reaction of the patient, or of later complication, without mention of misadventure at the time of the procedure; Z87.891 Personal history of nicotine dependence | CPT/HCPCS: 11042; 97605; A6237 ==

== ENCOUNTER 2021-03-08 13:40 | Outpatient (CLI) | payer MEDICARE, MEDICAID, SELFPAY | END 2021-03-08 13:41 | disposition home or self-care (01) | LOC: WOUND 13:43 | PROVIDERS: PCP Family Medicine; Visit Provider Surgery | DX: T81.89XA Other complications of procedures, not elsewhere classified, initial encounter (principal); Y83.8 Other surgical procedures as the cause of abnormal reaction of the patient, or of later complication, without mention of misadventure at the time of the procedure; Z87.891 Personal history of nicotine dependence | CPT/HCPCS: 11042 ==

== ENCOUNTER 2021-03-15 13:38 | Outpatient (CLI) | payer MEDICARE, MEDICAID, SELFPAY | END 2021-03-15 13:39 | disposition home or self-care (01) | LOC: WOUND 13:39 | PROVIDERS: PCP Family Medicine; Visit Provider Nurse Practitioner Family | DX: T81.89XA Other complications of procedures, not elsewhere classified, initial encounter (principal); Y83.8 Other surgical procedures as the cause of abnormal reaction of the patient, or of later complication, without mention of misadventure at the time of the procedure; Z87.891 Personal history of nicotine dependence | CPT/HCPCS: 11042 ==

== ENCOUNTER 2021-03-22 13:27 | Outpatient (CLI) | payer MEDICARE, MEDICAID, SELFPAY | END 2021-03-22 13:28 | disposition home or self-care (01) | LOC: WOUND 13:31 | PROVIDERS: PCP Family Medicine; Visit Provider Surgery | DX: T81.89XA Other complications of procedures, not elsewhere classified, initial encounter (principal); Y83.8 Other surgical procedures as the cause of abnormal reaction of the patient, or of later complication, without mention of misadventure at the time of the procedure; Z87.891 Personal history of nicotine dependence | CPT/HCPCS: 11042; 97605; A6237; A6250 ==

== ENCOUNTER 2021-03-29 14:38 | Outpatient (CLI) | payer MEDICARE, MEDICAID, SELFPAY | END 2021-03-29 14:39 | disposition home or self-care (01) | LOC: WOUND 14:40 | PROVIDERS: PCP Family Medicine; Visit Provider Surgery | DX: T81.89XA Other complications of procedures, not elsewhere classified, initial encounter (principal); Y83.8 Other surgical procedures as the cause of abnormal reaction of the patient, or of later complication, without mention of misadventure at the time of the procedure; E10.9 Type 1 diabetes mellitus without complications; Z87.891 Personal history of nicotine dependence | CPT/HCPCS: 11042; 97605; A6237; A6250 ==

== ENCOUNTER 2021-04-05 14:01 | Outpatient (CLI) | payer MEDICARE, MEDICAID, SELFPAY | END 2021-04-05 14:02 | disposition home or self-care (01) | LOC: WOUND 14:17 | PROVIDERS: PCP Family Medicine; Visit Provider Surgery | DX: T81.89XA Other complications of procedures, not elsewhere classified, initial encounter (principal); Y83.8 Other surgical procedures as the cause of abnormal reaction of the patient, or of later complication, without mention of misadventure at the time of the procedure; Z87.891 Personal history of nicotine dependence | CPT/HCPCS: 11042; 97605; A6250 ==

== ENCOUNTER 2021-04-12 11:38 | Outpatient (CLI) | payer MEDICARE, MEDICAID, SELFPAY | END 2021-04-12 11:39 | disposition home or self-care (01) | LOC: WOUND 11:39 | PROVIDERS: PCP Family Medicine; Visit Provider Nurse Practitioner Family | DX: T81.89XA Other complications of procedures, not elsewhere classified, initial encounter (principal); Y83.8 Other surgical procedures as the cause of abnormal reaction of the patient, or of later complication, without mention of misadventure at the time of the procedure; E10.9 Type 1 diabetes mellitus without complications; Z87.891 Personal history of nicotine dependence | CPT/HCPCS: 11042; 97605; A6237 ==

== ENCOUNTER 2021-04-19 13:06 | Outpatient (CLI) | payer MEDICARE, MEDICAID, SELFPAY | END 2021-04-19 13:07 | disposition home or self-care (01) | LOC: WOUND 13:07 | PROVIDERS: PCP Family Medicine; Visit Provider Surgery | DX: T81.89XA Other complications of procedures, not elsewhere classified, initial encounter (principal); Y83.8 Other surgical procedures as the cause of abnormal reaction of the patient, or of later complication, without mention of misadventure at the time of the procedure; E10.9 Type 1 diabetes mellitus without complications; Z87.891 Personal history of nicotine dependence | CPT/HCPCS: 11042; A6237; A6250 ==

== ENCOUNTER 2021-05-03 12:56 | Outpatient (CLI) | payer MEDICARE, MEDICAID, SELFPAY | END 2021-05-03 12:57 | disposition home or self-care (01) | LOC: WOUND 12:57 | PROVIDERS: PCP Family Medicine; Visit Provider Surgery | DX: I96 Gangrene, not elsewhere classified (principal); T81.89XA Other complications of procedures, not elsewhere classified, initial encounter; Y83.8 Other surgical procedures as the cause of abnormal reaction of the patient, or of later complication, without mention of misadventure at the time of the procedure; E10.9 Type 1 diabetes mellitus without complications; Z87.891 Personal history of nicotine dependence | CPT/HCPCS: 15271; 97605; A6237; A6250; Q4187 ==

== ENCOUNTER 2021-05-10 10:15 | Outpatient (CLI) | payer MEDICARE, MEDICAID, SELFPAY | END 2021-05-10 10:16 | disposition home or self-care (01) | LOC: WOUND 10:16 | PROVIDERS: PCP Family Medicine; Visit Provider Nurse Practitioner Family | DX: T81.89XA Other complications of procedures, not elsewhere classified, initial encounter (principal); Y83.8 Other surgical procedures as the cause of abnormal reaction of the patient, or of later complication, without mention of misadventure at the time of the procedure; E10.9 Type 1 diabetes mellitus without complications; Z87.891 Personal history of nicotine dependence | CPT/HCPCS: 15271; 97605; A6237; A6250; Q4187 ==

== ENCOUNTER 2021-05-17 10:14 | Outpatient (CLI) | payer MEDICARE, MEDICAID, SELFPAY | END 2021-05-17 10:15 | disposition home or self-care (01) | LOC: WOUND 10:16 | PROVIDERS: PCP Family Medicine; Visit Provider Surgery | DX: I96 Gangrene, not elsewhere classified (principal); T81.89XA Other complications of procedures, not elsewhere classified, initial encounter; Y83.8 Other surgical procedures as the cause of abnormal reaction of the patient, or of later complication, without mention of misadventure at the time of the procedure; E10.9 Type 1 diabetes mellitus without complications; Z87.891 Personal history of nicotine dependence | CPT/HCPCS: 11042 ==

== ENCOUNTER 2021-05-23 13:29 | Outpatient (CLI) | payer MEDICARE, MEDICAID, SELFPAY | END 2021-05-23 13:30 | disposition home or self-care (01) | PROVIDERS: PCP Family Medicine; Visit Provider Nurse Practitioner Family | DX: T81.89XA Other complications of procedures, not elsewhere classified, initial encounter (principal); Y83.8 Other surgical procedures as the cause of abnormal reaction of the patient, or of later complication, without mention of misadventure at the time of the procedure; E10.9 Type 1 diabetes mellitus without complications; Z87.891 Personal history of nicotine dependence | CPT/HCPCS: 11042 ==

== ENCOUNTER 2021-06-07 14:09 | Outpatient (CLI) | payer MEDICARE, MEDICAID, SELFPAY | END 2021-06-07 14:10 | disposition home or self-care (01) | LOC: WOUND 14:10 | PROVIDERS: PCP Family Medicine; Visit Provider Surgery | DX: T81.89XA Other complications of procedures, not elsewhere classified, initial encounter (principal); Y83.8 Other surgical procedures as the cause of abnormal reaction of the patient, or of later complication, without mention of misadventure at the time of the procedure; E10.9 Type 1 diabetes mellitus without complications; Z87.891 Personal history of nicotine dependence | CPT/HCPCS: 11042 ==

== ENCOUNTER 2021-06-14 14:58 | Outpatient (CLI) | payer MEDICARE, MEDICAID, SELFPAY | END 2021-06-14 14:59 | disposition home or self-care (01) | LOC: WOUND 14:59 | PROVIDERS: PCP Family Medicine; Visit Provider Surgery | DX: T81.89XA Other complications of procedures, not elsewhere classified, initial encounter (principal); Y83.8 Other surgical procedures as the cause of abnormal reaction of the patient, or of later complication, without mention of misadventure at the time of the procedure; E10.9 Type 1 diabetes mellitus without complications; Z87.891 Personal history of nicotine dependence | CPT/HCPCS: 11042 ==

== ENCOUNTER 2021-06-21 11:08 | Outpatient (CLI) | payer MEDICARE, MEDICAID, SELFPAY | END 2021-06-21 11:09 | disposition home or self-care (01) | LOC: WOUND 11:09 | PROVIDERS: PCP Family Medicine; Visit Provider Nurse Practitioner Family | DX: Z98.890 Other specified postprocedural states (principal); Z90.49 Acquired absence of other specified parts of digestive tract; Z87.891 Personal history of nicotine dependence | CPT/HCPCS: 11042 ==

== ENCOUNTER 2021-06-28 10:34 | Outpatient (CLI) | payer MEDICARE, MEDICAID, SELFPAY | END 2021-06-28 10:35 | disposition home or self-care (01) | LOC: WOUND 10:35 | PROVIDERS: PCP Family Medicine; Visit Provider Surgery | DX: T81.89XA Other complications of procedures, not elsewhere classified, initial encounter (principal); Y83.8 Other surgical procedures as the cause of abnormal reaction of the patient, or of later complication, without mention of misadventure at the time of the procedure; E10.9 Type 1 diabetes mellitus without complications; Z87.891 Personal history of nicotine dependence | CPT/HCPCS: 10060; 11042; 87070; 87077; 87186; 99212; A6446 ==

== ENCOUNTER 2021-07-02 14:28 | Outpatient (CLI) | payer MEDICARE, MEDICAID, SELFPAY | END 2021-07-02 14:29 | disposition home or self-care (01) | LOC: WOUND 14:30 | PROVIDERS: PCP Family Medicine; Visit Provider Emergency Medicine | DX: L89.153 Pressure ulcer of sacral region, stage 3 (principal); E10.622 Type 1 diabetes mellitus with other skin ulcer; L98.499 Non-pressure chronic ulcer of skin of other sites with unspecified severity | CPT/HCPCS: 99213; A6446 ==

== ENCOUNTER 2021-07-12 09:47 | Outpatient (CLI) | payer MEDICARE, MEDICAID, SELFPAY | END 2021-07-12 09:48 | disposition home or self-care (01) | LOC: WOUND 09:48 | PROVIDERS: PCP Family Medicine; Visit Provider Surgery | DX: I96 Gangrene, not elsewhere classified (principal); T81.89XA Other complications of procedures, not elsewhere classified, initial encounter; Y83.8 Other surgical procedures as the cause of abnormal reaction of the patient, or of later complication, without mention of misadventure at the time of the procedure; L98.412 Non-pressure chronic ulcer of buttock with fat layer exposed; E10.9 Type 1 diabetes mellitus without complications; Z87.891 Personal history of nicotine dependence | CPT/HCPCS: 11042 ==

== ENCOUNTER 2021-07-19 09:32 | Outpatient (CLI) | payer MEDICARE, MEDICAID, SELFPAY | END 2021-07-19 09:33 | disposition home or self-care (01) | LOC: WOUND 09:33 | PROVIDERS: PCP Family Medicine; Visit Provider Thoracic Surgery (Cardiothoracic Vascular Surgery) | DX: I96 Gangrene, not elsewhere classified (principal); T81.89XA Other complications of procedures, not elsewhere classified, initial encounter; Y83.8 Other surgical procedures as the cause of abnormal reaction of the patient, or of later complication, without mention of misadventure at the time of the procedure; L02.31 Cutaneous abscess of buttock; E10.9 Type 1 diabetes mellitus without complications; Z87.891 Personal history of nicotine dependence | CPT/HCPCS: 10060; 87070; 87077; 87186 ==

== ENCOUNTER 2021-08-02 10:16 | Outpatient (CLI) | payer MEDICARE, MEDICAID, SELFPAY | END 2021-08-02 10:17 | disposition home or self-care (01) | LOC: WOUND 10:18 | PROVIDERS: PCP Family Medicine; Visit Provider Surgery | DX: I96 Gangrene, not elsewhere classified (principal); L89.153 Pressure ulcer of sacral region, stage 3; E10.622 Type 1 diabetes mellitus with other skin ulcer; L98.412 Non-pressure chronic ulcer of buttock with fat layer exposed; Z87.891 Personal history of nicotine dependence | CPT/HCPCS: 11042 ==

== ENCOUNTER 2021-08-08 09:53 | Outpatient (CLI) | payer MEDICARE, MEDICAID, SELFPAY ==
--- NOTE | 2021-08-08 10:00 | FL_ITS ---
WS: [id number] Gastrografin enema, 08/08/2021 Clinical Data: Z90.49 - Acquired absence of other specified parts of dig... Comparison: Barium enema, 01/03/2021. Fluoroscopy time: 1.0 minutes. Findings: The preliminary film shows residual contrast in the ascending colon. There are drains in the pelvis. There are surgical clips in the left upper quadrant. Gastrografin was introduced into the rectum. The re was a several cm marked narrowing of the rectosigmoid. Gastrografin did flow proximally into the t ransverse colon. There was no extravasation. FL/FL enema w gastrografin [id number] Impression: 1. Marked narrowing of rectosigmoid of several inches which is even more narrow than was noted before. 2. Negative for Gastrografin extravasation. 3. Residual barium in the ascending colon from a barium enema of 01/03/2021.
[2021-08-08] MEDS: diatrizoate meglumine 120 mL Sol PR (11:45)
== END 2021-08-08 09:54 | disposition home or self-care (01) ==
LOC: RAD 09:54
PROVIDERS: PCP Family Medicine; Visit Provider Surgery
DX: Z90.49 Acquired absence of other specified parts of digestive tract (principal)
CPT/HCPCS: 74270

== ENCOUNTER → 2021-08-23 09:46 | Outpatient (BNVA) | payer MEDICARE, MEDICAID, SELFPAY | PROVIDERS: PCP Family Medicine; Visit Provider Nurse Practitioner Family | DX: Z09 Encounter for follow-up examination after completed treatment for conditions other than malignant neoplasm (principal); Z87.891 Personal history of nicotine dependence | CPT/HCPCS: 99212 ==

== ENCOUNTER → 2022-02-20 11:27 | Outpatient (BNVA) | payer MEDICARE, MEDICAID, SELFPAY | PROVIDERS: PCP Family Medicine; Visit Provider Family Medicine | DX: Z01.818 Encounter for other preprocedural examination (principal) | CPT/HCPCS: 87426 ==

== ENCOUNTER 2023-01-28 15:50 | Outpatient (CLI) | payer MEDICARE, MEDICAID, SELFPAY ==
[2023-01-28 16:14] LABS: Basophils # 0.1 10^3/uL (0.0-0.1); Basophils % 1.2 %; Eosinophils # 0.6 10^3/uL (0.0-0.8); Hematocrit 44.2 % (37-53); Lymphocytes # 1.5 10^3/uL (0.8-4.8); Lymphocytes % 20.1 %; Mean Corpuscular Hemoglobin 30.3 pg (27-33); Mean Corpuscular Volume 91.7 fl (82-101); Mean Platelet Volume 10.4 fL (7.4-10.4); Monocytes # 0.5 10^3/uL (0.2-0.9); Neutrophils # 4.74 10^3/uL (1.8-7.7); Neutrophils % 63.6 %; Nucleated Red Blood Cells % 0 %; Platelet Count 288 10^3/cmm (157-399); Red Blood Count 4.82 10^6/uL (3.85-5.65); White Blood Count 7.46 10^3/uL (3.29-11.43)
[2023-01-28 16:33] LABS: Estmated Average Glucose 151; Hemoglobin A1C 6.9 % (4.0-6.0)
[2023-01-28 16:40] LABS: Alanine Aminotransferase 38 U/L (0-41); Albumin Level 4.2 g/dL (3.5-5.2); Alkaline Phosphatase 140 U/L (40-130); Anion Gap 14.5 (5-19); Aspartate Amino Transferase 25 U/L (0-40); Blood Urea Nitrogen 11 mg/dL (6-20); Calcium 8.8 mg/dL (8.5-10.5); Carbon Dioxide 30 mmol/L (22-29); Chloride 101 mmol/L (98-107); Globulin 2.8 g/dL (1.3-4.6); Glomerular Filtration Rate 86.7 mL/min (90-130); Glucose 193 mg/dL (65-115); Osmolality Calculated 297 mOsm/kg (285-295); Potassium 4.5 mmol/L (3.5-5.1); Sodium 141 mmol/L (136-145); Total Bilirubin 0.4 mg/dL (0.15-1.2)
== END 2023-01-28 15:51 | disposition home or self-care (01) ==
LOC: LAB 15:52
PROVIDERS: PCP Family Medicine; Visit Provider Family Medicine
DX: E11.9 Type 2 diabetes mellitus without complications (principal); H54.3 Unqualified visual loss, both eyes; I51.9 Heart disease, unspecified; Z98.890 Other specified postprocedural states
CPT/HCPCS: 80053; 83036; 85025

== ENCOUNTER → 2023-03-09 16:26 | Outpatient (BNVA) | payer MEDICARE, MEDICAID, SELFPAY | PROVIDERS: PCP Clinical Nurse Specialist Adult Health; Visit Provider Clinical Nurse Specialist Adult Health | DX: L98.9 Disorder of the skin and subcutaneous tissue, unspecified (principal) | CPT/HCPCS: 88304 ==

== ENCOUNTER → 2023-03-24 15:34 | Outpatient (BNVA) | payer MEDICARE, MEDICAID, SELFPAY | PROVIDERS: PCP Clinical Nurse Specialist Adult Health; Visit Provider Clinical Nurse Specialist Adult Health | DX: L98.9 Disorder of the skin and subcutaneous tissue, unspecified (principal) | CPT/HCPCS: 88304; 88342 ==

== ENCOUNTER 2025-01-14 17:47 | Inpatient (IN) | payer MEDICARE, MEDICAID, SELFPAY ==
[2025-01-14 17:48] VITALS: BP 106/88; PULSE 80; RESP 18; TEMP 36.7; O2SAT 100; BMI 18.3
--- NOTE | 2025-01-14 17:54 | XRR_ITS ---
PROCEDURE INFORMATION: Exam: XR Right Femur Exam date and time: 01/14/2025 6:04 PM Age: 59 years old Clinical indication: Pain; Hip; Right; Additional info: Trauma, pain TECHNIQUE: Imaging protocol: Radiologic exam of the right femur. Views: 2 views. COMPARISON: CT abdomen pelvis w con* [id number] 12/03/2020 2:39 PM FINDINGS: Bones/joints: The slightly impacted comminuted intertrochanteric fracture right femur present with varus angulation Soft tissues: Unremarkable. XR/XR femur RT min 2V* [id number] IMPRESSION: Acute intertrochanteric fracture of the right femur
--- NOTE | 2025-01-14 17:54 | XRR_ITS ---
PROCEDURE INFORMATION: Exam: XR Pelvis Exam date and time: 01/14/2025 6:04 PM Age: 59 years old Clinical indication: Hip pain; Right hip; Additional info: Trauma TECHNIQUE: Imaging protocol: Radiologic exam of the pelvis. Views: 1 or 2 view. COMPARISON: CT abdomen pelvis w con* [id number] 12/03/2020 2:39 PM FINDINGS: Bones/joints: There is demonstration a impacted intertrochanteric fracture of the right femur present. There is mild degree of narrowing of the hip joint spaces degenerative related Soft tissues: Unremarkable. XR/XR pelvis 1-2V* [id number] IMPRESSION: Acute intertrochanteric fracture of the right femur.
--- OUTSIDE RECORDS SUMMARY | 2025-01-14 17:54 | XMS_ITS | Encounter Summary ---
Author Organization [employer] [facility] Address [address] [place] [address] Care Team Providers Care Master Plumber Name Role Phone Ender Aiken DO Primary Care Provider [phone] Encounter Details Date Type Department Care Team (Latest Contact Info) Description 10/27/2002 Outpatient Historical [facility] Jonathan Patel MD [address], [place] [id number] DIABETES UNCOMPL ADULT-TYPE II (CMS/HCC) (Primary Dx) Social History Tobacco Use Types Packs/Day Years Used Date Smoking Tobacco: Never Assessed Sex and Gender Information Value Date Recorded Sex Assigned at Not on file 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
--- OUTSIDE RECORDS SUMMARY | 2025-01-14 17:54 | XMS_ITS | Encounter Summary ---
Author Organization [employer] [facility] Address [address] [place] [address] Care Team Providers Care Contact Lens Cutter Name Role Phone Ender Aiken DO Primary Care Provider [phone] Encounter Details Date Type Department Care Team (Latest Contact Info) Description 10/27/2002 Outpatient Historical HIS [facility] DIABETES UNCOMPL ADULT-TYPE II (CMS/HCC) (Primary Dx) Social History Tobacco Use Types Packs/Day Years Used Date Smoking Tobacco: Never Assessed Sex and Gender Information Value Date Recorded Sex Assigned at Not on file 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
--- OUTSIDE RECORDS SUMMARY | 2025-01-14 17:54 | XMS_ITS | Encounter Summary ---
Author Organization [employer] [facility] Address [address] [place] [address] Care Team Providers Care Rice Dryer Mechanic Name Role Phone Ender Aiken DO Primary Care Provider [phone] Encounter Details Date Type Department Care Team (Latest Contact Info) Description 08/04/2003 Outpatient Historical HIS [facility] DIABETES UNCOMPL JUSTIN-TYPE I (CMS/HCC) (Primary Dx); VISUAL LOSS NOS Social History Tobacco Use Types Packs/Day Years Used Date Smoking Tobacco: Never Assessed Sex and Gender Information Value Date Recorded Sex Assigned at Not on file 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 Gender Identity Not on file Sexual Orientation Not on file documented as of this encounter Plan of Treatment Not on file documented as of this encounter Visit Diagnoses Diagnosis Type I (juvenile type) diabetes mellitus without mention of complication, not stated as uncontrolled (CMS/HCC)- Primary Type I (juvenile type) diabetes mellitus without mention of complication, not stated as uncontrolled Unspecified visual loss documented in this encounter Care Teams Rice Dryer Mechanic Relationship Specialty Start Date End Date Ender Aiken DO [address] [place] [address] PCP - General Family Practice 06/16/16 documented as of this encounter
--- OUTSIDE RECORDS SUMMARY | 2025-01-14 17:55 | XMS_ITS | Encounter Summary ---
Author Organization [employer] [facility] Address [address] [place] [address] Care Team Providers Care Forest Resources Professor Name Role Phone Ender Aiken DO Primary Care Provider [phone] Encounter Details Date Type Department Care Team (Latest Contact Info) Description 03/22/2002 Outpatient Historical HIS [facility] DIABETES UNCOMPL ADULT-TYPE II (CMS/HCC) (Primary Dx) Social History Tobacco Use Types Packs/Day Years Used Date Smoking Tobacco: Never Assessed Sex and Gender Information Value Date Recorded Sex Assigned at Not on file 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
--- OUTSIDE RECORDS SUMMARY | 2025-01-14 17:55 | XMS_ITS | Encounter Summary ---
Author Organization [employer] [facility] Address [address] [place] [address] Care Team Providers Care Transportation Job Titles Name Role Phone Ender Aiken DO Primary Care Provider [phone] Encounter Details Date Type Department Care Team (Latest Contact Info) Description 03/16/2002 Outpatient Historical HIS [facility] DIABETES UNCOMPL JUSTIN-TYPE I (CMS/HCC) (Primary Dx); BLINDNESS NOS, BOTH EYES Social History Tobacco Use Types Packs/Day Years Used Date Smoking Tobacco: Never Assessed Sex and Gender Information Value Date Recorded Sex Assigned at Not on file 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 Gender Identity Not on file Sexual Orientation Not on file documented as of this encounter Plan of Treatment Not on file documented as of this encounter Visit Diagnoses Diagnosis Type I (juvenile type) diabetes mellitus without mention of complication, not stated as uncontrolled (CMS/HCC)- Primary Type I (juvenile type) diabetes mellitus without mention of complication, not stated as uncontrolled Unqualified visual loss, both eyes documented in this encounter Care Teams Transportation Job Titles Relationship Specialty Start Date End Date Ender Aiken DO [address] [place] [address] PCP - General Family Practice 06/16/16 documented as of this encounter
--- OUTSIDE RECORDS SUMMARY | 2025-01-14 17:55 | XMS_ITS | Encounter Summary ---
Author Organization [facility] Address [address] [facility] [address] Attn: [place] [id number] Care Team Providers Care Talent Agent Name Role Phone Ender Aiken DO Primary Care Provider [phone] Encounter Details Date Type Department Care Team (Late st Contact Info) Description 03/22/2002 Outpatient Historical Jonathan Patel MD [address] [place] [address] Social History Tobacco Use Types Packs/Day Years Used Date Smoking Tobacco: Never Assessed Sex and Gender Information Value Date Recorded Sex Assigned at Not on file 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
--- NOTE | 2025-01-14 17:56 | ED_ITS ---
HPI - Abdominal Pain 2 General: Chief Complaint: Extremity Injury, Lower Stated Complaint: right hip pain Time Seen by Provider: 01/14/25 17:49 History of Present Illness: Chief complaint right leg injury. Patient was sitting on the toilet and the toilet seat shifted and he fell and injured his right leg. EMS gave him 5 mg of morphine and Zofran prehospital. Patient denies any other injury. Related Data Home Medications ?Medication ?Instructions ?Recorded ?Confirmed loratadine 10 mg tablet (Claritin) 10 mg PO DAILY 10/3103/24/23 multivitamin 1 tab PO DAILY 11/21/2003/02 psyllium husk (with sugar) 3.4 1 ea PO BID 01/19/21 gram oral powder packet (Metamucil (with sugar)) Previous Rx's ?Medication ?Instructions ?Recorded Levemir U-100 Insulin 15 unit SUBCUT DAILY@1700 #1 00 mL 09/18/22 pen needle, diabetic 31 gauge x #180 ea 01/21/2308/14 (TechLITE Pen Needle) loperamide 2 mg capsule 4 mg (2 x 2 mg) PO BID PRN l oose 02/16/23 stool #60 caps insulin regular human 100 unit/mL 10 unit (0.1 mL) SUB CUT TID #15 mL 03/17/23 (3 mL) subcutaneous pen (Novolin R FlexPen) blood sugar diagnostic (Blood #50 ea 03/26/23 Glucose Test strips) blood-glucose meter #1 ea 03/26/23 lancets (Accu-Chek Softclix #100 ea 03/26/23 Lancets) Allergies Allergy/AdvReac Type Severity Reaction Status Date / Time No Known Allergies Allergy Verified 03/24/23 14:39 [facility]: Medical History (Updated 01/14/25 @ 19:59 by Fco Tolbert MD) Type 1 diabetes mellitus Diastolic dysfunction, left ventricle Sepsis due to Gram-negative organism with septic shock Diabetes mellitus Acute renal failure Blindness of both eyes SBO (small bowel obstruction) GERD (gastroesophageal reflux disease) Status post chemoradiation Rectosigmoid cancer Surgical History H/O ileostomy S/P exploratory laparotomy (11/24/20) Small bowel resection, partial colectomy History of reversal of ileostomy History of low anterior resection of rectum Status post colonoscopy (11/23/20) Family History Family/Other CAD (coronary artery disease) Diabetes Denies family history of Stroke Social History (Updated 01/14/25 @ 19:55 by Fco Tolbert MD) Quit status (tobacco/nicotine): not considering quitting Alcohol intake: never Substance/Drug Use: never Additional social history: Chews tobacco 1 can a day patient disabled after lost his vision previously worked in a [employer]. He wants full CODE STATUS. He wants to go home to care under his Sister Keya after surgery. This was discussed on 01/14/2025 with myself Fco Tolbert MD, Keya and patient Physical Exam 2 Narrative: EXAM NARRATIVE: Patient is alert oriented in distress. No signs of trauma to his head. Neck is supple. No tenderness over his neck or back moves his back freely. No chest wall or abdominal tenderness. Breathing comfortably and lung sounds are clear. Heart regular rhythm. Intact pulses in his feet. Deformity of the right thigh. No tenderness below the knee. No tenderness over the knee. Patient is blind. Moist mucous membranes. Skin is warm intact and dry. Speech is clear. Moves his arms freely. No facial droop or apparent weakness in his arms. No pain with movement of the left leg. Procedures Catheter Insertion (Urinary) Date of insertion: 01/14/25 Time of insertion: 20:32 Reason for placing: Yes (Immobilization for hip fracture) Reason for placing indwelling catheter: Prolonged immobilization Antiseptic solution prep: Povidone-Iodine Topical anesthesia used: No Catheter type/location: Urethral Size (Cypriot): 16 Catheter balloon size (mL): 10 Catheter balloon amount: 10 Results: successfully catheterized-immediate flow Procedure performed: without complications Course 2 Vital Signs: Vital signs: Vital Signs Temperature 98.0 F 01/14/25 17:48 Pulse Rate 96 01/14/25 20:00 Respiratory Rate 16 01/14/25 20:00 Blood Pressure 123/68 01/14/25 19:00 Pulse Oximetry 98 01/14/25 20:00 Oxygen Delivery Me thod Room Air 01/14/25 20:00 MDM - Abdominal Pain Medical Decision Making Patient who is blind states that he was sitting on the toilet and the toilet seat shifted and he fell and landed on his right leg with pain in his right proximal thigh and has obvious deformity concerning for femur fracture. Dislocated hip considered as well. Pelvic fracture considered. I ordered 50 mcg of fentanyl IV for pain and will get CBC CMP EKG PT PTT and x-rays of the pelvis and femur. Patient denies any other area of injury. He states he is certain he did not hit his head neck or back or chest or abdomen. He states he is not on a blood thinner. Patient was recently seen by his primary care for some bright red blood in the stools that were reported to the patient by the sister. The patient has been on a clear liquid diet and the bleeding has resolved. No abdominal pain. No further bleeding. X-ray pelvis and right femur shows proximal femur fracture. White blood cell count is elevated. Patient denies fever or recent illness to explain this. Demargination considered. INR is 0.9. Creatinine is 1.4. Glucose is not significant elevated to suggest infectious process. Patient EKG ordered into my interpretation shows sinus rhythm with a rate of [address] segment changes. Plan to admit for repair of his proximal femur fracture. Patient currently resting comfortably and pain controlled when he is holding still. He denies any other injury. Neurovascular intact distal to the injury. I consulted with Dr. Davenport from orthopedics who plans to operate tomorrow and requested admission to the hospitalist team. I have paged hospitalist for admission. I discussed with the hospitalist to admit. Hull catheter was requested due to prolonged immobilization and anticipated surgery. Nursing attempted several times without success and states there was bleeding. I had informed discussion with patient regarding risk and benefit and alternatives. He wants me to proceed with catheter attempt. Using sterile technique I used a 16 Cypriot coud? and successfully passed on first attempt. Patient tolerated well. Clear urine obtained. Lab Data 01/14/25 17:24 01/14/25 17:24 Labs/Radiology: Radiology Impressions Femur X-Ray 01/14/25 17:54 IMPRESSION: Acute intertrochanteric fracture of the right femur Pelvis X-Ray 01/14/25 17:54 IMPRESSION: Acute intertrochanteric fracture of the right femur. Chest X-Ray 01/14/25 18:21 IMPRESSION: No acute findings. Laboratory Results WBC 20.75 10^3/uL (3.29-11.43) H 01/14/25 17:24 RBC 4.59 10^6/uL (3.85-5.65) 01/14/25 17:24 Hgb 14.80 g/dL (11.27-16.99) 01/14/25 17:24 Hct 44.3 % (37-53) 01/14/25 17:24 MCV 96.5 fl (82-101) 01/14/25 17:24 MCH 32.2 pg (27-33) 01/14/25 17:24 MCHC 33.4 g/dL (30-55) 01/14/25 17:24 RDW 12.9 % (12.1-15.1) 01/14/25 17:24 Plt Count 331 10^3/cmm (157-399) 01/14/25 17:24 MPV 11.2 fL (7.4-10.4) H 01/14/25 17:24 Neut % (Auto) 89.6 % 01/14/25 17:24 Lymph % (Auto) 4.8 % 01/14/25 17:24 [place] % (Auto) 4.4 % 01/14/25 17:24 Eos % (Auto) 0.2 % 01/14/25 17:24 Baso % (Auto) 0.5 % 01/14/25 17:24 Neut # (Auto) 18.59 10^3/uL (1.8-7.7) H 01/14/25 17:24 Lymph # (Auto) 1.0 10^3/uL (0.8-4.8) 01/14/25 17:24 Kingman # (Auto) 0.9 10^3/uL (0.2-0.9) 01/14/25 17:24 Eos # (Auto) 0.1 10^3/uL (0.0-0.8) 01/14/25 17:24 Baso # (Auto) 0.1 10^3/uL (0.0-0.1) 01/14/25 17:24 Nucleated RBC % (auto) 0 % 01/14/25 17:24 Nucleated RBCs # 0.0 /100WBC 01/14/25 17:24 PT 12.90 SECONDS (12.1-14.9) 01/14/25 17:24 INR 0.90 (0.8-1.2) 01/14/25 17:24 APTT 25.6 SECONDS (23.9-36.7) 01/14/25 17:24 Sodium 141 mmol/L (136-145) 01/14/25 17:24 Potassium 3.5 mmol/L (3.5-5.1) 01/14/25 17:24 Chloride 94 mmol/L (98-107) L 01/14/25 17:24 Carbon Dioxide 26 mmol/L (22-29) 01/14/25 17:24 Anion Gap 24.5 (5-19) H 01/14/25 17:24 BUN 15 mg/dL (8-23) 01/14/25 17:24 Creatinine 1.4 mg/dL (0.7-1.2) H 01/14/25 17:24 GFR Calculation 51.7 mL/min (90-130) L 01/14/25 17:24 Glucose 132 mg/dL (65-115) H 01/14/25 17:24 Calculated Osmolality 295 mOsm/kg (285-295) 01/14/25 17:24 Calcium 9.8 mg/dL (8.5-10.5) 01/14/25 17:24 Total Bilirubin 0.7 mg/dL (0.15-1.2) 01/14/25 17:24 AST 29 U/L (0-40) 01/14/25 17:24 ALT 21 U/L (0-41) 01/14/25 17:24 Alkaline Phosphatase 126 U/L (40-130) 01/14/25 17:24 Troponin T Baseline 29 ng/L (0-15) H 01/14/25 17:24 Total Protein 7.4 g/dL (6.6-8.7) 01/14/25 17:24 Albumin 4.6 g/dL (3.5-5.2) 01/14/25 17:24 Globulin 2.8 g/dL (1.3-4.6) 01/14/25 17:24 All radiology interpretation(s) finalized by discharge Discharge Plan Discharge Patient Disposition: Admitted As Inpatient Admit Provider: Fco Tolbert Clinical Impression: Femur fracture, right Condition: Stable Coding Level of Care Code ED Nuisance Wildlife Specialist for Chris Dash
--- OUTSIDE RECORDS SUMMARY | 2025-01-14 17:56 | XMS_ITS | Encounter Summary ---
Author Organization [employer] [facility] Address [address] [place] [address] Care Team Providers Care Milk Handler Name Role Phone Ender Aiken DO Primary Care Provider [phone] Encounter Details Date Type Department Care Team (Latest Contact Info) Description 10/26/2002 Outpatient Historical HIS [facility] DIABETES UNCOMPL JUSTIN-TYPE I (CMS/HCC) (Primary Dx); HYPOGLYCEMIA NOS Social History Tobacco Use Types Packs/Day Years Used Date Smoking Tobacco: Never Assessed Sex and Gender Information Value Date Recorded Sex Assigned at Not on file Legal 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 Male 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 Gender Identity Not on file Sexual Orientation Not on file documented as of this encounter Plan of Treatment Not on file documented as of this encounter Visit Diagnoses Diagnosis Type I (juvenile type) diabetes mellitus without mention of complication, not stated as uncontrolled (CMS/HCC)- Primary Type I (juvenile type) diabetes mellitus without mention of complication, not stated as uncontrolled Hypoglycemia, unspecified documented in this encounter Care Teams Milk Handler Relationship Specialty Start Date End Date Ender Aiken DO [address] [place] [address] PCP - General Family Practice 06/16/16 documented as of this encounter
--- OUTSIDE RECORDS SUMMARY | 2025-01-14 17:56 | XMS_ITS | Encounter Summary ---
Author Organization [employer] [facility] Address [address] [place] [address] Care Team Providers Care Corporate Services Manager Name Role Phone Ender Aiken DO Primary Care Provider [phone] Encounter Details Date Type Department Care Team (Latest Contact Info) Description 10/26/2002 Outpatient Historical HIS [facility] Jonathan Patel MD [address] [place], [place] [id number] DIABETES UNCOMPL ADULT-TYPE II (CMS/HCC) (Primary Dx) Social History Tobacco Use Types Packs/Day Years Used Date Smoking Tobacco: Never Assessed Sex and Gender Information Value Date Recorded Sex Assigned at Not on file 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
--- OUTSIDE RECORDS SUMMARY | 2025-01-14 17:56 | XMS_ITS | Encounter Summary ---
Author Organization [employer] [facility] Address [address] [place] [address] Care Team Providers Care Vulnerability Researcher Name Role Phone Ender Aiken DO Primary Care Provider [phone] Encounter Details Date Type Department Care Team (Latest Contact Info) Description 03/29/2002 Outpatient Historical HIS [facility] DIABETES UNCOMPL JUSTIN-TYPE I (CMS/HCC) (Primary Dx) Social History Tobacco Use Types Packs/Day Years Used Date Smoking Tobacco: Never Assessed Sex and Gender Information Value Date Recorded Sex Assigned at Not on file 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 Gender Identity Not on file Sexual Orientation Not on file documented as of this encounter Plan of Treatment Not on file documented as of this encounter Visit Diagnoses Diagnosis Type I (juvenile type) diabetes mellitus without mention of complication, not stated as uncontrolled (CMS/HCC)- Primary Type I (juvenile type) diabetes mellitus without mention of complication, not stated as uncontrolled documented in this encounter Care Teams Vulnerability Researcher Relationship Specialty Start Date End Date Ender Aiken DO [address] [place] [address] PCP - General Family Practice 06/16/16 documented as of this encounter
--- OUTSIDE RECORDS SUMMARY | 2025-01-14 17:56 | XMS_ITS | Clinical Summary ---
Author Organization [employer] Address [address] [place]cos: [place] [address] Care Team Providers Care It Security Consulting Director Name Role Phone Ender Aiken DO Primary Care Provider [phone] Allergies No known active allergies Medications insulin detemir (LEVEMIR FLEXPEN SUBCUT) Inject 30 Units by subcutaneous injection late in the day. 7 Active multivitamin (DAILY-CATERINA) tablet Take 1 Tablet by mouth daily. 7 Active calcium carbonate (TUMS) 200 mg (500 mg) Tablet, Chewable Take 500 mg by mouth 3 times daily with meals. 7 Active vit-iron fumarate-fa (LE ) 28 mg iron- 800 mcg Tablet Take 1 Tablet by mouth daily. 7 Active insulin regular (HUMULIN R,NOVOLIN R) 100 unit/mL vial Inject 12 Units by subcutaneous injection daily with lunch. 7 Active insulin regular (HUMULIN R,NOVOLIN R) 100 unit/mL vial Inject 17 Units by subcutaneous injection daily with breakfast. 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 Gender Identity Not on file Sexual Orientation Not on file Last Filed Vital Signs Vital Sign Reading Time Taken Comments Blood Pressure 136/70 08/13/2023 11:13 AM CDT Pulse 70 08/13/2023 11:13 AM CDT Temperature 36.3 C (97.3 F) 07/11/2016 8:25 AM AIRPLANE PILOT HELPER Respiratory Rate 18 07/11/2016 10:20 AM AIRPLANE PILOT HELPER Oxygen Saturation 98% 08/13/2023 11:13 AM CDT Inhaled Oxygen Concentration - - Weight 65.8 kg (145 lb) 08/13/2023 11:13 AM CDT Height 177.8 cm (5' 10 ) 08/13/2023 11:13 AM CDT Body Mass Index 20.81 08/13/2023 11:13 AM CDT Plan of Treatment Health Maintenance Due Date Last Done Comments DTAP/TDAP/TD VACCINES (1 - Tdap) 12/25/1983 COLORECTAL SCREENING 2009 Colorectal Cancer Screening 2009 FIT-DNA Q 3 years 2009 FIT/FOBT Q 1 year 2009 Flex Sig/CT Colonography Q 5 years 2009 ZOSTER VACCINE (1 of 2) 2014 INFLUENZA VACCINE (#1) 2024 RSV VACCINE (60+ or ) (1 - 1-dose 75+ series) 12/25/2039 HEPATITIS B VACCINES Aged Out No long er eligible based on patient's age to complete this topic Insurance [place]ID [place] Member Subscriber Plan / Payer (Ef fective 2022-Present) Name:Abelino Lawson Relation to Subscriber:Self Name:Abelino Lawson Payer ID:Not on file Group ID:Not on file Type:Medicaid Address: [address] MEDICARE HMO Care Teams It Security Consulting Director Relationship Specialty Start Date End Date Ender Aiken DO [address] [place] [id number] PCP - General Family Practice 06/16/16
--- OUTSIDE RECORDS SUMMARY | 2025-01-14 17:57 | XMS_ITS | Clinical Summary ---
Author Organization [facility] Address [address] [place] [address] Phone Care Team Providers Care [employer] Teacher Name Role Phone Ender Aiken Issa Primary Care Provider [phone] Allergies No known active allergies Medications insulin regular (HUMULIN R,NOVOLIN R) 100 unit/mL vial Inject 17 Units by subcutaneous injection daily with breakfast. Active insulin regular (HUMULIN R,NOVOLIN R) 100 unit/mL vial Inject 12 Units by subcutaneous injection daily with lunch. Active multivitamin (DAILY-CATERINA) tablet Take 1 Tablet by mouth daily. Active vit-iron fumarate-fa (LE ) 28 mg iron- 800 mcg Tablet Take 1 Tablet by mouth daily. Active calcium carbonate (TUMS) 200 mg (500 mg) Tablet, Chewable Take 500 mg by mouth 3 times daily with meals. Active INSULIN DETEMIR (LEVEMIR FLEXPEN SUBCUT) Inject 30 Units by subcutaneous injection late in the day. 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 Gender Identity Not on file Sexual Orientation Not on file Last Filed Vital Signs Vital Sign Reading Time Taken Comments Blood Pressure 108/73 07/11/2016 10:20 AM HEEL BOOM OPERATOR Pulse 69 07/11/2016 10:20 AM HEEL BOOM OPERATOR Temperature 36.3 C (97.3 F) 07/11/2016 8:25 AM HEEL BOOM OPERATOR Respiratory Rate 18 07/11/2016 10:20 AM HEEL BOOM OPERATOR Oxygen Saturation 96% 07/11/2016 10:20 AM HEEL BOOM OPERATOR Inhaled Oxygen Concentration - - Weight 65.8 kg (145 lb) 07/08/2016 11:16 AM HEEL BOOM OPERATOR Height 177.8 cm (5' 10 ) 07/08/2016 11:16 AM HEEL BOOM OPERATOR Body Mass Index 20.81 07/08/2016 11:16 AM HEEL BOOM OPERATOR Plan of Treatment Health Maintenance Due Date [...] to complete this topic Insurance MEDICAID [place]ARE PART [place] AND B Advance Directives For more information, please contact: [phone] * Full Code (Latest Code Status on File) Date Activated Date Inactivated Comments 07/11/2016 8:08 AM 07/11/2016 12:30 PM Care Teams [employer] Teacher Relationship Specialty Start Date End Date Ender Aiken DO [address] [place] [id number] PCP - General Family Practice 06/16/16
[2025-01-14 18:19] LABS: Hematocrit 44.3 % (37-53); Hemoglobin 14.80 g/dL (11.27-16.99); Mean Corpuscular HGB Conc 33.4 g/dL (30-55); Mean Corpuscular Hemoglobin 32.2 pg (27-33); Mean Corpuscular Volume 96.5 fl (82-101); Nucleated Red Blood Cells % 0 %; Platelet Count 331 10^3/cmm (157-399); Red Blood Count 4.59 10^6/uL (3.85-5.65); White Blood Count 20.75 10^3/uL (3.29-11.43)
[2025-01-14] MEDS: fentaNYL 50 mcg/mL INJ 2mL IVP (18:19)
--- NOTE | 2025-01-14 18:21 | XRR_ITS ---
PROCEDURE INFORMATION: Exam: XR Chest Exam date and time: 01/14/2025 6:21 PM Age: 59 years old Clinical indication: Pre-operative exam; Respiratory screening exam; Additional info: Pre op clearance; RT femoral FX TECHNIQUE: Imaging protocol: Radiologic exam of the chest. Views: 1 view. COMPARISON: CR XR chest 1V portable [id number] 11/30/2020 4:50 PM FINDINGS: Lungs: Unremarkable. No consolidation. Pleural spaces: Unremarkable. No pleural effusion. No pneumothorax. Heart/Mediastinum: Unremarkable. No cardiomegaly. Bones/joints: Unremarkable. XR/XR chest 1V portable [id number] IMPRESSION: No acute findings.
[2025-01-14 18:35] LABS: INR 0.90 (0.8-1.2); Partial Thromboplastin Time 25.6 SECONDS (23.9-36.7); Prothrombin Time 12.90 SECONDS (12.1-14.9)
--- NOTE | 2025-01-14 18:36 | ECG_ITS ---
[facility] Test Date: 2025-01-14 Pat Name: Abelino Lawson Department: Room: Gender: Male Ring Sorter: : 1965 Requested By: Thomas Meza Order Number: [id number] Magana MD: Ozzie Matt M.D. Measurements Intervals [place] Rate: 86 P: 69 CT: 173 QRS: 77 QRSD: 103 T: 60 QT: 400 QTc: 480 Interpretive Statements SINUS RHYTHM LEFT ATRIAL ENLARGEMENT [-0.15mV P-WAVE IN V1/V2] Compared to ECG 11/24/2020 14:21:42 Intraventricular conduction delay no longer present T-wave abnormality no longer present Possible ischemia no longer present Electronically Signed On 01-14-2025 22:02:07 CDT by Ozzie Matt M.D. [id number] [id number]
[2025-01-14 18:46] LABS: Alanine Aminotransferase 21 U/L (0-41); Albumin Level 4.6 g/dL (3.5-5.2); Alkaline Phosphatase 126 U/L (40-130); Aspartate Amino Transferase 29 U/L (0-40); Blood Urea Nitrogen 15 mg/dL (8-23); Calcium 9.8 mg/dL (8.5-10.5); Carbon Dioxide 26 mmol/L (22-29); Chloride 94 mmol/L (98-107); Creatinine Clr Calc Pharmacy 46.0794; Globulin 2.8 g/dL (1.3-4.6); Glucose 132 mg/dL (65-115); Osmolality Calculated 295 mOsm/kg (285-295); Sodium 141 mmol/L (136-145); Total Protein 7.4 g/dL (6.6-8.7)
[2025-01-14 18:47] LABS: Anion Gap 24.5 (5-19); Potassium 3.5 mmol/L (3.5-5.1)
[2025-01-14 19:00] VITALS: BP 123/68; PULSE 78; RESP 16; O2SAT 96
--- NOTE | 2025-01-14 19:29 | PM.HP ---
Providers/Chief Complaint Primary Care Provider: Leroy Flores Chief Complaint: right hip pain History of Present Illness Abelino Lawson is a 59 year old male blind with history of diabetes and underweight was on the toilet when the toilet seat shifted and he fell onto his right leg and had immediate pain right proximal femur. X-ray shows proximal femur fracture and Dr. Davenport has been consulted with plans for repair in the morning. Patient can eat diabetic diet until that time. Patient is companied by his sister Keya. They tell me that toilet seat is loose and when he got up the toilet seat shifted he typically grabs the towel bar next but missed that and fell. Patient was standing at the sink holding onto the sink with both hands when Keya arrived. Nurses having trouble getting the Hull in as the patient is on bedrest with femur fracture as indication. Patient states he normally pees fine and does not have trouble getting his urine started. They have tried a larger catheter and a smaller one. Becca nurse going to try with the coud?. 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 Patient reports his blood sugars good now and sister states his A1C is running 7 Medications/Allergies Home Medications ?Medication ?Instructions ?Recorded ?Confirmed ?Last Taken ?Type loratadine 10 mg tablet (Claritin) 10 mg PO DAILY 11/21/20 03/24/23 01/18/21 History multivitamin 1 tab PO DAILY 11/21/20 03/24/23 01/18/21 History psyllium husk (with sugar) 3.4 1 ea PO BID 01/19/21 03/24/23 01/18/21 History gram oral powder packet (Metamucil (with sugar)) Levemir U-100 Insulin 15 unit SUBCUT DAILY@1700 #100 mL 09/18/22 03/24/23 Unknown Rx pen needle, diabetic 31 gauge x #180 ea 01/21/23 03/24/23 Unknown Rx 08/14 (TechLITE Pen Needle) loperamide 2 mg capsule 4 mg (2 x 2 mg) PO BID PRN loose 02/16/23 03/24/23 Unknown Rx stool #60 caps insulin regular human 100 unit/mL 10 unit (0.1 mL) SUBCUT TID #15 mL 03/17/23 03/24/23 Unknown Rx (3 mL) subcutaneous pen (Novolin R FlexPen) blood sugar diagnostic (Blood #50 ea 03/26/23 Unknown Rx Glucose Test strips) blood-glucose meter #1 ea 03/26/23 Unknown Rx lancets (Accu-Chek Softclix #100 ea 03/26/23 Unknown Rx Lancets) Allergies Allergy/AdvReac Type Severity Reaction Status Date / Time No Known Allergies Allergy Verified 03/24/23 14:39 PFSH Acute PFSH: Medical History (Updated 01/14/25 @ 19:59 by Fco Tolbert MD) Type 1 diabetes mellitus Diastolic dysfunction, left ventricle Sepsis due to Gram-negative organism with septic shock Diabetes mellitus Acute renal failure Blindness of both eyes SBO (small bowel obstruction) GERD (gastroesophageal reflux disease) Status post chemoradiation Rectosigmoid cancer Surgical History H/O ileostomy S/P exploratory laparotomy (11/24/20) Small bowel resection, partial colectomy History of reversal of ileostomy History of low anterior resection of rectum Status post colonoscopy (11/23/20) Family History Family/Other CAD (coronary artery disease) Diabetes Denies family history of Stroke Social History (Updated 01/14/25 @ 19:55 by Fco Tolbert MD) Quit status (tobacco/nicotine): not considering quitting Alcohol intake: never Substance/Drug Use: never Additional social history: Chews tobacco 1 can a day patient disabled after lost his vision previously worked in a [employer]. He wants full CODE STATUS. He wants to go home to care under his Sister Keya after surgery. This was discussed on 01/14/2025 with myself Fco Tolbert MD, Keya and patient Vitals/I&O/Wt Last Vital Signs Temp 98.0 F 01/14/25 17:48 Pulse 78 01/14/25 19:00 Resp 16 01/14/25 19:00 BP 123/68 08/16/25 19:00 Pulse Ox 96 01/14/25 19:00 O2 Del Method Room Air 01/14/25 19:00 01/14/25 01/14/25 01/14/25 06:59 14:59 22:59 Intake Total 0 / 0 Balance 0 / 0 Weight last 48 hrs Weight 58.06 kg Physical Exam Narrative: General Well-developed well-nourished thin male in no acute cardiopulmonary distress. CV regular rate and rhythm Lungs clear to auscultation bilaterally Abdomen positive bowel tones soft nontender Calves no edema in the left 1+ on the right he has 2+ to 3 swelling right thigh. Skin is warm and dry Mentation alert and oriented x 3 but he is a poor historian. Neuro eyes are whitened by lack and not seeing. Gross sensation intact to lower extremities he is able to flex and extend his ankles bilaterally Data 01/14/25 17:24 01/14/25 17:24 A&P Assessment and plan 1. Femur fracture, right: Patient was started on heparin 5000 units twice a day first dose now skip tomorrow's dose. Evangelist wrap to the femur to decrease swelling pneumatic compression cuffs to both legs 2. Type 1 diabetes mellitus: Resume home Lantus and a low scale sliding scale. Will need D5 if blood sugars are low 3. 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 Acute kidney injury: Hydrate with NS and 20 mg KCl per liter PDMP PDMP Reviewed: Not Reviewed Attestations Medical Necessity Statement*: Patient admitted the hospital require greater than 2 midnights for right femur fracture repair and therapy Coding Level of Care Code 99637 Diagnoses Femur fracture, right S72.91XA Type 1 diabetes mellitus E10.9 Blindness of both eyes H54.3 Acute kidney injury N17.9 Time Spent (min) 55
[2025-01-14 20:00] VITALS: PULSE 96; RESP 16; O2SAT 98
[2025-01-14 20:17] LABS: Troponin(5th) Baseline 29 ng/L (0-15)
[2025-01-14] MEDS: morphine 4 mg/mL SDV 1 mL IVP (20:41)
[2025-01-14 21:02] LABS: Troponin 5 2HR 39.26 ng/L (0-15)
[2025-01-14 21:12] LABS: Troponin 5 2HR Delta 10.26 ABS# (0-10)
[2025-01-14 21:19] VITALS: BP 173/87; PULSE 99; RESP 18; TEMP 37.3; O2SAT 97
--- NOTE | 2025-01-14 21:26 | ECG_ITS ---
[facility] Test Date: 2025-01-14 Pat Name: Abelino Lawson Department: Room: 275 Gender: Male Supervisor [employer]: : 1965 Requested By: Thomas Meza Order Number: [id number] Magana MD: Ozzie Matt M.D. Measurements Intervals [place] Rate: 94 P: 63 [place]: 152 QRS: 83 QRSD: 92 T: 67 QT: 290 QTc: 363 Interpretive Statements SINUS RHYTHM POSSIBLE LEFT ATRIAL ENLARGEMENT [-0.1mV P-WAVE IN V1/V2] Compared to ECG 01/14/2025 18:36:21 NO CHANGE Electronically Signed On 01-15-2025 17:58:23 CDT by Ozzie Matt M.D. [email or web address] [id number]
[2025-01-14] MEDS: sodium chlor 0.9% + KCl 20 mEq 20 MEQ/1,000 ML BAG 150 MEQ IV (22:04)
[2025-01-14] MEDS: heparin 5,000 unit/mL INJ 1 mL 5000 UNIT SUBCUT (22:09)
[2025-01-15] VITALS (24 sets, daily range): BP systolic 91–172; BP diastolic 39–86; PULSE 68–96; RESP 15–18; TEMP 36.3–37; O2SAT 96–100
[2025-01-15] MEDS: morphine 4 mg/mL SDV 1 mL IVP ×3 (01:27→23:09)
--- NOTE | 2025-01-15 01:45 | ECG_ITS ---
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 Measurements Intervals [place] Rate: 80 P: 64 [place]: 178 QRS: 69 QRSD: 88 T: 59 QT: 317 QTc: 366 Interpretive Statements SINUS RHYTHM LEFT ATRIAL ENLARGEMENT [-0.15mV P-WAVE IN V1/V2] Compared to ECG 01/14/2025 22:27:47 no change Electronically Signed On 01-15-2025 18:01:46 CDT by Ozzie Matt M.D. [email or web address] [id number]
[2025-01-15 02:11] LABS: Troponin 5 6HR 39.78 ng/L (0-15); Troponin 5 6HR Delta 10.78 ng/L (0-12)
[2025-01-15] MEDS: sodium chlor 0.9% + KCl 20 mEq 20 MEQ/1,000 ML BAG 150 MEQ IV (04:37)
--- NOTE | 2025-01-15 07:42 | ANES.PREANE2 ---
Pre-Anesthetic Assessment Height/Weight: Height 1.78 m Weight 60.237 kg Temp Pulse Resp BP Pulse Ox O2 Del Method 98.2 F 68 17 168/86 98 Room Air 01/15/25 04:00 01/15/25 05:58 01/15/25 05:47 01/15/25 04:00 01/15/25 04:00 01/15/25 00:00 Operation Date: 01/15/25 08:30 Proposed Procedures p Right Hip Trochanteric Femoral Nail(Right) - Marc Davenport DO Familial anesthetic complications: None Was Beta Delfino taken within 24 hours: N/A Was Clonidine taken within 24 hours: N/A Last intake: 2099 Social Tobacco (Chews) and No alcohol Exam alert, oriented x 3, clear to auscultation bilaterally and regular rate & rhythm Airway Submandibular: within normal limits Cervical ROM: within normal limits Mallampati: Class II Dentition: full History/ROS No significant history except as noted and No significant complaints Pulmonary None reported CV/HEM Murmur CONCLUSIONS 1-Normal left ventricular cavity size. Moderate left ventricular hypertrophy of concentric type. Left ventricular ejection fraction is estimated at 79 %. Grade I/IV diastolic dysfunction (abnormal relaxation filling pattern), normal to mildly elevated filling pressures. There appeared to be mid cavitary obstruction noted in the systole without GRISELDA. 2-Severe aortic valve calcification. No aortic valve stenosis. No aortic valve regurgitation. There appeared to be thickening of aortic valve cusp could be due to calcification or old healed vegetation, clinical correlation advised. No regurgitation noted. 3-Structurally normal mitral valve without significant stenosis or prolapse. There is no mitral regurgitation. 4-There is no pericardial effusion. 5-Pulmonary artery systolic pressure is within normal limits. 6-Right atrial pressure is around 5 mm of mercury. 7-There are no prior echocardiogram studies to compare. None reported Hepatic None reported GI Hx food bolus with dilation Metabolic Diabetes Mellitus Musc/skel Lower Back Pain and Osteoarthritis/DJD Neuropsych Seizure (As a teenager, none since) Anesthetic Plan ASA status: 3 Anesthesia: Anesthesia Evaluation and General Other: Blind in both eyes Risk of > 500 ml blood loss (7ml/kg in children): Yes, adequate IV access and fluids planned Medications/Allergies Home Medications ?Medication ?Instructions ?Recorded ?Confirmed ?Last Taken ?Type loratadine 10 mg tablet (Claritin) 10 mg PO DAILY 11/21/20 03/24/23 01/18/21 History multivitamin 1 tab PO DAILY 11/21/20 03/24/23 01/18/21 History psyllium husk (with sugar) 3.4 1 ea PO BID 01/19/21 03/24/23 01/18/21 History gram oral powder packet (Metamucil (with sugar)) Levemir U-100 Insulin 15 unit SUBCUT DAILY@1700 #100 mL 09/18/22 03/24/23 Unknown Rx pen needle, diabetic 31 gauge x #180 ea 01/21/23 03/24/23 Unknown Rx 3/16 (TechLITE Pen Needle) loperamide 2 mg capsule 4 mg (2 x 2 mg) PO BID PRN loose 02/16/23 03/24/23 Unknown Rx stool #60 caps insulin regular human 100 unit/mL 10 unit (0.1 mL) SUBCUT TID #15 mL 03/17/23 03/24/23 Unknown Rx (3 mL) subcutaneous pen (Novolin R FlexPen) blood sugar diagnostic (Blood #50 ea 03/26/23 Unknown Rx Glucose Test strips) blood-glucose meter #1 ea 03/26/23 Unknown Rx lancets (Accu-Chek Softclix #100 ea 03/26/23 Unknown Rx Lancets) Allergies Allergy/AdvReac Type Severity Reaction Status Date / Time No Known Allergies Allergy Verified 03/24/23 14:39 Current Medications Generic Name Dose Route Start Last Admin Trade Name Freq PRN Reason Stop Dose Admin Potassium Chloride/Sodium Chloride 20 meq in 1,000 mls @ 150 mls/hr 01/14/25 19:35 01/15/25 04:37 Sodium Chlor 0.9% + Kcl 20 Meq IV 01/15/25 08:54 150 mls/hr .[id number] REJI Administration Insulin Human Lispro 0 unit 01/14/25 21:19 01/14/25 22:10 Insulin Lispro 100 Unit/1 Ml SUBCUT 2 unit WM&BEDTIME REJI Administration Protocol Morphine Sulfate 4 mg 01/15/25 01:05 01/15/25 05:47 Morphine 4 Mg/Ml Sdv 1 Ml IVP 4 mg Q4H PRN Administration SEVERE PAIN PFSH Anesthesia Medical History (Updated 01/14/25 @ 19:59 by Fco Tolbert MD) Type 1 diabetes mellitus Diastolic dysfunction, left ventricle Sepsis due to Gram-negative organism with septic shock Diabetes mellitus Acute renal failure Blindness of both eyes SBO (small bowel obstruction) GERD (gastroesophageal reflux disease) Status post chemoradiation Rectosigmoid cancer Surgical History H/O ileostomy S/P exploratory laparotomy (11/24/20) Small bowel resection, partial colectomy History of reversal of ileostomy History of low anterior resection of rectum Status post colonoscopy (11/23/20) Family History Family/Other CAD (coronary artery disease) Diabetes Denies family history of Stroke Social History (Updated 01/14/25 @ 19:55 by Fco Tolbert MD) Quit status (tobacco/nicotine): not considering quitting Alcohol intake: never Substance/Drug Use: never Additional social history: Chews tobacco 1 can a day patient disabled after lost his vision previously worked in a [employer]. He wants full CODE STATUS. He wants to go home to care under his Sister Keya after surgery. This was discussed on 01/14/2025 with myself Fco Tolbert MD, Keya and patient Data Anesthesia 01/14/25 17:24 01/14/25 17:24 Short CBC 01/14/25 Range/Units 17:24 WBC 20.75 H (3.29-11.43) 10^3/uL Hgb 14.80 (11.27-16.99) g/dL Hct 44.3 (37-53) % MCV 96.5 (82-101) fl Plt Count 331 (157-399) 10^3/cmm Neut % (Auto) 89.6 % Neut # (Auto) 18.59 H (1.8-7.7) 10^3/uL BMP 01/14/25 17:24 Sodium 141 Potassium 3.5 Chloride 94 L Carbon Dioxide 26 BUN 15 Creatinine 1.4 H Glucose 132 H Calcium 9.8 Cardiac Enzymes 01/14/25 01/14/25 01/15/25 Range/Units 17:24 20:20 01:22 Troponin T Baseline 29 H (0-15) ng/L Troponin T 120 Minute 39.26 H (0-15) ng/L Delta Troponin T 10.26 H* (0-10) ABS# Troponin T Hi Sens 6Hr 39.78 H (0-15) ng/L Troponin T Hi Sens 6Hr Delta 10.78 (0-12) ng/L Liver Function 01/14/25 Range/Units 17:24 Total Bilirubin 0.7 (0.15-1.2) mg/dL AST 29 (0-40) U/L ALT 21 (0-41) U/L Alkaline Phosphatase 126 (40-130) U/L Albumin 4.6 (3.5-5.2) g/dL Coags 01/14/25 17:24 PT 12.90 INR 0.90 APTT 25.6 Cardiac Studies: Echocardiogram 12/03/20
--- NOTE | 2025-01-15 07:46 | P.CONIM_ITS ---
Providers/Reason For Consult 2 Consulting Physician/Specialty*: Marc Davenport DO/orthopedic surgery Reason for Consult*: Right displaced hip intertrochanteric femur fracture Requesting Physician: Dr. Jerez?ER physician Attending Physician: Josh Jones MD Primary Care Provider: Leroy Flores History of Present Illness History of Present Illness Abelino Lawson is a 59 year old male who sustained an fall while sitting on toilet seat the toilet seat shifted and he fell onto his right leg/hip he is unable to bear weight was brought to the emergency department found to have a right hip intertrochanteric femur fracture. Internal medicine is admitted patient orthopedics is consulted for evaluation and treatment recommendations. Patient is not on any anticoagulants at baseline he has a diabetic. Denies any other issues or injuries elsewhere. 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 Review of Systems 2 General: Reports: 10 or more systems reviewed and unremarkable except in HPI and below Medications/Allergies Home Medications ?Medication ?Instructions ?Recorded ?Confirmed ?Last Taken ?Type loratadine 10 mg tablet (Claritin) 10 mg PO DAILY 10/3103/24/23 01/18/21 History multivitamin 1 tab PO DAILY 11/21/2003/0201/18/21 History psyllium husk (with sugar) 3.4 1 ea PO BID 01/19/2101/18/21 History gram oral powder packet (Metamucil (with sugar)) Levemir U-100 Insulin 15 unit SUBCUT DAILY@1700 #1 00 mL 09/18/22 03/24/23 Unknown Rx pen needle, diabetic 31 gauge x #180 ea 01/21/2303/24 Unknown Rx 3/16 (TechLITE Pen Needle) loperamide 2 mg capsule 4 mg (2 x 2 mg) PO BID PRN l oose 02/16/23 03/24/23 Unknown Rx stool #60 caps insulin regular human 100 unit/mL 10 unit (0.1 mL) SUB CUT TID #15 mL 03/17/23 03/24/23 Unknown Rx (3 mL) subcutaneous pen (Novolin R FlexPen) blood sugar diagnostic (Blood #50 ea 03/26/23 Unknown Rx Glucose Test strips) blood-glucose meter #1 ea 03/26/23 Unknown Rx lancets (Accu-Chek Softclix #100 ea 03/26/23 Unknown Rx Lancets) Allergies Allergy/AdvReac Type Severity Reaction Status Date / Time No Known Allergies Allergy Verified 03/24/23 14:39 Current Medications Generic Name Dose Route Start Last Admin Trade Name Freq PRN Reason Stop Dose Admin Potassium Chloride/Sodium Chloride 20 meq in 1,000 mls @ 150 mls/hr 01/14/25 19:35 01/15/25 04:37 Sodium Chlor 0.9% + Kcl 20 Meq IV 01/15/25 08:54 150 mls/hr .Q6H40M REJI Administration Insulin Human Lispro 0 unit 01/14/25 21:19 01/14/25 22:10 Insulin Lispro 100 Unit/1 Ml SUBCUT 2 unit WM&BEDTIME REJI Administration Protocol Morphine Sulfate 4 mg 01/15/25 01:05 01/15/25 05:47 Morphine 4 Mg/Ml Sdv 1 Ml IVP 4 mg Q4H PRN Administration SEVERE PAIN PFSH Acute 2 PFSH: Medical History (Updated 01/15/25 @ 08:03 by Marc Davenport DO) Type 1 diabetes mellitus Diastolic dysfunction, left ventricle Sepsis due to Gram-negative organism with septic shock Diabetes mellitus Acute renal failure Blindness of both eyes SBO (small bowel obstruction) GERD (gastroesophageal reflux disease) Status post chemoradiation Rectosigmoid cancer Surgical History H/O ileostomy S/P exploratory laparotomy (11/24/20) Small bowel resection, partial colectomy History of reversal of ileostomy History of low anterior resection of rectum Status post colonoscopy (11/23/20) Family History Family/Other CAD (coronary artery disease) Diabetes Denies family history of Stroke Social History (Updated 01/14/25 @ 19:55 by Fco Tolbert MD) Quit status (tobacco/nicotine): not considering quitting Alcohol intake: never Substance/Drug Use: never Additional social history: Chews tobacco 1 can a day patient disabled after lost his vision previously worked in a [employer]. He wants full CODE STATUS. He wants to go home to care under his Sister Keya after surgery. This was discussed on 01/14/2025 with myself Fco Tolbert MD, [place] and patient Vitals/I&O/Wt Last Vital Signs Temp 98.2 F 01/15/25 04:00 Pulse 68 01/15/25 05:58 Resp 17 01/15/25 05:47 BP 168/86 01/15/25 04:00 Pulse Ox 98 01/15/25 04:00 O2 Del Method Room Air 01/15/25 00:00 01/14/25 01/15/25 01/15/25 22:59 06:59 14:59 Intake Total 700 / 700 1900 / 2600 Output Total 400 / 400 1400 / 1800 Balance 300 / 300 500 / 800 Weight last 48 hrs Weight 132 lb 12.8 oz Weight 125 lb 8 oz Weight 128 lb Physical Exam 2 Narrative: Patient is able to to follow commands and perform a standard?examination.?? Examination right lower extremity: Examination of the right lower extremity demonstrates patient has tenderness palpation of the right?hip?as well as the right lower extremity is shortened and externally rotated pt has positive logroll on?examination unable to perform Stinchfield's secondary to pain and discomfort.? Patient is able to wiggle toes plantarflex and dorsiflex ankle sensations intact to light touch distally.? Distal pulses are palpable right lower extremity is warm and well-perfused.? Mild swelling noted about the right?hip.?? Secondary survey?examination unremarkable For any acute pathology to the bilateral upper extremities or contralateral lower extremity.? Patient has slight tenderness to palpation about the left wrist. Patient has full range of motion as well as able to wiggle fingers and flex and extend the wrist. Rest of the bilateral upper extremity joints unremarkable with no noticeable deformities. ?gross motor and sensory is intact to the bilateral upper extremities.? Contralateral lower extremity has tenderness to the?hip?knee or ankle with no appreciable deformities and is able to plantarflex and dorsiflex ankle sensations intact to light touch distally as well as wiggle toes.? Distal pulses palpable.? Negative pelvic compression test, no acute tenderness palpation of the spine. Urinary Catheter Management: Coude: Cath Placed During This Visit: yes Reason for Continuing Indwelling Catheter: Required Immobilization for Trauma or Surgery or Anesthesia Urinary Catheter Date of Insertion: 01/14/25 Urinary Catheter Time of Insertion: 20:35 Data 01/14/25 17:24 01/14/25 17:24 Xray Ortho: Radiologist's impression: Ordering Provider/Ordering MD: Thomas Meza MD Date of Service: 01/14/25 Procedure(s): XR pelvis 1-2V* [id number] Accession Number(s): [id number] Report Number: [id number] PROCEDURE INFORMATION: Exam: XR Pelvis Exam date and time: 01/14/2025 6:04 PM Age: 59 years old Clinical indication: Hip pain; Right hip; Additional info: Trauma TECHNIQUE: Imaging protocol: Radiologic exam of the pelvis. Views: 1 or 2 view. COMPARISON: CT abdomen pelvis w con* [id number] 12/03/2020 2:39 PM FINDINGS: Bones/joints: There is demonstration a impacted intertrochanteric fracture of the right femur present. There is mild degree of narrowing of the hip joint spaces degenerative related Soft tissues: Unremarkable. XR/XR pelvis 1-2V* [id number] IMPRESSION: Acute intertrochanteric fracture of the right femur. Ordering Provider/Ordering MD: Thomas Meza MD Date of Service: 01/14/25 Procedure(s): XR femur RT min 2V* [id number] Accession Number(s): [id number] Report Number: [id number] PROCEDURE INFORMATION: Exam: XR Right Femur Exam date and time: 01/14/2025 6:04 PM Age: 59 years old Clinical indication: Pain; Hip; Right; Additional info: Trauma, pain TECHNIQUE: Imaging protocol: Radiologic exam of the right femur. Views: 2 views. COMPARISON: CT abdomen pelvis w con* [id number] 12/03/2020 2:39 PM FINDINGS: Bones/joints: The slightly impacted comminuted intertrochanteric fracture right femur present with varus angulation Soft tissues: Unremarkable. XR/XR femur RT min 2V* [id number] IMPRESSION: Acute intertrochanteric fracture of the right femur A&P Assessment and plan 1. Intertrochanteric fracture of right femur: Plan: Orthopedics consulted Hospitalist admitted patient is primary Imaging reviewed?displaced right intertrochanteric femur fracture Labs reviewed Pain control Nonweightbearing right lower extremity N.p.o. at midnight Hold anticoagulation Plan?to add on for surgery today for a right?hip?trochanteric femur nail MDM: Patient sedated 59-year-old male who sustained a fall and has a displaced right?hip?intertrochanteric femur fracture.? Patient was admitted by hospitalist and medically optimized he is ready to proceed with getting this fixed. At this point in time we reviewed his x-rays as well as talked about his treatment options here moving forward as far as nonoperative and operative invention. Point in time he understands and agrees to proceed with right?hip?trochanteric femur nail.? We discussed the ins and outs and the risk the benefits complication alternatives with surgical nonsurgical treatment options.? Risk of surgery include but not limited to make it better make it worse, injury to nerves vessels or tendons, blood clot, postop anemia requiring transfusions, persistent pain decreased mobility,?hip?failure of hardware.? Understanding risk of surgery patient? understands and agrees with current?plan.? All questions have been answered at this time.? Through shared decision-making patient elects to proceed with surgical intervention for a right?hip?trochanteric femur nail.? Benefits of treatment we talked at this time would be for early mobilization as well as pain control.? Understanding this elects proceed with surgical intervention tomorrow all questions answered at this time.? We signed the consent with patient's POA which is his Sister Keya today in the preoperative holding area. PDMP PDMP Reviewed: Not Reviewed Coding Level of Care Code Acute Code for [facility] Fwd Diagnoses Intertrochanteric fracture of right femur S72.141A Time Spent (min) 45
--- NOTE | 2025-01-15 08:00 | XR_ITS ---
WS: [id number] Right femur and thigh, C-arm fluoroscopy views, 01/15/2025 Clinical Data: RT LONG TFN; OR PICS Comparison: Right thigh and femur, 01/14/2025 Findings: Dr. Davenport performed internal fixation of a right intertrochanteric subtrochanteric fracture. XR/XR femur RT min 2V* [id number] Impression: Internal fixation of right intertrochanteric subtrochanteric fracture.
--- NOTE | 2025-01-15 08:02 | PC.NURSE ---
Patient taken to surgery at 0711
[2025-01-15] MEDS: ceFAZolin 2,000 MG in sodium chloride 0.9% (plus) 50 ML 100 MG IV ×3 (08:06→23:10)
[2025-01-15] MEDS: tranexamic acid 1,000 mg/10mL SDV 1000 MG IV (08:30)
[2025-01-15] MEDS: acetaminophen 1,000 MG/100 ML PIGGYBACK 400 MG IV (08:31)
--- NOTE | 2025-01-15 08:42 | ANES.PREANE2 ---
Pre-Anesthetic Assessment Height/Weight: Height 1.78 m Weight 60.237 kg Temp Pulse Resp BP Pulse Ox O2 Del Method 98.2 F 82 18 168/86 98 Room Air 01/15/25 08:07 01/15/25 08:07 01/15/25 08:07 01/15/25 08:07 01/15/25 04:00 01/15/25 00:00 Operation Date: 01/15/25 08:30 Proposed Procedures p Right Hip Trochanteric Femoral Nail(Right) - Marc Davenport DO Familial anesthetic complications: None Was Beta Delfino taken within 24 hours: N/A Was Clonidine taken within 24 hours: N/A Last intake: 2099 Social Tobacco (Chews) and No alcohol Exam alert, oriented x 3, clear to auscultation bilaterally and regular rate & rhythm Airway Submandibular: within normal limits Cervical ROM: within normal limits Mallampati: Class II Dentition: full History/ROS No significant history except as noted and No significant complaints Pulmonary None reported CV/HEM Murmur CONCLUSIONS 1-Normal left ventricular cavity size. Moderate left ventricular hypertrophy of concentric type. Left ventricular ejection fraction is estimated at 79 %. Grade I/IV diastolic dysfunction (abnormal relaxation filling pattern), normal to mildly elevated filling pressures. There appeared to be mid cavitary obstruction noted in the systole without GRISELDA. 2-Severe aortic valve calcification. No aortic valve stenosis. No aortic valve regurgitation. There appeared to be thickening of aortic valve cusp could be due to calcification or old healed vegetation, clinical correlation advised. No regurgitation noted. 3-Structurally normal mitral valve without significant stenosis or prolapse. There is no mitral regurgitation. 4-There is no pericardial effusion. 5-Pulmonary artery systolic pressure is within normal limits. 6-Right atrial pressure is around 5 mm of mercury. 7-There are no prior echocardiogram studies to compare. None reported Hepatic None reported GI Hx food bolus with dilation Metabolic Diabetes Mellitus Musc/skel Lower Back Pain and Osteoarthritis/DJD Neuropsych Seizure (As a teenager, none since) Anesthetic Plan ASA status: 3 Anesthesia: Anesthesia Evaluation and General Other: Blind in both eyes Risk of > 500 ml blood loss (7ml/kg in children): Yes, adequate IV access and fluids planned Medications/Allergies Home Medications ?Medication ?Instructions ?Recorded ?Confirmed ?Last Taken ?Type loratadine 10 mg tablet (Claritin) 10 mg PO DAILY 11/21/20 03/24/23 01/18/21 History multivitamin 1 tab PO DAILY 11/21/20 03/24/23 01/18/21 History psyllium husk (with sugar) 3.4 1 ea PO BID 01/19/21 03/24/23 01/18/21 History gram oral powder packet (Metamucil (with sugar)) Levemir U-100 Insulin 15 unit SUBCUT DAILY@1700 #100 mL 09/18/22 03/24/23 Unknown Rx pen needle, diabetic 31 gauge x #180 ea 01/21/23 03/24/23 Unknown Rx 3/16 (TechLITE Pen Needle) loperamide 2 mg capsule 4 mg (2 x 2 mg) PO BID PRN loose 02/16/23 03/24/23 Unknown Rx stool #60 caps insulin regular human 100 unit/mL 10 unit (0.1 mL) SUBCUT TID #15 mL 03/17/23 03/24/23 Unknown Rx (3 mL) subcutaneous pen (Novolin R FlexPen) blood sugar diagnostic (Blood #50 ea 03/26/23 Unknown Rx Glucose Test strips) blood-glucose meter #1 ea 03/26/23 Unknown Rx lancets (Accu-Chek Softclix #100 ea 03/26/23 Unknown Rx Lancets) Allergies Allergy/AdvReac Type Severity Reaction Status Date / Time No Known Allergies Allergy Verified 03/24/23 14:39 Current Medications Generic Name Dose Route Start Last Admin Trade Name Freq PRN Reason Stop Dose Admin Potassium Chloride/Sodium Chloride 20 meq in 1,000 mls @ 150 mls/hr 01/14/25 19:35 01/15/25 04:37 Sodium Chlor 0.9% + Kcl 20 Meq IV 150 mls/hr On Hold: 01/15/25 08:06 .Q6H40M [facility] Administration Comment: Order held by Process Transfer Insulin Human Lispro 0 unit 01/14/25 21:19 01/15/25 08:01 Insulin Lispro 100 Unit/1 Ml SUBCUT Not Given On Hold: 01/15/25 08:06 WM&BEDTIME REJI Comment: Order held by Process Protocol Transfer Loratadine 10 mg 01/15/25 09:00 01/15/25 08:02 Loratadine 10 Mg Tablet PO Not Given DAILY [facility] Morphine Sulfate 4 mg 01/15/25 01:05 01/15/25 05:47 Morphine 4 Mg/Ml Sdv 1 Ml IVP 4 mg On Hold: 01/15/25 08:06 Q4H PRN Administration Comment: Order held by Process SEVERE PAIN Transfer Multivitamins Therapeutic 1 tab 01/15/25 09:00 01/15/25 08:02 Multivitamin Therapeutic Tablet PO Not Given DAILY REJI Psyllium Hydrophilic Mucilloid 1 packet 01/15/25 09:00 01/15/25 08:02 Psyllium Powder Pkt PO Not Given BID REJI PFSH Anesthesia Medical History (Updated 01/15/25 @ 08:03 by Marc Davenport DO) Type 1 diabetes mellitus Diastolic dysfunction, left ventricle Sepsis due to Gram-negative organism with septic shock Diabetes mellitus Acute renal failure Blindness of both eyes SBO (small bowel obstruction) GERD (gastroesophageal reflux disease) Status post chemoradiation Rectosigmoid cancer Surgical History H/O ileostomy S/P exploratory laparotomy (11/24/20) Small bowel resection, partial colectomy History of reversal of ileostomy History of low anterior resection of rectum Status post colonoscopy (11/23/20) Family History Family/Other CAD (coronary artery disease) Diabetes Denies family history of Stroke Social History (Updated 01/14/25 @ 19:55 by Fco Tolbert MD) Quit status (tobacco/nicotine): not considering quitting Alcohol intake: never Substance/Drug Use: never Additional social history: Chews tobacco 1 can a day patient disabled after lost his vision previously worked in a [employer]. He wants full CODE STATUS. He wants to go home to care under his Sister Keya after surgery. This was discussed on 01/14/2025 with myself Fco Tolbert MD, [place] and patient Data Anesthesia 01/14/25 17:24 01/14/25 17:24 Short CBC 01/14/25 Range/Units 17:24 WBC 20.75 H (3.29-11.43) 10^3/uL Hgb 14.80 (11.27-16.99) g/dL Hct 44.3 (37-53) % MCV 96.5 (82-101) fl Plt Count 331 (157-399) 10^3/cmm Neut % (Auto) 89.6 % Neut # (Auto) 18.59 H (1.8-7.7) 10^3/uL BMP 01/14/25 17:24 Sodium 141 Potassium 3.5 Chloride 94 L Carbon Dioxide 26 BUN 15 Creatinine 1.4 H Glucose 132 H Calcium 9.8 Cardiac Enzymes 01/14/25 01/14/25 01/15/25 Range/Units 17:24 20:20 01:22 Troponin T Baseline 29 H (0-15) ng/L Troponin T 120 Minute 39.26 H (0-15) ng/L Delta Troponin T 10.26 H* (0-10) ABS# Troponin T Hi Sens 6Hr 39.78 H (0-15) ng/L Troponin T Hi Sens 6Hr Delta 10.78 (0-12) ng/L Liver Function 01/14/25 Range/Units 17:24 Total Bilirubin 0.7 (0.15-1.2) mg/dL AST 29 (0-40) U/L ALT 21 (0-41) U/L Alkaline Phosphatase 126 (40-130) U/L Albumin 4.6 (3.5-5.2) g/dL Coags 01/14/25 17:24 PT 12.90 INR 0.90 APTT 25.6 Cardiac Studies: Echocardiogram 12/03/20
--- NOTE | 2025-01-15 09:26 | W.PM.BPON ---
Date of Procedure: 01/15/2025 Surgeon: Marc Davenport DO Headwaiter/Headwaitress(s): Micky Davenport PA-C Procedure(s) performed: Right hip trochanteric femur nail?long Findings of the procedure(s): Patient underwent procedure as planned without issues or complications Estimated blood loss: 100 mL Specimen(s) removed: None Post-operative diagnosis: Right hip intertrochanteric femur fracture with subtrochanteric extension
--- NOTE | 2025-01-15 09:28 | P.OP_ITS ---
Operative Report Date of procedure: January 15, 2025 Surgeon: Marc Davenport DO Assistant Associate Professor: Micky Davenport PA-C: PA was necessary for assistance in this case with leg positioning, assistance with reduction as well as assistance in implantation wound closure and dressing application. Procedure: Preoperative diagnosis: Right displaced intertrochanteric femur fracture with subtrochanteric extension Post-op diagnosis: Same Procedure done: ?Right intertrochanteric with subtrochanteric extension femur fracture ORIF with cephalomedullary nail Implants: [place] gamma nail?long?11 mm x 380 mm x 125 degree Lag screw 10.5 mm x 100 mm Distal locking screw 5 mm x 45and 50 mm Surgeon: Marc Davenport DO Estimated blood loss: 100 mL IV fluids: 550mL Urine output: 350 cc Complications: See operative report Findings: See operative report narrative Condition: stable Disposition: Floor Brief History: Patient sustained a fall and was found to have a Right intertrochanteric hip fx. Pt has been unable to bear weight, Right hip/lower extremity shortened and externally rotated.? At this point time Pt was admitted by the hospitalist team and orthopedics was consulted.? Refer to consult note for detailed HPI.? We talked about treatment options as far as nonoperative and operative intervention. Recommend Right hip?trochanteric femur nail.? At this point time patient and family would like to pursue surgical intervention for benefits of pain control and earlier mobilization.? ?Patient understands the ins and outs of procedure, the risk benefits complication alternatives of surgical nonsurgical treatment options.? Understanding risk of surgery pt and POA who is his sister Keya agrees to proceed with surgical intervention all questions answered.? Con sent obtained in the preoperative holding area with POA. Procedure: Patient seen evaluated in the preoperative holding area.? Consent was obtained.? Correct extremity was then marked.? Once cleared by anesthesia and the hospitalist team patient was taken back to the operative suite.? Patient underwent anesthesia per the anesthesia department.? Once appropriately anesthetized patient was placed on a fracture [place] table.? Patient was appropriately secured to the bed.? All bony prominences were well-padded.? At this point time patient received appropriate preoperative antibiotics.? Final timeout was performed.? Prior to beginning surgery a standard closed reduction maneuver was placed on the [place] table and large C-arm was brought in.? After performing a closed reduction maneuver there was able to achieve satisfactory reduction of Right intertrochanteric femur fracture.? Fracture site did? extend into the subtrochanteric region as result plan was for a?Long?nail.? ?This point time the Right lower extremity was then prepped and draped in standard orthopedic fashion. A standard?longitudinal incision was made just proximal to the greater?trochanter roughly 4 cm in length sharp scalpel vision was made through skin and subcutaneous tissue.? I then utilized a blunt Perez to split? fascia and mobilized directly down to the greater?trochanter.? I then inserted my starting guidewire which was placed appropriate starting position the tip of the greater?trochanter.? This was advanced in AP and lateral films to be in center center position and advanced to the level lesser?trochanter.? This was confirmed to be in center center position on AP and lateral imaging.? Once this was done I then introduced my opening reamer which was then subsequently guide pin removed.? Next a?long?ball-tipped guidewire was then placed in center center position distally right at the superior pole the patella.? I then took a measurement which was 380 mm for length of the?long?nail screw.? The fracture reduction was maintained during reaming and I subsequently utilized flexible reamers and reamed sequentially up to a size 13 mm and elected for a 11 mm nail.? I selected a 11 mm x 380 mm x 125 degree. At this point time the nail was then loaded onto the [place] gamma?trochanteric nail guide.? This was placed within the canal and confirmed with XR and the setscrew was then gently placed not locked.? The nail was then impacted to appropriate depth .? X-rays were taken confirming appropriate positioning of the nail distally and reduction was maintained.? ?At this point time I then inserted my lag screw guide and subsequently made a small incision through skin and subcutaneous tissue splitting the IT band?longitudinally and the guide was placed directly onto bone.? Next I then subsequently placed the guidewire in center center position in the head with an appropriate tip to apex distance this was confirmed with multiple orthogonal images.? Once I was satisfied with my planned lag screw placement I then measured which was 100 mm.? I then set my cannulated drill and subsequently reamed this into the head at appropriate depth.? I then had my rep open the 10.5 mm x 100 mm lag screw which was then opened on the back table and subsequently screwed into place over my cannulated drill guide.? This was placed with excellent tip to apex distance.? Next I then utilized the compressing device and subsequently compressed my fracture after I let off traction.? This had excellent fracture compression and opposition and closing down to my fracture line.? Next I then locked the nail by locking my setscrew.? This point time the guidewire as well as the sleeve was then removed.? Next I obtained perfect circles distally at the knee to lock the nail distally.? I selected to first place my static screw in perfect navajo technique small stab incision was made blunt dissection of the bone and then utilizing a drill and perfect navajo technique drill bit was then advanced and confirmed to be within the nail utilizing fluoroscopic imaging I then subsequently drilled measured and placed appropriate length static locking screw.? I then subsequently added an additional screw in the oblong hole subsequently drilled measured and placed appropriate length screw.? This completed my construct fixation the guide was subsequently removed.? And final images were taken.? AP and lateral of the Right intertrochanteric femur fracture which showed stable reduction and stable fixation.? Incision was then thoroughly irrigated.? Hemostasis was maintained with electrocautery.? I then once again thoroughly irrigated the incisions and then subsequently closed in layered fashion of 0 Vicryl 2-0 Vicryl and pino.? Silverlon dressings applied.? Patient was then awakened from anesthesia transported onto the hospital bed and taken to PACU in stable condition.? Patient tolerated procedure without complications. Disposition: Patient taken to PACU in stable condition.? Postoperatively,? Patient to receive appropriate discharge instructions as well as pain medication DVT prophylaxis postoperatively.? Patient will be allowed weightbearing as tolerated Right lower extremity.? Will receive appropriate postoperative antibiotics, PT/OT.? Patient to follow-up in the orthopedic office in 2 weeks.? Patients family understands and agrees with current plan.? All questions answered.
--- NOTE | 2025-01-15 09:45 | XRR_ITS ---
PROCEDURE INFORMATION: Exam: XR Right Femur Exam date and time: 01/15/2025 10:14 AM Age: 59 years old Clinical indication: Screening exam; Post op RT long tfn; Prior surgery; Surgery date: Post-operative (0-2 days); Additional info: R hip troch nail TECHNIQUE: Imaging protocol: Radiologic exam of the right femur. Views: 2 views. COMPARISON: OT XR femur RT min 2V* [id number] 01/15/2025 8:27 AM FINDINGS: Bones/joints: There are postoperative changes status post open reduction and internal fixation of a proximal right femur fracture with a right intramedullary nail, distal interlocking screws and proximal dynamic hip compression screw. Soft tissues: Are surgical skin pino within the soft tissues proximally and distally. XR/XR femur RT min 2V* [id number] IMPRESSION: 1. Postoperative changes involving the proximal right femur.
--- NOTE | 2025-01-15 09:51 | PM.PACU ---
PACU note Narrative: Patient is a 59-year-old male that just Underwent a right hip ORIF.Pt transferred to PACU in stable condition. Dressing is dry. pt is awake and alert. pt can wiggle toes and plantarflex and dorsiflex foot. pt able to Distal pulses are palpable toes are warm and well-perfused. Cap refill is normal and under 2 seconds. Sensation to foot is intact. Pain is controlled. Exam: awake Disposition: discharged
--- NOTE | 2025-01-15 13:17 | P.PN_ITS ---
Subjective 2 Subjective: s/p right hip nailing. Vitals/I&O/Wt Last Vital Signs Temp 98.3 F 01/15/25 12:00 Pulse 92 01/15/25 12:00 Resp 16 01/15/25 12:00 BP 93/45 01/15/25 12:00 Pulse Ox 97 01/15/25 12:00 O2 Del Method Room Air 01/15/25 12:00 O2 Flow Rate 8 01/15/25 09:35 01/14/25 01/15/25 01/15/25 22:59 06:59 14:59 Intake Total 700 / 700 1900 / 2600 510 / 510 Output Total 400 / 400 1400 / 1800 450 / 450 Balance 300 / 300 500 / 800 60 / 60 Weight last 48 hrs Weight 60.237 kg Weight 56.926 kg Weight 58.06 kg Physical Exam 2 Const: COMMON NORMALS: no acute distress, average body habitus and no limitations HENMT: COMMON NORMALS: normocephalic and atraumatic HEAD & SCALP: n ormocephalic and atraumatic Eye: OTHER: Blind Resp: COMMON NORMALS: normal respiratory effort, No retractions and clear to auscultation bilaterally AUSCULTATION: clear to auscultation bilaterally Cardio: COMMON NORMALS: regular rate, regular rhythm, No gallops present (Cardio), No murmurs present (Cardio) and Peripheral pulses 2+ throughout R ATE: regular rate RHYTHM: regular rhythm PERIPHERAL PULSES: Peripheral pulses 2+ throughout GI: COMMON NORMALS: Soft to palpation, non-tender and no masses PALPATION: Yes Soft to palpation Extremity: COMMON NORMALS: normal to inspection, full ROM and no joint enlargement Psych: COMMON NORMALS: mental status grossly normal, Normal thought process present and normal affect THOUGHT PROCESS: Normal thought process present Urinary Catheter Management: Coude: Cath Placed During This Visit: yes Reason for Continuing Indwelling Catheter: Required Immobilization for Trauma or Surgery or Anesthesia Urinary Catheter Date of Insertion: 01/14/25 Urinary Catheter Time of Insertion: 20:35 Data 01/14/25 17:24 01/14/25 17:24 A&P Assessment and plan 1. Intertrochanteric fracture of right femur: 2. Acute kidney injury: 3. Type 1 diabetes mellitus: 4. Blindness of both eyes: Plan: 59 year old male presenting with right hip fracture. Hospitalists consulted for medical mgmt. 1. Femur fracture, right: - now s/p right hip nailing, mgmt per ortho 2. Type 1 diabetes mellitus: Resume home Lantus and a low scale sliding scale. Will need D5 if blood sugars are low 3. 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 Acute kidney injury: Hydrate with NS and 20 mg KCl per liter PPx: lovenox per ortho Disposition - mild hypotension after surgery, given LR bolus, improved. PDMP PDMP Reviewed: Not Reviewed Attestations 2 Medical Necessity Statement*: ongoing inpatient care for ORIF Time Spent in Patient Care: 16 - 35 minutes (>than 50% of time sp ent in counselling and/or direct pt care on unit) . Coding Level of Care Code Acute Code for [facility] Diagnoses Intertrochanteric fracture of right femur S72.141A Acute kidney injury N17.9 Type 1 diabetes mellitus E10.9 Blindness of both eyes H54.3
[2025-01-15] MEDS: chlorhexidine gluconate 0.12% Btl 473 mL 30 ML MUCOUS MEM ×3 (14:03→21:14)
[2025-01-15] MEDS: tranexamic acid 1,000 MG/100 ML PREMIX 600 MG IV (16:47)
[2025-01-15] MEDS: insulin glargine 100 units/1 mL 15 UNIT SUBCUT (17:49)
[2025-01-15] MEDS: psyllium powder Pkt 1 PACKET PO (17:50)
[2025-01-15] MEDS: calcium carb-vit d 600mg/400unit 1 Tablet 1 EACH PO (17:50)
[2025-01-15] MEDS: sennosides-docusate Tablet 2 TAB PO (17:50)
[2025-01-15] MEDS: mupirocin oint 22 gm 1 APPLIC NASAL (17:51)
[2025-01-16] VITALS (7 sets, daily range): BP systolic 123–134; BP diastolic 51–70; PULSE 70–84; RESP 15–17; TEMP 36.8–37.1; O2SAT 93–98
[2025-01-16 04:40] LABS: Hematocrit 28.2 % (37-53); Hemoglobin 9.40 g/dL (11.27-16.99); Mean Corpuscular HGB Conc 33.3 g/dL (30-55); Mean Corpuscular Hemoglobin 32.4 pg (27-33); Mean Corpuscular Volume 97.2 fl (82-101); Nucleated Red Blood Cells % 0 %; Platelet Count 220 10^3/cmm (157-399); Red Blood Count 2.90 10^6/uL (3.85-5.65); White Blood Count 13.05 10^3/uL (3.29-11.43)
[2025-01-16 05:10] LABS: Anion Gap 8.2 (5-19); Blood Urea Nitrogen 20 mg/dL (8-23); Calcium 8.3 mg/dL (8.5-10.5); Carbon Dioxide 29 mmol/L (22-29); Chloride 102 mmol/L (98-107); Creatinine Clr Calc Pharmacy 55.7750; Glucose 213 mg/dL (65-115); Osmolality Calculated 291 mOsm/kg (285-295); Potassium 3.2 mmol/L (3.5-5.1); Sodium 136 mmol/L (136-145)
[2025-01-16] MEDS: oxyCODONE 5 mg IR Tab/Cap PO ×3 (05:54→18:14)
[2025-01-16] MEDS: ceFAZolin 2,000 MG in sodium chloride 0.9% (plus) 50 ML 100 MG IV (08:04)
[2025-01-16] MEDS: psyllium powder Pkt 1 PACKET PO ×2 (08:20→17:56)
[2025-01-16] MEDS: chlorhexidine gluconate 0.12% Btl 473 mL 30 ML MUCOUS MEM ×4 (08:21→21:16)
[2025-01-16] MEDS: calcium carb-vit d 600mg/400unit 1 Tablet 1 EACH PO ×2 (08:21→17:57)
[2025-01-16] MEDS: multivitamin therapeutic Tablet 1 TAB PO (08:21)
[2025-01-16] MEDS: sennosides-docusate Tablet 2 TAB PO ×2 (08:21→17:57)
[2025-01-16] MEDS: mupirocin oint 22 gm 1 APPLIC NASAL ×2 (08:22→17:58)
--- NOTE | 2025-01-16 12:56 | P.PN_ITS ---
Documented by User: BALDEMAR Rodriguez 01/16/25 13:51 Subjective 2 Subjective: Patient is a 59-year-old male that is 1 day postop right hip fracture ORIF. No acute events overnight. No fevers. Patient is Physical therapy today. Pain is controlled. He is able to tolerate p.o. food and fluids. Vitals/I&O/Wt Last Vital Signs Temp 98.8 F 01/16/25 11:51 Pulse 73 01/16/25 11:51 Resp 16 01/16/25 11:51 BP 123/51 01/16/25 11:51 Pulse Ox 93 01/16/25 11:51 O2 Del Method Room Air 01/16/25 11:51 O2 Flow Rate 8 01/15/25 09:35 01/15/25 01/16/25 01/16/25 22:59 06:59 14:59 Intake Total 3810 / 4320 1430 / 5750 480 / 480 Output Total 800 / 1250 1200 / 2450 Balance 3010 / 3070 230 / 3300 480 / 480 Weight last 48 hrs Weight 132 lb 12.8 oz Weight 125 lb 8 oz Weight 128 lb Physical Exam 2 Const: COMMON NORMALS: no acute distress and alert Resp: COMMON NORMALS: normal respiratory effort and No retractions Cardio: COMMON NORMALS: Peripheral pulses 2+ throughout PERIPHERAL PULSES: Peripheral pulses 2+ throughout Extremity: NARRATIVE EXTREMITY EXAM: Right hip?surgical dressing is somewhat intact and dry. Compartments are soft compressible. Some mild postop swelling. Patient can wiggle toes and can plantarflex dorsiflex foot. Pedal pulse 2+. Toes are warm and well-perfused. Normal cap refill in the 2 seconds. Neuro: SENSORIUM/ORIENTATION: Yes alert Skin: GENERAL SKIN EXAM: dry skin Urinary Catheter Management: Coude: Cath Placed During This Visit: yes Reason for Continuing Indwelling Catheter: Perioperative Use in Selected Surgeries Urinary Catheter Date of Insertion: 01/14/25 Urinary Catheter Time of Insertion: 20:35 Data 01/16/25 03:42 01/16/25 03:42 Xray Ortho: Radiologist's impression: Patient: Abelino Lawson Unit #: [id number] : 1965 Age/Sex: 59 / M ADM Date: 01/14/25 Loc: [facility] Room/Bed: 275-[address]: Josh Jones MD Ordering Provider/Ordering MD: Josh Jones MD Date of Service: 01/15/25 Procedure(s): XR femur RT min 2V* [id number] Accession Number(s): [id number] Report Number: [id number] WS: [id number] Right femur and thigh, C-arm fluoroscopy views, 01/15/2025 Clinical Data: RT LONG TFN; OR PICS Comparison: Right thigh and femur, 01/14/2025 Findings: Dr. Davenport performed internal fixation of a right intertrochanteric subtrochanteric fracture. XR/XR femur RT min 2V* [id number] Impression: Internal fixation of right intertrochanteric subtrochanteric fracture. Dictated By: Yelena Lewis MD A&P Assessment and plan 1. Intertrochanteric fracture of right femur: Plan: Plan: -Imaging and Labs reviewed -Hospitalist on board for medical management. -VTE prophylaxis per hospitalist - Weight-bear as tolerated on right leg -Pain control - PT/OT Patient is a 59-year-old male that is 1 day postop right hip fracture ORIF. Patient is doing well we will continue following. PDMP PDMP Reviewed: Not Reviewed Attestations 2 Medical Necessity Statement*: Ongoing care for right hip fracture Coding Level of Care Code Acute Code for [facility] Diagnoses Intertrochanteric fracture of right femur S72.141A Documented by User: Marc Davenport DO 01/16/25 23:17 Physical Exam 2 Extremity: NARRATIVE EXTREMITY EXAM: Right hip?surgical dressing is clean dry and intact. Compartments are soft compressible. Some mild postop swelling. Patient can wiggle toes and can plantarflex dorsiflex foot. Pedal pulse 2+. Toes are warm and well-perfused. Normal cap refill in the 2 seconds. Patient has normal postoperative tenderness to palpation about the right hip did along the incision site distally towards the knee. Patient is standing up with therapy today. Patient has mild tenderness over the left wrist Urinary Catheter Management: Coude: Cath Placed During This Visit: yes Data 01/16/25 03:42 01/16/25 03:42 A&P Assessment and plan 1. Intertrochanteric fracture of right femur: Plan: Plan: -Imaging and Labs reviewed -Hospitalist on board for medical management. -VTE prophylaxis per hospitalist - Weight-bear as tolerated on right leg -Pain control - PT/OT - Obtain left wrist x-rays Patient is a 59-year-old male that is 1 day postop right hip fracture ORIF. Patient is doing well we will continue following. Reviewed and agree with PAs assessment and plan. Patient is progressing well he does have some tenderness about the left wrist since the injury we will obtain x-rays at this. Will have patient evaluate with case management for discharge planning. Orthopedics will continue to follow. PDMP PDMP Reviewed: Not Reviewed Coding Level of Care Code Acute Code for [facility] Diagnoses Intertrochanteric fracture of right femur S72.141A
--- NOTE | 2025-01-16 14:57 | P.PN_ITS ---
Subjective 2 Subjective: Patient is a 59-year-old male that is 1 day postop right hip fracture ORIF. No acute events overnight. No fevers. Patient with physical therapy to follow and adequate pain control Vitals/I&O/Wt Last Vital Signs Temp 98.8 F 01/16/25 11:51 Pulse 73 01/16/25 11:51 Resp 16 01/16/25 13:17 BP 123/51 01/16/25 11:51 Pulse Ox 93 01/16/25 13:17 O2 Del Method Room Air 01/16/25 11:51 O2 Flow Rate 8 01/15/25 09:35 01/15/25 01/16/25 01/16/25 22:59 06:59 14:59 Intake Total 3810 / 4320 1430 / 5750 1010 / 1010 Output Total 800 / 1250 1200 / 2450 Balance 3010 / 3070 230 / 3300 1010 / 1010 Weight last 48 hrs Weight 60.237 kg Weight 56.926 kg Weight 58.06 kg Physical Exam 2 Narrative: General: Alert oriented x3, legally blind, patient seen lying comfortably HEENT: Normocephalic, atraumatic, EOMI, breathing on room air Cardio: Regular rate rhythm, normal S1-S2, no murmurs rubs gallops, JVD normal Respiratory: Good bilateral air entry, no wheezes no rhonchi appreciated GI: Abdomen soft, nontender, nondistended, normoactive bowel sounds present all 4 quadrants, Neuro: No focal neurological deficit Behavior: Appropriate and cooperative Extremities: Right ORIF, mild trace edema of the respective limb and bilateral palpable pulses present Skin: Visible skin intact, no rashes Urinary Catheter Management: Coude: Cath Placed During This Visit: yes Reason for Continuing Indwelling Catheter: Perioperative Use in Selected Surgeries Urinary Catheter Date of Insertion: 01/14/25 Urinary Catheter Time of Insertion: 20:35 Data 01/16/25 03:42 01/16/25 03:42 A&P Assessment and plan 1. Intertrochanteric fracture of right femur: 2. Acute kidney injury: 3. Type 1 diabetes mellitus with other ophthalmic complication: 4. Blindness of both eyes: Plan: 59 year old male presenting with right hip fracture. Hospitalists consulted for medical mgmt. 1. Femur fracture, right: - now s/p right hip nailing, mgmt per ortho, and follow-up with the rehab 2. Type 1 diabetes mellitus: Resume home Lantus and a low scale sliding scale. Will need D5 if blood sugars are low Monitor blood glucose daily 3. 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 Acute kidney injury: Resolved Hydrate with NS and 20 mg KCl per liter PPx: lovenox per ortho Disposition - Follow-up rehab and further disposition accordingly discussed with the case management for appropriate disposition PDMP PDMP Reviewed: Not Reviewed Attestations 2 Medical Necessity Statement*: Abelino Lawson's hospital stay will be less than 2 midnights for status postop right ORIF and rehab on board and for further disposition Time Spent in Patient Care: 16 - 35 minutes (>than 50% of time sp ent in counselling and/or direct pt care on unit) . Other Attestations: Patient condition has been discussed at length with the patient/family, I have independently reviewed the chart labs imaging and diagnostics and EKG. I have discussed the goals of care and code status with the patient/family/NOK/legal floor representative, and documented accordingly. The patient/family has been informed about the current condition and further plan of care. Agreed with the plan of care and understood without any language barrier. This documentation was created by [employer] deputy sheriff civil division software. Every effort was made to ensure accuracy of deputy sheriff civil division. Any obvious errors or omissions should be clarified with the author of the document. Coding Level of Care Code Acute Code for [facility] Diagnoses Intertrochanteric fracture of right femur S72.141A Acute kidney injury N17.9 Type 1 diabetes mellitus with other ophthalmic complication E10.39 Diabetes mellitus complication status: with ophthalmic complications Diabetes mellitus complication detail: with other ophthalmic complication Blindness of both eyes H54.3
[2025-01-16] MEDS: insulin glargine 100 units/1 mL 15 UNIT SUBCUT (17:57)
--- NOTE | 2025-01-16 23:35 | XRR_ITS ---
PROCEDURE INFORMATION: Exam: XR Left Wrist Exam date and time: 01/17/2025 12:40 AM Age: 59 years old Clinical indication: Pain; Wrist; Left; Additional info: Left wrist pain TECHNIQUE: Imaging protocol: Radiologic exam of the left wrist. Views: 3 or more views. COMPARISON: No relevant prior studies available. FINDINGS: Bones/joints: Mild osseous demineralization. Normal alignment. No evidence of acute fracture or dislocation. Joint spaces are well-maintained. No erosions. Soft tissues: Mild soft tissue swelling. Vasculature: Peripheral atherosclerotic calcifications are present. XR/XR wrist LT min 3V* [id number] IMPRESSION: No evidence of acute fracture or dislocation.
[2025-01-17] VITALS: BP 130/60; PULSE 78; RESP 17; TEMP 37.1; O2SAT 94
[2025-01-17 04:00] VITALS: BP 117/62; PULSE 68; RESP 17; TEMP 37.1; O2SAT 97
[2025-01-17] MEDS: sennosides-docusate Tablet 2 TAB PO (04:29)
[2025-01-17] MEDS: calcium carb-vit d 600mg/400unit 1 Tablet 1 EACH PO (04:29)
[2025-01-17] MEDS: psyllium powder Pkt 1 PACKET PO (04:29)
[2025-01-17] MEDS: mupirocin oint 22 gm 1 APPLIC NASAL (04:32)
[2025-01-17 05:52] LABS: Hematocrit 25.3 % (37-53); Hemoglobin 8.80 g/dL (11.27-16.99); Mean Corpuscular HGB Conc 34.8 g/dL (30-55); Mean Corpuscular Hemoglobin 33.1 pg (27-33); Mean Corpuscular Volume 95.1 fl (82-101); Nucleated Red Blood Cells % 0 %; Platelet Count 201 10^3/cmm (157-399); Red Blood Count 2.66 10^6/uL (3.85-5.65); White Blood Count 9.65 10^3/uL (3.29-11.43)
[2025-01-17 06:09] LABS: Alanine Aminotransferase 17 U/L (0-41); Albumin Level 3.0 g/dL (3.5-5.2); Alkaline Phosphatase 81 U/L (40-130); Anion Gap 10.1 (5-19); Aspartate Amino Transferase 52 U/L (0-40); Blood Urea Nitrogen 13 mg/dL (8-23); Calcium 8.3 mg/dL (8.5-10.5); Carbon Dioxide 29 mmol/L (22-29); Chloride 101 mmol/L (98-107); Creatinine Clr Calc Pharmacy 96.1128; Globulin 2.2 g/dL (1.3-4.6); Glucose 115 mg/dL (65-115); Osmolality Calculated 285 mOsm/kg (285-295); Potassium 3.1 mmol/L (3.5-5.1); Sodium 137 mmol/L (136-145); Total Protein 5.2 g/dL (6.6-8.7)
[2025-01-17 07:20] VITALS: BP 146/64; PULSE 72; RESP 15; TEMP 37.2; O2SAT 95
--- NOTE | 2025-01-17 07:55 | PC.NURSE ---
Duplicate order for daily multivitamin. This nurse d/c one of the orders.
[2025-01-17] MEDS: multivitamin therapeutic Tablet 1 TAB PO (07:57)
[2025-01-17] MEDS: chlorhexidine gluconate 0.12% Btl 473 mL 30 ML MUCOUS MEM ×2 (07:58→12:55)
--- NOTE | 2025-01-17 10:02 | PC.CHAP ---
Pastoral Care Encounter/Spiritual Assessment Type of Contact [] Declined overseer kosher kitchen visit [] Patient/Family/Request visit [] Outpatient visit [] Follow-up visit [] Physician referral [] Code/Alert [x] Routine visit [] Staff referral [] Actively dying [] Patient sleeping [] Family support [] [] Out of room [] Palliative care [] [] Receiving care in room [] Pre-surgical visit [] Trauma [] Long length of stay [] ICU visit [] Other: Relational/Emotional Strength [x] Patient feels connected with others/family/visitors/staff [] Distress [] Loneliness/isolation [] Abandonment Spirituality of Patient [x] Person of Maryellen [] Attends Yarsanism of their Maryellen [x] Believes in Prayer [] Reads Bible or Yazdanism materials [] There are Spiritual issues to be addressed Outside [employer] Interventions [x] Prayer [x] Active listening [x] Non-anxious presence [x] Spiritual/emotional support [] Crisis/trauma care [] Spiritual counseling [] Bereavement support [] Provided bereavement packet [] Provided Bible/devotional materials [] Provided toy/stuffed animal, coloring book to patient or family member [] Provided Communion [] Anointing/[place] [] Salvation [x] Completed spiritual assessment [] Other: Impact on Illness or Injury [] Angry [] Fearful [] Anxious [] Often cries [] Exhaustion [] Unable to work [] Unable to attend sabianist [] Unable to walk/stand [] Unable to read [] Unable to drive [] Unable to eat/drink [] Unable to sleep [] Unable to be with family [] Patient intubated [] Other: Summary Time spent with patient 5 min
[2025-01-17 11:21] VITALS: BP 166/73; PULSE 87; RESP 16; TEMP 37; O2SAT 97
--- NOTE | 2025-01-17 12:38 | PM.DCS ---
Discharge Providers Date of Admission: 01/14/25 19:26 Date of Discharge: January 17, 2025 Attending Provider at Admission: Fco Tolbert MD Attending Provider at Discharge: Paulina Rucker MD Primary Care Provider: Leroy Flores Diagnoses at Discharge Discharge Diagnosis 1. Intertrochanteric fracture of right femur: Reason for Visit Reason for Visit: right hip pain Brief History: Abelino Lawson is a 59 year old male blind with history of diabetes and underweight was on the toilet when the toilet seat shifted and he fell onto his right leg and had immediate pain right proximal femur. X-ray shows proximal femur fracture and Dr. Davenport has been consulted with plans for repair. Hospital Course Hospital Course The patient underwent right intertrochanteric with Sub trochanteric extension femur fracture ORIF with cephalomedullary nail. Orthopedics were on board for the care of the patient and the internal medicine/hospitalist team optimized the patient medically. The patient had anemia that was likely postop however no acute blood loss. Patient to be kept on iron supplementation and to follow as outpatient with the family medicine and orthopedics. Patient electrolytes and renal parameters were monitored and correction were done accordingly. The patient was seen by rehab and to be discharged with rehab and Ortho for further optimization of the care. The patient has been informed about his plan of care and agreed with it without any language barrier all the benefits and risks were also counseled and discussed Physical Exam Narrative: General: Alert oriented x3, legally blind, patient seen lying comfortably HEENT: Normocephalic, atraumatic, EOMI, breathing on room air Cardio: Regular rate rhythm, normal S1-S2, no murmurs rubs gallops, JVD normal Respiratory: Good bilateral air entry, no wheezes no rhonchi appreciated GI: Abdomen soft, nontender, nondistended, normoactive bowel sounds present all 4 quadrants, Neuro: No focal neurological deficit Behavior: Appropriate and cooperative Extremities: Right ORIF, mild trace edema of the respective limb and bilateral palpable pulses present Skin: Visible skin intact, no rashes Urinary Catheter Management: Coude: Cath Placed During This Visit: yes Reason for Continuing Indwelling Catheter: Acute Urinary Retention or Obstruction Urinary Catheter Date of Insertion: 01/17/25 Urinary Catheter Time of Insertion: 00:37 Discharge Data Studies Completed and Pending Completed Studies During Hospitalization Category Date Time Status XR chest 1V portable [id number] Stat Exams 01/14/25 18:21 Completed XR femur RT min 2V* [id number] Routine Exams 01/15/25 08:00 Completed XR femur RT min 2V* [id number] Routine Exams 01/15/25 09:45 Completed XR femur RT min 2V* [id number] Stat Exams 01/14/25 17:54 Completed XR pelvis 1-2V* [id number] Stat Exams 01/14/25 17:54 Completed XR wrist LT min 3V* [id number] Routine Exams 01/16/25 23:35 Completed Pending at discharge Category Date Time Status BMP [Basic Metabolic Panel] Stat Lab 01/17/25 12:22 Received Basic Metabolic Panel AM LABS Lab 01/18/25 04:00 Ordered Complete Blood Count w/Auto AM LABS Lab 01/18/25 04:00 Ordered Type and Screen Routine Lab 01/15/25 08:06 Uncollected Urinalysis and Microscopic Stat Lab 01/14/25 19:27 Ordered Radiology Impressions Pelvis X-Ray 01/14/25 17:54 IMPRESSION: Acute intertrochanteric fracture of the right femur. Chest X-Ray 01/14/25 18:21 IMPRESSION: No acute findings. Femur X-Ray 01/15/25 09:45 IMPRESSION: 1. Postoperative changes involving the proximal right femur. Wrist X-Ray 01/16/25 23:35 IMPRESSION: No evidence of acute fracture or dislocation. Laboratory Results WBC 9.65 10^3/uL (3.29-11.43) 01/17/25 05:05 RBC 2.66 10^6/uL (3.85-5.65) L 01/17/25 05:05 Hgb 8.80 g/dL (11.27-16.99) L 01/17/25 05:05 Hct 25.3 % (37-53) L 01/17/25 05:05 MCV 95.1 fl (82-101) 01/17/25 05:05 MCH 33.1 pg (27-33) H 01/17/25 05:05 MCHC 34.8 g/dL (30-55) 01/17/25 05:05 RDW 13.2 % (12.1-15.1) 01/17/25 05:05 Plt Count 201 10^3/cmm (157-399) 01/17/25 05:05 MPV 11.4 fL (7.4-10.4) H 01/17/25 05:05 Neut % (Auto) 68.9 % 01/17/25 05:05 Lymph % (Auto) 17.9 % 01/17/25 05:05 Randolph % (Auto) 11.6 % 01/17/25 05:05 Eos % (Auto) 0.9 % 01/17/25 05:05 Baso % (Auto) 0.4 % 01/17/25 05:05 Neut # (Auto) 6.64 10^3/uL (1.8-7.7) 01/17/25 05:05 Lymph # (Auto) 1.7 10^3/uL (0.8-4.8) 01/17/25 05:05 Randolph # (Auto) 1.1 10^3/uL (0.2-0.9) H 01/17/25 05:05 Eos # (Auto) 0.1 10^3/uL (0.0-0.8) 01/17/25 05:05 Baso # (Auto) 0.0 10^3/uL (0.0-0.1) 01/17/25 05:05 Nucleated RBC % (auto) 0 % 01/17/25 05:05 Nucleated RBCs # 0.0 /100WBC 01/17/25 05:05 PT 12.90 SECONDS (12.1-14.9) 01/14/25 17:24 INR 0.90 (0.8-1.2) 01/14/25 17:24 APTT 25.6 SECONDS (23.9-36.7) 01/14/25 17:24 Sodium 137 mmol/L (136-145) 01/17/25 05:05 Potassium 3.1 mmol/L (3.5-5.1) L 01/17/25 05:05 Chloride 101 mmol/L (98-107) 01/17/25 05:05 Carbon Dioxide 29 mmol/L (22-29) 01/17/25 05:05 Anion Gap 10.1 (5-19) 01/17/25 05:05 BUN 13 mg/dL (8-23) 01/17/25 05:05 Creatinine 0.8 mg/dL (0.7-1.2) 01/17/25 05:05 GFR Calculation 98.6 mL/min (90-130) 01/17/25 05:05 Glucose 115 mg/dL (65-115) 01/17/25 05:05 POC Glucose 386 mg/dL (70-110) H 01/17/25 10:36 Calculated Osmolality 285 mOsm/kg (285-295) 01/17/25 05:05 Calcium 8.3 mg/dL (8.5-10.5) L 01/17/25 05:05 Total Bilirubin 0.5 mg/dL (0.15-1.2) 01/17/25 05:05 AST 52 U/L (0-40) H 01/17/25 05:05 ALT 17 U/L (0-41) 01/17/25 05:05 Alkaline Phosphatase 81 U/L (40-130) 01/17/25 05:05 Troponin T Baseline 29 ng/L (0-15) H 01/14/25 17:24 Troponin T 120 Minute 39.26 ng/L (0-15) H 01/14/25 20:20 Delta Troponin T 10.26 ABS# (0-10) H* 01/14/25 20:20 Troponin T Hi Sens 6Hr 39.78 ng/L (0-15) H 01/15/25 01:22 Troponin T Hi Sens 6Hr Delta 10.78 ng/L (0-12) 01/15/25 01:22 Total Protein 5.2 g/dL (6.6-8.7) L 01/17/25 05:05 Albumin 3.0 g/dL (3.5-5.2) L 01/17/25 05:05 Globulin 2.2 g/dL (1.3-4.6) 01/17/25 05:05 Vitals Last Vital Signs Temp 98.6 F 01/17/25 11:21 Pulse 87 01/17/25 11:21 Resp 16 01/17/25 11:21 BP 166/73 01/17/25 11:21 Pulse Ox 97 01/17/25 11:21 O2 Del Method Room Air 01/17/25 11:21 O2 Flow Rate 8 01/15/25 09:35 Discharge Plan Discharge Patient Disposition: Home Condition: Stable Prescriptions: New polysaccharide iron complex [Ferrex 150] 150 mg iron Capsule 150 mg PO BIDWM 30 Days Qty: 30 0RF calcium carbonate-vitamin D3 600 mg-10 mcg (400 unit) Tablet 1 tab PO BID@0500,1700 30 Days Qty: 30 0RF acetaminophen 325 mg Tablet 650 mg PO Q4H PRN (Reason: Mild Pain Or Increase Temp) 10 Days Qty: 40 0RF Continued (DME) pen needle, diabetic [TechLITE Pen Needle] 31 gauge x 3/16 needle See Rx Instructions .ROUTE .COMPLEX Qty: 180 3RF Dose Instruction: USE DIRECTED FOR INJECTION OF INSULIN Rx Instructions: USE DIRECTED FOR INJECTION OF INSULIN (DME) Blood Glucose Test Strip See Rx Instructions .Route Qty: 50 6RF Rx Instructions: As directed (DME) blood-glucose meter Kit See Rx Instructions .Route Qty: 1 0RF Rx Instructions: As directed (DME) lancets [Accu-Chek Softclix Lancets] Misc See Rx Instructions .Route Qty: 100 0RF Rx Instructions: As directed multivitamin Tablet 1 tab PO DAILY sertraline 50 mg tablet 50 mg PO DAILY insulin lispro [Humalog KwikPen Insulin] 100 unit/mL insulin pen 25 unit SUBCUT TID insulin glargine [Lantus Solostar U-100 Insulin] 100 unit/mL (3 mL) insulin pen 18 unit SUBCUT QPM cetirizine 10 mg Tablet 10 mg PO DAILY PRN (Reason: allergie) Metamucil 3.4 gram/5.4 gram Powder 1 tsp PO DAILY Rx Instructions: mix into at least 4 oz water or juice before administering Changed loperamide 2 mg capsule 4 mg PO QID PRN (Reason: diarrhea) 30 Days Qty: 120 0RF Childbirth And Infant Care Teacher OK for DC: Orthopedics Referrals: Blayne Holly [Referring, Urology] - 1 week Referral Note: We have notified your physician's clinic of the need for a follow-up appointment to be scheduled. If you have not heard from them within the next 2 business days, please call them directly. Kalia Rodriguez DO [Physician, Orthopedics] - 4-7 days Leroy Flores NP [Primary Care Provider, Family Practice] Referral Note: We have notified your physician's clinic of the need for a follow-up appointment to be scheduled. If you have not heard from them within the next 2 business days, please call them directly. Micky Davenport PA [Physician Bias Cutter, Orthopedics] Referral Note: We have notified your physician's clinic of the need for a follow-up appointment to be scheduled. If you have not heard from them within the next 2 business days, please call them directly. Discharge Diet: Advance as tolerated and Usual diet Discharge Activity: Limit activity as instructed Patient Instructions: Acute Wound Care (DC), Opioid Safety, Post Anesthesia Care, Patient Portal & Dannie Instructions Discharge Attestations Time Spent in Discharge Care*: less than 30 min Specific Discharge Activities: educating patient, educating and/or supporting family/caregiver, discussing with pcp/other providers, discussing with continuous pillowcase cutter/social workers/dc planners, documenting/other paperwork and evaluating patient/reviewing data Status at Discharge: Cognitive status at discharge: cognitively intact, Behavioral status at discharge: cooperative, Functional status at discharge: other assisted ambulation, Overall status at discharge: patient is back to baseline Quality Metrics Clinical Quality Measures [ No reported AMI, CVA or VTE this stay] Coding Level of Care Code 08721 Diagnoses Intertrochanteric fracture of right femur S72.141A
[2025-01-17 12:50] LABS: Anion Gap 13.9 (5-19); Blood Urea Nitrogen 16 mg/dL (8-23); Calcium 8.6 mg/dL (8.5-10.5); Carbon Dioxide 29 mmol/L (22-29); Chloride 96 mmol/L (98-107); Creatinine Clr Calc Pharmacy 85.4336; Glucose 477 mg/dL (65-115); Osmolality Calculated 302 mOsm/kg (285-295); Potassium 3.9 mmol/L (3.5-5.1); Sodium 135 mmol/L (136-145)
--- NOTE | 2025-01-17 13:16 | P.PN_ITS ---
<Statement entered by Marc Davenport DO - 01/17/25 17:59> Reviewed and agree with PAs assessment and plan. Patient already discharged prior to me seeing patient. He was stable for discharge from orthopedic standpoint. Appropriate discharge instructions have been placed in patient's chart would recommend Lovenox at discharge for discharge DVT prophylaxis for 35 days. Will discharge to rehab facility. Weight-bear as tolerated to right lower extremity. I did call and update sister this evening as well. Will follow-up with patient in 2 weeks. Sister understands and agrees with current plan. All questions answered. Marc Davenport DO Orthopedic surgery Subjective 2 Subjective: Patient is a 59-year-old male that is 2 day postop right hip fracture ORIF. No acute events overnight. No fevers. Patient had physical therapy today and says it went well. Pain is controlled. He is able to tolerate p.o. food and fluids. Vitals/I&O/Wt Last Vital Signs Temp 98.6 F 01/17/25 11:21 Pulse 87 01/17/25 11:21 Resp 16 01/17/25 11:21 BP 166/73 01/17/25 11:21 Pulse Ox 97 01/17/25 11:21 O2 Del Method Room Air 01/17/25 11:21 O2 Flow Rate 8 01/15/25 09:35 01/16/25 01/17/25 01/17/25 22:59 06:59 14:59 Intake Total 240 / 1250 600 / 600 Output Total 450 / 450 1950 / 2400 1550 / 1550 Balance -210 / 800 -1950 / -1150 -950 / -950 Weight last 48 hrs Weight 140 lb Physical Exam 2 Const: COMMON NORMALS: no acute distress and alert Resp: COMMON NORMALS: normal respiratory effort and No retractions Cardio: COMMON NORMALS: Peripheral pulses 2+ throughout PERIPHERAL PULSES: Peripheral pulses 2+ throughout Extremity: NARRATIVE EXTREMITY EXAM: Right hip?surgical dressing is clean dry and intact. Compartments are soft compressible. Some mild postop swelling. Patient can wiggle toes and can plantarflex dorsiflex foot. Pedal pulse 2+. Toes are warm and well-perfused. Normal cap refill in the 2 seconds. Patient has normal postoperative tenderness to palpation about the right hip did along the incision site distally towards the knee. Patient is standing up with therapy today. Patient has mild tenderness over the left wrist Neuro: SENSORIUM/ORIENTATION: Yes alert Skin: GENERAL SKIN EXAM: dry skin Urinary Catheter Management: Coude: Cath Placed During This Visit: yes Reason for Continuing Indwelling Catheter: Acute Urinary Retention or Obstruction Urinary Catheter Date of Insertion: 01/17/25 Urinary Catheter Time of Insertion: 00:37 Data 01/17/25 05:05 01/17/25 12:22 A&P Assessment and plan 1. Intertrochanteric fracture of right femur: Plan: Plan: -Imaging and Labs reviewed--left wrist x-rays obtained and reviewed and showed no acute bony abnormality or fracture. -Hospitalist on board for medical management. -VTE prophylaxis per hospitalist - Weight-bear as tolerated on right leg -Pain control - PT/OT Patient is a 59-year-old male that is 2 day postop right hip fracture ORIF. Patient is doing well and getting physical therapy and Occupational Therapy. We will continue following. PDMP PDMP Reviewed: Not Reviewed Attestations 2 Medical Necessity Statement*: Ongoing care for right hip fracture Coding Level of Care Code Acute Code for [facility] Fwd Diagnoses Intertrochanteric fracture of right femur S72.141A
--- NOTE | 2025-01-17 13:43 | PC.NURSE ---
This nurse called report to ADEEL Sanchez at [facility] at 1340. They will be here around 1415 to pick pt up.
--- NOTE | 2025-01-17 14:34 | PC.OT ---
OT TREATMENT HELD DUE TO SCHEDULED PATIENT D/C
== END 2025-01-17 14:52 | disposition skilled nursing facility (03) | DRG 481 ==
LOC: ER 19:59 → MEDSURG 20:02
PROVIDERS: Internal Medicine; Student in an Organized Health Care Education/Training Program; Admitting Provider Internal Medicine; Emergency Provider Emergency Medicine; PCP Clinical Nurse Specialist Adult Health; Visit Provider Student in an Organized Health Care Education/Training Program
PROC: 0QS606Z Reposition Right Upper Femur with Intramedullary Internal Fixation Device, Open Approach (ICD-10-PCS; CPT 27245; principal; 2025-01-15 08:00)
DX: S72.141A Displaced intertrochanteric fracture of right femur, initial encounter for closed fracture (principal); N17.9 Acute kidney failure, unspecified; W18.11XA Fall from or off toilet without subsequent striking against object, initial encounter; Y92.002 Bathroom of unspecified non-institutional (private) residence as the place of occurrence of the external cause; E10.319 Type 1 diabetes mellitus with unspecified diabetic retinopathy without macular edema; Z79.4 Long term (current) use of insulin; H54.3 Unqualified visual loss, both eyes; R63.6 Underweight; Z68.20 Body mass index [BMI] 20.0-20.9, adult; F17.220 Nicotine dependence, chewing tobacco, uncomplicated; Z85.038 Personal history of other malignant neoplasm of large intestine; Z92.21 Personal history of antineoplastic chemotherapy
CPT/HCPCS: 36415; 36416; 51702; 71045; 72170; 73110; 73552; 76000; 80048; 80053; 82962; 84484; 85025; 85610; 85730; 93005; 96372; 96374; 97116; 97162; 97167; 97530; 99285; C1713; C1776; J0131; J0690; J1100; J1644; J1650; J1815; J2270; J2371; J2405; J2704; J3010; J3480; J7030; J9999; P9045

== ENCOUNTER 2025-01-18 16:57 | Day surgery (SDC) | payer MEDICARE, MEDICAID, SELFPAY ==
[2025-01-18] VITALS (11 sets, daily range): BP systolic 124–166; BP diastolic 58–92; PULSE 74–95; RESP 14–17; TEMP 36.1–37.1; O2SAT 96–100; BMI 18.6
--- OUTSIDE RECORDS SUMMARY | 2025-01-18 17:07 | XMS_ITS | Encounter Summary ---
Author Organization [employer] 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
--- OUTSIDE RECORDS SUMMARY | 2025-01-18 17:07 | XMS_ITS | Encounter Summary ---
Author Organization [employer] [facility] Address [address] [place] [address] Care Team Providers Care Vaccine Manager Name Role Phone Ender Aiken DO Primary Care Provider [phone] Encounter Details Date Type Department Care Team (Latest Contact Info) Description 03/22/2002 Outpatient Historical HIS [facility] DIABETES UNCOMPL ADULT-TYPE II (CMS/HCC) (Primary Dx) Social History Tobacco Use Types Packs/Day Years Used Date Smoking Tobacco: Never Assessed Sex and Gender Information Value Date Recorded Sex Assigned at Not on file 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
--- OUTSIDE RECORDS SUMMARY | 2025-01-18 17:07 | XMS_ITS | Encounter Summary ---
Author Organization [employer] [facility] Address [address] [place] [address] Care Team Providers Care Wind Energy Engineer Name Role Phone Ender Aiken DO Primary Care Provider [phone] Encounter Details Date Type Department Care Team (Latest Contact Info) Description 03/29/2002 Outpatient Historical HIS [facility] DIABETES UNCOMPL JUSTIN-TYPE I (CMS/HCC) (Primary Dx) Social History Tobacco Use Types Packs/Day Years Used Date Smoking Tobacco: Never Assessed Sex and Gender Information Value Date Recorded Sex Assigned at Not on file Legal Sex Male 5:56 AM RN [facility] Gender Identity Not on file Sexual Orientation [...] uncontrolled documented in this encounter Care Teams Wind Energy Engineer Relationship Specialty Start Date End Date Ender Aiken DO [address] [place] [address] PCP - General Family Practice 06/16/16 documented as of this encounter
--- OUTSIDE RECORDS SUMMARY | 2025-01-18 17:07 | XMS_ITS | Encounter Summary ---
Author Organization [employer] [facility] Address [address] [place] [address] Care Team Providers Care Milk Hauler Name Role Phone Ender Aiken DO Primary Care Provider [phone] Encounter Details Date Type Department Care Team (Latest Contact Info) Description 08/04/2003 Outpatient Historical HIS [facility] DIABETES UNCOMPL JUSTIN-TYPE I (CMS/HCC) (Primary Dx); VISUAL LOSS NOS Social History Tobacco Use Types Packs/Day Years Used Date Smoking Tobacco: Never Assessed Sex and Gender Information Value Date Recorded Sex Assigned at Not on file 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
--- OUTSIDE RECORDS SUMMARY | 2025-01-18 17:07 | XMS_ITS | Clinical Summary ---
Author Organization [employer] Address [address] 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 Gender Identity Not on file Sexual Orientation Not on file Last Filed Vital Signs Vital Sign Reading Time Taken Comments Blood Pressure 136/70 08/13/2023 11:13 AM CDT Pulse 70 08/13/2023 11:13 AM CDT Temperature 36.3 C (97.3 F) 07/11/2016 8:25 AM BELT CONVEYOR DRIER Respiratory Rate 18 07/11/2016 10:20 AM BELT CONVEYOR DRIER Oxygen Saturation 98% 08/13/2023 11:13 AM CDT [...] file Group ID:Not on file Type:Medicaid Address: [address] MEDICARE HMO Care Teams Salvage Engineer Relationship Specialty Start Date End Date Ender Aiken DO [address] [place] [id number] PCP - General Family Practice 06/16/16
--- OUTSIDE RECORDS SUMMARY | 2025-01-18 17:07 | XMS_ITS | Encounter Summary ---
Author Organization [employer] [facility] Address [address] [place] [address] Care Team Providers Care Conservation Science Teacher Name Role Phone Ender Aiken DO Primary Care Provider [phone] Encounter Details Date Type Department Care Team (Latest Contact Info) Description 10/27/2002 Outpatient Historical HIS [facility] Jonathan Patel MD [address] [place], [place] [id number] DIABETES UNCOMPL ADULT-TYPE II (CMS/HCC) (Primary Dx) Social History Tobacco Use Types Packs/Day Years Used Date Smoking Tobacco: Never Assessed Sex and Gender Information Value Date Recorded Sex Assigned at Not on file 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
--- OUTSIDE RECORDS SUMMARY | 2025-01-18 17:07 | XMS_ITS | Encounter Summary ---
Author Organization [employer] [facility] Address [address] [place] [address] Care Team Providers Care Documentation Designer Name Role Phone Ender Aiken DO Primary Care Provider [phone] Encounter Details Date Type Department Care Team (Latest Contact Info) Description 10/26/2002 Outpatient Historical HIS [facility] Jonathan Patel MD [address], [place] [id number] DIABETES UNCOMPL ADULT-TYPE II (CMS/HCC) (Primary Dx) Social History Tobacco Use Types Packs/Day Years Used Date Smoking Tobacco: Never Assessed Sex and Gender Information Value Date Recorded Sex Assigned at Not on file 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
--- OUTSIDE RECORDS SUMMARY | 2025-01-18 17:07 | XMS_ITS | Encounter Summary ---
Author Organization [employer] [facility] Address [address] [place] [address] Care Team Providers Care Modern Greek Studies Professor Name Role Phone Ender Aiken DO Primary Care Provider [phone] Encounter Details Date Type Department Care Team (Latest Contact Info) Description 03/16/2002 Outpatient Historical HIS [facility] DIABETES UNCOMPL JUSTIN-TYPE I (CMS/HCC) (Primary Dx); BLINDNESS NOS, BOTH EYES Social History Tobacco Use Types Packs/Day Years Used Date Smoking Tobacco: Never Assessed Sex and Gender Information Value Date Recorded Sex Assigned at Not on file 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
--- OUTSIDE RECORDS SUMMARY | 2025-01-18 17:07 | XMS_ITS | Encounter Summary ---
Author Organization [employer] [facility] Address [address] Attn: [place] [address] Care Team Providers Care Freight Service Inspector Name Role Phone Ender Aiken DO Primary Care Provider [phone] Encounter Details Date Type Department Care Team (Late st Contact Info) Description 03/22/2002 Outpatient Historical Jonathan Patel MD [address] [place] [address] Social History Tobacco Use Types Packs/Day Years Used Date Smoking Tobacco: Never Assessed Sex and Gender Information Value Date Recorded Sex Assigned at Not on file 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
--- OUTSIDE RECORDS SUMMARY | 2025-01-18 17:07 | XMS_ITS | Clinical Summary ---
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 Temperature 36.3 C (97.3 F) 07/11/2016 8:25 AM 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 Respiratory Rate 18 07/11/2016 10:20 AM 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 Oxygen Saturation 96% 07/11/2016 10:20 AM 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 Inhaled Oxygen Concentration - - Weight 65.8 kg (145 lb) 07/08/2016 11:16 AM 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 Height 177.8 cm (5' 10 ) 07/08/2016 11:16 AM 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
--- OUTSIDE RECORDS SUMMARY | 2025-01-18 17:07 | XMS_ITS | Encounter Summary ---
Author Organization [facility] [employer] [facility] Address [address] [place] [address] Care Team Providers Care Finisher Brush Name Role Phone Ender Aiken DO Primary Care Provider [phone] Encounter Details Date Type Department Care Team (Latest Contact Info) Description 10/26/2002 Outpatient Historical [facility] DIABETES UNCOMPL JUSTIN-TYPE I (CMS/HCC) (Primary Dx); HYPOGLYCEMIA NOS Social History Tobacco Use Types Packs/Day Years Used Date Smoking Tobacco: Never Assessed Sex and Gender Information Value Date Recorded Sex Assigned at Not on file 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
--- NOTE | 2025-01-18 17:36 | ECG_ITS ---
[facility] Test Date: 2025-01-18 Pat Name: Abelino Lawson Department: Room: Gender: Male Fitting Room Attendant: : 1965 Requested By: Fuad Elkins Order Number: [id number] Magana MD: Oscar To M.D. Measurements Intervals [place] Rate: 85 P: 76 ND: 169 QRS: 92 QRSD: 86 T: 61 QT: 374 QTc: 447 Interpretive Statements SINUS RHYTHM POSSIBLE LEFT ATRIAL ENLARGEMENT [-0.1mV P-WAVE IN V1/V2] BORDERLINE RIGHT AXIS DEVIATION [QRS AXIS > 90] Compared to ECG 01/15/2025 01:45:03 No significant changes Electronically Signed On 01-21-2025 08:51:27 CDT by Oscar To M.D. [email or web address]
--- NOTE | 2025-01-18 17:36 | XRR_ITS ---
PROCEDURE INFORMATION: Exam: XR Chest Exam date and time: 01/18/2025 5:39 PM Age: 59 years old Clinical indication: Cough and dyspnea; Additional info: Dyspnea/cough TECHNIQUE: Imaging protocol: Radiologic exam of the chest. Views: 1 view. COMPARISON: CR (CHEST, ) 01/14/2025 6:21 PM FINDINGS: Lungs: Unremarkable. No consolidation. Pleural spaces: Unremarkable. No pleural effusion. No pneumothorax. Heart/Mediastinum: Unremarkable. No cardiomegaly. Bones/joints: Unremarkable. XR/XR chest 1V portable [id number] IMPRESSION: No acute findings.
--- NOTE | 2025-01-18 17:39 | W.ED.GENADLT ---
HPI - General Adult General: Chief complaint: Airway/Esophagus Foreign Body Stated complaint: food in Throat Time Seen by Provider: 01/18/25 17:36 History of Present Illness: 59-year-old male presents emergency room he recently had a femur fracture he is residing in the residential he ate some fried cabbage today and now he is not able to eat or drink since that meal whenever he swallows even water after just a bit he starts coughing and back up or vomits it back up. He has had a problem with esophageal strictures in the past and previously has had dilations. He can barely handle oral secretions at this point. He denies any other issues. He has not had any hemoptysis hematemesis. He has been on Lovenox at the residential. Associated symptoms: Deny chest pain, dyspnea or rash Related Data Home Medications ?Medication ?Instructions ?Recorded ?Confirmed cetirizine 10 mg tablet 10 mg PO DAILY PRN allergie 01/15/25 01/21/25 insulin glargine 100 unit/mL (3 18 unit SUBCUT QPM 01/15/25 01/21/25 mL) subcutaneous pen (Lantus Solostar U-100 Insulin) insulin lispro 100 unit/mL 25 unit SUBCUT TID 01/15/25 01/21/25 subcutaneous pen (Humalog KwikPen (U-100) Insulin) psyllium husk 3.4 gram/5.4 gram 1 tsp PO DAILY 01/15/25 01/21/25 oral powder (Metamucil) sertraline 50 mg tablet 50 mg PO DAILY 01/15/25 01/21/25 insulin lispro protamine-lispro 35 unit SUBCUT DAILY 1 time only 01/21/25 01/21/25 100 unit/mL (50-50) subcutaneous for high bs pen oxycodone 5 mg tablet 5 mg PO Q6H PRN Pain, Moderate 01/21/25 01/21/25 tuberculin PPD 5 tub. unit/0.1 mL 0.1 ml intradermal .Q14D 01/21/25 01/21/25 intradermal injection solution Previous Rx's ?Medication ?Instructions ?Recorded pen needle, diabetic 31 gauge x #180 ea 01/21/23/16 (TechLITE Pen Needle) blood sugar diagnostic (Blood #50 ea 03/26/23 Glucose Test strips) blood-glucose meter #1 ea 03/26/23 lancets (Accu-Chek Softclix #100 ea 03/26/23 Lancets) acetaminophen 325 mg tablet 650 mg (2 x 325 mg) PO Q4H PRN 01/17/25 Mild Pain Or Increase Temp 10 days #40 tabs loperamide 2 mg capsule 4 mg (2 x 2 mg) PO QID PRN 01/17/25 diarrhea 30 days #120 caps polysaccharide iron complex 150 mg 150 mg PO BIDWM 30 days #30 caps 01/17/25 iron capsule (Ferrex) metoclopramide HCl 5 mg tablet 5 mg PO DAILY #90 tabs 01/19/25 sulfamethoxazole 800 1 tab PO BID 7 days #14 tabs 01/22/25 mg-trimethoprim 160 mg tablet (Bactrim DS) Allergies Allergy/AdvReac Type Severity Reaction Status Date / Time No Known Allergies Allergy Verified 03/24/23 14:39 Review of Systems Const: Denies: fever(s) or chills Card: Denies: chest pain Resp: Denies: dyspnea GI: Reports: dysphagia; Denies: abdominal pain, hematemesis or coffee ground emesis : Denies: dysuria, urinary frequency or urinary urgency Musc: Denies: neck pain or back pain Skin/Breast: Denies: rash PFSH ED PFSH: Medical History Type 1 diabetes mellitus Diastolic dysfunction, left ventricle Sepsis due to Gram-negative organism with septic shock Diabetes mellitus Acute renal failure Blindness of both eyes SBO (small bowel obstruction) GERD (gastroesophageal reflux disease) Status post chemoradiation Rectosigmoid cancer Surgical History H/O ileostomy S/P exploratory laparotomy (11/24/20) Small bowel resection, partial colectomy History of reversal of ileostomy History of low anterior resection of rectum Status post colonoscopy (11/23/20) Family History Family/Other CAD (coronary artery disease) Diabetes Denies family history of Stroke Social History Quit status (tobacco/nicotine): not considering quitting Alcohol intake: never Substance/Drug Use: never Additional social history: Chews tobacco 1 can a day patient disabled after lost his vision previously worked in a [employer]. He wants full CODE STATUS. He wants to go home to care under his Sister Keya after surgery. This was discussed on 01/14/2025 with myself Fco Tolbert MD, Keya and patient Physical Exam Const: COMMON NORMALS: no acute distress GENERAL APPEARANCE: cooperative and comfortable ORIENTATION/CONSCIOUSNESS: Yes awake, Yes oriented to person, Yes oriented to place and Yes oriented to time HENMT: COMMON NORMALS: normocephalic, atraumatic and hearing grossly normal bilaterally HEAD & SCALP: normocephalic and atraumatic Resp: COMMON NORMALS: normal respiratory effort, No retractions, No use of accessory muscles and clear to auscultation bilaterally AUSCULTATION: clear to auscultation bilaterally Cardio: COMMON NORMALS: regular rate, regular rhythm and No murmurs present (Cardio) RATE: regular rate RHYTHM: regular rhythm GI: COMMON NORMALS: Soft to palpation and No hepatosplenomegaly present AUSCULTATION: Yes normoactive bowel sounds PALPATION: Yes Soft to palpation, No Tenderness to palpation present (GI), No Guarding due to palpation present (GI) and Yes No hepatosplenomegaly present Extremity: COMMON NORMALS: normal to inspection, capillary refill normal, no clubbing, cyanosis or edema, no calf tenderness and no pedal edema Neuro: SENSORIUM/ORIENTATION: Yes oriented to person, Yes oriented to place and Yes oriented to time Skin: COMMON NORMALS: no rashes or lesions noted GENERAL SKIN EXAM: no rashes or lesions noted Course Vital Signs: Vital signs: Vital Signs Temperature 98.5 F 01/19/25 13:56 Pulse Rate 80 01/19/25 13:56 Respiratory Rate 17 01/19/25 13:56 Blood Pressure 116/57 01/19/25 13:56 Pulse Oximetry 97 01/19/25 13:56 Oxygen Delivery Me thod Room Air 01/19/25 04:00 MDM - General Adult Medical Decision Making Esophageal impaction discussed with Dr. Mendoza who is on-call for surgery he will take the patient to the endoscopy suite for definitive treatment Medical Records I reviewed the patient's medical records. Lab Data Radiology Impressions Chest X-Ray 01/18/25 17:36 IMPRESSION: No acute findings. Laboratory Results POC Glucose 401 mg/dL (70-110) H 01/19/25 12:44 Estimat Average Glucose 123 01/19/25 04:41 Hemoglobin A1c 5.9 % (4.0-6.0) 01/19/25 04:41 TSH 1.52 uIU/mL (0.27-4.20) 01/19/25 04:41 All radiology interpretation(s) finalized by discharge Discharge Plan Discharge Patient Disposition: Placed in Observation Clinical Impression: Esophageal obstruction due to food impaction, Type 1 diabetes mellitus Coding Level of Care Code ED Marine Equipment Research Engineer for Chris Dash
[2025-01-18] MEDS: glucagon 1 mg/mL KIT 1 mL IM (17:48)
--- NOTE | 2025-01-18 18:06 | ANES.PREANE2 ---
Pre-Anesthetic Assessment Height/Weight: Height 1.78 m Pulse Resp BP Pulse Ox O2 Del Method 93 16 159/70 96 Room Air 01/18/25 17:08 01/18/25 17:08 01/18/25 17:08 01/18/25 17:08 01/18/25 17:08 Familial anesthetic complications: none Social No alcohol and No tobacco Metabolic Diabetes Mellitus Anesthetic Plan ASA status: 3E Anesthesia: General Risk of > 500 ml blood loss (7ml/kg in children): No Medications/Allergies Home Medications ?Medication ?Instructions ?Recorded ?Confirmed ?Last Taken ?Type multivitamin 1 tab PO DAILY 11/21/20 01/15/25 01/14/25 08:00 History pen needle, diabetic 31 gauge x #180 ea 01/21/23 01/15/25 Unknown Rx 3/16 (TechLITE Pen Needle) blood sugar diagnostic (Blood #50 ea 03/26/23 01/15/25 Unknown Rx Glucose Test strips) blood-glucose meter #1 ea 03/26/23 01/15/25 Unknown Rx lancets (Accu-Chek Softclix #100 ea 03/26/23 01/15/25 Unknown Rx Lancets) cetirizine 10 mg tablet 10 mg PO DAILY PRN allergie 01/15/25 01/15/25 01/14/25 08:00 History insulin glargine 100 unit/mL (3 18 unit SUBCUT QPM 01/15/25 01/15/25 01/13/25 20:00 History mL) subcutaneous pen (Lantus Solostar U-100 Insulin) insulin lispro 100 unit/mL 25 unit SUBCUT TID 01/15/25 01/15/25 01/14/25 08:00 History subcutaneous pen (Humalog KwikPen (U-100) Insulin) psyllium husk 3.4 gram/5.4 gram 1 tsp PO DAILY 01/15/25 01/15/25 Unknown History oral powder (Metamucil) sertraline 50 mg tablet 50 mg PO DAILY 01/15/25 01/15/25 01/14/25 09:00 History acetaminophen 325 mg tablet 650 mg (2 x 325 mg) PO Q4H PRN 01/17/25 Unknown Rx Mild Pain Or Increase Temp 10 days #40 tabs calcium 600 mg (as 1 tab PO BID@0500,1700 30 days #30 01/17/25 Unknown Rx carbonate)-vitamin D3 10 mcg (400 tabs unit) tablet enoxaparin 30 mg/0.3 mL 30 mg (0.3 mL) SUBCUT DAILY Blood 01/17/25 Unknown Rx subcutaneous syringe (Lovenox) Clot Prevention 35 days #10.5 mL loperamide 2 mg capsule 4 mg (2 x 2 mg) PO QID PRN 01/17/25 01/15/25 01/14/25 09:00 Rx diarrhea 30 days #120 caps polysaccharide iron complex 150 mg 150 mg PO BIDWM 30 days #30 caps 01/17/25 Unknown Rx iron capsule (Ferrex) Allergies Allergy/AdvReac Type Severity Reaction Status Date / Time No Known Allergies Allergy Verified 03/24/23 14:39 [facility] Anesthesia Medical History Type 1 diabetes mellitus Diastolic dysfunction, left ventricle Sepsis due to Gram-negative organism with septic shock Diabetes mellitus Acute renal failure Blindness of both eyes SBO (small bowel obstruction) GERD (gastroesophageal reflux disease) Status post chemoradiation Rectosigmoid cancer Surgical History H/O ileostomy S/P exploratory laparotomy (11/24/20) Small bowel resection, partial colectomy History of reversal of ileostomy History of low anterior resection of rectum Status post colonoscopy (11/23/20) Family History Family/Other CAD (coronary artery disease) Diabetes Denies family history of Stroke Social History Quit status (tobacco/nicotine): not considering quitting Alcohol intake: never Substance/Drug Use: never Additional social history: Chews tobacco 1 can a day patient disabled after lost his vision previously worked in a [employer] He wants full CODE STATUS. He wants to go home to care under his Sister Keya after surgery. This was discussed on 01/14/2025 with myself Fco Tolbert MD, Keya and patient Data Anesthesia Cardiac Studies: Echocardiogram 12/03/20
--- NOTE | 2025-01-18 19:01 | PM.HP ---
Providers/Chief Complaint Primary Care Provider: Leroy Flores Chief Complaint: food in Throat History of Present Illness Abelino Lawson is a 59 year old male who presents with a food bolus impaction after eating cabbage. Still drooling after glucagon. Medications/Allergies Home Medications ?Medication ?Instructions ?Recorded ?Confirmed ?Last Taken ?Type multivitamin 1 tab PO DAILY 11/21/20 01/15/25 01/14/25 08:00 History pen needle, diabetic 31 gauge x #180 ea 01/21/23 01/15/25 Unknown Rx 08/14 (TechLITE Pen Needle) blood sugar diagnostic (Blood #50 ea 03/26/23 01/15/25 Unknown Rx Glucose Test strips) blood-glucose meter #1 ea 03/26/23 01/15/25 Unknown Rx lancets (Accu-Chek Softclix #100 ea 03/26/23 01/15/25 Unknown Rx Lancets) cetirizine 10 mg tablet 10 mg PO DAILY PRN allergie 01/15/25 01/15/25 01/14/25 08:00 History insulin glargine 100 unit/mL (3 18 unit SUBCUT QPM 01/15/25 01/15/25 01/13/25 20:00 History mL) subcutaneous pen (Lantus Solostar U-100 Insulin) insulin lispro 100 unit/mL 25 unit SUBCUT TID 01/15/25 01/15/25 01/14/25 08:00 History subcutaneous pen (Humalog KwikPen (U-100) Insulin) psyllium husk 3.4 gram/5.4 gram 1 tsp PO DAILY 01/15/25 01/15/25 Unknown History oral powder (Metamucil) sertraline 50 mg tablet 50 mg PO DAILY 01/15/25 01/15/25 01/14/25 09:00 History acetaminophen 325 mg tablet 650 mg (2 x 325 mg) PO Q4H PRN 01/17/25 Unknown Rx Mild Pain Or Increase Temp 10 days #40 tabs calcium 600 mg (as 1 tab PO BID@0500,1700 30 days #30 01/17/25 Unknown Rx carbonate)-vitamin D3 10 mcg (400 tabs unit) tablet enoxaparin 30 mg/0.3 mL 30 mg (0.3 mL) SUBCUT DAILY Blood 01/17/25 Unknown Rx subcutaneous syringe (Lovenox) Clot Prevention 35 days #10.5 mL loperamide 2 mg capsule 4 mg (2 x 2 mg) PO QID PRN 01/17/25 01/15/25 01/14/25 09:00 Rx diarrhea 30 days #120 caps polysaccharide iron complex 150 mg 150 mg PO BIDWM 30 days #30 caps 01/17/25 Unknown Rx iron capsule (Ferrex) Allergies Allergy/AdvReac Type Severity Reaction Status Date / Time No Known Allergies Allergy Verified 03/24/23 14:39 PFSH Acute PFSH: Medical History Type 1 diabetes mellitus Diastolic dysfunction, left ventricle Sepsis due to Gram-negative organism with septic shock Diabetes mellitus Acute renal failure Blindness of both eyes SBO (small bowel obstruction) GERD (gastroesophageal reflux disease) Status post chemoradiation Rectosigmoid cancer Surgical History H/O ileostomy S/P exploratory laparotomy (11/24/20) Small bowel resection, partial colectomy History of reversal of ileostomy History of low anterior resection of rectum Status post colonoscopy (11/23/20) Family History Family/Other CAD (coronary artery disease) Diabetes Denies family history of Stroke Social History Quit status (tobacco/nicotine): not considering quitting Alcohol intake: never Substance/Drug Use: never Additional social history: Chews tobacco 1 can a day patient disabled after lost his vision previously worked in a [employer]. He wants full CODE STATUS. He wants to go home to care under his Sister Keya after surgery. This was discussed on 01/14/2025 with myself Fco Tolbert MD, [place]a and patient Vitals/I&O/Wt Last Vital Signs Pulse 95 01/18/25 18:58 Resp 16 01/18/25 17:08 BP 166/73 01/18/25 18:58 Pulse Ox 98 01/18/25 18:58 O2 Del Method Room Air 01/18/25 18:58 Physical Exam Narrative: Chest: Unlabored breathing room air. No lymphadenopathy. Heart: Regular rate and rhythm. Abdomen: Soft, nontender, nondistended. No masses or lymphadenopathy. A&P Assessment and plan 1. Esophageal obstruction due to food impaction: Plan: 59-year-old male who presents with a food bolus impaction. Discussed risk and benefits and patient agreed to proceed with EGD and food bolus disimpaction. Patient understands he is at risk of aspiration, esophageal perforation, and still agrees to proceed. PDMP PDMP Reviewed: Not Reviewed Attestations Medical Necessity Statement*: esophageal food bolus impaction Coding Level of Care Code 66833 Diagnoses Esophageal obstruction due to food impaction T18.128A; [id number].F3XA
--- NOTE | 2025-01-18 19:12 | PC.NURSE ---
Patient rolled to surgery at 1901.
--- NOTE | 2025-01-18 19:35 | P.MISC_ITS ---
Miscellaneous Note Note: No food impacted. Large amount of food in stomach. Family cannot transport to care home. Will keep overnight, hospitalist consulted, discharge in AM with case management assistance.
--- NOTE | 2025-01-18 19:35 | PM.MISC ---
Miscellaneous Note Note: No food impacted. Large amount of food in stomach. Family cannot transport to [facility]. Will keep overnight, hospitalist consulted, discharge in AM with case management assistance.
--- NOTE | 2025-01-18 21:14 | PM.CONSULT ---
Providers/Reason For Consult Consulting Physician/Specialty*: General Surgery Reason for Consult*: Medical management Attending Physician: Jens Mendoza MD Primary Care Provider: Leroy Flores History of Present Illness History of Present Illness Abelino Lawson is a 59 year old male with a past medical history of type 1 diabetes, blindness of both eyes, who recently had a right femur fracture status post surgical intervention, who ate some cabbage today, now having globus sensation, vomiting, with a history of esophageal strictures, was seen by general surgery, status post EGD, found to have large amount retained food in the stomach, no food bolus impaction encountered, he denies a history of diabetic gastroparesis, no abdominal pain, is having gas from below, Review of Systems Const: Reports: fever(s) Card: Denies: chest pain Resp: Denies: dyspnea GI: Denies: abdominal pain Medications/Allergies Home Medications ?Medication ?Instructions ?Recorded ?Confirmed ?Last Taken ?Type multivitamin 1 tab PO DAILY 11/21/20 01/15/25 01/14/25 08:00 History pen needle, diabetic 31 gauge x #180 ea 01/21/23 01/15/25 Unknown Rx 08/14 (TechLITE Pen Needle) blood sugar diagnostic (Blood #50 ea 03/26/23 01/15/25 Unknown Rx Glucose Test strips) blood-glucose meter #1 ea 03/26/23 01/15/25 Unknown Rx lancets (Accu-Chek Softclix #100 ea 03/26/23 01/15/25 Unknown Rx Lancets) cetirizine 10 mg tablet 10 mg PO DAILY PRN allergie 01/15/25 01/18/25 01/14/25 08:00 History insulin glargine 100 unit/mL (3 18 unit SUBCUT QPM 01/15/25 01/18/25 01/17/25 History mL) subcutaneous pen (Lantus Solostar U-100 Insulin) insulin lispro 100 unit/mL 25 unit SUBCUT TID 01/15/25 01/18/25 01/14/25 08:00 History subcutaneous pen (Humalog KwikPen (U-100) Insulin) psyllium husk 3.4 gram/5.4 gram 1 tsp PO DAILY 01/15/25 01/18/25 Unknown History oral powder (Metamucil) sertraline 50 mg tablet 50 mg PO DAILY 01/15/25 01/18/25 01/14/25 09:00 History acetaminophen 325 mg tablet 650 mg (2 x 325 mg) PO Q4H PRN 01/17/25 01/18/25 Unknown Rx Mild Pain Or Increase Temp 10 days #40 tabs calcium 600 mg (as 1 tab PO BID@0500,1700 30 days #30 01/17/25 01/18/25 Unknown Rx carbonate)-vitamin D3 10 mcg (400 tabs unit) tablet enoxaparin 30 mg/0.3 mL 30 mg (0.3 mL) SUBCUT DAILY Blood 01/17/25 01/18/25 01/18/25 Rx subcutaneous syringe (Lovenox) Clot Prevention 35 days #10.5 mL loperamide 2 mg capsule 4 mg (2 x 2 mg) PO QID PRN 01/17/25 01/18/25 01/14/25 09:00 Rx diarrhea 30 days #120 caps polysaccharide iron complex 150 mg 150 mg PO BIDWM 30 days #30 caps 01/17/25 01/18/25 Unknown Rx iron capsule (Ferrex) Allergies Allergy/AdvReac Type Severity Reaction Status Date / Time No Known Allergies Allergy Verified 03/24/23 14:39 PFSH Acute PFSH: Medical History Type 1 diabetes mellitus Diastolic dysfunction, left ventricle Sepsis due to Gram-negative organism with septic shock Diabetes mellitus Acute renal failure Blindness of both eyes SBO (small bowel obstruction) GERD (gastroesophageal reflux disease) Status post chemoradiation Rectosigmoid cancer Surgical History H/O ileostomy S/P exploratory laparotomy (11/24/20) Small bowel resection, partial colectomy History of reversal of ileostomy History of low anterior resection of rectum Status post colonoscopy (11/23/20) Family History Family/Other CAD (coronary artery disease) Diabetes Denies family history of Stroke Social History Quit status (tobacco/nicotine): not considering quitting Alcohol intake: never Substance/Drug Use: never Additional social history: Chews tobacco 1 can a day patient disabled after lost his vision previously worked in a [employer]. He wants full CODE STATUS. He wants to go home to care under his Sister Keya after surgery. This was discussed on 01/14/2025 with myself Fco Tolbert MD, Keya and patient Vitals/I&O/Wt Last Vital Signs Temp 97.5 F L 01/18/25 19:41 Pulse 83 01/18/25 19:41 Resp 16 01/18/25 19:41 BP 127/62 01/18/25 19:41 Pulse Ox 98 01/18/25 19:41 O2 Del Method Room Air 01/18/25 20:37 Weight last 48 hrs Weight 59.08 kg Weight 59.058 kg Physical Exam Const: COMMON NORMALS: no acute distress and patient oriented x3 Eye: COMMON NORMALS: Equal, round and reactive pupils present PUPIL: Yes Equal, round and reactive pupils present Resp: COMMON NORMALS: normal respiratory effort, No retractions, No use of accessory muscles and clear to auscultation bilaterally AUSCULTATION: clear to auscultation bilaterally Cardio: COMMON NORMALS: regular rate, regular rhythm, S1 normal heart sound present and S2 normal heart sound present RATE: regular rate RHYTHM: regular rhythm HEART SOUNDS: S1 normal heart sound present and S2 normal heart sound present GI: COMMON NORMALS: Normal to inspection, nondistended, normoactive bowel sounds present Extremity: COMMON NORMALS: no pedal edema Neuro: COMMON NORMALS: patient oriented x3, CN's II-XII intact bilaterally and moves all extremities Psych: COMMON NORMALS: mental status grossly normal Skin: NARRATIVE SKIN EXAM: Right hip surgical site, with bandage on top, looks clean and dry A&P Assessment and plan 1. Type 1 diabetes mellitus: 2. Intertrochanteric fracture of right femur: 3. Blindness of both eyes: 4. Esophageal obstruction due to food impaction: Plan: Concerns for esophageal obstruction due to food impaction - EGD - Showed no abnormalities in esophagus, there is a large amount of retained food in the stomach, no food bolus impaction - Possible diabetic gastroparesis? - Will monitor based on clinical progress - Currently on clear liquids Type 1 diabetes mellitus, low-dose sliding scale Recent history of right femur fracture status post surgical invention - Continue Lovenox for DVT prophylaxis PDMP PDMP Reviewed: Not Reviewed Consult Attestations Medical Necessity Statement: Patient requires hospitalization for concern for food impaction Diagnoses Type 1 diabetes mellitus E10.9 Intertrochanteric fracture of right femur S72.141A Blindness of both eyes H54.3 Esophageal obstruction due to food impaction T18.128A; W44.F3XA
[2025-01-19 04:00] VITALS: BP 135/54; PULSE 80; RESP 16; TEMP 36.7; O2SAT 97
[2025-01-19 05:40] LABS: Estmated Average Glucose 123; Hemoglobin A1C 5.9 % (4.0-6.0)
[2025-01-19 05:45] LABS: Thyroid Stimulating Hormone 1.52 uIU/mL (0.27-4.20)
[2025-01-19 07:52] VITALS: BP 139/55; PULSE 86; RESP 17; TEMP 36.7; O2SAT 98
--- NOTE | 2025-01-19 09:45 | PM.PN ---
Subjective Subjective: Tolerating clears, no events overnight Vitals/I&O/Wt Last Vital Signs Temp 98.0 F 01/19/25 07:52 Pulse 86 01/19/25 07:52 Resp 17 01/19/25 07:52 BP 139/55 01/19/25 07:52 Pulse Ox 98 01/19/25 07:52 O2 Del Method Room Air 01/19/25 04:00 01/18/25 01/19/25 01/19/25 22:59 06:59 14:59 Intake Total 60 / 60 360 / 360 Output Total 1400 / 1400 800 / 2200 Balance -1340 / -1340 -800 / -2140 360 / 360 Weight last 48 hrs Weight 130 lb 4 oz Weight 130 lb 4 oz Weight 130 lb 3.2 oz Physical Exam Narrative: Chest: Unlabored breathing room air. No lymphadenopathy. Heart: Regular rate and rhythm. Abdomen: Soft, nontender, nondistended. No masses or lymphadenopathy. A&P Assessment and plan 1. Esophageal obstruction due to food impaction: Plan: 59-year-old male admitted initially with food bolus impaction. Unremarkable EGD. Cleared for discharge. PDMP PDMP Reviewed: Not Reviewed Attestations Medical Necessity Statement*: N/A Coding Level of Care Code 34085 Diagnoses Esophageal obstruction due to food impaction T18.128A; W44.F3XA
--- NOTE | 2025-01-19 11:07 | PM.DCS ---
Discharge Providers Date of Admission: 01/18/25 20:34 Date of Discharge: January 19, 2025 Attending Provider at Admission: Jens Mendoza MD Attending Provider at Discharge: Jens Mendoza MD Primary Care Provider: Leroy Flores Diagnoses at Discharge Discharge Diagnosis 1. Type 1 diabetes mellitus with other ophthalmic complication: 2. Intertrochanteric fracture of right femur: 3. Blindness of both eyes: 4. Esophageal obstruction due to food impaction: Reason for Visit Reason for Visit: food in Throat Brief History: Abelino Lawson is a 59 year old male with a past medical history of type 1 diabetes, blindness of both eyes, who recently had a right femur fracture status post surgical intervention, who ate some cabbage today, now having globus sensation, vomiting, with a history of esophageal strictures, was seen by general surgery, status post EGD, found to have large amount retained food in the stomach, no food bolus impaction encountered, he denies a history of diabetic gastroparesis, no abdominal pain, is having gas from below, Hospital Course Hospital Course The patient underwent endoscopy by the surgery and there was no food impacted instead there was a large amount of food in the stomach which likely due to gastroparesis. The surgery cleared the patient for discharge Patient labs were reviewed. The patient had mild anemia of chronic disease with multifactorial likely also postop as well currently stable and no obvious blood loss source or any acute concerns. The patient informed the plan of care and to start him on metoclopramide for likely gastroparesis and the patient agreed with the plan of care. All the risks and benefits of the plan of management were discussed. Clinical stability established before discharge with proper plan of care with follow-up Physical Exam Narrative: General: Alert oriented x3, legally blind, patient seen lying comfortably HEENT: Normocephalic, atraumatic, EOMI, breathing on room air Cardio: Regular rate rhythm, normal S1-S2, no murmurs rubs gallops, JVD normal Respiratory: Good bilateral air entry, no wheezes no rhonchi appreciated GI: Abdomen soft, nontender, nondistended, normoactive bowel sounds present all 4 quadrants, Neuro: No focal neurological deficit Behavior: Appropriate and cooperative Extremities: Right ORIF, mild trace edema of the respective limb and bilateral palpable pulses present Skin: Visible skin intact, no rashes Discharge Data Studies Completed and Pending Completed Studies During Hospitalization Category Date Time Status XR chest 1V portable [id number] Stat Exams 01/18/25 17:36 Completed Radiology Impressions Chest X-Ray 01/18/25 17:36 IMPRESSION: No acute findings. Laboratory Results Estimat Average Glucose 123 01/19/25 04:41 Hemoglobin A1c 5.9 % (4.0-6.0) 01/19/25 04:41 TSH 1.52 uIU/mL (0.27-4.20) 01/19/25 04:41 Vitals Last Vital Signs Temp 98.0 F 01/19/25 07:52 Pulse 86 01/19/25 07:52 Resp 17 01/19/25 07:52 BP 139/55 01/19/25 07:52 Pulse Ox 98 01/19/25 07:52 O2 Del Method Room Air 01/19/25 04:00 Discharge Plan Discharge Patient Disposition: Xfer SNF Condition: Stable Prescriptions: New metoclopramide HCl 5 mg tablet 5 mg PO DAILY MDD 10mg Qty: 90 0RF Continued (DME) pen needle, diabetic [TechLITE Pen Needle] 31 gauge x 3/16 needle See Rx Instructions .ROUTE .COMPLEX Qty: 180 3RF Dose Instruction: USE DIRECTED FOR INJECTION OF INSULIN Rx Instructions: USE DIRECTED FOR INJECTION OF INSULIN (DME) Blood Glucose Test Strip See Rx Instructions .Route Qty: 50 6RF Rx Instructions: As directed (DME) blood-glucose meter Kit See Rx Instructions .Route Qty: 1 0RF Rx Instructions: As directed (DME) lancets [Accu-Chek Softclix Lancets] Misc See Rx Instructions .Route Qty: 100 0RF Rx Instructions: As directed multivitamin Tablet 1 tab PO DAILY sertraline 50 mg tablet 50 mg PO DAILY insulin lispro [Humalog KwikPen Insulin] 100 unit/mL insulin pen 25 unit SUBCUT TID insulin glargine [Lantus Solostar U-100 Insulin] 100 unit/mL (3 mL) insulin pen 18 unit SUBCUT QPM cetirizine 10 mg Tablet 10 mg PO DAILY PRN (Reason: allergie) Metamucil 3.4 gram/5.4 gram Powder 1 tsp PO DAILY Rx Instructions: mix into at least 4 oz water or juice before administering polysaccharide iron complex [Ferrex 150] 150 mg iron Capsule 150 mg PO BIDWM 30 Days Qty: 30 0RF calcium carbonate-vitamin D3 600 mg-10 mcg (400 unit) Tablet 1 tab PO BID@0500,1700 30 Days Qty: 30 0RF acetaminophen 325 mg Tablet 650 mg PO Q4H PRN (Reason: Mild Pain Or Increase Temp) 10 Days Qty: 40 0RF loperamide 2 mg capsule 4 mg PO QID PRN (Reason: diarrhea) 30 Days Qty: 120 0RF enoxaparin [Lovenox] 30 mg/0.3 mL syringe 30 mg SUBCUT DAILY 35 Days Qty: 10.5 0RF Referrals: [facility] [Outside] Jens Mendoza MD [Physician, General Surgery] - 02/02/25 9:20 am Leroy Flores NP [Primary Care Provider, Family Practice] Discharge Diet: Advance as tolerated and Usual diet Discharge Activity: Resume usual activity and Limit activity as instructed Patient Instructions: Metoclopramide (By mouth) (Metozolv ODT, PCP 100, Reglan), Upper Endoscopy (DC), Opioid Safety, Patient Portal & Dannie Instructions Discharge Attestations Time Spent in Discharge Care*: less than 30 min Specific Discharge Activities: educating patient, educating and/or supporting family/caregiver, discussing with pcp/other providers, discussing with family preservation caseworker/social workers/dc planners, documenting/other paperwork and evaluating patient/reviewing data Status at Discharge: Cognitive status at discharge: cognitively intact, Behavioral status at discharge: cooperative, Functional status at discharge: other assisted ambulation, Overall status at discharge: patient is back to baseline Quality Metrics Clinical Quality Measures [ No reported AMI, CVA or VTE this stay] Coding Level of Care Code Acute Code for Chg Fwd Diagnoses Type 1 diabetes mellitus with other ophthalmic complication E10.39 Diabetes mellitus complication status: with ophthalmic complications Diabetes mellitus complication detail: with other ophthalmic complication Intertrochanteric fracture of right femur S72.141A Blindness of both eyes H54.3 Esophageal obstruction due to food impaction T18.128A; W44.F3XA
[2025-01-19 11:37] VITALS: BP 116/57; PULSE 80; RESP 17; TEMP 36.9; O2SAT 97
--- NOTE | 2025-01-19 12:05 | PC.NURSE ---
attempted to call [place] report and no answer on all ext.
[2025-01-19 13:56] VITALS: BP 116/57; PULSE 80; RESP 17; TEMP 36.9; O2SAT 97
== END 2025-01-19 13:57 | disposition skilled nursing facility (03) ==
LOC: ER 18:43 → GILAB 19:02 → MEDSURG 23:02
PROVIDERS: Family Medicine; Emergency Provider Family Medicine; PCP Clinical Nurse Specialist Adult Health; Visit Provider Student in an Organized Health Care Education/Training Program
PROC: 0DJ08ZZ Inspection of Upper Intestinal Tract, Via Natural or Artificial Opening Endoscopic (ICD-10-PCS; principal; 2025-01-18 18:40)
DX: T18.128A Food in esophagus causing other injury, initial encounter (principal); W44.F3XA Food entering into or through a natural orifice, initial encounter; K31.89 Other diseases of stomach and duodenum; E10.39 Type 1 diabetes mellitus with other diabetic ophthalmic complication; H54.3 Unqualified visual loss, both eyes; Z79.4 Long term (current) use of insulin; F17.220 Nicotine dependence, chewing tobacco, uncomplicated; K21.9 Gastro-esophageal reflux disease without esophagitis
CPT/HCPCS: 36415; 36416; 43235; 71045; 82962; 83036; 84443; 93005; 94664; 96372; J0330; J1610; J1650; J1815; J2704; J9999

== ENCOUNTER 2025-01-20 19:12 | Inpatient (IN) | payer MEDICARE, MEDICAID, SELFPAY ==
--- NOTE | 2025-01-20 19:20 | ECG_ITS ---
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 Measurements Intervals [place] Rate: 95 P: 68 GA: 159 QRS: 80 QRSD: 96 T: 64 QT: 356 QTc: 448 Interpretive Statements SINUS RHYTHM LEFT ATRIAL ENLARGEMENT [-0.15mV P-WAVE IN V1/V2] MODERATE ST DEPRESSION [0.05+ mV ST DEPRESSION] Compared to ECG 01/18/2025 17:56:21 ST (T wave) deviation now present Electronically Signed On 01-21-2025 09:38:36 CDT by Oscar To M.D. [email or web address]
[2025-01-20 19:24] VITALS: BP 136/55; PULSE 96; RESP 20; TEMP 37; O2SAT 100
--- NOTE | 2025-01-20 19:32 | XRR_ITS ---
PROCEDURE INFORMATION: Exam: XR Chest Exam date and time: 01/20/2025 7:42 PM Age: 59 years old Clinical indication: Other: General weakness; Additional info: Lethargy TECHNIQUE: Imaging protocol: Radiologic exam of the chest. Views: 1 view. COMPARISON: CR (CHEST, ) 01/18/2025 5:39 PM FINDINGS: Lungs: Unremarkable. No consolidation. Pleural spaces: Unremarkable. No pleural effusion. No pneumothorax. Heart/Mediastinum: Unremarkable. No cardiomegaly. Vasculature: Calcifications of the aortic arch. Bones/joints: Unremarkable. XR/XR chest 1V portable [id number] IMPRESSION: No acute cardiopulmonary abnormality.
--- NOTE | 2025-01-20 19:39 | W.ED.RECABL ---
HPI - Recheck/Abnormal Lab/Rx General: Chief Complaint: Recheck/Abnormal Lab/Rx Stated Complaint: HIGH BLOOD SUGAR Time Seen by Provider: 01/20/25 19:18 History of Present Illness: Patient is a 59-year-old male with long-standing diabetes mellitus since age 3, presenting with severe hyperglycemia. Blood glucose was reportedly 'too high to read' on initial monitoring, though has decreased somewhat after insulin administration. Patient reports excessive thirst with continuous sipping of water. He experienced vomiting this morning after breakfast but denies any further emesis since then. Patient recently underwent leg surgery (femur) on Thursday (5 days ago) and currently has an indwelling urinary catheter. He denies fever, abdominal pain, or worsening leg symptoms. He reports the leg was initially problematic after surgery but has been improving with activity. Patient mentions sneezing but denies cough. Related Data Home Medications ?Medication ?Instructions ?Recorded ?Confirmed multivitamin 1 tab PO DAILY 11/21/20 01/19/25 cetirizine 10 mg tablet 10 mg PO DAILY PRN allergie 01/15/25 01/18/25 insulin glargine 100 unit/mL (3 18 unit SUBCUT QPM 01/15/25 01/18/25 mL) subcutaneous pen (Lantus Solostar U-100 Insulin) insulin lispro 100 unit/mL 25 unit SUBCUT TID 01/15/25 01/18/25 subcutaneous pen (Humalog KwikPen (U-100) Insulin) psyllium husk 3.4 gram/5.4 gram 1 tsp PO DAILY 01/15/25 01/18/25 oral powder (Metamucil) sertraline 50 mg tablet 50 mg PO DAILY 01/15/25 01/18/25 Previous Rx's ?Medication ?Instructions ?Recorded pen needle, diabetic 31 gauge x #180 ea 01/21/23 3/16 (TechLITE Pen Needle) blood sugar diagnostic (Blood #50 ea 03/26/23 Glucose Test strips) blood-glucose meter #1 ea 03/26/23 lancets (Accu-Chek Softclix #100 ea 03/26/23 Lancets) acetaminophen 325 mg tablet 650 mg (2 x 325 mg) PO Q4H PRN 01/17/25 Mild Pain Or Increase Temp 10 days #40 tabs calcium 600 mg (as 1 tab PO BID@0500,1700 30 days #30 01/17/25 carbonate)-vitamin D3 10 mcg (400 tabs unit) tablet enoxaparin 30 mg/0.3 mL 30 mg (0.3 mL) SUBCUT DAILY Blood 01/17/25 subcutaneous syringe (Lovenox) Clot Prevention 35 days #10.5 mL loperamide 2 mg capsule 4 mg (2 x 2 mg) PO QID PRN 01/17/25 diarrhea 30 days #120 caps polysaccharide iron complex 150 mg 150 mg PO BIDWM 30 days #30 caps 01/17/25 iron capsule (Ferrex) metoclopramide HCl 5 mg tablet 5 mg PO DAILY #90 tabs 01/19/25 Allergies Allergy/AdvReac Type Severity Reaction Status Date / Time No Known Allergies Allergy Verified 03/24/23 14:39 Review of Systems Narrative: Constitutional: Denies fever HEENT: Reports sneezing Respiratory: Denies cough Cardiovascular: Not specifically addressed Gastrointestinal: Reports vomiting after breakfast this morning, denies abdominal pain Genitourinary: Has indwelling catheter, unable to assess for dysuria Musculoskeletal: Reports improving symptoms in surgical leg Neurological: Not specifically addressed Endocrine: Reports polydipsia with continuous water consumption PFSH ED PFSH: Medical History Type 1 diabetes mellitus Diastolic dysfunction, left ventricle Sepsis due to Gram-negative organism with septic shock Diabetes mellitus Acute renal failure Blindness of both eyes SBO (small bowel obstruction) GERD (gastroesophageal reflux disease) Status post chemoradiation Rectosigmoid cancer Surgical History H/O ileostomy S/P exploratory laparotomy (11/24/20) Small bowel resection, partial colectomy History of reversal of ileostomy History of low anterior resection of rectum Status post colonoscopy (11/23/20) Family History Family/Other CAD (coronary artery disease) Diabetes Denies family history of Stroke Social History Quit status (tobacco/nicotine): not considering quitting Alcohol intake: never Substance/Drug Use: never Additional social history: Chews tobacco 1 can a day patient disabled after lost his vision previously worked in a [employer]. He wants full CODE STATUS. He wants to go home to care under his Sister Keya after surgery. This was discussed on 01/14/2025 with myself Fco Tolbert MD, Sandra and patient Physical Exam Const: GENERAL APPEARANCE: cooperative; not ill appearing and not frail appearing NUTRITIONAL APPEARANCE: thin ORIENTATION/CONSCIOUSNESS: Yes awake, Yes oriented to person, Yes oriented to place and Yes oriented to time HENMT: COMMON NORMALS: normocephalic, atraumatic and Normal external nose present HEAD & SCALP: normocephalic and atraumatic FACE & SINUS: normal facial exam and face symmetric NOSE: Normal external nose present Neck/C-Spine: GENERAL: Yes trachea midline Chest: CHEST: Yes Symmetrical chest wall rise Resp: COMMON NORMALS: normal respiratory effort, No retractions, No use of accessory muscles and clear to auscultation bilaterally AUSCULTATION: clear to auscultation bilaterally Cardio: COMMON NORMALS: regular rate and regular rhythm RATE: regular rate RHYTHM: regular rhythm GI: COMMON NORMALS: Normal to inspection, nondistended, normoactive bowel sounds present Extremity: COMMON NORMALS: no pedal edema NARRATIVE EXTREMITY EXAM: Exam the right lower extremity reveals wound over right femur covered in silver impregnated occlusive bandage. No surrounding swelling, redness, or streaking. Neuro: JACQUE COMA SCALE: document GCS findings [place] coma scale eye opening: Spontaneous [place] coma scale verbal response: Orientated [place] coma scale motor response: Obey commands Jac[place] coma scale total score: 15 SENSORIUM/ORIENTATION: Yes oriented to person, Yes oriented to place and Yes oriented to time SENSORY EXAM: Yes extremities (intact) Psych: COMMON NORMALS: speech normal SPEECH: Yes normal speech Skin: COMMON NORMALS: no rashes or lesions noted GENERAL SKIN EXAM: no rashes or lesions noted Course Vital Signs: Vital signs: Vital Signs Temperature 98.6 F 01/20/25 19:24 Pulse Rate 92 01/20/25 21:55 Respiratory Rate 20 H 01/20/25 19:24 Blood Pressure 146/59 01/20/25 21:55 Pulse Oximetry 94 01/20/25 21:55 Oxygen Delivery Me thod Room Air 01/20/25 21:55 MDM - Recheck/Abnormal Lab/Rx Medical Decision Making Patient is mildly tachycardic. He had 1 low blood pressure. He started to vomit after being seen. He was given Zofran. He has had a total of 3 L. He is started on insulin drip after a bolus of 10 units. His serum ketones are positive. ABG shows a pH of 7.18, serum bicarb is 9. Gap is 39. Creatinine is 1.5. Sugar was 638 initially. No definite secondary cause identified. He will be admitted to ICU. Spoke with hospitalist. He will see the patient in the ER. Lab Data 01/20/25 19:31 01/20/25 19:31 Radiology Impressions Chest X-Ray 01/20/25 19:32 IMPRESSION: No acute cardiopulmonary abnormality. Laboratory Results WBC 15.61 10^3/uL (3.29-11.43) H 01/20/25 19: RBC 3.36 10^6/uL (3.85-5.65) L 01/20/25 19: Hgb 10.70 g/dL (11.27-16.99) L 01/20/25 19: Hct 33.2 % (37-53) L 01/20/25 19: MCV 98.8 fl (82-101) 01/20/25 19: MCH 31.8 pg (27-33) 01/20/25 19: MCHC 32.2 g/dL (30-55) 01/20/25 19: RDW 13.4 % (12.1-15.1) 01/20/25 19: Plt Count 443 10^3/cmm (157-399) H 01/20/25 19: MPV 10.8 fL (7.4-10.4) H 01/20/25 19: Neut % (Auto) 88.6 % 01/20/25 19: Lymph % (Auto) 5.8 % 01/20/25: Hawkins % (Auto) 4.6 % 01/20/25 19: Eos % (Auto) 0.1 % 01/20/25 19: Baso % (Auto) 0.4 % 01/20/25 19: Neut # (Auto) 13.83 10^3/uL (1.8-7.7) H 01/20/25 19: Lymph # (Auto) 0.9 10^3/uL (0.8-4.8) 01/20/25 19:31 Hawkins # (Auto) 0.7 10^3/uL (0.2-0.9) 01/20/25 19:31 Eos # (Auto) 0.0 10^3/uL (0.0-0.8) 01/20/25 19:31 Baso # (Auto) 0.1 10^3/uL (0.0-0.1) 01/20/25 19:31 Nucleated RBC % (auto) 0 % 01/20/25 19: Nucleated RBCs # 0.0 /100WBC 01/20/25 19:31 Specimen Type Arterial 01/20/25 20:44 Sample Site Brachial, right 01/20/25 20:44 ABG pH 7.18 (7.35-7.45) L* 01/20/25 20:44 ABG pCO2 14.7 mmHg (35-45) L* 01/20/25 20:44 ABG pO2 123.0 mmHg (80.0-100.0) H 01/20/25 20:44 ABG PO2/FiO2 Ratio 585 01/20/25 20:44 ABG HCO3 5.5 mmol/L (22-26) L 01/20/25 20:44 ABG Base Excess -20.8 mmol/L (-2.0-2.0) L 01/20/25 20:44 Primitivo Test Pos 01/20/25 20:44 Hematocrit 25.8 % (42-52) L 01/20/25 20:44 O2 Delivery Device Room air 01/20/25 20:44 FiO2 21.0 % 01/20/25 20:44 Search Developer ID Monro 01/20/25 20:44 Sodium 135 mmol/L (136-145) L 01/20/25 19:31 Potassium 4.7 mmol/L (3.5-5.1) 01/20/25 19:31 Chloride 92 mmol/L (98-107) L 01/20/25 19:31 Carbon Dioxide 9 mmol/L (22-29) L 01/20/25 19:31 Anion Gap 38.7 (5-19) H 01/20/25 19:31 BUN 33 mg/dL (8-23) H 01/20/25 19:31 Creatinine 1.5 mg/dL (0.7-1.2) H 01/20/25 19:31 GFR Calculation 47.7 mL/min (90-130) L 01/20/25 19: Glucose 638 mg/dL (65-115) H* 01/20/25 19: Calculated Osmolality 317 mOsm/kg (285-295) H 01/20/25 19: Lactic Acid 2.7 mmol/L (0.5-2.2) H 01/20/25 19: Calcium 9.3 mg/dL (8.5-10.5) 01/20/25 19: Magnesium 2.1 mg/dL (1.7-2.3) 01/20/25 19: Total Bilirubin 0.9 mg/dL (0.15-1.2) 01/20/25 19: AST 19 U/L (0-40) 01/20/25 19: ALT 20 U/L (0-41) 01/20/25 19: Alkaline Phosphatase 109 U/L (40-130) 01/20/25 19: C-Reactive Protein 70.9 mg/L (0.0-4.9) H 01/20/25 19: Total Protein 7.1 g/dL (6.6-8.7) 01/20/25 19: Albumin 3.9 g/dL (3.5-5.2) 01/20/25 19: Globulin 3.2 g/dL (1.3-4.6) 01/20/25 19:31 Urine Color Yellow (Yellow) 01/20/25 20:10 Urine Appearance Clear (CLEAR) 01/20/25 20:10 Urine pH 5.0 (5-7) 01/20/25 20:10 Ur Specific [place] 1.028 (1.005-1.030) 01/20/25 20:10 Urine Protein Negative (Negative) 01/20/25 20:10 Urine Glucose (UA) 3+ (Normal) H 01/20/25 20:10 Urine Ketones 4+ (Negative) 01/20/25 20:10 Urine Blood Negative (Negative) 01/20/25 20:10 Urine Nitrate Negative (Negative) 01/20/25 20: Urine Bilirubin Negative (Negative) 01/20/25 20:10 Urine Urobilinogen 0.2 mg/dL (Negative) 01/20/25 20:10 Ur Leukocyte Esterase Negative (Negative) 01/20/25 20:10 Urine RBC 0-2 /hpf (0-2) 01/20/25 20:10 Urine WBC 6-10 /hpf (0-5) 01/20/25 20:10 Ur Squamous Epith Cells 0-5 /hpf (0-5) 01/20/25 20:10 Urine Bacteria None seen /hpf (NONE) 01/20/25 20:10 Hyaline Casts None /lpf 01/20/25 20:10 Other Casts Wbc cast /lpf 01/20/25 20:10 Serum Ketones Positive (Negative) H 01/20/25 19:31 All radiology interpretation(s) finalized by discharge Critical Care Time Critical Care Time: Critical Care Time: Yes Total Critical Care Time: 35 Attestation: This case had a high probability of a clinically significant, sudden, or life threatening deterioration of this patient's condition which required my full and direct attention, intervention and personal management. Time is independent of any procedures performed. Discharge Plan Discharge Patient Disposition: Admitted As Inpatient Clinical Impression: DKA (diabetic ketoacidosis) Condition: Serious Coding Level of Care Code ED Member Services Coordinator for Chris Dash
--- OUTSIDE RECORDS SUMMARY | 2025-01-20 19:39 | XMS_ITS | Encounter Summary ---
Author Organization [employer] [facility] Address [address] [place] [address] Care Team Providers Care Blasting Cap Assembler Name Role Phone Ender Aiken DO Primary Care Provider [phone] Encounter Details Date Type Department Care Team (Latest Contact Info) Description 03/29/2002 Outpatient Historical HIS [facility] DIABETES UNCOMPL JUSTIN-TYPE I (CMS/HCC) (Primary Dx) Social History Tobacco Use Types Packs/Day Years Used Date Smoking Tobacco: Never Assessed Sex and Gender Information Value Date Recorded Sex Assigned at Not on file Legal Sex Male 5:56 AM AMBULANCE PARAMEDIC Gender Identity Not on file Sexual Orientation [...] uncontrolled documented in this encounter Care Teams Blasting Cap Assembler Relationship Specialty Start Date End Date Ender Aiken DO [address] [place] [address] PCP - General Family Practice 06/16/16 documented as of this encounter
--- OUTSIDE RECORDS SUMMARY | 2025-01-20 19:39 | XMS_ITS | Clinical Summary ---
Author Organization [employer] Address [address] [place]cos: [place] [address] Care Team Providers Care Gum Worker Name Role Phone Ender Aiken DO Primary Care Provider [phone] Allergies No known active allergies Medications insulin [...] on file Legal Sex Male 1:19 PM MEAT SCRUBBER Gender Identity Not on file Sexual Orientation Not on file Last Filed Vital Signs Vital Sign Reading Time Taken Comments Blood Pressure 136/70 08/13/2023 11:13 AM CDT Pulse 70 08/13/2023 11:13 AM CDT Temperature 36.3 C (97.3 F) 07/11/2016 8:25 AM MEAT SCRUBBER Respiratory Rate 18 07/11/2016 10:20 AM MEAT SCRUBBER Oxygen Saturation 98% 08/13/2023 11:13 AM CDT [...] file Group ID:Not on file Type:Medicaid Address: [address] MEDICARE HMO Care Teams Gum Worker Relationship Specialty Start Date End Date Ender Aiken DO [address] [place] [id number] PCP - General Family Practice 06/16/16
--- OUTSIDE RECORDS SUMMARY | 2025-01-20 19:39 | XMS_ITS | Encounter Summary ---
Author Organization [employer] [facility] Address [address] [place] [address] Care Team Providers Care Scientific Informatics Leader Name Role Phone Ender Aiken DO Primary Care Provider [phone] Encounter Details Date Type Department Care Team (Latest Contact Info) Description 08/04/2003 Outpatient Historical HIS [facility] DIABETES UNCOMPL JUSTIN-TYPE I (CMS/HCC) (Primary Dx); VISUAL LOSS NOS Social History Tobacco Use Types Packs/Day Years Used Date Smoking Tobacco: Never Assessed Sex and Gender Information Value Date Recorded Sex Assigned at Not on file Legal Sex Male 5:56 AM TELEVISION RECEIVER ANALYZER Gender Identity Not on file Sexual Orientation [...] loss documented in this encounter Care Teams Scientific Informatics Leader Relationship Specialty Start Date End Date Ender Aiken DO [address] [place] [address] PCP - General Family Practice 06/16/16 documented as of this encounter
--- OUTSIDE RECORDS SUMMARY | 2025-01-20 19:39 | XMS_ITS | Encounter Summary ---
Author Organization [employer] [facility] Address [address] [place] [address] Care Team Providers Care Mechanical Piping Designer Name Role Phone Ender Aiken DO Primary Care Provider [phone] Encounter Details Date Type Department Care Team (Latest Contact Info) Description 03/16/2002 Outpatient Historical HIS [facility] DIABETES UNCOMPL JUSTIN-TYPE I (CMS/HCC) (Primary Dx); BLINDNESS NOS, BOTH EYES Social History Tobacco Use Types Packs/Day Years Used Date Smoking Tobacco: Never Assessed Sex and Gender Information Value Date Recorded Sex Assigned at Not on file Legal Sex Male 5:56 AM BILINGUAL CUSTOMER SERVICE SPECIALIST Gender Identity Not on file Sexual Orientation [...] eyes documented in this encounter Care Teams Mechanical Piping Designer Relationship Specialty Start Date End Date Ender Aiken DO [address] [place] [address] PCP - General Family Practice 06/16/16 documented as of this encounter
--- OUTSIDE RECORDS SUMMARY | 2025-01-20 19:39 | XMS_ITS | Encounter Summary ---
Author Organization [employer] [facility] Address [address] [place] [address] Care Team Providers Care Hot End Operator Name Role Phone Ender Aiken DO Primary Care Provider [phone] Encounter Details Date Type Department Care Team (Latest Contact Info) Description 10/27/2002 Outpatient Historical HIS [facility] Jonathan Patel MD [address] [place], [place] [id number] DIABETES UNCOMPL ADULT-TYPE II (CMS/HCC) (Primary Dx) Social History Tobacco Use Types Packs/Day Years Used Date Smoking Tobacco: Never Assessed Sex and Gender Information Value Date Recorded Sex Assigned at Not on file Legal Sex Male 5:56 AM CHANGE MANAGER Gender Identity Not on file Sexual Orientation Not on file documented as of this encounter Plan of Treatment Not on file documented as of this encounter Visit Diagnoses Diagnosis Type II or unspecified type diabetes mellitus without mention of complication, not stated as uncontrolled- Primary documented in this encounter Care Teams Hot End Operator Relationship Specialty Start Date End Date Ender Aiken DO [address] [place] [address] PCP - General Family Practice 06/16/16 documented as of this encounter
--- OUTSIDE RECORDS SUMMARY | 2025-01-20 19:39 | XMS_ITS | Encounter Summary ---
Author Organization [employer] Address [address] [place] [address] Care Team Providers Care Home Health Outreach Coordinator Name Role Phone Ender Aiken DO Primary Care Provider [phone] Encounter Details Date Type Department Care Team (Latest Contact Info) Description 10/26/2002 Outpatient Historical HIS [facility] DIABETES UNCOMPL JUSTIN-TYPE I (CMS/HCC) (Primary Dx); HYPOGLYCEMIA NOS Social History Tobacco Use Types Packs/Day Years Used Date Smoking Tobacco: Never Assessed Sex and Gender Information Value Date Recorded Sex Assigned at Not on file Legal Sex Male 5:56 AM KILN LOADER Gender Identity Not on file Sexual [...] unspecified documented in this encounter Care Teams Home Health Outreach Coordinator Relationship Specialty Start Date End Date Ender Aiken DO [address] [place] [address] PCP - General Family Practice 06/16/16 documented as of this encounter
--- OUTSIDE RECORDS SUMMARY | 2025-01-20 19:39 | XMS_ITS | Encounter Summary ---
Author Organization [employer] [facility] Address [address] [place] [address] Care Team Providers Care Dental Technology Advisor Name Role Phone Ender Aiken DO Primary Care Provider [phone] Encounter Details Date Type Department Care Team (Latest Contact Info) Description 10/27/2002 Outpatient Historical HIS [facility] DIABETES UNCOMPL ADULT-TYPE II (CMS/HCC) (Primary Dx) Social History Tobacco Use Types Packs/Day Years Used Date Smoking Tobacco: Never Assessed Sex and Gender Information Value Date Recorded Sex Assigned at Not on file Legal Sex Male 5: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
--- OUTSIDE RECORDS SUMMARY | 2025-01-20 19:39 | XMS_ITS | Encounter Summary ---
Author Organization [employer] [facility] Address [address] [place] [address] Care Team Providers Care Drafter Construction Name Role Phone Ender Aiken DO Primary Care Provider [phone] Encounter Details Date Type Department Care Team (Latest Contact Info) Description 10/26/2002 Outpatient Historical HIS [facility] Jonathan Patel MD [address] [place], [place] [id number] DIABETES UNCOMPL ADULT-TYPE II (CMS/HCC) (Primary Dx) Social History Tobacco Use Types Packs/Day Years Used Date Smoking Tobacco: Never Assessed Sex and Gender Information Value Date Recorded Sex Assigned at Not on file Legal Sex Male 5:56 AM LAWYERS Gender Identity Not on file Sexual Orientation Not on file documented as of this encounter Plan of Treatment Not on file documented as of this encounter Visit Diagnoses Diagnosis Type II or unspecified type diabetes mellitus without mention of complication, not stated as uncontrolled- Primary documented in this encounter Care Teams Drafter Construction Relationship Specialty Start Date End Date Ender Aiken DO [address] [place] [address] PCP - General Family Practice 06/16/16 documented as of this encounter
--- OUTSIDE RECORDS SUMMARY | 2025-01-20 19:39 | XMS_ITS | Clinical Summary ---
Author Organization [facility] Address [address] [place] [address] Phone Care Team Providers Care Voice Studies Director Name Role Phone Ender Aiken Issa Primary Care Provider [phone] Allergies No known active allergies Medications insulin [...] on file Legal Sex Male 5:56 AM SAWMILL OR TIMBER YARD WORKER Gender Identity Not on file Sexual Orientation Not on file Last Filed Vital Signs Vital Sign Reading Time Taken Comments Blood Pressure 108/73 07/11/2016 10:20 AM SAWMILL OR TIMBER YARD WORKER Pulse 69 07/11/2016 10:20 AM SAWMILL OR TIMBER YARD WORKER Temperature 36.3 C (97.3 F) 07/11/2016 8:25 AM SAWMILL OR TIMBER YARD WORKER Respiratory Rate 18 07/11/2016 10:20 AM SAWMILL OR TIMBER YARD WORKER Oxygen Saturation 96% 07/11/2016 10:20 AM SAWMILL OR TIMBER YARD WORKER Inhaled Oxygen Concentration - - Weight 65.8 kg (145 lb) 07/08/2016 11:16 AM SAWMILL OR TIMBER YARD WORKER Height 177.8 cm (5' 10 ) 07/08/2016 11:16 AM SAWMILL OR TIMBER YARD WORKER Body Mass Index 20.81 07/08/2016 11:16 AM SAWMILL OR TIMBER YARD WORKER Plan of Treatment Health Maintenance Due Date [...] Advance Directives For more information, please contact: [phone] * Full Code (Latest Code Status on File) Date Activated Date Inactivated Comments 07/11/2016 8:08 AM 07/11/2016 12:30 PM Care Teams Voice Studies Director Relationship Specialty Start Date End Date Ender Aiken DO [address] [place] [id number] PCP - General Family Practice 06/16/16
--- OUTSIDE RECORDS SUMMARY | 2025-01-20 19:39 | XMS_ITS | Encounter Summary ---
Author Organization [facility] Address [address] [facility] Attn: [place] [address] Care Team Providers Care Nail Mill Worker Name Role Phone Ender Aiken DO Primary Care Provider [phone] Encounter Details Date Type Department Care Team (Late st Contact Info) Description 03/22/2002 Outpatient Historical Jonathan Patel MD [address] [place] [address] Social History Tobacco Use Types Packs/Day Years Used Date Smoking Tobacco: Never Assessed Sex and Gender Information Value Date Recorded Sex Assigned at Not on file Legal Sex Male 5:56 AM TRANSFER COORDINATOR Gender Identity Not on file Sexual Orientation Not on file documented as of this encounter Plan of Treatment Not on file documented as of this encounter Visit Diagnoses Not on filedocumented in this encounter Care Teams Nail Mill Worker Relationship Specialty Start Date End Date Ender Aiken DO [address] [place] [address] PCP - General Family Practice 06/16/16 documented as of this encounter
--- OUTSIDE RECORDS SUMMARY | 2025-01-20 19:39 | XMS_ITS | Encounter Summary ---
Author Organization [employer] [facility] Address [address] [place] [address] Care Team Providers Care Shoer Name Role Phone Ender Aiken DO Primary Care Provider [phone] Encounter Details Date Type Department Care Team (Latest Contact Info) Description 03/22/2002 Outpatient Historical [facility] DIABETES UNCOMPL ADULT-TYPE II (CMS/HCC) (Primary Dx) Social History Tobacco Use Types Packs/Day Years Used Date Smoking Tobacco: Never Assessed Sex and Gender Information Value Date Recorded Sex Assigned at Not on file Legal Sex Male 5:56 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
[2025-01-20 19:41] LABS: Hematocrit 33.2 % (37-53); Hemoglobin 10.70 g/dL (11.27-16.99); Mean Corpuscular HGB Conc 32.2 g/dL (30-55); Mean Corpuscular Hemoglobin 31.8 pg (27-33); Mean Corpuscular Volume 98.8 fl (82-101); Nucleated Red Blood Cells % 0 %; Platelet Count 443 10^3/cmm (157-399); Red Blood Count 3.36 10^6/uL (3.85-5.65); White Blood Count 15.61 10^3/uL (3.29-11.43)
--- NOTE | 2025-01-20 19:43 | PC.NURSE ---
PER DR. WARREN, CONTINUE LR FLUIDS FROM EMS
[2025-01-20 19:57] LABS: Ketone (Acetest) Serum Positive (Negative)
[2025-01-20 20:19] LABS: Alanine Aminotransferase 20 U/L (0-41); Albumin Level 3.9 g/dL (3.5-5.2); Alkaline Phosphatase 109 U/L (40-130); Anion Gap 38.7 (5-19); Aspartate Amino Transferase 19 U/L (0-40); Blood Urea Nitrogen 33 mg/dL (8-23); Calcium 9.3 mg/dL (8.5-10.5); Chloride 92 mmol/L (98-107); Creatinine Clr Calc Pharmacy 51.1256; Globulin 3.2 g/dL (1.3-4.6); Magnesium 2.1 mg/dL (1.7-2.3); Osmolality Calculated 317 mOsm/kg (285-295); Potassium 4.7 mmol/L (3.5-5.1); Sodium 135 mmol/L (136-145); Total Protein 7.1 g/dL (6.6-8.7)
[2025-01-20 20:20] LABS: Glucose Urine UA 3+ (Normal); Nitrate Urine Negative (Negative); Specific Gravity, Urine 1.028 (1.005-1.030)
[2025-01-20 20:37] LABS: Add Urine Microscopic? YES
[2025-01-20 20:39] LABS: Carbon Dioxide 9 mmol/L (22-29); Glucose 638 mg/dL (65-115)
[2025-01-20 20:50] LABS: UA Slide Review UA Slide Review Perf
[2025-01-20 20:58] LABS: Arterial Blood Gas Hematocrit 25.8 % (42-52); Blood Gas Allen Test Pos; Blood Gas Operator Identificat MONRO; Blood Gas Sample Site Brachial, right; Blood Gas Sample Type Arterial; HCO3 ABG 5.5 mmol/L (22-26); PO2 ABG 123.0 mmHg (80.0-100.0); PO2 FiO2 Ratio Arterial Blood 585
[2025-01-20 20:59] LABS: ABG PCO2 14.7 mmHg (35-45); ABG PH Result 7.18 (7.35-7.45)
[2025-01-20] MEDS: ondansetron 2 mg/ML SDV 2 mL 4 MG IVP (21:09)
[2025-01-20] MEDS: insulin regular-human 100 units/1 mL 10 UNIT IVP (21:09)
--- NOTE | 2025-01-20 21:30 | CTR_ITS ---
PROCEDURE INFORMATION: Exam: CT Abdomen And Pelvis Without Contrast Exam date and time: 01/21/2025 5:35 AM Age: 59 years old Clinical indication: Pain and abnormal findings; Abnormal lab test; Elevated wbc; Abdominal pain; Generalized; Prior surgery; Surgery date: 3-7 days post-operative; Surgery type: RT troch nail 01/15/2025. Small bowel resection. Partial colectomy. Diffuse abd pain with leukocytosis and elevated lactic acid. History of rectosigmoid cancer. TECHNIQUE: Imaging protocol: Computed tomography of the abdomen and pelvis without contrast. Radiation optimization: All CT scans at this facility use at least one of these dose optimization techniques: automated exposure control; mA and/or kV adjustment per patient size (includes targeted exams where dose is matched to clinical indication); or iterative reconstruction. COMPARISON: CT abdomen pelvis w con* [id number] 12/03/2020 2:39 PM RADIATION DOSE METRICS: Total DLP (mGy-cm): 1145.67 FINDINGS: Liver: Normal. No mass. Gallbladder and biliary ducts: Contracted gallbladder. Negative for calcified stones. Negative for biliary system dilation. Pancreas: Normal. No ductal dilation. Spleen: Normal. No splenomegaly. Adrenal glands: Normal. No mass. Kidneys and ureters: 2-3 mm diameter calcified nonobstructing stones within the superior left kidney. No hydronephrosis. Stomach and bowel: Postsurgical changes in the right colon. Negative for bowel obstruction. Negative for bowel perforation. Negative for pneumatosis intestinalis. Appendix: Probable appendectomy. Intraperitoneal space: Relatively diffuse mesenteric edema. Negative for organized intraperitoneal fluid collection. Negative for pneumoperitoneum. Vasculature: Unremarkable. No abdominal aortic aneurysm. Lymph nodes: Unremarkable. No enlarged lymph nodes. Urinary bladder: Moderate bladder distension. Intraluminal air-fluid level. Negative for mass or wall thickening. Hull catheter within the bladder. Reproductive: Unremarkable as visualized. Bones/joints: Prior right femur fracture with surgical fixation hardware in place. Soft tissues: Unremarkable. CT/CT abdomen pelvis wo con [id number] IMPRESSION: No definite focal acute abdominopelvic pathology identified.
[2025-01-20] MEDS: INSULIN REGULAR IN 0.9 % NACL 100 UNIT/100 ML BAG 6 UNIT IV (21:35)
--- NOTE | 2025-01-20 21:35 | PM.HP ---
Providers/Chief Complaint Primary Care Provider: Leroy Flores Chief Complaint: HIGH BLOOD SUGAR History of Present Illness Abelino Lawson is a 59 year old male with a past medical history of type 1 diabetes mellitus, legally blind from type 1 diabetes, recent hospitalization for fall right hip fracture, recent hospitalization for concern for food impaction, discharged yesterday, who presents to [facility] due to fatigue, malaise, elevated blood sugars. Patient does report 1 episode of nausea and vomiting, does report poor appetite, he is passing gas, has not had a bowel movement, does have some nonspecific abdominal tenderness, no dysuria, no hematuria, no flank pain Review of Systems Const: Reports: fatigue and malaise; Denies: fever(s) or chills Card: Denies: chest pain Resp: Denies: dyspnea GI: Reports: abdominal pain, nausea and vomiting : Denies: flank pain Neuro: Denies: headache(s) Endo: Reports: polyuria; Denies: polydipsia Medications/Allergies Home Medications ?Medication ?Instructions ?Recorded ?Confirmed ?Last Taken ?Type multivitamin 1 tab PO DAILY 11/21/20 01/19/25 01/14/25 08:00 History pen needle, diabetic 31 gauge x #180 ea 01/21/23 01/19/25 Unknown Rx 08/14 (TechLITE Pen Needle) blood sugar diagnostic (Blood #50 ea 03/26/23 01/19/25 Unknown Rx Glucose Test strips) blood-glucose meter #1 ea 03/26/23 01/19/25 Unknown Rx lancets (Accu-Chek Softclix #100 ea 03/26/23 01/19/25 Unknown Rx Lancets) cetirizine 10 mg tablet 10 mg PO DAILY PRN allergie 01/15/25 01/18/25 01/14/25 08:00 History insulin glargine 100 unit/mL (3 18 unit SUBCUT QPM 01/15/25 01/18/25 01/17/25 History mL) subcutaneous pen (Lantus Solostar U-100 Insulin) insulin lispro 100 unit/mL 25 unit SUBCUT TID 01/15/25 01/18/25 01/14/25 08:00 History subcutaneous pen (Humalog KwikPen (U-100) Insulin) psyllium husk 3.4 gram/5.4 gram 1 tsp PO DAILY 01/15/25 01/18/25 Unknown History oral powder (Metamucil) sertraline 50 mg tablet 50 mg PO DAILY 01/15/25 01/18/25 01/14/25 09:00 History acetaminophen 325 mg tablet 650 mg (2 x 325 mg) PO Q4H PRN 01/17/25 01/18/25 Unknown Rx Mild Pain Or Increase Temp 10 days #40 tabs calcium 600 mg (as 1 tab PO BID@0500,1700 30 days #30 01/17/25 01/18/25 Unknown Rx carbonate)-vitamin D3 10 mcg (400 tabs unit) tablet enoxaparin 30 mg/0.3 mL 30 mg (0.3 mL) SUBCUT DAILY Blood 01/17/25 01/18/25 01/18/25 Rx subcutaneous syringe (Lovenox) Clot Prevention 35 days #10.5 mL loperamide 2 mg capsule 4 mg (2 x 2 mg) PO QID PRN 01/17/25 01/18/25 01/14/25 09:00 Rx diarrhea 30 days #120 caps polysaccharide iron complex 150 mg 150 mg PO BIDWM 30 days #30 caps 01/17/25 01/18/25 Unknown Rx iron capsule (Ferrex) metoclopramide HCl 5 mg tablet 5 mg PO DAILY #90 tabs 01/19/25 Unknown Rx Allergies Allergy/AdvReac Type Severity Reaction Status Date / Time No Known Allergies Allergy Verified 03/24/23 14:39 PFSH Acute PFSH: Medical History Type 1 diabetes mellitus Diastolic dysfunction, left ventricle Sepsis due to Gram-negative organism with septic shock Diabetes mellitus Acute renal failure Blindness of both eyes SBO (small bowel obstruction) GERD (gastroesophageal reflux disease) Status post chemoradiation Rectosigmoid cancer Surgical History H/O ileostomy S/P exploratory laparotomy (11/24/20) Small bowel resection, partial colectomy History of reversal of ileostomy History of low anterior resection of rectum Status post colonoscopy (11/23/20) Family History Family/Other CAD (coronary artery disease) Diabetes Denies family history of Stroke Social History Quit status (tobacco/nicotine): not considering quitting Alcohol intake: never Substance/Drug Use: never Additional social history: Chews tobacco 1 can a day patient disabled after lost his vision previously worked in a [employer]. He wants full CODE STATUS. He wants to go home to care under his Sister Keya after surgery. This was discussed on 01/14/2025 with myself Fco Tolbert MD, Keya and patient Vitals/I&O/Wt Last Vital Signs Temp 98.6 F 01/20/25 19:24 Pulse 96 01/20/25 19:24 Resp 20 H 01/20/25 19:24 BP 136/55 01/20/25 19:24 Pulse Ox 100 01/20/25 19:24 O2 Del Method Room Air 01/20/25 19:24 Weight last 48 hrs Weight 63.049 kg Physical Exam Const: COMMON NORMALS: no acute distress and patient oriented x3 Resp: COMMON NORMALS: normal respiratory effort, No retractions, No use of accessory muscles and clear to auscultation bilaterally AUSCULTATION: clear to auscultation bilaterally Cardio: COMMON NORMALS: no JVD, regular rate, regular rhythm, S1 normal heart sound present and S2 normal heart sound present RATE: regular rate RHYTHM: regular rhythm HEART SOUNDS: S1 normal heart sound present and S2 normal heart sound present GI: OTHER: Abdomen soft, slightly distended, nonspecific diffuse tenderness, no guarding, no rebound, no rigidity Extremity: COMMON NORMALS: no calf tenderness and no pedal edema Neuro: COMMON NORMALS: patient oriented x3, CN's II-XII intact bilaterally and moves all extremities Psych: COMMON NORMALS: mental status grossly normal Skin: NARRATIVE SKIN EXAM: Surgical site, right hip, with a bandage on top looks clean and dry Bilateral feet, no diabetic wounds Data 01/20/25 19:31 01/20/25 19:31 A&P Assessment and plan 1. Type 1 diabetes mellitus: 2. DKA (diabetic ketoacidosis): 3. Acute kidney injury: Plan: Diabetic ketoacidosis Plan -Monitor in the ICU -DKA protocol -Serial BMPs every 4 hours -Blood sugars every hour -Insulin drip -maintain potassium greater than 4.5 -Normal saline at 1.5 cc an hour -Once blood sugars less than 200, switch to D5 half-normal saline with 20 KCl -Once anion gap is less than 14-15, will switch to subcu insulin, Lantus -Keep n.p.o. -Inflammatory markers, CRP, Pro-Baldemar, blood cultures, CT scan abdomen pelvis, lactic acid -Leukocytosis, recent history of right hip surgery, CT scan abdomen pelvis, chest x-ray no pneumonia, UA within normal limits -Acute kidney injury, IV fluids -Full code -Lovenox for DVT prophylaxis PDMP PDMP Reviewed: Not Reviewed Attestations Medical Necessity Statement*: Patient requires hospitalization, inpatient, greater than 2 midnights for diabetic ketoacidosis Coding Level of Care Code Critical Care >/= 30 minutes Critical care time (in minutes): 45 The high probability of a clinically significant, sudden or life threatening deterioration, as referenced in this documentation, required my full and direct attention, intervention and personal management. The critical care time shown is in addition to time spent performing any reported separately billable procedures and includes the following: [x] Data and vital sign review and interpretation [x] Patient assessment, examination and intervention [x] Medication orders and management [x] Patient/Family updates as able [x] Care Coordination and Documentation. Diagnoses Type 1 diabetes mellitus E10.9 DKA (diabetic ketoacidosis) E11.10 Acute kidney injury N17.9
[2025-01-20 21:55] VITALS: BP 146/59; PULSE 92; O2SAT 94
[2025-01-20 21:59] LABS: Lactic Sepsis W/Reflex 2.7 mmol/L (0.5-2.2)
[2025-01-20 22:13] LABS: Reflex Lactate Order REFLEX LACTIC ORDERD
[2025-01-20 23:18] VITALS: PULSE 79
[2025-01-20 23:19] LABS: Anion Gap 35.2 (5-19); Blood Urea Nitrogen 32 mg/dL (8-23); Calcium 8.1 mg/dL (8.5-10.5); Chloride 97 mmol/L (98-107); Lipase 26 U/L (13-60); Osmolality Calculated 312 mOsm/kg (285-295); Potassium 4.2 mmol/L (3.5-5.1); Sodium 136 mmol/L (136-145)
[2025-01-20 23:22] VITALS: BP 121/53; O2SAT 100
[2025-01-20 23:24] LABS: Procalcitonin 2.97 ng/mL (0-0.5)
[2025-01-20] MEDS: morphine 4 mg/mL SDV 1 mL 2 MG IVP (23:24)
[2025-01-20 23:30] VITALS: BP 121/53; PULSE 83; RESP 19; O2SAT 100
[2025-01-20 23:31] LABS: Carbon Dioxide 8 mmol/L (22-29); Creatinine Clr Calc Pharmacy 51.1256
[2025-01-20 23:33] LABS: Glucose 518 mg/dL (65-115)
[2025-01-20 23:45] VITALS: BP 131/48; PULSE 81; RESP 16; O2SAT 100
[2025-01-21] VITALS (44 sets, daily range): BP systolic 104–135; BP diastolic 46–69; PULSE 61–85; RESP 12–24; TEMP 36.6–37.1; O2SAT 95–100
[2025-01-21 00:12] LABS: Lactic Acid level (Lactate) 2.2 mmol/L (0.5-2.2)
[2025-01-21 04:12] LABS: Hematocrit 25.3 % (37-53); Hemoglobin 8.20 g/dL (11.27-16.99); Mean Corpuscular HGB Conc 32.4 g/dL (30-55); Mean Corpuscular Hemoglobin 32.2 pg (27-33); Mean Corpuscular Volume 99.2 fl (82-101); Nucleated Red Blood Cells % 0 %; Platelet Count 319 10^3/cmm (157-399); Red Blood Count 2.55 10^6/uL (3.85-5.65); White Blood Count 12.99 10^3/uL (3.29-11.43)
[2025-01-21] MEDS: D5-NS 0.45% + KCL 20 mEq 20 MEQ/1,000 ML BAG 125 MEQ IV ×2 (04:30→12:28)
[2025-01-21 04:34] LABS: Anion Gap 20.6 (5-19); Blood Urea Nitrogen 29 mg/dL (8-23); Calcium 7.4 mg/dL (8.5-10.5); Carbon Dioxide 17 mmol/L (22-29); Chloride 109 mmol/L (98-107); Creatinine Clr Calc Pharmacy 51.7094; Glucose 246 mg/dL (65-115); Osmolality Calculated 310 mOsm/kg (285-295); Potassium 3.6 mmol/L (3.5-5.1); Sodium 143 mmol/L (136-145)
[2025-01-21] MEDS: morphine 4 mg/mL SDV 1 mL 2 MG IVP ×2 (05:53→20:18)
[2025-01-21 07:58] LABS: Anion Gap 13.5 (5-19); Blood Urea Nitrogen 26 mg/dL (8-23); Calcium 8.0 mg/dL (8.5-10.5); Carbon Dioxide 19 mmol/L (22-29); Chloride 109 mmol/L (98-107); Creatinine Clr Calc Pharmacy 68.8889; Glucose 182 mg/dL (65-115); Osmolality Calculated 295 mOsm/kg (285-295); Potassium 3.5 mmol/L (3.5-5.1); Sodium 138 mmol/L (136-145)
--- NOTE | 2025-01-21 08:54 | PC.PHAR ---
Pt is resident at [facility]
[2025-01-21] MEDS: pantoprazole 40 mg SDV IVP (10:47)
[2025-01-21] MEDS: lidocaine 1% 5 ML in potassium chloride premix 100 ML 52.5 ML IV ×2 (10:47→13:11)
[2025-01-21] MEDS: insulin glargine 100 units/1 mL 10 UNIT SUBCUT (11:12)
[2025-01-21 12:36] LABS: Anion Gap 11.7 (5-19); Blood Urea Nitrogen 24 mg/dL (8-23); Calcium 8.1 mg/dL (8.5-10.5); Carbon Dioxide 21 mmol/L (22-29); Chloride 109 mmol/L (98-107); Creatinine Clr Calc Pharmacy 68.8889; Glucose 182 mg/dL (65-115); Osmolality Calculated 293 mOsm/kg (285-295); Potassium 4.7 mmol/L (3.5-5.1); Sodium 137 mmol/L (136-145)
--- NOTE | 2025-01-21 13:25 | PM.PN ---
Subjective Subjective: The patient was seen in the morning, he was feeling much better. The patient mentioned that at snf his insulin doses were possibly not as he used to take and might be there is some discrepancy in getting the insulin dosage at snf. Therefore he was getting uncontrolled blood glucose levels there Vitals/I&O/Wt Last Vital Signs Temp 98.3 F 01/21/25 04:00 Pulse 69 01/21/25 12:00 Resp 12 01/21/25 12:00 BP 127/61 01/21/25 12:00 Pulse Ox 100 01/21/25 12:00 O2 Del Method Room Air 01/21/25 12:00 01/20/25 01/21/25 01/21/25 22:59 06:59 14:59 Intake Total 1494.584 / 3499.284 1272.016 / 1272.016 Output Total 1000 / 1000 Balance 494.584 / 2499.284 1272.016 / 1272.016 Weight last 48 hrs Weight 61 kg Weight 60.5 kg Weight 63.049 kg Physical Exam Narrative: General: Alert oriented x3, legally blind, patient seen lying comfortably, mild dry mouth HEENT: Normocephalic, atraumatic, EOMI, breathing on room air Cardio: Regular rate rhythm, normal S1-S2, no murmurs rubs gallops, JVD normal Respiratory: Good bilateral air entry, no wheezes no rhonchi appreciated GI: Abdomen soft, nontender, nondistended, normoactive bowel sounds present all 4 quadrants, Neuro: No focal neurological deficit Behavior: Appropriate and cooperative Extremities: Right ORIF, mild trace edema of the respective limb and bilateral palpable pulses present Skin: Visible skin intact, no rashes Urinary Catheter Management: Hull: Cath Placed During This Visit: yes Reason for Continuing Indwelling Catheter: Accurate Measurement of Urinary Output in Critically Ill Patients Urinary Catheter Date of Insertion: 01/15/25 Data 01/21/25 03:22 01/21/25 11:50 Micro: Microbiology 01/20/25 22:44 Blood Culture - Preliminary Blood SPECIMEN COLLECTED 01/20/25 22:47 Blood Culture - Preliminary Blood SPECIMEN COLLECTED A&P Assessment and plan 1. Type 1 diabetes mellitus with other ophthalmic complication: 2. DKA (diabetic ketoacidosis): 3. Acute kidney injury: Plan: Diabetic ketoacidosis Plan - Patient out of DKA. Likely related to medications dose discrepancies at snf - 2 serial BMP showed normal anion gap - Patient already bridged off insulin infusion and potassium replacement done accordingly -Patient able to eat, started on basal 10 units(at home take 14 units) short acting before meals 6 units 3 times daily and sliding scale, monitor glucose in 24 hours and adjust the dose next day - Hold dextrose infusion and can give Ringer lactate 1 L - Continue feet - no source of infection found -Acute kidney injury, IV fluids to continue for 24 hours - monitor glucose -Full code -Lovenox for DVT prophylaxis PDMP PDMP Reviewed: Not Reviewed Attestations Medical Necessity Statement*: Patient will stay for management of his DKA and adjustment of insulin dose accordingly Time Spent in Patient Care: 16 - 35 minutes (>than 50% of time spent in counselling and/or direct pt care on unit). Critical Care Time: The high probability of a clinically significant, sudden or life threatening deterioration, as referenced in this documentation, required my full and direct attention, intervention and personal management. The critical care time shown is in addition to time spent performing any reported separately billable procedures and includes the following: [x] Data and vital sign review and interpretation [x] Patient assessment, examination and intervention [x] Medication orders and management [x] Patient/Family updates as able [x] Care Coordination and Documentation. Critical Care Time (min): 35 Other Attestations: Patient condition has been discussed at length with the patient/family, I have independently reviewed the chart labs imaging and diagnostics and EKG. the goals of care and code status with the patient/family/NOK/legal registered representative, and documented accordingly. The patient/family has been informed about the current condition and further plan of care. Agreed with the plan of care and understood without any language barrier. This documentation was created by [employer] petroleum refining firer software. Every effort was made to ensure accuracy of petroleum refining firer. Any obvious errors or omissions should be clarified with the author of the document. Coding Level of Care Code Critical Care >/= 30 minutes Diagnoses Type 1 diabetes mellitus with other ophthalmic complication E10.39 Diabetes mellitus complication status: with ophthalmic complications Diabetes mellitus complication detail: with other ophthalmic complication DKA (diabetic ketoacidosis) E11.10 Acute kidney injury N17.9
[2025-01-21 15:46] LABS: Anion Gap 11.3 (5-19); Blood Urea Nitrogen 24 mg/dL (8-23); Calcium 7.7 mg/dL (8.5-10.5); Carbon Dioxide 20 mmol/L (22-29); Chloride 107 mmol/L (98-107); Creatinine Clr Calc Pharmacy 84.1975; Glucose 238 mg/dL (65-115); Osmolality Calculated 290 mOsm/kg (285-295); Potassium 4.3 mmol/L (3.5-5.1); Sodium 134 mmol/L (136-145)
[2025-01-21 19:36] LABS: Anion Gap 16.9 (5-19); Blood Urea Nitrogen 20 mg/dL (8-23); Calcium 7.6 mg/dL (8.5-10.5); Carbon Dioxide 18 mmol/L (22-29); Chloride 110 mmol/L (98-107); Creatinine Clr Calc Pharmacy 94.7222; Glucose 122 mg/dL (65-115); Osmolality Calculated 296 mOsm/kg (285-295); Potassium 3.9 mmol/L (3.5-5.1); Sodium 141 mmol/L (136-145)
--- NOTE | 2025-01-21 21:50 | PC.NURSE ---
Redness/irritation and small amount of drainage noted around de la torre catheter during guevara care. Dr. Genao notified. New order for UA and culture drainage if indicated. Leave de la torre catheter for now and monitor.
[2025-01-21 23:42] LABS: Glucose Urine UA Trace (Normal); Nitrate Urine Positive (Negative); Specific Gravity, Urine 1.020 (1.005-1.030)
[2025-01-21 23:48] LABS: Add Urine Microscopic? YES
[2025-01-22] VITALS (18 sets, daily range): BP systolic 113–152; BP diastolic 50–74; PULSE 59–74; RESP 8–16; TEMP 36.7–36.8; O2SAT 95–100
[2025-01-22 00:13] LABS: Anion Gap 15.5 (5-19); Blood Urea Nitrogen 20 mg/dL (8-23); Calcium 7.7 mg/dL (8.5-10.5); Carbon Dioxide 20 mmol/L (22-29); Chloride 106 mmol/L (98-107); Creatinine Clr Calc Pharmacy 108.2540; Glucose 169 mg/dL (65-115); Osmolality Calculated 291 mOsm/kg (285-295); Potassium 4.5 mmol/L (3.5-5.1); Sodium 137 mmol/L (136-145)
[2025-01-22] MEDS: cefTRIAXone 1,000 mg SDV 1000 MG IVP (00:57)
[2025-01-22 04:33] LABS: Hematocrit 25.7 % (37-53); Hemoglobin 8.50 g/dL (11.27-16.99); Mean Corpuscular HGB Conc 33.1 g/dL (30-55); Mean Corpuscular Hemoglobin 32.0 pg (27-33); Mean Corpuscular Volume 96.6 fl (82-101); Nucleated Red Blood Cells % 0 %; Platelet Count 319 10^3/cmm (157-399); Red Blood Count 2.66 10^6/uL (3.85-5.65); White Blood Count 8.12 10^3/uL (3.29-11.43)
[2025-01-22 05:05] LABS: Alanine Aminotransferase 13 U/L (0-41); Albumin Level 2.7 g/dL (3.5-5.2); Alkaline Phosphatase 77 U/L (40-130); Anion Gap 11.2 (5-19); Aspartate Amino Transferase 14 U/L (0-40); Blood Urea Nitrogen 23 mg/dL (8-23); Calcium 7.8 mg/dL (8.5-10.5); Carbon Dioxide 24 mmol/L (22-29); Chloride 106 mmol/L (98-107); Creatinine Clr Calc Pharmacy 84.1975; Globulin 2.0 g/dL (1.3-4.6); Glucose 229 mg/dL (65-115); Osmolality Calculated 295 mOsm/kg (285-295); Potassium 4.2 mmol/L (3.5-5.1); Sodium 137 mmol/L (136-145); Total Protein 4.7 g/dL (6.6-8.7)
[2025-01-22] MEDS: morphine 4 mg/mL SDV 1 mL 2 MG IVP ×2 (05:39→15:32)
[2025-01-22] MEDS: pantoprazole 40 mg SDV IVP (08:58)
--- NOTE | 2025-01-22 12:41 | P.DS_ITS ---
Discharge Providers Date of Admission: 01/20/25 21:06 Date of Discharge: January 22, 2025 Attending Provider at Admission: Salty Genao MD Attending Provider at Discharge: Paulina Rucker MD Primary Care Provider: Leroy Flores Diagnoses at Discharge Discharge Diagnosis 1. Type 1 diabetes mellitus with other ophthalmic complication: 2. DKA (diabetic ketoacidosis): 3. Acute kidney injury: Reason for Visit Reason for Visit: HIGH BLOOD SUGAR Brief History: Abelino Lawson is a 59 year old male with a past medical history of type 1 diabetes mellitus, legally blind from type 1 diabetes, recent hospitalization for fall right hip fracture, recent hospitalization for concern for food impaction, discharged yesterday, who presents to [facility] due to fatigue, malaise, elevated blood sugars. Patient does report 1 episode of nausea and vomiting, does report poor appetite, he is passing gas, has not had a bowel movement, does have some nonspecific abdominal tenderness, no dysuria, no hematuria, no flank pain. Hospital Course Hospital Course the patient came with signs and symptoms of DKA,. he was kept on insulin infusion with correction and monitoring of glucose, electrolytes accordingly. further history by the patient revealed that at longterm there is a possibility of discrepancy in his insulin dosages thatswhy his sugars were getting uncontrolled. his UA was suggestive of possible UTI, no growth on blood and urine cultures so far. he was kept on antibiotics and fluids. his AG became normal and insulin brigding acheived without any complications. patient was stable throughout his hospital stay. to be discharged on oral antibiotics to longterm with education on medications compliance. to continue the home dose. the patient felt better. his stability established before discharge. labs and investigations reviewed independently and discussed with the patient. he understands without any language barrier and agreed with the plan of care. Patient condition has been discussed at length with the patient/family, I have independently reviewed the chart labs imaging and diagnostics and EKG. the goals of care and code status with the patient/family/NOK/legal software sales representative, and documented accordingly. The patient/family has been informed about the current condition and further plan of care. Agreed with the plan of care and understood without any language barrier. This documentation was created by [employer] zinc plating machine operator software. Every effort was made to ensure accuracy of zinc plating machine operator. Any obvious errors or omissions should be clarified with the author of the document. Physical Exam Narrative: General: Alert oriented x3, legally blind, patient seen lying comfortably, HEENT: Normocephalic, atraumatic, EOMI, breathing on room air Cardio: Regular rate rhythm, normal S1-S2, no murmurs rubs gallops, JVD normal Respiratory: Good bilateral air entry, no wheezes no rhonchi appreciated GI: Abdomen soft, nontender, nondistended, normoactive bowel sounds present all 4 quadrants, Neuro: No focal neurological deficit Behavior: Appropriate and cooperative Extremities: Right ORIF, mild trace edema of the respective limb and bilateral palpable pulses present Skin: Visible skin intact, no rashes Urinary Catheter Management: Hull: Cath Placed During This Visit: yes Reason for Continuing Indwelling Catheter: Chronic Indwelling Urinary Catheter on Admission Urinary Catheter Date of Insertion: 01/15/25 Discharge Data Studies Completed and Pending Completed Studies During Hospitalization Category Date Time Status CT abdomen pelvis wo con [id number] Stat Cat Scan 01/20/25 21:30 Completed XR chest 1V portable [id number] Stat Exams 01/20/25 19:32 Completed Pending at discharge Category Date Time Status Blood Culture Stat Lab 01/20/25 22:44 Results CBC Auto Diff [Complete Blood Count w/Auto] AM LABS Lab 01/23/25 04:00 Ordered CMP [Comprehensive Metabolic Panel] AM LABS Lab 01/23/25 04:00 Ordered Urine Culture Routine Lab 01/21/25 22:45 Received Radiology Impressions Chest X-Ray 01/20/25 19:32 IMPRESSION: No acute cardiopulmonary abnormality. Abdomen/Pelvis CT 01/20/25 21:30 IMPRESSION: No definite focal acute abdominopelvic pathology identified. Laboratory Results WBC 8.12 10^3/uL (3.29-11.43) 01/22/25 03:38 RBC 2.66 10^6/uL (3.85-5.65) L 01/22/25 03:38 Hgb 8.50 g/dL (11.27-16.99) L 01/22/25 03:38 Hct 25.7 % (37-53) L 01/22/25 03:38 MCV 96.6 fl (82-101) 01/22/25 03:38 MCH 32.0 pg (27-33) 01/22/25 03:38 MCHC 33.1 g/dL (30-55) 01/22/25 03:38 RDW 13.9 % (12.1-15.1) 01/22/25 03:38 Plt Count 319 10^3/cmm (157-399) 01/22/25 03:38 MPV 10.5 fL (7.4-10.4) H 01/22/25 03:38 Neut % (Auto) 68.5 % 01/22/25 03:38 Lymph % (Auto) 21.8 % 01/22/25 03:38 Rolette % (Auto) 6.0 % 01/22/25 03:38 Eos % (Auto) 3.1 % 01/22/25 03:38 Baso % (Auto) 0.4 % 01/22/25 03:38 Neut # (Auto) 5.56 10^3/uL (1.8-7.7) 01/22/25 03:38 Lymph # (Auto) 1.8 10^3/uL (0.8-4.8) 01/22/25 03:38 Rolette # (Auto) 0.5 10^3/uL (0.2-0.9) 01/22/25 03:38 Eos # (Auto) 0.3 10^3/uL (0.0-0.8) 01/22/25 03:38 Baso # (Auto) 0.0 10^3/uL (0.0-0.1) 01/22/25 03:38 Nucleated RBC % (auto) 0 % 01/22/25 03:38 Nucleated RBCs # 0.0 /100WBC 01/22/25 03:38 Specimen Type Arterial 01/20/25 20:44 Sample Site Brachial, right 01/20/25 20:44 ABG pH 7.18 (7.35-7.45) L* 01/20/25 20:44 ABG pCO2 14.7 mmHg (35-45) L* 01/20/25 20:44 ABG pO2 123.0 mmHg (80.0-100.0) H 01/20/25 20:44 ABG PO2/FiO2 Ratio 585 01/20/25 20:44 ABG HCO3 5.5 mmol/L (22-26) L 01/20/25 20:44 ABG Base Excess -20.8 mmol/L (-2.0-2.0) L 01/20/25 20:44 Primitivo Test Pos 01/20/25 20:44 Hematocrit 25.8 % (42-52) L 01/20/25 20:44 O2 Delivery Device Room air 01/20/25 20:44 FiO2 21.0 % 01/20/25 20:44 Finish Photographer ID Nito 01/20/25 20:44 Sodium 137 mmol/L (136-145) 01/22/25 03:38 Potassium 4.2 mmol/L (3.5-5.1) 01/22/25 03:38 Chloride 106 mmol/L (98-107) 01/22/25 03:38 Carbon Dioxide 24 mmol/L (22-29) 01/22/25 03:38 Anion Gap 11.2 (5-19) 01/22/25 03:38 BUN 23 mg/dL (8-23) 01/22/25 03:38 Creatinine 0.9 mg/dL (0.7-1.2) 01/22/25 03:38 GFR Calculation 86.1 mL/min (90-130) L 01/22/25 03:38 Glucose 229 mg/dL (65-115) H 01/22/25 03:38 POC Glucose 109 mg/dL (70-110) 01/22/25 11:11 Calculated Osmolality 295 mOsm/kg (285-295) 01/22/25 03:38 Lactic Acid 2.7 mmol/L (0.5-2.2) H 01/20/25 19:31 Lactic Acid (Sepsis) 2.2 mmol/L (0.5-2.2) 01/20/25 23:49 Calcium 7.8 mg/dL (8.5-10.5) L 01/22/25 03:38 Magnesium 2.1 mg/dL (1.7-2.3) 01/20/25 19:31 Total Bilirubin 0.4 mg/dL (0.15-1.2) 01/22/25 03:38 AST 14 U/L (0-40) 01/22/25 03:38 ALT 13 U/L (0-41) 01/22/25 03:38 Alkaline Phosphatase 77 U/L (40-130) 01/22/25 03:38 C-Reactive Protein 70.9 mg/L (0.0-4.9) H 01/20/25 19:31 Total Protein 4.7 g/dL (6.6-8.7) L 01/22/25 03:38 Albumin 2.7 g/dL (3.5-5.2) L 01/22/25 03:38 Globulin 2.0 g/dL (1.3-4.6) 01/22/25 03:38 Lipase 26 U/L (13-60) 01/20/25 22: Procalcitonin 2.97 ng/mL (0-0.5) H 01/20/25 22:27 Urine Color Yellow (Yellow) 01/21/25 22:45 Urine Appearance Clear (CLEAR) 01/21/25 22:45 Urine pH 5.5 (5-7) 01/21/25 22:45 Ur Specific Thayne 1.020 (1.005-1.030) 01/21/25 22:45 Urine Protein Trace (Negative) A 01/21/25 22:45 Urine Glucose (UA) Trace (Normal) H 01/21/25 22:45 Urine Ketones 1+ (Negative) H 01/21/25 22:45 Urine Blood Negative (Negative) 01/21/25 22:45 Urine Nitrate Positive (Negative) A 01/21/25 22:45 Urine Bilirubin Negative (Negative) 01/21/25 22:45 Urine Urobilinogen 0.2 mg/dL (Negative) 01/21/25 22:45 Ur Leukocyte Esterase 1+ (Negative) A 01/21/25 22:45 Urine RBC 0-2 /hpf (0-2) 01/21/25 22:45 Urine WBC 51-100 /hpf (0-5) H 01/21/25 22:45 Ur Squamous Epith Cells 0-5 /hpf (0-5) 01/21/25 22:45 Amorphous Sediment Not Reportable 01/21/25 22:45 Urine Bacteria 4+ /hpf (NONE) H 01/21/25 22:45 Hyaline Casts 1.21 /lpf 01/21/25 22:45 Other Casts Wbc cast /lpf 01/20/25 20:10 Serum Ketones Positive (Negative) H 01/20/25 19:31 Vitals Last Vital Signs Temp 98.3 F 01/22/25 04:00 Pulse 70 01/22/25 12:00 Resp 12 01/22/25 12:00 BP 126/62 01/22/25 12:00 Pulse Ox 98 01/22/25 12:00 O2 Del Method Room Air 01/22/25 12:00 Discharge Plan Discharge Patient Disposition: Home Condition: Stable Prescriptions: New sulfamethoxazole-trimethoprim [Bactrim DS] 800-160 mg tablet 1 tab PO BID 7 Days Qty: 14 0RF Continued (DME) pen needle, diabetic [TechLITE Pen Needle] 31 gauge x 3/16 needle See Rx Instructions .ROUTE .COMPLEX Qty: 180 3RF Dose Instruction: USE DIRECTED FOR INJECTION OF INSULIN Rx Instructions: USE DIRECTED FOR INJECTION OF INSULIN (DME) Blood Glucose Test Strip See Rx Instructions .Route Qty: 50 6RF Rx Instructions: As directed (DME) blood-glucose meter Kit See Rx Instructions .Route Qty: 1 0RF Rx Instructions: As directed (DME) lancets [Accu-Chek Softclix Lancets] Misc See Rx Instructions .Route Qty: 100 0RF Rx Instructions: As directed sertraline 50 mg tablet 50 mg PO DAILY insulin lispro [Humalog KwikPen Insulin] 100 unit/mL insulin pen 25 unit SUBCUT TID insulin glargine [Lantus Solostar U-100 Insulin] 100 unit/mL (3 mL) insulin pen 18 unit SUBCUT QPM cetirizine 10 mg Tablet 10 mg PO DAILY PRN (Reason: allergie) Metamucil 3.4 gram/5.4 gram Powder 1 tsp PO DAILY Rx Instructions: mix into at least 4 oz water or juice before administering polysaccharide iron complex [Ferrex 150] 150 mg iron Capsule 150 mg PO BIDWM 30 Days Qty: 30 0RF acetaminophen 325 mg Tablet 650 mg PO Q4H PRN (Reason: Mild Pain Or Increase Temp) 10 Days Qty: 40 0RF loperamide 2 mg capsule 4 mg PO QID PRN (Reason: diarrhea) 30 Days Qty: 120 0RF metoclopramide HCl 5 mg tablet 5 mg PO DAILY MDD 10mg Qty: 90 0RF tuberculin PPD 5 tub. unit /0.1 mL Solution 0.1 ml INTRADERMAL .Q14D oxycodone 5 mg Tablet 5 mg PO Q6H PRN (Reason: Pain, Moderate) insulin lispro protamin-lispro 100 unit/mL (50-50) Insulin Pen 35 unit SUBCUT DAILY Referrals: Leroy Flores NP [Primary Care Provider, Family Practice] Nicolasa Madrigal MD [Physician, Endocrinology] - 4-7 days Referral Note: admitted with DKA for further review and need of follow up Discharge Diet: Advance as tolerated, Usual diet and Diabetic Discharge Activity: Resume usual activity Patient Instructions: Opioid Safety, Patient Portal & Dannie Instructions Patient's Health Concerns: to have longterm to follow his DM regimen according to the prescription. hba1c is better controlled however need compliance of medications Discharge Attestations Time Spent in Discharge Care*: critical care time Specific Discharge Activities: educating patient, educating and/or supporting family/caregiver, discussing with pcp/other providers, discussing with case coordinator/social workers/dc planners, documenting/other paperwork and evaluating patient/reviewing data Status at Discharge: Cognitive status at discharge: cognitively intact , Behavioral status at discharge: cooperative , Functional status at discharge: other assisted ambulation , Overall status at discharge: patient is back to baseline Quality Metrics Clinical Quality Measures [ No reported AMI, CVA or VTE this stay] Coding Level of Care Code Critical Care >/= 30 minutes Diagnoses Type 1 diabetes mellitus with other ophthalmic complication E10.39 Diabetes mellitus complication status: with ophthalmic complications Diabetes mellitus complication detail: with other ophthalmic complication DKA (diabetic ketoacidosis) E11.10 Acute kidney injury N17.9
--- NOTE | 2025-01-22 13:00 | PC.NURSE ---
Monik Richter notified via telephone of pt's impeding return today. Report given to Dhara Simmons LPN.. All questions answered. Prescriptions are to be sent to [facility].
--- NOTE | 2025-01-22 14:00 | PC.NURSE ---
Discussed discharge, : Acute kidney injury, DKA, only changes in his medications is a new prescription for Bactrim, Bactrim's purpose, follow up with Urology in two weeks. No other changes in his discharge orders. Pt verbalized understanding. Called his sister, Keya Lawson and notified of impending discharge and discussed his discharge orders( including follow- up appt, with urology) and medications with her. No further questions
--- NOTE | 2025-01-22 16:49 | PC.NURSE ---
Ready transport personnel here. Pt transfer to their care. Pt discharged from ICU back to [facility].
== END 2025-01-22 16:48 | disposition intermediate care facility (04) | DRG 638 ==
LOC: ER 21:43 → ICU 23:04
PROVIDERS: Admitting Provider Family Medicine; Emergency Provider Emergency Medicine; PCP Clinical Nurse Specialist Adult Health; Visit Provider Student in an Organized Health Care Education/Training Program
DX: E10.10 Type 1 diabetes mellitus with ketoacidosis without coma (principal); N17.9 Acute kidney failure, unspecified; N39.0 Urinary tract infection, site not specified; Z79.4 Long term (current) use of insulin; E10.39 Type 1 diabetes mellitus with other diabetic ophthalmic complication; H54.8 Legal blindness, as defined in USA; F17.220 Nicotine dependence, chewing tobacco, uncomplicated; Z85.038 Personal history of other malignant neoplasm of large intestine; Z92.3 Personal history of irradiation
CPT/HCPCS: 36415; 36416; 36600; 71045; 74176; 80048; 80053; 81001; 82009; 82803; 82962; 83605; 83690; 83735; 84145; 85025; 86140; 87040; 87077; 87086; 87186; 93005; 94664; 96365; 96367; 96372; 96375; 99285; J0696; J1650; J1815; J2270; J2405; J2470; J3480; J7030; J7120; J9999

== ENCOUNTER → 2025-01-31 08:49 | Outpatient (BNVA) | payer MEDICARE, MEDICAID, SELFPAY | PROVIDERS: PCP Clinical Nurse Specialist Adult Health; Visit Provider Physician Assistant | DX: S72.141A Displaced intertrochanteric fracture of right femur, initial encounter for closed fracture (principal); Z98.890 Other specified postprocedural states; X58.XXXA Exposure to other specified factors, initial encounter | CPT/HCPCS: 73502; 73552; 99024 ==

== ENCOUNTER → 2025-03-15 10:53 | Outpatient (BNVA) | payer MEDICARE, MEDICAID, SELFPAY | PROVIDERS: PCP Clinical Nurse Specialist Adult Health; Visit Provider Physician Assistant | DX: Z98.890 Other specified postprocedural states (principal); Z87.81 Personal history of (healed) traumatic fracture | CPT/HCPCS: 73502; 73552; 99024 ==